=== PATIENT | female | born 1945 | race Caucasian/White ===

== ENCOUNTER 2019-12-17 15:43 | Outpatient (CLI) | payer MEDICARE, OTHER, SELFPAY ==
--- NOTE | ~2019-12-17 | CT_ITS ---
EXAMINATION: CT abdomen pelvis wo con DATE: 12/17/2019 16:06 INDICATION: Unilateral inguinal hernia without obstruction. Diverticulitis. TECHNIQUE: Computed tomography (CT) of the abdomen and pelvis was performed without intravenous contr ast. The dose-length product was 459.60 mGy-cm. Automated exposure control and iterative reconstructi on technique were employed. COMPARISON: CT dated 12/08/2019 FINDINGS: There is right middle lobe atelectasis. Cardiomegaly. There is atherosclerosis of the aorta . No thoracic lymphadenopathy. Near-complete resolution of sigmoid diverticulitis. Persistent right i nguinal hernia containing nonobstructed small bowel. Small fat-containing umbilical hernia. The liver, spleen, pancreas, adrenal glands and kidneys are un remarkable. Gallbladder is contracted. There is. 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 Moderate lumbar spondylosis. No free air or free fluid. IMPRESSION: 1. Right inguinal hernia containing nonobstructed small bowel. 2: Near complete resolution of sigmoid diverticulitis. Reviewed, dictated and finalized at location A. KEEPER
== END 2019-12-17 15:44 | disposition home or self-care (01) ==
PROVIDERS: PCP Emergency Medicine; Visit Provider Emergency Medicine
DX: K40.90 Unilateral inguinal hernia, without obstruction or gangrene, not specified as recurrent (principal)
CPT/HCPCS: 74176

== ENCOUNTER 2019-12-30 07:33 | Outpatient (CLI) | payer MEDICARE, OTHER, SELFPAY ==
[2019-12-30 08:43] LABS: Alanine Aminotransferase 25 U/L (4-35); Albumin Level 4.2 g/dL (3.5-5.1); Alkaline Phosphatase 58 U/L (38-126); Aspartate Amino Transferase 25 U/L (14-36); Bilirubin,Total 0.6 mg/dL (0.2-1.3); Blood Urea Nitrogen 9 mg/dL (7-17); Calcium 9.3 mg/dL (8.4-10.2); Carbon Dioxide 30 mmol/L (22-30); Chloride 98 mmol/L (98-107); Cholesterol 159 mg/dL (0-200); Estimated Glomerular Filt Rate > 60; Glucose 104 mg/dL (65-105); HDL Direct 61 mg/dL; Sodium 139 mmol/L (137-145); Triglycerides 66 mg/dL (<150)
[2019-12-30 08:54] LABS: LDL Cholesterol Direct 81 mg/dL
[2019-12-30 09:36] LABS: Vitamin D 25 Hydroxy 27.9 ng/mL
== END 2019-12-30 07:34 | disposition home or self-care (01) ==
PROVIDERS: PCP Emergency Medicine; Visit Provider Emergency Medicine
DX: E78.5 Hyperlipidemia, unspecified (principal); E55.9 Vitamin D deficiency, unspecified
CPT/HCPCS: 36415; 80053; 80061; 82306

== ENCOUNTER → 2020-01-28 08:39 | Outpatient (CLI) | payer MEDICARE, OTHER, SELFPAY ==
--- NOTE | ~2020-01-28 | MMUS_ITS ---
EXAMINATION: MM diagnostic santino LT w stephen, US breast LT limited HISTORY: Palpable lump of the inner left breast TECHNIQUE: Craniocaudal, mediolateral, and mediolateral oblique 3-D tomosynthesis images of the left breast were performed and synthetic 2-D images were generated. CAD analysis was submitted and interpr eted. High resolution and limited left breast ultrasound was performed. COMPARISON: No prior mammogram is currently available for comparison. BREAST PARENCHYMAL COMPOSITION: There are scattered areas of fibroglandular density. FINDINGS: MAMMOGRAPHIC FINDINGS: There is no evidence of suspicious mass, calcification, or architectural distortion to suggest malig nikkie. No mammographic correlate is identified for the reported palpable abnormality of the left paz ast. ULTRASOUND: There is no evidence of focal abnormal solid or cystic lesion in the vicinity of the reported palpabl e abnormality of concern. IMPRESSION: 1. No specific mammographic or sonographic correlate is identified for the reported palpable abnormal ity of concern. Further evaluation at this time should be based on clinical assessment. Continued fol low-up physical examination is recommended. 2. Recommend routine screening mammography. BI-RADS Category 1: Negative Reviewed, dictated and finalized at location A. IMPRESSION: 1. No specific mammographic or sonographic correlate is identified for the repo rted palpable abnormality of concern. Further evaluation at this time should be based on clinical assessment. Continued follow-up physical examination is amos mmended. 2. Recommend routine screening mammography. BI-RADS Category 1: Negative
== END ==
PROVIDERS: PCP Emergency Medicine; Visit Provider Obstetrics & Gynecology
DX: N63.20 Unspecified lump in the left breast, unspecified quadrant (principal); Z85.3 Personal history of malignant neoplasm of breast
CPT/HCPCS: 76642; 77061; 77065; G0279

== ENCOUNTER 2020-03-27 05:09 | Outpatient (CLI) | payer MEDICARE, OTHER, SELFPAY ==
[2020-03-27 15:31] LABS: SARS-CoV-2 RNA PCR Negative
== END 2020-03-27 05:10 | disposition home or self-care (01) ==
LOC: ANHCOVIDDT 05:10
PROVIDERS: PCP Emergency Medicine; Visit Provider Surgery
DX: Z01.818 Encounter for other preprocedural examination (principal); Z11.59 Encounter for screening for other viral diseases
CPT/HCPCS: 87635; C9803; U0003

== ENCOUNTER 2020-03-29 00:21 | Day surgery (SDC) | payer MEDICARE, OTHER, SELFPAY ==
[2020-01-20 13:31] VITALS: BMI 27.6
[2020-03-24 10:09] VITALS: BMI 28.3
--- NOTE | 2020-03-28 18:28 | PM.SD ---
Same Day Admit/Disch: HPI History of Present Illness Chief complaint: Right Inguinal Hernia Narrative: Maryellen Sandoval is a 74 year old female who has had a painful right inguinal bulge for at least [address] scan in November showed a right inguinal hernia with small intestine in the hernia but not obstructed. She is taken to surgery now for outpatient repair. [facility] Past Medical History Medical History Breast cancer COPD (chronic obstructive pulmonary disease) Depression Diverticulitis GERD (gastroesophageal reflux disease) HLD (hyperlipidemia) HTN (hypertension) URI with cough and congestion UTI (urinary tract infection) Surgical History Surgical History History of hysterectomy S/P lumpectomy, right breast Family History Family History Mother Family history of malignant neoplasm Family history of emphysema Family history of lung cancer Family history of chronic obstructive pulmonary disease Father Hypertension Family history of heart disease in male family member before age 55 Acute myocardial infarction Social History Social History Smoking status: Former smoker Smoking end date: 11/17/08 Alcohol intake: current Gender identity (if verbalized by the patient): Female Same Day Admit/Disch: Med Pre-admit Medications Home Medications Medication Instructions Recorded Confirmed Type albuterol sulfate 90 mcg/actuation 1 inhalation INHALATION Q6H PRN 11/23/19 03/24/20 History aerosol inhaler alprazolam 0.5 mg tablet 0.5 mg PO BID 11/23/19 03/24/20 History amlodipine 10 mg tablet 10 mg PO HS 11/23/19 03/24/20 History atorvastatin 40 mg tablet 40 mg PO DAILY 11/23/19 03/24/20 History bupropion HCl 150 mg tablet,12 hr 150 mg PO QAM 11/23/19 03/24/20 History sustained-release fluticasone propionate 115 2 puff INHALATION BID 11/23/19 03/24/20 History mcg-salmeterol 21 mcg/actuation HFA inhaler fluticasone propionate 50 1 spray NASAL BID 11/23/19 03/24/20 History mcg/actuation nasal spray,suspension inhalational spacing device #1 each 11/23/19 12/30/19 History lisinopril 20 mg tablet 20 mg PO DAILY 11/23/19 03/24/20 History Daily Multivitamin 1 cap PO DAILY 11/30/19 03/24/20 History Probiotic 1 cap PO BID 11/30/19 03/24/20 History Calcium 600 + D(3) 1 cap PO BID 01/20/20 03/24/20 History loratadine [Claritin] 10 mg PO DAILY 01/20/20 03/24/20 History omeprazole 40 mg capsule,delayed 40 mg PO DAILY #90 cap 03/22/20 03/24/20 Rx release aspirin 81 mg PO EVERY OTHER DAY 03/24/20 03/24/20 History hydrocodone-acetaminophen 1 - 2 tablet PO Q6H PRN #7 tablet 03/29/20 Rx ibuprofen 600 mg PO Q6H PRN #14 tablet 03/29/20 Rx Exam Const: General: comfortable, no acute distress, alert and awake HENMT: Head: normocephalic and atraumatic Mouth: Yes Normal oral and palatal mucosa present Eyes: Conjunctivae: conjunctivae normal Pupils: Equal, round and reactive pupils present EOM: EOMs intact bilaterally Neck: Neck: normal visual inspection, no lymphadenopathy and nontender Resp: Effort & Inspection: normal respiratory effort Auscultation: clear to auscultation bilaterally Cardio: Rate: regular rate Rhythm: regular rhythm Heart sounds: no gallops, no murmurs and no rubs GI: Inspection: non-distended and visible herniation (right inguinal bulge) GI Palp: Yes Soft to palpation, No Tenderness to palpation present (GI), No Hepatomegaly present, No Splenomegaly present and Yes Hernia present (tender but reducible right inguinal hernia) Auscultation: normal bowel sounds Skin: Lesions: no lesions Rashes: no rashes Neuro: General: no focal motor deficits and CN's II-XI intact bilaterally Cranial nerves: Yes Equal, round and reactive pupils present, Yes Bilater
--- NOTE | 2020-03-29 06:52 | WPDHPUPDATE1 ---
History and Physical Update Update Date/Time: 03/29/20 06:52 History and Physical has been reviewed, including an updated exam of the patient. There are NO changes in the patient's condition. Risks, benefits, and alternatives have been discussed and questions answered. Patient agrees to proceed with procedure.
[2020-03-29] MEDS: LACTATED RINGERS 1,000 ML 30 ML IV CONT ×2 (07:25→09:33)
[2020-03-29 07:46] VITALS: BP 130/68; PULSE 59; RESP 16; TEMP 36.6; O2SAT 100
--- NOTE | 2020-03-29 07:46 | WPDANESEPPF ---
Anes - Initial Pre Proc Eval Procedure: Operation Date: 03/29/20 09:00 Proposed Procedures p Right Inguinal Hernia Repair - Rajendra Ramirez MD Date/Time: 03/29/20 07:46 Surgeon: Rajendra Ramirez MD Pre Op Diagnosis: Right Inguinal Hernia Patient Data Age: 74 Gender: F Height: 5 ft 3 in Weight: 73.7 kg Allergies Allergy/AdvReac Type Severity Reaction Status Date / Time iodine Allergy Severe Swelling Verified 03/29/20 07:04 AND ITCHING shellfish derived Allergy Severe Itching Verified 03/29/20 07:04 AND SWELLING Sulfa (Sulfonamide Allergy Mild RASH Verified 03/29/20 07:04 Antibiotics) Home Medications Medication Instructions Recorded Confirmed Type albuterol sulfate 90 mcg/actuation 1 inhalation INHALATION Q6H PRN 11/23/19 03/24/20 History aerosol inhaler alprazolam 0.5 mg tablet 0.5 mg PO BID 11/23/19 03/24/20 History amlodipine 10 mg tablet 10 mg PO HS 11/23/19 03/24/20 History atorvastatin 40 mg tablet 40 mg PO DAILY 11/23/19 03/24/20 History bupropion HCl 150 mg tablet,12 hr 150 mg PO QAM 11/23/19 03/24/20 History sustained-release fluticasone propionate 115 2 puff INHALATION BID 11/23/19 03/24/20 History mcg-salmeterol 21 mcg/actuation HFA inhaler fluticasone propionate 50 1 spray NASAL BID 11/23/19 03/24/20 History mcg/actuation nasal spray,suspension inhalational spacing device #1 each 11/23/19 12/30/19 History lisinopril 20 mg tablet 20 mg PO DAILY 11/23/19 03/24/20 History Probiotic 1 cap PO BID 11/30/19 03/24/20 History [id number]-vit [id number] 1 cap PO DAILY 11/30/19 03/24/20 History [Daily Multivitamin] calcium carbonate-vitamin D3 1 cap PO BID 01/20/20 03/24/20 History [Calcium 600 + D(3)] loratadine [Claritin] 10 mg PO DAILY 01/20/20 03/24/20 History omeprazole 40 mg capsule,delayed 40 mg PO DAILY #90 cap 03/22/20 03/24/20 Rx release aspirin 81 mg PO EVERY OTHER DAY 03/24/20 03/24/20 History Patient hx anesthesia problems: other (prolonged forgetfulness) Family hx anesthesia problems: none PMFSH Past Medical History Medical History Breast cancer COPD (chronic obstructive pulmonary disease) Depression Diverticulitis GERD (gastroesophageal reflux disease) HLD (hyperlipidemia) HTN (hypertension) URI with cough and congestion UTI (urinary tract infection) Surgical History Surgical History History of hysterectomy S/P lumpectomy, right breast Family History Family History Mother Family history of malignant neoplasm Family history of emphysema Family history of lung cancer Family history of chronic obstructive pulmonary disease Father Hypertension Family history of heart disease in male family member before age 55 Acute myocardial infarction Social History Social History Smoking status: Former smoker Smoking end date: 11/17/08 Alcohol intake: current Gender identity (if verbalized by the patient): Female Anes - Eval Final PreProcedure Day of Procedure 03/29/20 07:46 Patient weight: overweight Heart: regular rate and rhythm Lungs: decreased breath sounds Airway: Mallampati scale class II Neurological: alert and oriented Last oral intake: >/= 8 hours ASA classification: III Emergent: no Anesthetic plan: proceed Anesthesia type and monitoring: general GIVS and standard monitoring Informed Consent: The patient's anesthetic plan and its attendant risks and benefits were discussed with the patient/family/POA. Questions were solicited and answers provided to the satisfaction of the patient/family/POA.
[2020-03-29] MEDS: ceFAZolin 2 GM/D5W 50 ML 2 GM/50 ML BAG IVPB (08:31)
[2020-03-29 09:33] VITALS: BP 118/84; PULSE 77; RESP 16; O2SAT 98
--- NOTE | 2020-03-29 09:47 | PM.PROC ---
Procedure Note - Detailed Date of procedure: 03/29/20 Pre-op diagnosis: Right Inguinal Hernia Right inguinal hernia Post-op diagnosis: same Procedure performed: Right inguinal hernia repair with 8 cm Parietex hernia mesh system Description of procedure: The patient was taken to surgery and placed in a supine position. The right groin and genitalia were prepped and draped. The proposed incision was marked on the skin. Local anesthesia was infiltrated in the area of the anticipated incision and in the deeper subcutaneous tissues. Incision was made and dissection was carried down to La's fascia. We continued on beyond La's fascia to the external oblique aponeurosis. Cautery was used for hemostasis. The aponeurosis and external ring were exposed. Additional local was infiltrated deep to the aponeurosis in the area of the inguinal canal contents. The external oblique aponeurosis was then opened laterally and extended medially through the external ring. Care was taken to preserve the ileoinguinal nerve which was left intact. I dissected in the anteromedial aspect of the round ligament and found the hernia sac. This was an indirect hernia. It was good-sized. I dissected it free from the round ligament and then dissected back to the internal ring. I had to divide the round ligament near the internal ring so that the hernia sac could be dissected back to a high dissection. I then dunked the hernia sac into the retroperitoneum. A 8 cm Parietex [place] was chosen and folded to form a plug. It was placed in the defect. The edges were sutured to the transversalis fascia with interrupted 3 0 Vicryl suture. I then cut the patch to the appropriate size and placed it over the inguinal canal floor. I then laid the ileoinguinal nerve and round ligament over the patch. The external oblique aponeurosis was closed with interrupted 3 0 Vicryl suture. La's fascia was closed with interrupted 3 0 Vicryl suture. The skin was closed with subcuticular interrupted 4 0 Vicryl sutures. The wound was dressed with Xeroform gauze fluffs and Medipore tape. The patient was awakened and taken to recovery in good condition. Sponge and needle counts were correct x2. Implants: 8 cm Parietex hernia mesh system Anesthesia: MAC and local (0.5% Marcaine with Exparel) Surgeon: Rajendra Ramirez MD Healthcare Market Consultant: Ava PRINCE Estimated blood loss (mL): 5 Drains: No Packing: No Pathology: none sent Complications: None Condition: stable Disposition: same day Findings: Indirect right inguinal hernia
[2020-03-29 10:03] VITALS: BP 129/59; PULSE 61; RESP 16
[2020-03-29 10:33] VITALS: BP 119/98; PULSE 62; RESP 16
== END 2020-03-29 11:35 | disposition home or self-care (01) ==
PROVIDERS: PCP Emergency Medicine; Visit Provider Surgery
PROC: (CPT 49505; principal; 2020-03-29 09:00)
DX: K40.90 Unilateral inguinal hernia, without obstruction or gangrene, not specified as recurrent (principal); I10 Essential (primary) hypertension; E78.5 Hyperlipidemia, unspecified; J44.9 Chronic obstructive pulmonary disease, unspecified; K21.9 Gastro-esophageal reflux disease without esophagitis; F32.9 Major depressive disorder, single episode, unspecified; Z85.3 Personal history of malignant neoplasm of breast; Z87.891 Personal history of nicotine dependence; Z79.82 Long term (current) use of aspirin
CPT/HCPCS: 49505; C1781; C9290; J0690; J2704; J3010; J7120

== ENCOUNTER 2020-05-22 07:46 | Outpatient (CLI) | payer MEDICARE, OTHER, SELFPAY ==
[2020-05-22 08:18] LABS: Glucose 94 mg/dL (65-105)
[2020-05-22 08:53] LABS: Hemoglobin A1C 5.6 % (<5.7)
== END 2020-05-22 07:47 | disposition home or self-care (01) ==
PROVIDERS: PCP Emergency Medicine
DX: R73.03 Prediabetes (principal)
CPT/HCPCS: 36415; 82947; 83036

== ENCOUNTER 2020-06-12 11:15 | Emergency (ER) | payer MEDICARE, OTHER, SELFPAY ==
--- NOTE | ~2020-06-12 | XR_ITS ---
EXAMINATION: XR chest 2V DATE: 06/12/2020 11:47 INDICATION: Left-sided chest pain TECHNIQUE: PA and lateral views of the chest are obtained. COMPARISON: 11/30/2019 FINDINGS: The lungs are free of acute opacities. There is no pleural effusion or pneumothorax. The ca rdiomediastinal silhouette is normal. There is mild thoracic spondylosis. There are unchanged lumbar compression fractures. IMPRESSION: 1. No acute cardiopulmonary abnormality. Reviewed, dictated and finalized at location B.
--- NOTE | 2020-06-12 11:35 | ED.URI ---
HPI - URI/Sore Throat General Chief Complaint: Upper Respiratory Infection Stated Complaint: SOB Time Seen by Provider: 06/12/20 11:38 Source: patient and RN notes reviewed Mode of arrival: ambulatory Limitations: no limitations History of Present Illness HPI Narrative: 74 year old female who presents to express care with complaints of left sided chest pain radiating to back since . Patient states that over the weekend her pain was worse but better today. She states that she has taken Ibuprofen which seems to help discomfort, denies any dyspnea. Patient does have history of COPD and pneumonia, last incidence of pneumonia in November of this year with stated discomfort to chest like she is having now. Patient did have surgery in March for hernia repair and saw ben day artist prior to surgery, denies any recent travel, takes aspirin 81mg every other day. She states that they had company last week and was pulling on air mattress but no other acute physical activity lately. MD elicited complaint: other Pertinent past history: pneumonia, COPD and seasonal allergies Onset (ago): day(s) Consistency: improved Severity: mild Pain scale (0-10): 3 Description of mucous: clear Able to tolerate fluids by mouth: Yes Exacerbating factors: deep breaths Relieving factors: NSAID Context: other (pulling on mattress) Associated symptoms: myalgias and other (pain with deep inspiration) Treatments prior to arrival: ibuprofen Related Data Home Medications Medication Instructions Recorded Confirmed albuterol sulfate 90 mcg/actuation 1 inhalation INHALATION Q6H PRN 11/23/19 06/12/20 aerosol inhaler alprazolam 0.5 mg tablet 0.5 mg PO BID 11/23/19 06/12/20 amlodipine 10 mg tablet 10 mg PO HS 11/23/19 06/12/20 atorvastatin 40 mg tablet 40 mg PO DAILY 11/23/19 06/12/20 bupropion HCl 150 mg tablet,12 hr 150 mg PO QAM 11/23/19 06/12/20 sustained-release fluticasone propionate 115 2 puff INHALATION BID 11/23/19 06/12/20 mcg-salmeterol 21 mcg/actuation HFA inhaler fluticasone propionate 50 1 spray NASAL BID 11/23/19 06/12/20 mcg/actuation nasal spray,suspension inhalational spacing device #1 each 01/07/20 06/08/20 lisinopril 20 mg tablet 20 mg PO DAILY 11/23/19 06/12/20 Daily Multivitamin 1 cap PO DAILY 11/30/19 06/12/20 Probiotic 1 cap PO BID 11/30/19 04/24/20 Calcium 600 + D(3) 1 cap PO BID 01/20/20 06/12/20 loratadine [Claritin] 10 mg PO DAILY 01/20/20 06/12/20 aspirin 81 mg PO EVERY OTHER DAY 03/24/20 06/12/20 Allergies Allergy/AdvReac Type Severity Reaction Status Date / Time iodine Allergy Severe Swelling Verified 04/24/20 09:15 AND ITCHING shellfish derived Allergy Severe Itching Verified 04/24/20 09:15 AND SWELLING Sulfa (Sulfonamide Allergy Mild RASH Verified 04/24/20 09:15 Antibiotics) Review of Systems Review of Systems: Narrative: CONSTITUTIONAL: Denies fever, chills, or sweats. EYES: Denies visual changes, redness, or discharge. ENT: Denies rhinorrhea, congestion, sore throat, or otalgia. CARDIOVASCULAR: left chest pain to lateral chest and into back, denies any palpitations, or edema. RESPIRATORY: Denies acute cough or changes in breathing GASTROINTESTINAL: Denies abdominal pain, nausea, vomiting, or diarrhea. GENITOURINARY: Denies dysuria or hematuria. SKIN: Denies rash or itching. MUSCULOSKELETAL: left back pain, joint pain, or myalgia. NEUROLOGIC: Denies headache, numbness, or weakness. PSYCHIATRIC: Denies anxiety or depression. All systems reviewed & are unremarkable except as noted in HPI and below PMFSH Past Medical History Medical History Breast cancer COPD (chronic obstructive pulmonary disease) Depression Diverticulitis GERD (gastroesophageal reflux disease) HLD (hyperlipidemia) HTN (hypertension) URI with cough and congestion UTI (urinary tract infection) Surgical History Surgical History (Reviewed 06/12/20 @ 11:39 by Ginger Fowler
[2020-06-12 11:36] VITALS: BP 146/68; PULSE 64; RESP 20; TEMP 36.6; O2SAT 98
== END 2020-06-12 12:34 | disposition home or self-care (01) ==
PROVIDERS: Emergency Provider Registered Nurse; PCP Emergency Medicine
DX: M94.0 Chondrocostal junction syndrome [Tietze] (principal); Z87.891 Personal history of nicotine dependence; J44.9 Chronic obstructive pulmonary disease, unspecified; F32.9 Major depressive disorder, single episode, unspecified; K21.9 Gastro-esophageal reflux disease without esophagitis; E78.5 Hyperlipidemia, unspecified; I10 Essential (primary) hypertension; Z85.3 Personal history of malignant neoplasm of breast
CPT/HCPCS: 71046; 99213; G0463

== ENCOUNTER 2020-07-12 07:50 | Outpatient (CLI) | payer MEDICARE, OTHER, SELFPAY ==
[2020-07-12 08:27] LABS: Alanine Aminotransferase 23 U/L (4-35); Albumin Level 4.2 g/dL (3.5-5.1); Alkaline Phosphatase 60 U/L (38-126); Anion Gap 5 mmol/L (8-16); Aspartate Amino Transferase 26 U/L (14-36); Bilirubin,Total 0.7 mg/dL (0.2-1.3); Blood Urea Nitrogen 9 mg/dL (7-17); Carbon Dioxide 29 mmol/L (22-30); Chloride 102 mmol/L (98-107); Cholesterol 174 mg/dL (0-200); Estimated Glomerular Filt Rate > 60; Glucose 103 mg/dL (65-105); HDL Direct 98 mg/dL; Potassium 4.1 mmol/L (3.4-5.0); Sodium 136 mmol/L (137-145); Triglycerides 50 mg/dL (<150)
[2020-07-12 08:38] LABS: LDL Cholesterol Direct 62 mg/dL
== END 2020-07-12 07:51 | disposition home or self-care (01) ==
LOC: ANHLAB 07:55
PROVIDERS: PCP Emergency Medicine; Visit Provider Emergency Medicine
DX: E78.5 Hyperlipidemia, unspecified (principal)
CPT/HCPCS: 36415; 80053; 80061

== ENCOUNTER → 2020-12-08 15:00 | Outpatient (CLI) | payer MEDICARE, OTHER, SELFPAY ==
--- NOTE | ~2020-12-08 | MM_ITS ---
EXAMINATION: MM screening [facility] BI w stephen HISTORY: Screening mammogram, history of right breast cancer. TECHNIQUE: Craniocaudal and mediolateral oblique 3-D tomosynthesis images were obtained and synthetic 2-D images were generated. CAD analysis was submitted and interpreted. COMPARISON: 01/28/2020 BREAST PARENCHYMAL COMPOSITION: There are scattered areas of fibroglandular density. FINDINGS: Architectural distortion is present in the upper outer quadrant of the right breast at the site of prior lumpectomy. There is no evidence of suspicious mass, calcification, or architectural di stortion to suggest malignancy in either breast. There has been no suspicious interval change. IMPRESSION: 1. No mammographic evidence of malignancy. 2. Recommend routine screening mammography in one year. BI-RADS Category 2: Benign finding(s). Reviewed, dictated and finalized at location A. MS ATTORNEY
== END ==
PROVIDERS: PCP Emergency Medicine; Visit Provider Obstetrics & Gynecology
DX: Z12.31 Encounter for screening mammogram for malignant neoplasm of breast (principal)
CPT/HCPCS: 77063; 77067

== ENCOUNTER 2021-01-04 07:53 | Outpatient (CLI) | payer MEDICARE, OTHER, SELFPAY ==
[2021-01-04 08:21] LABS: Alanine Aminotransferase 28 U/L (4-35); Albumin Level 4.2 g/dL (3.5-5.1); Alkaline Phosphatase 55 U/L (38-126); Anion Gap 3 mmol/L (8-16); Aspartate Amino Transferase 28 U/L (14-36); Bilirubin,Total 0.8 mg/dL (0.2-1.3); Blood Urea Nitrogen 10 mg/dL (7-17); Carbon Dioxide 31 mmol/L (22-30); Chloride 103 mmol/L (98-107); Cholesterol 186 mg/dL (0-200); Estimated Glomerular Filt Rate > 60; Glucose 117 mg/dL (65-105); HDL Direct 105 mg/dL; Potassium 3.8 mmol/L (3.4-5.0); Sodium 137 mmol/L (137-145); Triglycerides 97 mg/dL (<150)
[2021-01-04 08:32] LABS: LDL Cholesterol Direct 65 mg/dL
== END 2021-01-04 07:54 | disposition home or self-care (01) ==
PROVIDERS: PCP Emergency Medicine; Visit Provider Emergency Medicine
DX: E78.5 Hyperlipidemia, unspecified (principal)
CPT/HCPCS: 36415; 80053; 80061

== ENCOUNTER 2021-01-12 10:11 | Outpatient (CLI) | payer MEDICARE, OTHER, SELFPAY ==
[2021-01-12 11:29] LABS: Hemoglobin A1C 5.1 % (<5.7)
== END 2021-01-12 10:12 | disposition home or self-care (01) ==
PROVIDERS: PCP Emergency Medicine; Visit Provider Emergency Medicine
DX: R73.09 Other abnormal glucose (principal)
CPT/HCPCS: 36415; 83036

== ENCOUNTER 2021-01-18 10:10 | Outpatient (CLI) | payer MEDICARE, OTHER, SELFPAY ==
--- NOTE | ~2021-01-18 | DEXA_ITS ---
Bone Density Report Name: Maryellen Sandoval Age: 75 Sex: Female Ethnicity: White Date of : 1945 Indication: postmenopausal; height loss; inflammatory bowel disease; cancer; asthma or emphysema; hysterectomy; Referring Provider: ALFREDO OG Study: Bone densitometry was performed. Exam Date: January 18, 2021 Accession number: [id number] Bone Density: Region BMD T-score Z-score Classification AP Spine (L1, L2) 1.101 1.1 3.3 Normal Femoral Neck (Left) 0.830 -0.2 1.8 Normal Total Hip (Left) 0.943 0.0 1.7 Normal Total Hip Bilateral Avg 0.950 0.1 1.8 Normal Femoral Neck (Right) 0.793 -0.5 1.5 Normal Total Hip (Right) 0.955 0.1 1.8 Normal World Health Organization criteria for BMD impression classify patients as: Normal (T-score at or above -1.0), Osteopenia (T-score between -1.0 and -2.5), or Osteoporosis (T-score at or below -2.5). 10-year Fracture Risk: FRAX not reported because: All T-scores for Spine Total, Hip Total, Femoral Neck at or above -1.0 Previous Exams: Region Exam Age BMD T-score BMD Change BMD Change Date g/cm2 vs Baseline vs Previous AP Spine(L1, L2) 01/18/2021 75 1.101 1.1 0.118(12.1%)* 0.118(12.1%)* 05/22/2017 71 0.982 0.0 Total Hip(Left) 01/18/2021 75 0.943 0.0 -0.059(-5.9%)* -0.059(-5.9%)* 05/22/2017 71 1.003 0.5 Total Hip(Right) 01/18/2021 75 0.955 0.1 -0.078(-7.5%)* -0.078(-7.5%)* 05/22/2017 71 1.033 0.7 *Denotes significance at 95% confidence level, LSC for AP Spine = 0.022 g/cm2, LSC for Total Hip = 0.027 g/cm2 Clinical Information Provided by Patient: Has used the following medications: Vitamin D, Calcium Has the following medical conditions: Asthma or Emphysema, Cancer, Inflammatory bowel diseases, Hysterectomy Patient maximum height was 64 Menopause Age: 47 No regular weight bearing exercise Drinks caffeinated beverages Onset of menses at age 15 Number of children 3 Impression: The patient has normal bone mass. The BMD for the Total Hip(Left) decreased, changing by -5.9% since the last DXA exam. The BMD for the Total Hip(Right) decreased, changing by -7.5% since the last DXA exam. Discussion: BONE DENSITY IS ABOVE THE MINIMUM DESIRABLE LEVEL AT ALL SKELETAL SITES TESTED. This patient?s bone mineral density is above the minimum desirable level (T-score -1.0 or better) at all sites measured. The patient should follow a healthful lifestyle (good nutrition with adequate calcium and vitamin
== END 2021-01-18 10:11 | disposition home or self-care (01) ==
PROVIDERS: PCP Emergency Medicine; Visit Provider Obstetrics & Gynecology
DX: Z78.0 Asymptomatic menopausal state (principal)
CPT/HCPCS: 77080

== ENCOUNTER 2021-07-02 07:57 | Outpatient (CLI) | payer MEDICARE, OTHER, SELFPAY ==
[2021-07-02 09:22] LABS: LDL Cholesterol Direct 58 mg/dL
[2021-07-02 09:24] LABS: Alanine Aminotransferase 23 U/L (4-35); Albumin Level 4.4 g/dL (3.5-5.1); Alkaline Phosphatase 66 U/L (38-126); Anion Gap 3 mmol/L (8-16); Aspartate Amino Transferase 29 U/L (14-36); Bilirubin,Total 0.8 mg/dL (0.2-1.3); Blood Urea Nitrogen 9 mg/dL (7-17); Calcium 8.9 mg/dL (8.4-10.2); Carbon Dioxide 29 mmol/L (22-30); Chloride 102 mmol/L (98-107); Cholesterol 179 mg/dL (0-200); Estimated Glomerular Filt Rate > 60; Glucose 99 mg/dL (65-110); Sodium 134 mmol/L (137-145); Triglycerides 58 mg/dL (<150)
[2021-07-02 09:25] LABS: HDL Direct 103 mg/dL
== END 2021-07-02 07:58 | disposition home or self-care (01) ==
LOC: ANHLAB 08:01
PROVIDERS: PCP Emergency Medicine; Visit Provider Emergency Medicine
DX: E78.5 Hyperlipidemia, unspecified (principal)
CPT/HCPCS: 36415; 80053; 80061

== ENCOUNTER → 2021-12-15 09:58 | Outpatient (CLI) | payer MEDICARE, OTHER, SELFPAY ==
--- NOTE | ~2021-12-15 | MM_ITS ---
EXAMINATION: MM screening [facility] BI w stephen HISTORY: Screening mammogram TECHNIQUE: Craniocaudal and mediolateral oblique 3-D tomosynthesis images were obtained and synthetic 2-D images were generated. CAD analysis was submitted and interpreted. COMPARISON: 12/08/2020 bilateral screening mammogram 01/28/2020 diagnostic left mammogram and limited left breast ultrasound examination BREAST PARENCHYMAL COMPOSITION: There are scattered areas of fibroglandular density. FINDINGS: Stable scarring and retraction in the upper outer quadrant of the right breast secondary to history of right partial mastectomy for breast cancer. There is no evidence of suspicious mass, calc ification, or new architectural distortion to suggest malignancy in either breast. There has been no suspicious interval change. IMPRESSION: 1. Status post right partial mastectomy for breast cancer. No mammographic evidence of malignancy. 2. Recommend routine screening mammography in one year. BI-RADS Category 2: Benign finding(s). Reviewed, dictated and finalized at location A. STANT CLINICAL NURSE MANAGER IMPRESSION: 1. Status post right partial mastectomy for breast cancer. No mammographic evid ence of malignancy. 2. Recommend routine screening mammography in one year. BI-RADS Category 2: Benign finding(s).
== END ==
PROVIDERS: PCP Emergency Medicine; Visit Provider Obstetrics & Gynecology
DX: Z12.31 Encounter for screening mammogram for malignant neoplasm of breast (principal)
CPT/HCPCS: 77063; 77067

== ENCOUNTER 2022-01-08 13:34 | Outpatient (CLI) | payer MEDICARE, OTHER, SELFPAY ==
--- NOTE | ~2022-01-08 | CT_ITS ---
EXAMINATION: CT LE RT wo con DATE: 01/08/2022 13:56 INDICATION: Unilateral primary osteoarthritis of the right knee. TECHNIQUE: High resolution computed tomography (CT) of the right lower limb from the hip through the foot was performed without intravenous contrast. Additional sagittal and coronal reconstructions were performed. Automated exposure control and iterative reconstruction technique were employed. The dose -length product was 1753.37 mGy-cm. COMPARISON: Right knee radiographs dated 01/02/2022 FINDINGS: Bone alignment is normal throughout the right lower limb. No fracture. There are multiple small lucen t lesions in the metaphyseal regions of the distal femur and proximal tibia post couple of which demo nstrates some endosteal scalloping. This could be related to spotty osteopenia but differential also includes multiple myeloma. Tricompartmental osteoarthritis at the right knee with small marginal oste ophytes at the patella and lateral tibial plateau. The severe joint space narrowing the medial and la teral compartments evident on the prior radiographs is not appreciated in the current study likely du e to the absence of weightbearing. Small right knee joint effusion. There is also a small Bustamante's cys t. Additional polyarticular osteoarthritis the right lower limb, moderate severity at the second and third tarsal metatarsal joints and mild at the right hip, ankle and many of the remaining joints in t he right foot. Several diverticula along the visualized sigmoid colon without adjacent inflammatory c hange to suggest diverticulitis. Bladder is normal. The uterus is not identified and has likely been surgically resected. No pathologically enlarged lymphadenopathy in the right internal region or right hemipelvis. IMPRESSION: 1. Tricompartmental osteoarthritis, severe in the medial lateral compartments with severity of the alexis int space narrowing better appreciated on the prior weightbearing imaging. Line 2. Multiple lucent lesions in the metaphyseal regions of the distal femur and proximal tibia, couple with endosteal scalloping. This could be due to spotty osteopenia but the endosteal scalloping also r aises concern for multiple myeloma. 3. Small right knee joint effusion and small Bustamante's cyst. 4. Additional polyarticular osteoarthritis, moderate at the second and third tarsal metatarsal joints and mild at the right hip and multiple additional joints in the right foot and ankle. Reviewed, dictated and finalized at location A. [facility] ST[facility]ER IMPRESSION: 1. Tricompartmental osteoarthritis, severe in the medial lateral compartments w ith severity of the joint space narrowing better appreciated on the prior weigh tbearing imaging. Line 2. Multiple lucent lesions in the metaphyseal regions of the distal femur and p roximal tibia, couple with endosteal scalloping. This could be due to spotty os teopenia but the endosteal scalloping also raises concern for multiple myeloma. 3. Small right knee joint effusion and small Bustamante's cyst. 4. Additional polyarticular osteoarthritis, moderate at the second and third ta rsal metatarsal joints and mild at the right hip and multiple additional joints in the right foot and ankle.
== END 2022-01-08 13:35 | disposition home or self-care (01) ==
LOC: ANHIMG 13:36
PROVIDERS: PCP Emergency Medicine; Visit Provider Orthopaedic Surgery
DX: M17.11 Unilateral primary osteoarthritis, right knee (principal)
CPT/HCPCS: 73700

== ENCOUNTER 2022-01-09 08:34 | Outpatient (CLI) | payer MEDICARE, OTHER, SELFPAY ==
[2022-01-09 09:45] LABS: Hematocrit 38.8 % (37.0-47.0); Hemoglobin 13.2 g/dL (12.0-15.0)
[2022-01-09 09:57] LABS: Hemoglobin A1C 5.4 % (<5.7)
[2022-01-09 10:02] LABS: Alanine Aminotransferase 29 U/L (4-35); Albumin Level 4.6 g/dL (3.5-5.1); Alkaline Phosphatase 59 U/L (38-126); Anion Gap 7 mmol/L (8-16); Aspartate Amino Transferase 32 U/L (14-36); Bilirubin,Total 0.6 mg/dL (0.2-1.3); Blood Urea Nitrogen 9 mg/dL (7-17); Calcium 8.8 mg/dL (8.4-10.2); Carbon Dioxide 27 mmol/L (22-30); Chloride 105 mmol/L (98-107); Cholesterol 181 mg/dL (0-200); Estimated Glomerular Filt Rate > 60; Glucose 84 mg/dL (65-110); HDL Direct 93 mg/dL; Potassium 3.8 mmol/L (3.4-5.0); Sodium 139 mmol/L (137-145); Triglycerides 106 mg/dL (<150)
[2022-01-09 10:06] LABS: Albumin Level 4.6 g/dL (3.5-5.1); Estimated Glomerular Filt Rate > 60; Glucose 83 mg/dL (65-110)
[2022-01-09 10:13] LABS: LDL Cholesterol Direct 67 mg/dL
== END 2022-01-09 08:35 | disposition home or self-care (01) ==
PROVIDERS: PCP Emergency Medicine; Referring Provider Orthopaedic Surgery; Visit Provider Emergency Medicine
DX: M17.11 Unilateral primary osteoarthritis, right knee (principal); E78.5 Hyperlipidemia, unspecified; Z01.818 Encounter for other preprocedural examination; R73.9 Hyperglycemia, unspecified; J44.9 Chronic obstructive pulmonary disease, unspecified; I10 Essential (primary) hypertension
CPT/HCPCS: 80053; 80061; 82040; 82565; 82947; 83036; 85014; 85018

== ENCOUNTER 2022-02-18 08:02 | Outpatient (CLI) | payer MEDICARE, OTHER, SELFPAY ==
[2022-02-18 09:59] LABS: Basophils Absolute Auto 0.1 K/mm3 (0.0-0.1); Basophils Percent Auto 0.6 % (0.2-1.2); Eosinophils Absolute Auto 0.1 K/mm3 (0-0.3); Hematocrit 39.2 % (37.0-47.0); Hemoglobin 13.1 g/dL (12.0-15.0); Immature Granulocyte Absolute 0.03 K/mm3 (0.00-0.031); Immature Granulocyte Percent A 0.3 % (0-0.5); Lymphocytes Absolute Auto 1.91 K/mm3 (0.9-3.2); Lymphocytes Percent Auto 19.2 % (18.3-44.2); Mean Corpuscular HGB Conc 33.4 g/dl (32-36); Mean Corpuscular Hemoglobin 32.5 pg (26-34); Mean Corpuscular Volume 97.3 fl (80-100); Mean Platelet Volume 10.3 fl (7.4-10.4); Monocytes Absolute Auto 0.9 K/mm3 (0.1-0.6); Monocytes Percent Auto 9.1 % (2.6-8.5); Neutrophils Absolute Auto 6.9 K/mm3 (1.3-6.7); Neutrophils Percent Auto 69.8 % (45.5-73.1); Platelet Count Result 280 k/mm3 (150-375); Red Blood Count 4.03 M/mm3 (4.2-5.4); Red Cell Distribution Width 13.8 % (11.5-14.5)
[2022-02-18 10:01] LABS: Albumin Level 4.4 g/dL (3.5-5.1); Estimated Glomerular Filt Rate > 60; Glucose 94 mg/dL (65-110)
[2022-02-18 10:36] LABS: Urine Cotinine NEGATIVE
== END 2022-02-18 08:03 | disposition home or self-care (01) ==
LOC: ANHSURGERY 08:06
PROVIDERS: PCP Emergency Medicine; Visit Provider Orthopaedic Surgery
DX: M17.11 Unilateral primary osteoarthritis, right knee (principal); Z01.818 Encounter for other preprocedural examination
CPT/HCPCS: 80307; 82040; 82565; 82947; 85025; 87081

== ENCOUNTER 2022-03-19 00:02 | Day surgery (SDC) | payer MEDICARE, OTHER, SELFPAY ==
[2022-02-18 08:14] VITALS: BMI 28.2
--- NOTE | 2022-02-18 08:42 | PC.NURSE ---
Report to the Outpatient Waiting Room, entrance under the green pavilion located off [facility], at time _0600 on date __03/19/22 . OR Time: . - You and your visitor will be asked a series of questions to screen for COVID 19 for your protection. - A mask is required within the hospital. Preoperative COVID Testing Requirements: No COVID Test needed if: (proof is required; if not received patient will have Rapid Test prior to entry) - Patient has received COVID Vaccine at least 14 days prior to procedure date or - Patient has positive COVID test result within last 90 days of surgery date. COVID Test needed if above criteria is not met If not COVID vaccinated a COVID test must be conducted within 72 hours of surgery and patient is asked to isolate self from time of testing until procedure. You will go to the [facility] for your COVID testing. The [facility] site is located at the corner of [address] [facility]. You will only be called if COVID results are positive and your surgeon may reschedule your elective surgery date. Patients may have clear liquids (water, carbonated beverages, clear teas, apple juice) until 3 hours prior to surgery with a maximum of 20 ounces. - No food from midnight until time of surgery - Infants may have breast milk until 4 hours before surgery, formula 6 hours prior to surgery. - Children will be allowed to drink immediately following surgery. If applicable, please bring a bottle or sippy cup to assist with drinking. Juice, water, soda, and popsicles are readily available. For infants on formula, please bring formula the day of surgery. Pacifiers are allowed. Take the following medications with a SIP of water the morning of surgery: __INHALERS,ALPRAZOLAM,BUPROPION Medications to discontinue per physician __ASPIRIN 7 DAYS PRE OP PER DR APONTE. ALL VITAMINS AND SUPPLEMENTS 3 DAYS PRE OP Date to take last dose_ASPIRIN 03/11, ALL VITAMINS 03/15 Please no make-up, nail syriac, hairspray, perfume, deodorant, or body powder the day of surgery. No jewelry (including any body piercings) or valuables the day of surgery, leave them at home. Please take a shower or bath the night before, or the morning of, surgery with an antibacterial soap. Wear comfortable, loose fitting clothing. Children are encouraged to wear pajamas. - Jewelry must be removed prior to entering the operating room. Rings and piercings that are not removed may be cut off. - The hospital will not accept responsibility for valuables. - Please leave all valuables, including medications, at home the day of surgery. TOTAL JOINT CLASS 03/06/22 AT 10 AM If you are going home after surgery, a licensed skip load driver must drive you home. - NO public transportation without another adult. - We recommend that an adult stay with you for 24 hours following discharge. - We also recommend that you do not drive, make important decision, drink alcoholic beverages, or take any drugs that were not prescribed by your health care provider for at least 24 hours after your discharge time. For Pediatric surgeries, we recommend two adults accompany the child home (only one inside the building at this time). One visitor will be allowed to accompany the patient into the hospital. Patients visitor will be instructed to remain with patient at all times or leave the building. We will allow the visitor to come back to the postoperative area when patient is ready. Follow any additional instructions given to you from your surgeon. VERBAL AND WRITTEN instructions given to ___PATIENT and asked if any additional questions and then verbalized understanding. Patient advised to call surgeon office or pre surgery nurse liaison [phone] if any additional questions.
[2022-02-18 08:54] VITALS: BP 119/64; PULSE 62; RESP 18; TEMP 36.8; O2SAT 98
[2022-03-19] VITALS (14 sets, daily range): BP systolic 115–150; BP diastolic 50–77; PULSE 59–79; RESP 14–18; TEMP 35.8–36.9; O2SAT 93–100; BMI 28.1
--- NOTE | ~2022-03-19 | XR_ITS ---
EXAMINATION: XR knee RT 2V DATE: 03/19/2022 09:43 INDICATION: Postoperative evaluation following right total knee arthroplasty. TECHNIQUE: Anteroposterior and lateral views of the right knee were obtained. COMPARISON: None. FINDINGS: Right total knee arthroplasty without patellar resurfacing appears well seated and in near anatomic a lignment. No fractures identified. Expected postoperative subcutaneous, intramedullary and intra-art icular gas. Atherosclerotic calcific a cyst along the right femoral and popliteal arteries. IMPRESSION: 1. Right total knee arthroplasty, negative for postoperative purposes. Reviewed, dictated and finalized at location A.
--- NOTE | 2022-03-19 06:49 | WPDANESEPPF ---
Anes - Initial Pre Proc Eval Procedure: Operation Date: 03/19/22 07:30 Proposed Procedures p Right Custom Total Knee Arthroplasty - Epifanio Denny MD Date/Time: 03/19/22 06:49 Surgeon: Epifanio Denny MD Pre Op Diagnosis: primary OA right knee Patient Data Age: 76 Gender: F Height: 1.6 m Weight: 72.2 kg Last Vital Signs Temp 36.8 C 02/18/22 08:54 Pulse 62 02/18/22 08:54 Resp 18 02/18/22 08:54 BP 119/64 02/18/22 08:54 Pulse Ox 98 02/18/22 08:54 Allergies Allergy/AdvReac Type Severity Reaction Status Date / Time iodine Allergy Severe Swelling Verified 03/19/22 06:49 AND ITCHING shellfish derived Allergy Severe Itching Verified 03/19/22 06:49 AND SWELLING Sulfa (Sulfonamide Allergy Mild RASH Verified 03/19/22 06:49 Antibiotics) Home Medications Medication Instructions Recorded Confirmed Type amlodipine 10 mg tablet 10 mg PO HS 11/23/19 03/19/22 History atorvastatin 40 mg tablet 40 mg PO QPM 11/23/19 03/19/22 History bupropion HCl 150 mg tablet,12 hr 150 mg PO QAM 11/23/19 03/19/22 History sustained-release lisinopril 20 mg tablet 20 mg PO DAILY 11/23/19 03/19/22 History Daily Multivitamin 1 cap PO DAILY 11/30/19 03/19/22 History Probiotic 1 cap PO BID 11/30/19 03/19/22 History Calcium 600 + D(3) 1 cap PO DAILY 01/20/20 03/19/22 History loratadine [Claritin] 10 mg PO DAILY 01/20/20 03/19/22 History aspirin 81 mg PO EVERY OTHER DAY 03/24/20 03/19/22 History albuterol sulfate 90 mcg/actuation 2 puff INHALATION Q4-6H PRN #34 gm 08/22/20 03/19/22 Rx aerosol inhaler fluticasone propionate 115 See Rx Instructions .ROUTE 11/30/21 03/19/22 Rx mcg-salmeterol 21 mcg/actuation .COMPLEX #36 gram HFA inhaler cholecalciferol (vitamin D3) 50 50 mcg PO DAILY #90 cap 01/11/22 03/19/22 Rx mcg (2,000 unit) capsule inhalational spacing device #1 each 01/11/22 02/18/22 Rx fluticasone propionate 2 spray NASAL BID 02/18/22 03/19/22 History trolamine salicylate [Aspercreme] 1 applic TOPICAL QID PRN 02/18/22 03/19/22 History alprazolam 0.5 mg tablet 0.5 mg PO BID PRN #30 tablet 02/20/22 Rx omeprazole 40 mg capsule,delayed See Rx Instructions .ROUTE 02/25/22 Rx release .COMPLEX #90 cap Patient hx anesthesia problems: none Family hx anesthesia problems: none Results Review: All pre-operative results and documents have been reviewed as part of the pre-operative evaluation. [facility] Past Medical History Medical History Breast cancer Bronchitis COPD (chronic obstructive pulmonary disease) Depression Diverticulitis Dyspnea GERD (gastroesophageal reflux disease) HLD (hyperlipidemia) HTN (hypertension) Mitral valve prolapse URI with cough and congestion UTI (urinary tract infection) Surgical History Surgical History History of hysterectomy History of inguinal hernia repair with 8 cm Parietex hernia mesh system 03/29/20 S/P lumpectomy, right breast Family History Family History Mother Family history of malignant neoplasm Family history of emphysema Family history of lung cancer Family history of chronic obstructive pulmonary disease Father Hypertension Family history of heart disease in male family member before age 55 Acute myocardial infarction Social History Social History Smoking packs per day: 1 Smoking cigarettes per day: 20.0 Years smoked: 30 Smoking pack-years: 30.00 Smoking status: Former smoker Tobacco type: cigarettes Smoking end date: 11/17/08 Additional smoking assessment comments: DENIES ANY FORM OF TOBACCO USE Alcohol intake: current Drinks per week: 14 Living arrangements: with family Gender identity (if verbalized by the patient): Female Spiritual care concerns: No An
--- NOTE | 2022-03-19 06:53 | WPDANESPNB ---
Anes - Peripheral Nerve Block Date/Time: 03/19/22 06:53 I have discussed with the patient/family/POA the placement of a peripheral nerve block for post-operative pain management, including associated risks, benefits, complications, and side effects. Alternative methods of post-operative analgesia were detailed. Questions were solicited and answers provided to the satisfaction of the patient/family/POA. Time-Out: A pre-procedural Time-Out was completed immediately before starting the procedure and confirmed: Patient Identification, Site, Procedure, Patient Position and the Availability of Requisite Equipment. Clinical Indications: Acute post-operative pain management requested by the operative surgeon. Nerve Block Insertion Note Anes-nerve block: adductor canal right Patient position: supine Skin prep: chlorhexidine Needle: 22 gauge, stimulating, insulated echogenic needle. Needle length: 80 mm Technique: ultrasound Injectate: bupivacaine 0.5% with epi 5 mcg/ml (30cc - no epi) Observations: tolerated well Complications: none Procedure start time:: 716 Procedure end time:: 720
[2022-03-19] MEDS: LACTATED RINGERS 1,000 ML 30 ML IV CONT ×2 (07:10→09:35)
[2022-03-19] MEDS: ACETAMINOPHEN 500 MG TABLET 1000 MG PO (07:12)
[2022-03-19] MEDS: TRANEXAMIC ACID 1,000MG/ISO100 1,000 MG/100 ML BAG 200 MG IVPB (07:15)
--- NOTE | 2022-03-19 07:23 | WPDHPUPDATE1 ---
History and Physical Update Update Date/Time: 03/19/22 07:23 History and Physical has been reviewed, including an updated exam of the patient. There are NO changes in the patient's condition. Risks, benefits, and alternatives have been discussed and questions answered. Patient agrees to proceed with procedure.
[2022-03-19] MEDS: ceFAZolin 2 GM/D5W 50 ML 2 GM/50 ML BAG IVPB ×3 (07:31→22:59)
[2022-03-19] MEDS: fentaNYL CITRATE INJ (*CRX) 100 MCG/2 ML VIAL 25 MCG IV PUSH ×3 (10:01→10:18)
--- NOTE | 2022-03-19 10:32 | PC.NURSE ---
This patient, Maryellen Sandoval, was admitted to 2 Medical Room 255-01. Patient/family oriented to hospital policies and general routines including ID bracelet, bed and alarms, visiting hours, pain management, procedures, bathroom and other care routines, personal items, smoking policy, room service/diet, and visiting hours. Information on how to activate the Rapid Response Team has been discussed. Patient/Family are encouraged to report perceived risks to care and to ask questions if they do not understand what they are told or what they should do.
[2022-03-19] MEDS: lisinopriL 20 MG TABLET PO (11:12)
[2022-03-19] MEDS: SODIUM CHLORIDE 0.9% IV 1,000 ML 125 ML IV CONT (11:13)
[2022-03-19] MEDS: oxyCODONE HCL (*CRX) 5 MG TAB IR PO ×2 (12:57→17:05)
--- NOTE | 2022-03-19 16:14 | P.OP_ITS ---
Procedure Note - Detailed Date of Procedure 03/19/22 Pre-op Diagnosis primary OA right knee Post-op Diagnosis Same Procedure Performed Total knee arthroplasty, right. Surgeon Epifanio Denny MD Industrial Engineering Intern Melanie Cody PA-C Anesthesia General and Regional (Subsartorial block.) Findings Valgus knee. Excellent bone quality. No releases required. Description of Procedure Preoperative antibiotics were given. The limb was prepped and draped in the usual sterile fashion with a well-padded tourniquet high on the thigh. The limb was exsanguinated and the tourniquet inflated to 300 mmHg. A longitudinal incision was created just medial to the patella. A trivector approach to the knee was performed. Arthrotomy was taken down through the joint capsule. No significant releases were initially taken. The femur was exposed and the F1 jig was applied. The coring tool was used to remove the cartilage for the F2 jig to sit flush with the bone. The jig was pinned and the distal cut carefully taken. Caliper measurements confirmed appropriate bony resections according to the preoperative templated plan. The F4 cutting jig for the femur was applied, at the standard rotation. The AP and anterior chamfer cuts were taken. The F5 jig was applied and the posterior chamfer cuts were taken. The tibia was prepared using the T1 jig, after removing cartilage for the jig contact points. Proper alignment was checked with the alignment aylin. The tibia was cut using the T1u guide. Gap balancing was performed. Gap measurements were taken and the knee was trialed. Excellent alignment and soft tissue balancing was confirmed. The posterior cruciate ligament was recessed along the proximal tibia. The patella was cleared of minimal osteophytes, and denervated. The cartilage showed only minimal chondromalacia. Meniscal remnants were removed. The trial components were assembled. Excellent range of motion and proper soft tissue balancing were confirmed throughout the full range of motion. Patellar tracking was excellent. The knee was copiously irrigated periodically throughout the procedure. The real implants were cemented into position. Excess cement was carefully removed. The wound was closed in layers with int errupted #1 Vicryl suture, 2-0 strata fix suture, 0 strata fix suture, 2-0 strata fix suture. Steri-Strips placed on the skin with the knee flexed. Sterile bulky dressing applied. The patient was brought to the recovery room in stable condition. There were no complications. Physician carpenter assistant installer, Melanie Cody PA-C, required for surgery; including patient positioning, draping, tissue retraction, maintaining instrument position, cement removal, wound closure, and dressing placement. Implants Conformis Custom total knee arthroplasty. Cemented. Cruciate retaining. 8C insert. Estimated Blood Loss 100 Drains No Complications No immediate complications Condition Stable Disposition PACU [facility] Billing Surgery - Charge Forward: Surgery Billing
[2022-03-19] MEDS: ATORVASTATIN 40 MG TABLET PO (17:24)
[2022-03-19] MEDS: ASPIRIN 81 MG ENTERIC TABLET PO (17:24)
[2022-03-19] MEDS: SENNA/DOCUSATE SODIUM TABLET 2 TAB PO (17:24)
--- NOTE | 2022-03-19 20:41 | PCRCNOTE ---
20:00 Advair inhaler documented as not given in JAN. Pt has her own albuterol and Advair inhalers here and used them. Pharmacy to check the home meds for future administration scans.
[2022-03-19] MEDS: oxyCODONE HCL (*CRX) 5 MG TAB IR 10 MG PO (21:00)
[2022-03-19] MEDS: amLODIPine BESYLATE 5 MG TABLET 10 MG PO (21:03)
[2022-03-20 03:17] VITALS: BP 125/54; PULSE 58; RESP 17; TEMP 36.6; O2SAT 96
[2022-03-20] MEDS: oxyCODONE HCL (*CRX) 5 MG TAB IR PO ×2 (06:02→10:53)
[2022-03-20] MEDS: ceFAZolin 2 GM/D5W 50 ML 2 GM/50 ML BAG IVPB (06:03)
--- NOTE | 2022-03-20 06:15 | PC.NURSE ---
PT IV BLEW WHILE GETTING LAST DOSE OF ABX. REFUSED NEW IV BECAUSE SHE NO LONGER HAD ANY IV MEDS DUE AND POSSIBLE DISCHARGE TODAY.
[2022-03-20] MEDS: FLUTICASONE/SALMETEROL 115-21 MCG INHALER 1 PUFF 2 PUFF INHALATION (08:33)
[2022-03-20] MEDS: SENNA/DOCUSATE SODIUM TABLET 2 TAB PO (08:58)
[2022-03-20] MEDS: ASPIRIN 81 MG ENTERIC TABLET PO (08:58)
[2022-03-20] MEDS: polyethylene glycoL 3350 17 GM POWD.PACK PO (08:58)
[2022-03-20] MEDS: LORATADINE 10 MG TABLET PO (08:58)
[2022-03-20] MEDS: predniSONE 5 MG TABLET PO (08:59)
[2022-03-20] MEDS: lisinopriL 20 MG TABLET PO (08:59)
[2022-03-20 10:00] VITALS: BP 109/72; PULSE 102; RESP 14; TEMP 36.6; O2SAT 97
--- NOTE | 2022-03-20 12:07 | PCCCNOTE ---
On 03/20/22, the student, [Nichol Arango ], provided care and [facility]. I have reviewed the student's documentation and agree with the findings.
--- NOTE | 2022-03-20 12:31 | WPDANESPN ---
Anes - Prog Note Post-Op Date/Time: 03/20/22 12:31 Cardiovascular status: normal Respiratory status: normal Airway patency: baseline Mental status: baseline Post-Op hydration status: normal Vital Signs: Last Vital Signs Temp 98 F 03/20/22 10:00 Pulse 102 H 03/20/22 10:00 Resp 14 03/20/22 10:00 BP 109/72 03/20/22 10:00 Pulse Ox 97 03/20/22 10:00 Pain Score (VAS): 2/10 I/O: Intake & Output 03/19/22 03/20/22 03/20/22 23:59 07:59 15:59 Intake Total 1330 400 240 Output Total 1100 900 750 Balance 230 -500 -510 Post-procedural complaints: none Patient Feedback: Patient satisfied with anesthetic care.
--- NOTE | 2022-03-20 12:57 | PM.DS ---
DS: Admitting Diagnosis Discharge Date 03/20/22 Admitting Diagnosis OA knee Right DS: Discharge Diagnosis Discharge Diagnosis (1) Status post total right knee replacement: Code(s): Z96.651 - Presence of right artificial knee joint Status: Acute Assessment and Plan: Postop day 1: Right total Knee arthroplasty. Patient tolerated procedure well. No complications. Pain manageable with pain medication. No numbness or tingling. We had a lengthy discussion regarding postoperative wound care, limitations, expectations, and exercises. Patient shows good understanding. She has had initial physical therapy and is tolerating it well. DVT prophylaxis: 81 mg baby aspirin b.i.d. for 14 days. Pain medication: Percocet. Meloxicam. Prednisone. Patient has followup appointment with Dr. Denny in 3 weeks. DS: Summary Hospital Course Reason for hospitalization: Total knee arthroplasty Hospital Course: Patient tolerated procedure well. Has had initial PT/OT. Status at Discharge Functional status at discharge: uses cane/walker Overall status at discharge: patient is progressing back to baseline Time Spent with Patient Time attestation: Total time spent providing and/or coordinating discharge services: Exam Narrative: Overweight female. Resting comfortably in bed. Wearing compression socks bilaterally. Dressing intact with no drainage. Moderate swelling. Small area of ecchymosis. No erythema. No hematoma. Range of motion limited due to pain. Calf nontender. Neurologic status intact. No varicosities. Distal pulses palpable. Discharge Plan Discharge Patient Disposition: Home, Self-Care Discharge Instructions: See green instruction sheet Stand Alone Forms: General Discharge Instructions Follow-up/Referrals: Melanie Cody PA [Physician Bundling Machine Operator] - Discharge Medications: New meloxicam 15 mg tablet 15 mg PO DAILY Qty: 30 RF: 0 prednisone 5 mg tablet 5 mg PO DAILY 21 Days Qty: 21 RF: 0 aspirin 81 mg tablet,delayed release (DR/EC) 81 mg PO BID 14 Days Qty: 28 RF: 0 oxycodone-acetaminophen 5-325 mg tablet 1 - 2 tablet PO Q4-6H MDD 6 PRN (Reason: pain) Qty: 30 RF: 0 Continued Daily Multivitamin 200-100-500 mcg Capsule 1 cap PO DAILY RF: 0 Probiotic 1 cap PO BID RF: 0 atorvastatin 40 mg tablet 40 mg PO QPM RF: 0 lisinopril 20 mg tablet 20 mg PO DAILY RF: 0 amlodipine 10 mg tablet 10 mg PO HS RF: 0 bupropion HCl 150 mg tablet sustained-release 12 hr 150 mg PO QAM RF: 0 (DME) [place] [facility] Spacer See Rx Instructions .ROUTE .MEDSUPPLY Qty: 1 RF: 0 cholecalciferol (vitamin D3) 50 mcg (2,000 unit) capsule 50 mcg PO DAILY Qty: 90 RF: 2 loratadine [Claritin] 10 mg Tablet 10 mg PO DAILY RF: 0 Calcium 600 + D(3) 600 mg calcium- 200 unit Capsule 1 cap PO DAILY RF: 0 aspirin 81 mg Tablet,Delayed Release (Dr/Ec) 81 mg PO EVERY OTHER DAY RF: 0 fluticasone propionate 50 mcg/actuation spray,suspension 2 spray NASAL BID RF: 0 trolamine salicylate [Aspercreme] 10 % Cream 1 applic TOPICAL QID PRN (Reason: Pain) RF: 0 albuterol sulfate [ProAir HFA] 90 mcg/actuation HFA aerosol inhaler 2 puff INHALATION Q4-6H PRN (Reason: SOB) Qty: 34 RF: 3 Advair HFA 115-21 mcg/actuation HFA aerosol inhaler See Rx Instructions .ROUTE .COMPLEX Qty: 36 RF: 0 alprazolam [Xanax] 0.5 mg tablet 0.5 mg PO BID PRN (Reason: anxiety) Qty: 30 RF: 1 omeprazole 40 mg capsule,delayed release(DR/EC) See Rx Instructions .ROUTE .COMPLEX Qty: 90 RF: 3
== END 2022-03-20 13:16 | disposition home or self-care (01) ==
LOC: ANHSURGERY 06:16 → ANH2MED 10:24
PROVIDERS: PCP Emergency Medicine; Visit Provider Orthopaedic Surgery
PROC: (CPT 27447; principal; 2022-03-19 07:30)
DX: M17.11 Unilateral primary osteoarthritis, right knee (principal); J44.9 Chronic obstructive pulmonary disease, unspecified
CPT/HCPCS: 27447; 36415; 73560; 86850; 86900; 86901; 94640; 97110; 97116; 97161; 97165; 97530; 97535; A9270; C1713; C1776; J0131; J0171; J0690; J1100; J1885; J2270; J2405; J2704; J2795; J3010; J7030; J7120; J7512

== ENCOUNTER 2022-06-17 10:46 | Outpatient (CLI) | payer MEDICARE, OTHER, SELFPAY ==
--- NOTE | ~2022-06-17 | US_ITS ---
US venous doppler LE RT DATE: 06/17/2022 11:37 INDICATION: Localized swelling TECHNIQUE: Real-time imaging, color flow imaging and Doppler analysis of the veins of the right lower extremity COMPARISON: None FINDINGS: There is spontaneous and phasic flow and normal augmentation and color flow signal and norm al compression of the deep veins of the right lower extremity. IMPRESSION: No evidence of deep venous thrombosis of right leg Reviewed, dictated and finalized at Location A. Reviewed, dictated and finalized at location B.
== END 2022-06-17 10:47 | disposition home or self-care (01) ==
PROVIDERS: PCP Emergency Medicine; Visit Provider Orthopaedic Surgery
DX: R60.0 Localized edema (principal)
CPT/HCPCS: 93971

== ENCOUNTER 2022-07-10 07:52 | Outpatient (CLI) | payer MEDICARE, OTHER, SELFPAY ==
[2022-07-10 08:45] LABS: Alanine Aminotransferase 20 U/L (6-35); Albumin Level 4.4 g/dL (3.5-5.1); Alkaline Phosphatase 74 U/L (38-126); Anion Gap 6 mmol/L (8-16); Aspartate Amino Transferase 25 U/L (14-36); Bilirubin,Total 0.5 mg/dL (0.2-1.3); Blood Urea Nitrogen 8 mg/dL (7-17); Calcium 8.8 mg/dL (8.4-10.2); Carbon Dioxide 31 mmol/L (22-30); Chloride 100 mmol/L (98-107); Cholesterol 185 mg/dL (0-200); Estimated Glomerular Filt Rate > 60; Glucose 107 mg/dL (65-110); HDL Direct 98 mg/dL; Sodium 137 mmol/L (137-145); Triglycerides 63 mg/dL (<150)
[2022-07-10 08:56] LABS: LDL Cholesterol Direct 58 mg/dL
[2022-07-13 14:12] LABS: Vitamin D 1,25 (OH)2 Total 38 pg/mL (18-72); Vitamin D2 1,25 (OH)2 <8 pg/mL; Vitamin D3 1,25 (OH)2 38 pg/mL
== END 2022-07-10 07:53 | disposition home or self-care (01) ==
LOC: ANHLAB 07:57
PROVIDERS: PCP Emergency Medicine; Visit Provider Emergency Medicine
DX: E78.5 Hyperlipidemia, unspecified (principal); I10 Essential (primary) hypertension; E55.9 Vitamin D deficiency, unspecified
CPT/HCPCS: 36415; 80053; 80061; 82652

== ENCOUNTER 2022-08-30 11:39 | Emergency (ER) | payer MEDICARE, OTHER, SELFPAY ==
--- NOTE | 2022-08-30 11:43 | ED.URI ---
HPI - URI/Sore Throat General Chief Complaint: Upper Respiratory Infection Stated Complaint: CONGESTION/COUGH Time Seen by Provider: 08/30/22 12:05 Source: patient Mode of arrival: ambulatory Limitations: no limitations History of Present Illness HPI Narrative: Leila is a 76-year-old female patient presenting to the clinic today with complaints of cough and congestion x2 days. She reports that she is bringing up some yellow/green phlegm. She has been around her grandkids who have had her upper respiratory symptoms. She has some mild shortness of breath and has a history of COPD. She denies any current fevers or chills MD elicited complaint: cough and nasal congestion Related Data Home Medications Medication Instructions Recorded Confirmed amlodipine 10 mg tablet 10 mg PO HS 11/23/19 08/30/22 atorvastatin 40 mg tablet 40 mg PO QPM 11/23/19 08/30/22 bupropion HCl 150 mg tablet,12 hr 150 mg PO QAM 11/23/19 08/30/22 sustained-release lisinopril 20 mg tablet 20 mg PO DAILY 11/23/19 08/30/22 Probiotic 1 cap PO BID 11/30/19 08/30/22 [id number] 200 mcg-vit K 100 1 cap PO DAILY 11/30/19 08/30/22 mcg-lycop 500 [id number] capsule (Daily Multivitamin) calcium carbonate 600 mg-vitamin 1 cap PO DAILY 01/20/20 08/30/22 D3 5 mcg (200 unit) capsule (Calcium 600 + D(3)) loratadine 10 mg tablet (Claritin) 10 mg PO DAILY 01/20/20 08/30/22 aspirin 81 mg tablet,delayed 81 mg PO EVERY OTHER DAY 03/24/20 08/30/22 release fluorouracil 5 % topical cream 1 applic topical BID 07/29/22 08/30/22 Allergies Allergy/AdvReac Type Severity Reaction Status Date / Time iodine Allergy Severe Swelling Verified 08/30/22 12:00 AND ITCHING shellfish derived Allergy Severe Itching Verified 08/30/22 12:00 AND SWELLING Sulfa (Sulfonamide Allergy Mild RASH Verified 08/30/22 12:00 Antibiotics) Review of Systems Review of Systems: Pertinent positives per HPI. Patient denies any fever, chills, rash, headache, visual changes, dizziness, chest pain, palpitations, nausea, vomiting, diarrhea, constipation, abdominal pain, or any urinary issues. [facility] Past Medical History Medical History Breast cancer Bronchitis COPD (chronic obstructive pulmonary disease) Depression Diverticulitis Dyspnea GERD (gastroesophageal reflux disease) HLD (hyperlipidemia) HTN (hypertension) Mitral valve prolapse URI with cough and congestion UTI (urinary tract infection) Surgical History Surgical History History of hysterectomy History of inguinal hernia repair with 8 cm Parietex hernia mesh system 03/29/20 S/P lumpectomy, right breast Family History Family History Mother Family history of malignant neoplasm Family history of emphysema Family history of lung cancer Family history of chronic obstructive pulmonary disease Father Hypertension Family history of heart disease in male family member before age 55 Acute myocardial infarction Social History Social History Smoking packs per day: 1 Smoking cigarettes per day: 20.0 Years smoked: 30 Smoking pack-years: 30.00 Smoking status: Former smoker Additional smoking assessment comments: DENIES ANY FORM OF TOBACCO USE Alcohol intake: current Drinks per week: 14 Substance use: never Gender identity (if verbalized by the patient): Female Spiritual care concerns: No Comments At the time of my signature, I reviewed and agree with the nursing past medical, surgical, social, and family history. There is no relevant family history pertinent to the patient complaint. Exam Narrative: General: Well-developed, well nourished, in no apparent distress Head: Normocephalic, atraumatic Eyes: Pupils equally round and react
[2022-08-30 11:57] VITALS: BP 135/67; PULSE 61; RESP 16; TEMP 36.7; O2SAT 100
== END 2022-08-30 12:28 | disposition home or self-care (01) ==
PROVIDERS: Emergency Provider Nurse Practitioner Family; PCP Emergency Medicine
DX: J06.9 Acute upper respiratory infection, unspecified (principal); J44.9 Chronic obstructive pulmonary disease, unspecified; Z85.3 Personal history of malignant neoplasm of breast; K21.9 Gastro-esophageal reflux disease without esophagitis; E78.5 Hyperlipidemia, unspecified; I10 Essential (primary) hypertension; Z87.891 Personal history of nicotine dependence
CPT/HCPCS: 99213; G0463

== ENCOUNTER 2022-09-19 13:11 | Outpatient (CLI) | payer MEDICARE, OTHER, SELFPAY ==
--- NOTE | ~2022-09-19 | XR_ITS ---
XR shoulder RT min 2V DATE: 09/19/2022 13:37 INDICATION: Right shoulder pain TECHNIQUE: 5 views COMPARISON: 08/16/2016, right shoulder 08/08/2016 right shoulder FINDINGS: There is mild degenerative change at the right acromioclavicular joint. There is periarticu lar spurring at the humeral head and glenoid process consistent with mild to moderate right glenohume ral osteoarthritis. No fracture, dislocation, periosteal reaction or bone destruction or significant abnormal soft tissue calcification of the right shoulder. There is osteopenia. 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
== END 2022-09-19 13:12 | disposition home or self-care (01) ==
PROVIDERS: PCP Emergency Medicine; Visit Provider Orthopaedic Surgery
DX: M85.811 Other specified disorders of bone density and structure, right shoulder (principal); M19.011 Primary osteoarthritis, right shoulder
CPT/HCPCS: 73030

== ENCOUNTER 2022-10-02 10:47 | Emergency (ER) | payer MEDICARE, OTHER, SELFPAY ==
--- NOTE | 2022-10-02 11:04 | ED.URI ---
HPI - URI/Sore Throat General Chief Complaint: Upper Respiratory Infection Stated Complaint: cough, congestion, sore throat Time Seen by Provider: 10/02/22 11:00 Source: patient Mode of arrival: ambulatory Limitations: no limitations History of Present Illness HPI Narrative: Leila is a 76-year-old female patient presenting to the clinic today with complaints of cough, sinus congestion, sinus pressure, sore throat x2 weeks. She reports that she has been baby-sitting her grand kids over the last week and they have had runny nose and cough. States she is bringing up some green nasal drainage. She denies any fever or chills. MD elicited complaint: sore throat and nasal congestion Related Data Home Medications Medication Instructions Recorded Confirmed amlodipine 10 mg tablet 10 mg PO HS 11/23/19 08/30/22 atorvastatin 40 mg tablet 40 mg PO QPM 11/23/19 08/30/22 bupropion HCl 150 mg tablet,12 hr 150 mg PO QAM 11/23/19 08/30/22 sustained-release lisinopril 20 mg tablet 20 mg PO DAILY 11/23/19 08/30/22 Probiotic 1 cap PO BID 11/30/19 08/30/22 [id number] 200 mcg-vit K 100 1 cap PO DAILY 11/30/19 08/30/22 mcg-lycop 500 [id number] capsule (Daily Multivitamin) calcium carbonate 600 mg-vitamin 1 cap PO DAILY 01/20/20 08/30/22 D3 5 mcg (200 unit) capsule (Calcium 600 + D(3)) loratadine 10 mg tablet (Claritin) 10 mg PO DAILY 01/20/20 08/30/22 aspirin 81 mg tablet,delayed 81 mg PO EVERY OTHER DAY 03/24/20 08/30/22 release Allergies Allergy/AdvReac Type Severity Reaction Status Date / Time iodine Allergy Severe Swelling Verified 10/02/22 11:07 AND ITCHING shellfish derived Allergy Severe Itching Verified 10/02/22 11:07 AND SWELLING Sulfa (Sulfonamide Allergy Mild RASH Verified 10/02/22 11:07 Antibiotics) Review of Systems Review of Systems: Pertinent positives per HPI. Patient denies any fever, chills, rash, visual changes, dizziness, cough, shortness of breath, chest pain, palpitations, nausea, vomiting, diarrhea, constipation, abdominal pain, or any urinary issues. PMFSH Past Medical History Medical History Breast cancer Bronchitis COPD (chronic obstructive pulmonary disease) Depression Diverticulitis Dyspnea GERD (gastroesophageal reflux disease) HLD (hyperlipidemia) HTN (hypertension) Mitral valve prolapse URI with cough and congestion UTI (urinary tract infection) Surgical History Surgical History History of hysterectomy History of inguinal hernia repair with 8 cm Parietex hernia mesh system 03/29/20 S/P lumpectomy, right breast Family History Family History Mother Family history of malignant neoplasm Family history of emphysema Family history of lung cancer Family history of chronic obstructive pulmonary disease Father Hypertension Family history of heart disease in male family member before age 55 Acute myocardial infarction Social History Social History Smoking packs per day: 1 Smoking cigarettes per day: 20.0 Years smoked: 30 Smoking pack-years: 30.00 Smoking status: Former smoker Additional smoking assessment comments: DENIES ANY FORM OF TOBACCO USE Alcohol intake: current Drinks per week: 14 Substance use: never Lack of Transportation: No Lack of Food: Never True Current Housing: I Have Housing Concerned About Future Housing: No Difficulty Paying Gas/Electric Bills: No Difficulty Paying for Meds: No Currently Unemployed: No Education: High School Diploma/GED Difficulty w/ Childcare or Family Care: No Gender identity (if verbalized by the patient): Female Spiritual care concerns: No Comments At the time of my signature, I reviewed and agree with the nursing past med
[2022-10-02 11:14] VITALS: BP 137/73; PULSE 64; RESP 18; TEMP 36.6; O2SAT 99
== END 2022-10-02 11:23 | disposition home or self-care (01) ==
PROVIDERS: Emergency Provider Nurse Practitioner Family; PCP Emergency Medicine
DX: J01.90 Acute sinusitis, unspecified (principal); Z87.891 Personal history of nicotine dependence; J44.9 Chronic obstructive pulmonary disease, unspecified; K21.9 Gastro-esophageal reflux disease without esophagitis; E78.5 Hyperlipidemia, unspecified; I10 Essential (primary) hypertension; I34.1 Nonrheumatic mitral (valve) prolapse; Z85.3 Personal history of malignant neoplasm of breast; F32.9 Major depressive disorder, single episode, unspecified
CPT/HCPCS: 99213; G0463

== ENCOUNTER 2022-10-11 10:11 | Emergency (ER) | payer MEDICARE, OTHER, SELFPAY ==
--- NOTE | ~2022-10-11 | XR_ITS ---
XR chest 2V DATE: 10/11/2022 11:25 INDICATION: Cough, congestion TECHNIQUE: PA and lateral views COMPARISON: 06/12/2020 PA and lateral views FINDINGS: Mild cardiomegaly. Aortic calcification, ectasia and mild tortuosity. No hilar or mediastin al enlargement. Moderate hyperinflation. No pulmonary infiltrate or consolidation, pleural effusion or pulmonary vasc ular congestion or pneumothorax. Osteopenia. Degenerative spurring of the thoracic and lumbar spine and lumbar levoscoliosis. IMPRESSION: Moderate hyperinflation; no active pulmonary disease Mild cardiomegaly Aortic calcification Reviewed, dictated and finalized at location A. LSTERER APPRENTICE
--- NOTE | 2022-10-11 10:21 | ED.GENADULT ---
HPI - General Adult General Chief complaint: Urogenital-Female Stated complaint: congestion,pos uti Time Seen by Provider: 10/11/22 11:10 Mode of arrival: ambulatory Limitations: no limitations History of Present Illness HPI narrative: 76-year-old female presents with concern for burning with urination, vaginal itching. Reports she a day of Augmentin left after being treated for sinusitis. Reports she has been having a cough since she started the Augmentin and continues to have a cough. She denies shortness of breath, fever, aches, chills. Reports fatigue. She denies abnormal vaginal discharge, frequency, urgency. MD complaint: Cough, vaginal itching Related Data Home Medications Medication Instructions Recorded Confirmed amlodipine 10 mg tablet 10 mg PO HS 11/23/19 10/02/22 atorvastatin 40 mg tablet 40 mg PO QPM 11/23/19 10/02/22 bupropion HCl 150 mg tablet,12 hr 150 mg PO QAM 11/23/19 10/02/22 sustained-release lisinopril 20 mg tablet 20 mg PO DAILY 11/23/19 10/02/22 Probiotic 1 cap PO BID 11/30/19 10/02/22 [id number] 200 mcg-vit K 100 1 cap PO DAILY 11/30/19 10/02/22 mcg-lycop 500 [id number] capsule (Daily Multivitamin) calcium carbonate 600 mg-vitamin 1 cap PO DAILY 01/20/20 10/02/22 D3 5 mcg (200 unit) capsule (Calcium 600 + D(3)) loratadine 10 mg tablet (Claritin) 10 mg PO DAILY 01/20/20 10/02/22 aspirin 81 mg tablet,delayed 81 mg PO EVERY OTHER DAY 03/24/20 10/02/22 release albuterol sulfate 90 mcg/actuation 2 puff inhalation Q6-8H PRN 10/02/22 10/02/22 aerosol inhaler (ProAir HFA) Wheezing albuterol sulfate 90 mcg/actuation inhalation 10/02/22 aerosol inhaler (ProAir HFA) alprazolam 0.5 mg tablet mg 10/02/22 Allergies Allergy/AdvReac Type Severity Reaction Status Date / Time iodine Allergy Severe Swelling Verified 10/11/22 10:32 AND ITCHING shellfish derived Allergy Severe Itching Verified 10/11/22 10:32 AND SWELLING Sulfa (Sulfonamide Allergy Mild RASH Verified 10/11/22 10:32 Antibiotics) Review of Systems Review of Systems: CONSTITUTIONAL: Denies malaise, chills, sweats, or fever. Reports fatigue EYES: Denies visual changes, redness, or discharge. ENT: Denies rhinorrhea, congestion, sinus pain, otalgia or sore throat. CARDIOVASCULAR: Denies chest pain, palpitations, or edema. RESPIRATORY: Reports cough. Denies dyspnea. GASTROINTESTINAL: Denies abdominal pain, nausea, vomiting, diarrhea, bloody, or mucous stools. GENITOURINARY: Denies dysuria or hematuria. Reports burning with urination SKIN: Denies rash or itching. MUSCULOSKELETAL: Denies back pain, joint pain, or myalgia. NEUROLOGIC: Denies numbness, weakness, or headache. PSYCHIATRIC: Denies anxiety or depression. All systems reviewed & are unremarkable except as noted in HPI and below PMFSH Past Medical History Medical History Breast cancer Bronchitis COPD (chronic obstructive pulmonary disease) Depression Diverticulitis Dyspnea GERD (gastroesophageal reflux disease) HLD (hyperlipidemia) HTN (hypertension) Mitral valve prolapse URI with cough and congestion UTI (urinary tract infection) Surgical History Surgical History History of hysterectomy History of inguinal hernia repair with 8 cm Parietex hernia mesh system 03/29/20 S/P lumpectomy, right breast Family History Family History Mother Family history of malignant neoplasm Family history of emphysema Family history of lung cancer Family history of chronic obstructive pulmonary disease Father Hypertension Family history of heart disease in male family member before age 55 Acute myocardial infarction Social History Social History Smoking packs per day: 1 Smoking cigarettes per day
[2022-10-11 10:25] VITALS: BP 135/66; PULSE 65; RESP 16; TEMP 36.2; O2SAT 99
== END 2022-10-11 12:38 | disposition home or self-care (01) ==
PROVIDERS: Emergency Provider Nurse Practitioner; PCP Emergency Medicine
DX: R05.9 Cough, unspecified (principal); Z87.891 Personal history of nicotine dependence; J44.9 Chronic obstructive pulmonary disease, unspecified; K21.9 Gastro-esophageal reflux disease without esophagitis; E78.5 Hyperlipidemia, unspecified; I10 Essential (primary) hypertension; I34.1 Nonrheumatic mitral (valve) prolapse; Z85.3 Personal history of malignant neoplasm of breast; F32.A Depression, unspecified; Z79.82 Long term (current) use of aspirin
CPT/HCPCS: 71046; 81003; 99213; G0463

== ENCOUNTER 2022-10-15 11:37 | Emergency (ER) | payer MEDICARE, OTHER, SELFPAY ==
--- NOTE | 2022-10-15 11:40 | ED.GENADULT ---
HPI - General Adult General Chief complaint: Nausea/Vomiting/Diarrhea Stated complaint: LOW ABD PAIN Time Seen by Provider: 10/15/22 11:42 Source: patient, RN notes reviewed and old records reviewed Mode of arrival: ambulatory Limitations: no limitations History of Present Illness HPI narrative: 76-year-old female presents to the [facility] with complaints of increasing abdominal pain that is radiating into her back since Friday. Has not had a bowel movement since Friday. Tried calling her primary care provider who normally will order outpatient items but he is out of town. Denies fevers. Recently treated for a sinus infection and a cough with with Augmentin. Has a history of diverticulitis Onset (ago): day(s) (2) Related Data Home Medications Medication Instructions Recorded Confirmed amlodipine 10 mg tablet 10 mg PO HS 11/23/19 10/02/22 atorvastatin 40 mg tablet 40 mg PO QPM 11/23/19 10/02/22 bupropion HCl 150 mg tablet,12 hr 150 mg PO QAM 11/23/19 10/02/22 sustained-release lisinopril 20 mg tablet 20 mg PO DAILY 11/23/19 10/02/22 Probiotic 1 cap PO BID 11/30/19 10/02/22 [id number] 200 mcg-vit K 100 1 cap PO DAILY 11/30/19 10/02/22 mcg-lycop 500 [id number] capsule (Daily Multivitamin) calcium carbonate 600 mg-vitamin 1 cap PO DAILY 01/20/20 10/02/22 D3 5 mcg (200 unit) capsule (Calcium 600 + D(3)) loratadine 10 mg tablet (Claritin) 10 mg PO DAILY 01/20/20 10/02/22 aspirin 81 mg tablet,delayed 81 mg PO EVERY OTHER DAY 03/24/20 10/02/22 release albuterol sulfate 90 mcg/actuation 2 puff inhalation Q6-8H PRN 10/02/22 10/02/22 aerosol inhaler (ProAir HFA) Wheezing albuterol sulfate 90 mcg/actuation inhalation 10/02/22 aerosol inhaler (ProAir HFA) alprazolam 0.5 mg tablet mg 10/02/22 Allergies Allergy/AdvReac Type Severity Reaction Status Date / Time iodine Allergy Severe Swelling Verified 10/15/22 11:39 AND ITCHING shellfish derived Allergy Severe Itching Verified 10/15/22 11:39 AND SWELLING Sulfa (Sulfonamide Allergy Mild RASH Verified 10/15/22 11:39 Antibiotics) Review of Systems Review of Systems: All systems reviewed & are unremarkable except as noted in HPI and below Constitutional: Constitutional: Reports no additional constitutional complaints Eyes: Eyes: Reports no additional eye complaints ENT: Reports system reviewed and no additional complaints, except as documented Cardiovascular: Cardiovascular: Reports no additional cardiovascular complaints, Denies chest pain and Denies dyspnea Respiratory: Respiratory: Reports no additional respiratory complaints, Denies chest congestion, Denies cough and Denies dyspnea Gastrointestinal: Gastrointestinal: Reports as per HPI, Reports abdominal pain, Reports bloating, Reports constipation, Denies nausea and Denies vomiting Musculoskeletal: Musculoskeletal: Reports no additional musculoskeletal complaints Integumentary/Breasts: Skin/Breast: Reports system reviewed and no additional complaints, except as docu Neurologic: Reports system reviewed and no additional complaints, except as documented Psychiatric: Psychiatric: Reports no additional psychiatric complaints Allergic/Immunologic: Allergic/Immunologic: Reports no additional allergic/immunologic complaints PMFSH Past Medical History Medical History Breast cancer Bronchitis COPD (chronic obstructive pulmonary disease) Depression Diverticulitis Dyspnea GERD (gastroesophageal reflux disease) HLD (hyperlipidemia) HTN (hypertension) Mitral valve prolapse URI with cough and congestion UTI (urinary tract infection) Surgical History Surgical History History of hysterectomy History of inguinal hernia repair with 8 cm Parietex hernia mesh system 03/29/20 S/P lumpectomy, right breast Family History Family History (Reviewed 10/15/22 @ 11:42 by Shady
[2022-10-15 11:42] VITALS: BP 131/70; PULSE 81; RESP 19; TEMP 37; O2SAT 99
== END 2022-10-15 11:53 | disposition short-term general hospital (02) ==
PROVIDERS: Emergency Provider Nurse Practitioner; PCP Emergency Medicine
DX: R10.30 Lower abdominal pain, unspecified (principal); I10 Essential (primary) hypertension; E78.5 Hyperlipidemia, unspecified; J44.9 Chronic obstructive pulmonary disease, unspecified; Z87.891 Personal history of nicotine dependence
CPT/HCPCS: 99212; G0463

== ENCOUNTER 2022-10-15 12:11 | Inpatient (IN) | payer MEDICARE, OTHER, SELFPAY ==
[2022-10-15] VITALS (13 sets, daily range): BP systolic 114–162; BP diastolic 53–88; PULSE 54–75; RESP 16–20; TEMP 36.7–36.9; O2SAT 93–100
--- NOTE | ~2022-10-15 | CT_ITS ---
EXAMINATION: CT abdomen pelvis wo con DATE: 10/15/2022 15:32 INDICATION: Lower abdominal pain. Contrast allergy. TECHNIQUE: Computed tomography (CT) of the abdomen and pelvis was performed without intravenous contr ast. The dose-length product was 428.70 mGy-cm. Automated exposure control and iterative reconstructi on technique were employed. COMPARISON: CT dated 12/17/2019 FINDINGS: Lung bases are unremarkable. Heart size normal. There is hepatomegaly. There is a small low -density lesion in the right hepatic lobe which is unchanged from prior examination measuring 1.3 cm. This likely represents a benign cyst or hemangioma in the absence of known malignancy. The spleen, p ancreas, adrenal glands and kidneys are unremarkable. There is atherosclerosis of the aorta without a neurysm. There is colonic diverticulosis with moderate pericolonic stranding in the pelvis extending to the rectal area, consistent with acute diverticulitis. No evidence for abscess. No free air. Gallb ladder is present. No hernia. Bladder is decompressed limiting evaluation for wall thickening. No foc al lytic or blastic lesions. There is severe lumbar spondylosis. There are chronic superior endplate compression fractures of L1 and L2. IMPRESSION: 1. Acute sigmoid diverticulitis with moderate surrounding phlegmonous change. No evidence for abscess . 2: Hepatomegaly. Reviewed, dictated and finalized at location A. E DESIGNER IMPRESSION: 1. Acute sigmoid diverticulitis with moderate surrounding phlegmonous change. N o evidence for abscess. 2: Hepatomegaly.
--- NOTE | 2022-10-15 15:17 | ECG_ITS ---
Measurements Intervals [place] Rate: 64 P: 57 AL: 166 QRS: 29 QRSD: 101 T: 41 QT: 405 QTc: 420 Interpretive Statements SINUS RHYTHM BORDERLINE ST ABNORMALITY- LATERAL LEADS BORDERLINE ECG NO PREVIOUS ECG AVAILABLE FOR COMPARISON Electronically Signed On 10-15-2022 22:54:00 [employer] by Emory Hancock D.O.
--- NOTE | 2022-10-15 15:19 | ED.GENADULT ---
HPI - General Adult General Chief complaint: Abdominal Pain Stated complaint: sent from -abdominal pain Time Seen by Provider: 10/15/22 15:04 History of Present Illness HPI narrative: This is a 76-year-old female presented to the ED with a chief complaint of abdominal pain. Patient says that starting on Friday she started have pain in the lower abdomen abdomen is, that is burning, radiating to the back, 5 out 10 intensity and constant. She has had pain like this before in the past when she was diagnosed with diverticulitis. The pain is worse with movement there are no alleviating factors. Patient does note that she has had dysuria as well. She denies fever, chills no chest pain, difficulty breathing. Patient's last bowel movement was on Friday and when she attempted a bowel movement this morning it only mucus came out. Related Data Home Medications Medication Instructions Recorded Confirmed amlodipine 10 mg tablet 10 mg PO HS 11/23/19 10/15/22 atorvastatin 40 mg tablet 40 mg PO QPM 11/23/19 10/15/22 bupropion HCl 150 mg tablet,12 hr 150 mg PO QAM 11/23/19 10/15/22 sustained-release lisinopril 20 mg tablet 20 mg PO DAILY 11/23/19 10/15/22 Probiotic 1 cap PO BID 11/30/19 10/15/22 [id number] 200 mcg-vit K 100 1 cap PO DAILY 11/30/19 10/15/22 mcg-lycop 500 [id number]-[id number]-[id number] capsule (Daily Multivitamin) calcium carbonate 600 mg-vitamin 1 cap PO DAILY 01/20/20 10/15/22 D3 5 mcg (200 unit) capsule (Calcium 600 + D(3)) loratadine 10 mg tablet (Claritin) 10 mg PO DAILY 01/20/20 10/15/22 aspirin 81 mg tablet,delayed 81 mg PO EVERY OTHER DAY 03/24/20 10/15/22 release albuterol sulfate 90 mcg/actuation 2 inh inhalation DIRECTED 10/02/22 10/15/22 aerosol inhaler (ProAir HFA) albuterol sulfate 90 mcg/actuation 2 puff inhalation Q6-8H PRN 10/02/22 10/15/22 aerosol inhaler (ProAir HFA) Wheezing alprazolam 0.5 mg tablet 0.5 mg PO DIRECTED 10/02/22 10/15/22 Allergies Allergy/AdvReac Type Severity Reaction Status Date / Time iodine Allergy Severe Swelling Verified 10/15/22 11:39 AND ITCHING shellfish derived Allergy Severe Itching Verified 10/15/22 11:39 AND SWELLING Sulfa (Sulfonamide Allergy Mild RASH Verified 10/15/22 11:39 Antibiotics) iohexol Allergy Rash Verified 10/15/22 15:42 [From contrast - CT, X-RAY] [facility] Past Medical History Medical History Breast cancer Bronchitis COPD (chronic obstructive pulmonary disease) Depression Diverticulitis Dyspnea GERD (gastroesophageal reflux disease) HLD (hyperlipidemia) HTN (hypertension) Mitral valve prolapse URI with cough and congestion UTI (urinary tract infection) Surgical History Surgical History History of hysterectomy History of inguinal hernia repair with 8 cm Parietex hernia mesh system 03/29/20 S/P lumpectomy, right breast Family History Family History Mother Family history of malignant neoplasm Family history of emphysema Family history of lung cancer Family history of chronic obstructive pulmonary disease Father Hypertension Family history of heart disease in male family member before age 55 Acute myocardial infarction Social History Social History Smoking packs per day: 1 Smoking cigarettes per day: 20.0 Years smoked: 30 Smoking pack-years: 30.00 Smoking status: Former smoker Additional smoking assessment comments: DENIES ANY FORM OF TOBACCO USE Alcohol intake: current Drinks per week: 14 Substance use: never Lack of Transportation: No Lack of Food: Never True Current Housing: I Have Housing Concerned About Future Housing: No Difficulty Paying Gas/Electric Bills: No Difficulty Paying for Meds: No Currently Unemployed: No Education: High School Diploma/G
[2022-10-15 15:20] LABS: Basophils Percent Auto 0.3 % (0.2-1.2); Eosinophils Percent Auto 0.2 % (0-4.4); Hematocrit 39.6 % (37.0-47.0); Hemoglobin 13.4 g/dL (12.0-15.0); Immature Granulocyte Absolute 0.06 K/mm3 (0.00-0.031); Immature Granulocyte Percent A 0.4 % (0-0.5); Lymphocytes Absolute Auto 1.89 K/mm3 (0.9-3.2); Lymphocytes Percent Auto 12.2 % (18.3-44.2); Mean Corpuscular HGB Conc 33.8 g/dl (32-36); Mean Corpuscular Hemoglobin 32.2 pg (26-34); Mean Corpuscular Volume 95.2 fl (80-100); Mean Platelet Volume 9.6 fl (7.4-10.4); Monocytes Absolute Auto 1.4 K/mm3 (0.1-0.6); Monocytes Percent Auto 8.9 % (2.6-8.5); Neutrophils Absolute Auto 12.1 K/mm3 (1.3-6.7); Platelet Count Result 244 k/mm3 (150-375); Red Blood Count 4.16 M/mm3 (4.2-5.4); Red Cell Distribution Width 14.5 % (11.5-14.5); White Blood Count 15.5 K/mm3 (4.5-10.0)
[2022-10-15 15:30] LABS: Alanine Aminotransferase 27 U/L (6-35); Albumin Level 4.7 g/dL (3.5-5.1); Alkaline Phosphatase 84 U/L (38-126); Anion Gap 10 mmol/L (8-16); Aspartate Amino Transferase 28 U/L (14-36); Bilirubin,Total 1.4 mg/dL (0.2-1.3); Blood Urea Nitrogen 6 mg/dL (7-17); Carbon Dioxide 26 mmol/L (22-30); Chloride 97 mmol/L (98-107); Estimated CRCL calculation 94 ml/min; Estimated Glomerular Filt Rate > 60; Glucose 97 mg/dL (65-110); Lipase 25 U/L (23-300); Potassium 3.8 mmol/L (3.4-5.0); Sodium 133 mmol/L (137-145)
[2022-10-15] MEDS: SODIUM CHLORIDE 0.9% IV 1,000 ML 999 ML IV CONT (15:42)
[2022-10-15 15:46] LABS: Appearance Urine Clear (Clear); Bilirubin Urine Negative (Negative); Blood Urine Negative (Negative); Color Urine Yellow (Yellow); Glucose Urine UA Negative (Negative); Ketones Urine Trace mg/dL (Negative); Leukocyte Esterase Ur Negative LEU/UL (Negative); Nitrate Urine Negative (Negative); Protein Urine Negative (Negative); Specific Grav Ur 1.015 (1.001-1.035); Urobilinogen Urine 0.2 mg/dL (<2.0)
[2022-10-15 15:49] LABS: Glucose Point of Care 111 mg/dl (65-105)
[2022-10-15 15:57] LABS: Mucus Urine Rare /lpf; RBC Urine 0-2 /hpf (0-2); Squamous Epithelial Cell Urine Rare /hpf (Few)
[2022-10-15 16:03] LABS: Add Urine Microscopic? YES
[2022-10-15 16:09] LABS: Prothrombin Time 13.2 Seconds (11.1-14.7)
[2022-10-15 16:11] LABS: Magnesium 1.7 mg/dL (1.6-2.3)
[2022-10-15 16:48] LABS: Influenza A QL RT-PCR Negative (Negative); Influenza B QL RT-PCR Negative (Negative); SARS-CoV-2 RNA PCR Negative
--- NOTE | 2022-10-15 17:17 | ADMGEN ---
This patient, Maryellen Sandoval, was admitted to Medical Room 244-. Patient/family oriented to hospital policies and general routines including ID bracelet, bed and alarms, visiting hours, pain management, procedures, bathroom and other care routines, personal items, smoking policy, room service/diet, and visiting hours. Information on how to activate the Rapid Response Team has been discussed. Patient/Family are encouraged to report perceived risks to care and to ask questions if they do not understand what they are told or what they should do.
--- NOTE | 2022-10-15 20:00 | PM.IMHP ---
H&P: HPI History of Present Illness Date/Time: 10/15/22 20:00 Chief Complaint: Abdominal pain. Narrative: This is a very pleasant 76-year-old female with history of diverticulitis, COPD, hypertension, hyperlipidemia, and GERD who presented to the emergency department from urgent care for evaluation of abdominal pain. She was wakened from sleep at about 02:30 on Friday with a pressure-like discomfort throughout her lower abdomen associated with nausea and bloating. It does not really radiate and she has not noticed any significant aggravating or alleviating factors. It has been pretty continuous since the onset though not severe enough for her to take analgesics. Last evening she had chills but she has not had a documented fever. Her appetite has been decreased the last couple of days and she has really only been eating yogurt at home. She feels constipated but describes tenesmus. She has been passing thus small amounts of stool and has noticed some mucus admixed with her stool today. She has not noticed any blood in the stool. She has not had any fever or vomiting. CT does show acute diverticulitis with surrounding phlegmonous changes and she is being admitted in this setting for IV antibiotics. Review of Systems Review of Systems: Twelve systems were reviewed. She was recently treated for a sinus infection a couple weeks ago no symptoms have improved significantly. She was negative for flu and COVID today. She has not had chest pain or shortness of breath. No urinary symptoms. Except as documented, all other systems were reviewed and are negative. [facility] Past Medical History Medical History (Updated 10/15/22 @ 23:43 by Terese Daly PA-C) Breast cancer Status post right lumpectomy and radiation. Bronchitis COPD (chronic obstructive pulmonary disease) Depression Diverticulitis Dyspnea GERD (gastroesophageal reflux disease) HLD (hyperlipidemia) HTN (hypertension) Mitral valve prolapse Surgical History Surgical History (Updated 10/15/22 @ 23:43 by Terese Daly PA-C) History of hysterectomy History of inguinal hernia repair with 8 cm Parietex hernia mesh system 03/29/20 S/P lumpectomy, right breast Status post total right knee replacement Family History Family History Mother Family history of malignant neoplasm Family history of emphysema Family history of lung cancer Family history of chronic obstructive pulmonary disease Father Hypertension Family history of heart disease in male family member before age 55 Acute myocardial infarction Social History Social History (Updated 10/15/22 @ 23:40 by Terese Daly PA-C) Social History: Surrogate medical decision maker: Lance Sandoval, spouse. Code status: Full code. Smoking packs per day: 1 Smoking cigarettes per day: 20.0 Years smoked: 30 Smoking pack-years: 30.00 Smoking status: Former smoker Tobacco type: cigarettes Additional smoking assessment comments: DENIES ANY FORM OF TOBACCO USE Alcohol intake: current Drinks per week: 10 Substance use: never Substance use type: does not use Lack of Transportation: No Lack of Food: Never True Current Housing: I Have Housing Concerned About Future Housing: No Difficulty Paying Gas/Electric Bills: No Difficulty Paying for Meds: No Currently Unemployed: No Education: Don't Know Difficulty w/ Childcare or Family Care: No Gender identity (if verbalized by the patient): Female Spiritual care concerns: No Meds Home Medications and Allergies Home Medications Medication Instructions Recorded Confirmed Type amlodipine 10 mg tablet 10 mg PO HS 11/23/19 10/15/22 History atorvastatin 40 mg tablet 40 mg PO QPM 11/23/19 10/15/22 History bupropion HCl 150 mg tablet,12 hr 150 mg PO QAM 11/23/19 10/15/22 History sustained-release lisinopril 20 mg tablet 20 mg PO DAILY 11/23/19 10/15/22 History
[2022-10-16] MEDS: SODIUM CHLORIDE 0.9% IV 1,000 ML 100 ML IV CONT (00:40)
[2022-10-16 05:27] LABS: Hematocrit 35.7 % (37.0-47.0); Hemoglobin 11.8 g/dL (12.0-15.0); Mean Corpuscular HGB Conc 33.1 g/dl (32-36); Mean Corpuscular Hemoglobin 31.9 pg (26-34); Mean Corpuscular Volume 96.5 fl (80-100); Mean Platelet Volume 9.6 fl (7.4-10.4); Platelet Count Result 206 k/mm3 (150-375); Red Cell Distribution Width 14.2 % (11.5-14.5); White Blood Count 8.3 K/mm3 (4.5-10.0)
[2022-10-16 05:30] LABS: Anion Gap 2 mmol/L (8-16); Blood Urea Nitrogen 4 mg/dL (7-17); Calcium 8.3 mg/dL (8.4-10.2); Carbon Dioxide 26 mmol/L (22-30); Chloride 105 mmol/L (98-107); Estimated CRCL calculation 94 ml/min; Estimated Glomerular Filt Rate > 60; Glucose 84 mg/dL (65-110); Magnesium 1.8 mg/dL (1.6-2.3); Potassium 3.8 mmol/L (3.4-5.0); Sodium 133 mmol/L (137-145)
[2022-10-16 05:49] VITALS: BP 129/49; PULSE 51; RESP 18; TEMP 36.8; O2SAT 97
[2022-10-16 09:30] VITALS: BP 135/53
[2022-10-16] MEDS: LORATADINE 10 MG TABLET PO (09:31)
[2022-10-16] MEDS: PANTOPRAZOLE 40 MG TABLET PO ×2 (09:31→17:15)
[2022-10-16] MEDS: THERAPEUTIC MULTIVITAMINS/MINERALS TAB (*BKC) 1 TABLET PO (09:31)
[2022-10-16] MEDS: ASPIRIN 81 MG ENTERIC TABLET PO (09:32)
[2022-10-16] MEDS: lisinopriL 20 MG TABLET PO (09:32)
[2022-10-16] MEDS: ENOXAPARIN 40 MG/0.4 ML SYRINGE SUB-Q (09:32)
[2022-10-16] MEDS: FLUTICASONE PROPIONATE 0.05% NA SPR 16 GM BTL (*BKC) 2 SPRAY NASAL ×2 (09:33→17:15)
[2022-10-16] MEDS: ALPRAZolam (*CRX) 0.5 MG TABLET PO (10:07)
--- NOTE | 2022-10-16 11:11 | PM.IMPN ---
Progress Note: A&P Assessment and Plan (1) Sigmoid diverticulitis: Code(s): K57.32 - Diverticulitis of large intestine without perforation or abscess without bleeding Status: Acute Assessment and Plan: The patient presented ED for evaluation of lower abdominal pain for the past several days associated with bloating and nausea. She has had 1 prior episode diverticulitis over [address] of the abdomen pelvis shows findings for acute sigmoid diverticulitis with surrounding phlegmonous change, but with no apparent abscess Continue Zosyn 3.375 g IV q.6 hours. Transition to oral antibiotics in the a.m. if patient is able to take p.o. Trial clear liquid diet and advance as tolerated to full liquids for dinner. Will advance to low residue diet in a.m. if patient continues to improve. Continue IV/p.o. analgesics and antiemetics. Continue IV fluids for now and saline lock when patient is able to take good p.o. We discussed outpatient colonoscopy in 6-8 weeks when diverticulitis flare is resolved. (2) Mild dehydration: Code(s): E86.0 - Dehydration Status: Acute Assessment and Plan: Continue IV antibiotics as above. Renal function is stable. Vital signs stable. (3) HTN (hypertension): Qualifiers: Hypertension type: essential hypertension Qualified Code(s): I10 - Essential (primary) hypertension Code(s): I10 - Essential (primary) hypertension Status: Chronic Assessment and Plan: Chronic, stable. BP 132/59, pulse 61. Continue lisinopril and amlodipine at home dose as BP tolerates (4) COPD (chronic obstructive pulmonary disease): Qualifiers: COPD type: unspecified COPD Qualified Code(s): J44.9 - Chronic obstructive pulmonary disease, unspecified Code(s): J44.9 - Chronic obstructive pulmonary disease, unspecified Status: Chronic Assessment and Plan: Chronic, stable. Not in acute exacerbation. Continue p.r.n. albuterol MDI (5) Hepatomegaly: Code(s): R16.0 - Hepatomegaly, not elsewhere classified Status: Acute Assessment and Plan: Incidental finding on CT scan. T bili 1.4, alk-phos 84, AST 28, ALT 27. No right upper quadrant abdominal pain or jaundice on exam. Check CMP in am, hepatitis panel, and lipid panel Plan Code status: Full code Disposition: Length of stay 1-2 days, discharged home when tolerating diet. Time Spent With Patient Time with patient: 15 - 25 minutes Subjective Date/time seen: 10/16/22 11:11 Patient found sitting up in bed. She reports some intermittent lower abdominal pain right and left quadrants that is significantly improved from yesterday. No nausea or vomiting. She denies chest pain or shortness of breath. No stool since admission. Her last bowel movement was on Friday. She reports her last colonoscopy was over 5 years ago, but she did have Cologuard test in 2020 that was negative. Review of Systems Review of Systems: All systems reviewed & are unremarkable except as noted in HPI and below Exam Narrative: General: No acute distress.? Well-developed and well-groomed?older adult female. Sitting up in bed. Mental Status/Psych: Awake, alert and oriented x4 with clear speech. Neutral mood and affect. Pleasant and cooperative. Skin: Skin fair, warm, dry and intact without rashes or lesions. No open wounds. Fair turgor.? HEENT: Normocephalic. Atraumatic. Conjunctivae are clear. Sclera is non-icteric. EOM intact. PERRL. Grossly normal hearing. Oral mucosa pink and moist. Tongue midline. Oropharynx unremarkable. Neck: Supple. Trachea midline. No JVD. Heart: S1 and S2 regular rate and rhythm. No murmurs, gallops, or rubs auscultated. Chest: Respirations even and unlabored. Lung sounds are clear to auscultation in all lobes bilaterally without wheezes, rhonchi, or rales. Speaking full sentences. Abdomen: Soft, round and mildly tender to palpation right and left lower
[2022-10-16 13:57] VITALS: BP 132/59; PULSE 61; RESP 16; TEMP 36.5; O2SAT 96
--- NOTE | 2022-10-16 14:03 | PC.NURSE ---
On 10/16/22, the student, [Radha Brown], provided care and completed [facility] documentation on this patient. I have reviewed the student's documentation and agree with the findings.
[2022-10-16] MEDS: ATORVASTATIN 40 MG TABLET PO (17:15)
[2022-10-16] MEDS: amLODIPine BESYLATE 5 MG TABLET 10 MG PO (20:59)
[2022-10-16 21:25] VITALS: BP 122/53; PULSE 62; RESP 18; TEMP 36.9; O2SAT 98
[2022-10-17 05:27] VITALS: BP 118/58; PULSE 55; RESP 18; TEMP 36.7; O2SAT 96
[2022-10-17 05:53] LABS: Hematocrit 34.5 % (37.0-47.0); Hemoglobin 11.5 g/dL (12.0-15.0); Mean Corpuscular HGB Conc 33.3 g/dl (32-36); Mean Corpuscular Hemoglobin 31.9 pg (26-34); Mean Corpuscular Volume 95.6 fl (80-100); Mean Platelet Volume 9.9 fl (7.4-10.4); Platelet Count Result 233 k/mm3 (150-375); Red Blood Count 3.61 M/mm3 (4.2-5.4); Red Cell Distribution Width 14.1 % (11.5-14.5); White Blood Count 5.9 K/mm3 (4.5-10.0)
[2022-10-17 06:12] LABS: Alanine Aminotransferase 25 U/L (6-35); Albumin Level 3.6 g/dL (3.5-5.1); Alkaline Phosphatase 72 U/L (38-126); Anion Gap 3 mmol/L (8-16); Aspartate Amino Transferase 23 U/L (14-36); Bilirubin,Total 0.6 mg/dL (0.2-1.3); Blood Urea Nitrogen 2 mg/dL (7-17); Calcium 8.3 mg/dL (8.4-10.2); Carbon Dioxide 27 mmol/L (22-30); Chloride 107 mmol/L (98-107); Cholesterol 154 mg/dL (0-200); Estimated CRCL calculation 94 ml/min; Estimated Glomerular Filt Rate > 60; Glucose 99 mg/dL (65-110); HDL Direct 68 mg/dL; Potassium 3.2 mmol/L (3.4-5.0); Sodium 137 mmol/L (137-145); Triglycerides 75 mg/dL (<150)
[2022-10-17 06:22] LABS: LDL Cholesterol Direct 53 mg/dL
[2022-10-17 07:13] LABS: Hepatitis B Surface Antigen Negative (Negative)
[2022-10-17 07:19] LABS: HAV RESULT Negative (Negative); Hepatitis B Core IgM Result Negative (Negative)
[2022-10-17 07:30] LABS: Hepatitis C Virus Antibody Negative (Negative)
[2022-10-17] MEDS: ENOXAPARIN 40 MG/0.4 ML SYRINGE SUB-Q (07:58)
[2022-10-17] MEDS: LORATADINE 10 MG TABLET PO (07:58)
[2022-10-17] MEDS: FLUTICASONE PROPIONATE 0.05% NA SPR 16 GM BTL (*BKC) 2 SPRAY NASAL (07:58)
[2022-10-17] MEDS: PANTOPRAZOLE 40 MG TABLET PO (07:58)
[2022-10-17] MEDS: THERAPEUTIC MULTIVITAMINS/MINERALS TAB (*BKC) 1 TABLET PO (07:58)
[2022-10-17] MEDS: lisinopriL 20 MG TABLET PO (07:59)
--- NOTE | 2022-10-17 13:35 | PC.NURSE ---
On 10/17/22, the student, [Therese Evangelista], provided care and completed [facility] documentation on this patient. I have reviewed the student's documentation and agree with the findings.
[2022-10-17 14:16] VITALS: BP 120/64; PULSE 63; RESP 16; TEMP 36.1; O2SAT 99
--- NOTE | 2022-10-17 15:09 | PM.DS ---
DS: Admitting Diagnosis Discharge Date 10/17/221516 Admitting Diagnosis Sigmoid diverticulitis Mild dehydration Essential (primary) hypertension COPD (chronic obstructive pulmonary disease), chronic DS: Discharge Diagnosis Discharge Diagnosis (1) Sigmoid diverticulitis: Code(s): K57.32 - Diverticulitis of large intestine without perforation or abscess without bleeding Status: Acute Assessment and Plan: The patient presented ED for evaluation of lower abdominal pain for the past several days associated with bloating and nausea. She has had 1 prior episode diverticulitis over [address] of the abdomen pelvis shows findings for acute sigmoid diverticulitis with surrounding phlegmonous change, but with no apparent abscess Treated with Zosyn 3.375 g IV q.6 hours. 10/15/22 to 10/17/22 then transitioned to PO Ciprofloxacin 500 mg BID and metronidazole 500 mg TID x 8 more days. advanced to low residue diet with good tolerance. Treated with IV/p.o. analgesics and antiemetics. Treated with IV fluids until taking good p.o. We discussed outpatient colonoscopy in 6-8 weeks when diverticulitis flare is resolved. (2) Mild dehydration: Code(s): E86.0 - Dehydration Status: Acute Assessment and Plan: Continue IV antibiotics as above. Renal function is stable. Vital signs stable. (3) HTN (hypertension): Qualifiers: Hypertension type: essential hypertension Qualified Code(s): I10 - Essential (primary) hypertension Code(s): I10 - Essential (primary) hypertension Status: Chronic Assessment and Plan: Chronic, stable. Continue lisinopril and amlodipine at home dose as BP tolerates (4) COPD (chronic obstructive pulmonary disease): Qualifiers: COPD type: unspecified COPD Qualified Code(s): J44.9 - Chronic obstructive pulmonary disease, unspecified Code(s): J44.9 - Chronic obstructive pulmonary disease, unspecified Status: Chronic Assessment and Plan: Chronic, stable. Not in acute exacerbation. Continue p.r.n. albuterol MDI (5) Hepatomegaly: Code(s): R16.0 - Hepatomegaly, not elsewhere classified Status: Acute Assessment and Plan: Incidental finding on CT scan. T bili 1.4, alk-phos 84, AST 28, ALT 27. No right upper quadrant abdominal pain or jaundice on exam. hepatitis panel negative and lipid panel within normal limits. Tbili, AST, ALT and Alk-phos within normal limits at discharge. DS: Summary Hospital Course Reason for hospitalization: Abdominal pain Hospital Course: Maryellen Sandoval is a 66-year-old female with a history of diverticulitis, COPD, hypertension, hyperlipidemia, and GERD presented to the emergency department for evaluation of abdominal pain. She was awakened from sleep at about 02:30 on Friday with a pressure-like discomfort throughout her lower abdomen associated with nausea and bloating. It did not really radiate and she did not noticed any significant aggravating or alleviating factors. The pain has been continuous since the onset though not severe enough for her to take analgesics. The evening prior to admission, she had chills but she had no documented fever. Her appetite had been decreased for several days and she was only eating yogurt at home. She feels constipated but describes tenesmus. She has been passing small amounts of stool and has noticed some mucus mixed with her stool. No apparent blood in her stool.? No vomiting. CT showed acute diverticulitis with surrounding phlegmonous changes She was admitted to the medical floor and treated with IV Zosyn 3.375 mg Q6 hours, IV hydration and bowel rest. IV analgesics and antiemetics were available. Her diet was slowly advanced to low residue diet with good tolerance. Antibiotics were transitioned to oral ciprofloxacin and oral metronidazole TID x 8 more days when she was able to take PO. She had a formed BM prior to discharge. Her
[2022-10-17] MEDS: metroNIDAZOLE 250 MG TABLET 500 MG PO (15:14)
== END 2022-10-17 15:40 | disposition home or self-care (01) | DRG 392 ==
LOC: ANHED 15:50 → ANH2MED 16:35
PROVIDERS: Physician Assistant; Admitting Provider Student in an Organized Health Care Education/Training Program; Emergency Provider Emergency Medicine; PCP Emergency Medicine; Visit Provider Nurse Practitioner Family
DX: K57.32 Diverticulitis of large intestine without perforation or abscess without bleeding (principal); E86.0 Dehydration; I10 Essential (primary) hypertension; J44.9 Chronic obstructive pulmonary disease, unspecified; R16.0 Hepatomegaly, not elsewhere classified; K21.9 Gastro-esophageal reflux disease without esophagitis; E78.5 Hyperlipidemia, unspecified; I34.1 Nonrheumatic mitral (valve) prolapse; Z79.82 Long term (current) use of aspirin; Z85.3 Personal history of malignant neoplasm of breast; Z90.710 Acquired absence of both cervix and uterus; Z87.891 Personal history of nicotine dependence
CPT/HCPCS: 36415; 74176; 80048; 80053; 80061; 80074; 81001; 82948; 83690; 83735; 85025; 85027; 85610; 87636; 93005; 96365; 96366; 96367; 96372; 99212; 99285; A9270; G0378; G0463; J0131; J1650; J2543; J7030

== ENCOUNTER 2022-10-23 11:48 | Outpatient (CLI) | payer MEDICARE, OTHER, SELFPAY ==
[2022-10-23 12:20] LABS: Potassium 3.9 mmol/L (3.4-5.0)
== END 2022-10-23 11:49 | disposition home or self-care (01) ==
PROVIDERS: PCP Emergency Medicine; Visit Provider Emergency Medicine
DX: E87.8 Other disorders of electrolyte and fluid balance, not elsewhere classified (principal)
CPT/HCPCS: 36415; 84132

== ENCOUNTER 2022-11-25 13:13 | Emergency (ER) | payer MEDICARE, OTHER, SELFPAY ==
[2022-11-25 13:18] VITALS: BP 120/79; PULSE 58; RESP 20; TEMP 36.2; O2SAT 100
--- NOTE | 2022-11-25 13:18 | ED.URI ---
HPI - URI/Sore Throat General Chief Complaint: Upper Respiratory Infection Stated Complaint: congestion, cough, ear pain Time Seen by Provider: 11/25/22 13:29 Source: patient and RN notes reviewed Mode of arrival: ambulatory Limitations: no limitations History of Present Illness HPI Narrative: 77-year-old female presents with concern for 10 day history of nasal congestion, cough, ear pressure, headache, general malaise. Reports she has been taking [id number] medications without relief. Reports her has similar symptoms. Reports she recently traveled [place] elicited complaint: cough and nasal congestion Related Data Home Medications Medication Instructions Recorded Confirmed amlodipine 10 mg tablet 10 mg PO HS 11/23/19 11/25/22 atorvastatin 40 mg tablet 40 mg PO QPM 11/23/19 11/25/22 bupropion HCl 150 mg tablet,12 hr 150 mg PO QAM 11/23/19 11/25/22 sustained-release lisinopril 20 mg tablet 20 mg PO DAILY 11/23/19 11/25/22 [id number] 200 mcg-vit K 100 1 cap PO DAILY 11/30/19 11/25/22 mcg-lycop 500 [id number] capsule (Daily Multivitamin) calcium carbonate 600 mg-vitamin 1 cap PO DAILY 01/20/20 11/25/22 D3 5 mcg (200 unit) capsule (Calcium 600 + D(3)) loratadine 10 mg tablet (Claritin) 10 mg PO DAILY 01/20/20 11/25/22 aspirin 81 mg tablet,delayed 81 mg PO EVERY OTHER DAY 03/24/20 11/25/22 release albuterol sulfate 90 mcg/actuation 2 inh inhalation DIRECTED 10/02/22 11/25/22 aerosol inhaler (ProAir HFA) omeprazole 40 mg capsule,delayed 40 mg PO QAM 10/15/22 11/25/22 release fluticasone propionate 115 2 puff inhalation Q12H 11/25/22 11/25/22 mcg-salmeterol 21 mcg/actuation HFA inhaler (Advair HFA) Allergies Allergy/AdvReac Type Severity Reaction Status Date / Time iodine Allergy Severe Swelling Verified 11/25/22 13:29 AND ITCHING shellfish derived Allergy Severe Itching Verified 11/25/22 13:29 AND SWELLING Sulfa (Sulfonamide Allergy Mild RASH Verified 11/25/22 13:29 Antibiotics) iohexol Allergy Rash Verified 11/25/22 13:29 [From contrast - CT, X-RAY] Review of Systems Review of Systems: CONSTITUTIONAL: Reports malaise. Denies chills, sweats, or fever. EYES: Denies visual changes, redness, or discharge. ENT: Reports rhinorrhea, congestion, sinus pain, otalgia. Denies sore throat. CARDIOVASCULAR: Denies chest pain, palpitations, or edema. RESPIRATORY: Reports cough. Denies dyspnea. GASTROINTESTINAL: Denies abdominal pain, nausea, vomiting, diarrhea SKIN: Denies rash or itching. MUSCULOSKELETAL: Denies myalgia. NEUROLOGIC: Denies headache. All systems reviewed & are unremarkable except as noted in HPI and below PMFSH Past Medical History Medical History Breast cancer Status post right lumpectomy and radiation. Bronchitis Complete tear of right rotator cuff COPD (chronic obstructive pulmonary disease) Degenerative joint disease of knee Depression Diverticulitis Dyspnea GERD (gastroesophageal reflux disease) HLD (hyperlipidemia) HTN (hypertension) Lumbar compression fracture L1-2 Mitral valve prolapse Vitamin D2 deficiency Surgical History Surgical History History of hysterectomy History of inguinal hernia repair with 8 cm Parietex hernia mesh system 03/29/20 S/P lumpectomy, right breast Status post total right knee replacement Family History Family History Mother Family history of malignant neoplasm Family history of emphysema Family history of lung cancer Family history of chronic obstructive pulmonary disease Father Hypertension Family history of heart disease in male family member before age 55 Acute myocardial infarction Social History Social History Social History: Surrogate medical decision m
== END 2022-11-25 13:44 | disposition home or self-care (01) ==
PROVIDERS: Emergency Provider Nurse Practitioner; PCP Emergency Medicine
DX: J32.9 Chronic sinusitis, unspecified (principal); J40 Bronchitis, not specified as acute or chronic; Z87.891 Personal history of nicotine dependence; J44.9 Chronic obstructive pulmonary disease, unspecified; K21.9 Gastro-esophageal reflux disease without esophagitis; E78.5 Hyperlipidemia, unspecified; I10 Essential (primary) hypertension; I34.1 Nonrheumatic mitral (valve) prolapse; Z85.3 Personal history of malignant neoplasm of breast; Z92.3 Personal history of irradiation; Z96.651 Presence of right artificial knee joint; F32.A Depression, unspecified; Z79.82 Long term (current) use of aspirin
CPT/HCPCS: 99213; G0463

== ENCOUNTER 2023-01-04 09:30 | Emergency (ER) | payer MEDICARE, OTHER, SELFPAY ==
[2023-01-04 09:43] VITALS: BP 139/66; PULSE 81; RESP 16; TEMP 36.3; O2SAT 96
--- NOTE | 2023-01-04 10:12 | ED.URI ---
HPI - URI/Sore Throat General Chief Complaint: Upper Respiratory Infection Stated Complaint: cold Time Seen by Provider: 01/04/23 10:04 Source: patient Mode of arrival: ambulatory Limitations: no limitations History of Present Illness HPI Narrative: Patient presents today complaining of a cough since yesterday with body aches, low-grade fever up to 100, headache, sore throat with swallowing, and bilateral ear pain since 4:00 a.m. this morning. She currently rates her ear pain 6/10. She has been taking Coricidin HBP without relief. States is currently sick with cold symptoms. Related Data Home Medications Medication Instructions Recorded Confirmed amlodipine 10 mg tablet 10 mg PO HS 11/23/19 01/04/23 atorvastatin 40 mg tablet 40 mg PO QPM 11/23/19 01/04/23 bupropion HCl 150 mg tablet,12 hr 150 mg PO QAM 11/23/19 01/04/23 sustained-release lisinopril 20 mg tablet 20 mg PO DAILY 11/23/19 01/04/23 [id number] 200 mcg-vit K 100 1 cap PO DAILY 11/30/19 01/04/23 mcg-lycop 500 [id number] capsule (Daily Multivitamin) calcium carbonate 600 mg-vitamin 1 cap PO DAILY 01/20/20 01/04/23 D3 5 mcg (200 unit) capsule (Calcium 600 + D(3)) loratadine 10 mg tablet (Claritin) 10 mg PO DAILY 01/20/20 01/04/23 aspirin 81 mg tablet,delayed 81 mg PO EVERY OTHER DAY 03/24/20 01/04/23 release albuterol sulfate 90 mcg/actuation 2 inh inhalation DIRECTED 10/02/22 01/04/23 aerosol inhaler (ProAir HFA) omeprazole 40 mg capsule,delayed 40 mg PO QAM 10/15/22 01/04/23 release fluticasone propionate 115 2 puff inhalation Q12H 11/25/22 01/04/23 mcg-salmeterol 21 mcg/actuation HFA inhaler (Advair HFA) Lactobacillus rhamnosus GG 10 1 cap PO DAILY 12/25/22 01/04/23 billion cell capsule (Culturelle) guaifenesin 1,200 mg tablet, 1,200 mg PO BID 12/25/22 01/04/23 extended release 12 hr (Mucinex) Allergies Allergy/AdvReac Type Severity Reaction Status Date / Time iodine Allergy Severe Swelling Verified 01/04/23 09:39 AND ITCHING shellfish derived Allergy Severe Itching Verified 01/04/23 09:39 AND SWELLING Sulfa (Sulfonamide Allergy Mild RASH Verified 01/04/23 09:39 Antibiotics) iohexol Allergy Rash Verified 01/04/23 09:39 [From contrast - CT, X-RAY] Review of Systems Review of Systems: CONSTITUTIONAL: Denies sweats.+ body aches, fever, chills EYES: Denies visual changes, redness, or discharge. ENT: Denies rhinorrhea, congestion. + sore throat, ear pain CARDIOVASCULAR: Denies chest pain, palpitations, or edema. RESPIRATORY: Denies cough or dyspnea. GASTROINTESTINAL: Denies abdominal pain, nausea, vomiting, or diarrhea. GENITOURINARY: Denies dysuria or hematuria. SKIN: Denies rash, itching, or wounds. MUSCULOSKELETAL: Denies back pain, joint pain, or myalgia. NEUROLOGIC: Denies numbness, tingling, or weakness.+ headache PSYCH: Denies depression or anxiety. [facility] Past Medical History Medical History Breast cancer Status post right lumpectomy and radiation. Bronchitis Complete tear of right rotator cuff COPD (chronic obstructive pulmonary disease) Degenerative joint disease of knee Depression Diverticulitis Dyspnea GERD (gastroesophageal reflux disease) HLD (hyperlipidemia) HTN (hypertension) Lumbar compression fracture L1-2 Mitral valve prolapse Vitamin D2 deficiency Surgical History Surgical History History of hysterectomy History of inguinal hernia repair with 8 cm Parietex hernia mesh system 03/29/20 S/P lumpectomy, right breast Status post total right knee replacement Family History Family History Mother Family history of malignant neoplasm Family history of emphysema Family history of lung cancer Family history of chronic obstructive pulmonary disease Father Hypertensio
== END 2023-01-04 10:21 | disposition home or self-care (01) ==
PROVIDERS: Emergency Provider Nurse Practitioner; PCP Emergency Medicine
DX: J06.9 Acute upper respiratory infection, unspecified (principal); Z20.822 Contact with and (suspected) exposure to COVID-19; Z87.891 Personal history of nicotine dependence; J44.9 Chronic obstructive pulmonary disease, unspecified; K21.9 Gastro-esophageal reflux disease without esophagitis; E78.5 Hyperlipidemia, unspecified; I10 Essential (primary) hypertension; I34.1 Nonrheumatic mitral (valve) prolapse; F32.A Depression, unspecified; Z96.651 Presence of right artificial knee joint; Z85.3 Personal history of malignant neoplasm of breast; Z79.82 Long term (current) use of aspirin
CPT/HCPCS: 87426; 87804; 99213; C9803; G0463

== ENCOUNTER 2023-01-06 08:39 | Emergency (ER) | payer MEDICARE, OTHER, SELFPAY ==
--- NOTE | ~2023-01-06 | XR_ITS ---
XR chest 1V portable 01/06/2023 10:37 Indication: Cough. COPD. Procedure: AP portable chest Comparison: Comparison to multiple prior studies sequentially, with oldest reviewed study dated 03/2016. Findings: There is patchy bilateral asymmetric airspace disease, consistent with pneumonia. No pleura l effusion or pneumothorax. Cardiomegaly. Impression: 1: Patchy bilateral airspace disease, consistent with pneumonia. Reviewed, dictated and finalized at location B. ANALYSIS INTERN Impression: 1: Patchy bilateral airspace disease, consistent with pneumonia.
[2023-01-06 08:46] VITALS: BP 133/63; PULSE 92; RESP 14; TEMP 36.4; O2SAT 94
[2023-01-06 09:46] LABS: Influenza A QL RT-PCR Negative (Negative); Influenza B QL RT-PCR Negative (Negative); RSV RNA, RT-PCR Negative (Negative); SARS-CoV-2 RNA PCR Negative
[2023-01-06 10:26] LABS: Basophils Absolute Auto 0.1 K/mm3 (0.0-0.1); Basophils Percent Auto 0.5 % (0.2-1.2); Eosinophils Absolute Auto 0.3 K/mm3 (0-0.3); Hematocrit 34.3 % (37.0-47.0); Hemoglobin 11.7 g/dL (12.0-15.0); Immature Granulocyte Absolute 0.11 K/mm3 (0.00-0.031); Immature Granulocyte Percent A 0.7 % (0-0.5); Lymphocytes Absolute Auto 0.86 K/mm3 (0.9-3.2); Lymphocytes Percent Auto 5.9 % (18.3-44.2); Mean Corpuscular HGB Conc 34.1 g/dl (32-36); Mean Corpuscular Hemoglobin 31.9 pg (26-34); Mean Corpuscular Volume 93.5 fl (80-100); Mean Platelet Volume 9.7 fl (7.4-10.4); Monocytes Absolute Auto 0.7 K/mm3 (0.1-0.6); Monocytes Percent Auto 4.4 % (2.6-8.5); Neutrophils Absolute Auto 12.7 K/mm3 (1.3-6.7); Neutrophils Percent Auto 86.5 % (45.5-73.1); Platelet Count Result 229 k/mm3 (150-375); Red Blood Count 3.67 M/mm3 (4.2-5.4); Red Cell Distribution Width 14.4 % (11.5-14.5); White Blood Count 14.7 K/mm3 (4.5-10.0)
[2023-01-06 10:35] LABS: Alanine Aminotransferase 19 U/L (6-35); Albumin Level 3.8 g/dL (3.5-5.1); Alkaline Phosphatase 76 U/L (38-126); Anion Gap 5 mmol/L (8-16); Aspartate Amino Transferase 21 U/L (14-36); Bilirubin,Total 0.7 mg/dL (0.2-1.3); Blood Urea Nitrogen 12 mg/dL (7-17); Calcium 8.6 mg/dL (8.4-10.2); Carbon Dioxide 25 mmol/L (22-30); Chloride 99 mmol/L (98-107); Estimated CRCL calculation 91 ml/min; Estimated Glomerular Filt Rate > 60; Glucose 110 mg/dL (65-110); Potassium 3.4 mmol/L (3.4-5.0); Sodium 129 mmol/L (137-145)
--- NOTE | 2023-01-06 10:38 | ED.GENADULT ---
HPI - General Adult General Chief complaint: Upper Respiratory Infection Stated complaint: upper respiratory infection Time Seen by Provider: 01/06/23 09:23 History of Present Illness HPI narrative: This is a 77-year-old female with PMH of COPD, history of breast cancer, HTN with chief complaint of cough. This is onset x5 days. She was seen in urgent care few days ago and told she had a URI with negative COVID, flu and strep test. Did not receive an x-ray. She is reporting cough with increased sputum production. Sputum is green and blood-tinged. She denies any shortness of breath. She does not wear oxygen at home and has not needed any oxygen since onset of symptoms. Satting 94% on room air here. Endorses fevers with Tmax of 100.2 at home. Also reports body aches. Denies chest pain, increased shortness of breath, abdominal pain, urinary symptoms. Related Data Home Medications Medication Instructions Recorded Confirmed amlodipine 10 mg tablet 10 mg PO HS 11/23/19 01/04/23 atorvastatin 40 mg tablet 40 mg PO QPM 11/23/19 01/04/23 bupropion HCl 150 mg tablet,12 hr 150 mg PO QAM 11/23/19 01/04/23 sustained-release lisinopril 20 mg tablet 20 mg PO DAILY 11/23/19 01/04/23 [id number] 200 mcg-vit K 100 1 cap PO DAILY 11/30/19 01/04/23 mcg-lycop 500 [id number] capsule (Daily Multivitamin) calcium carbonate 600 mg-vitamin 1 cap PO DAILY 01/20/20 01/04/23 D3 5 mcg (200 unit) capsule (Calcium 600 + D(3)) loratadine 10 mg tablet (Claritin) 10 mg PO DAILY 01/20/20 01/04/23 aspirin 81 mg tablet,delayed 81 mg PO EVERY OTHER DAY 03/24/20 01/04/23 release albuterol sulfate 90 mcg/actuation 2 inh inhalation DIRECTED 10/02/22 01/04/23 aerosol inhaler (ProAir HFA) omeprazole 40 mg capsule,delayed 40 mg PO QAM 10/15/22 01/04/23 release fluticasone propionate 115 2 puff inhalation Q12H 11/25/22 01/04/23 mcg-salmeterol 21 mcg/actuation HFA inhaler (Advair HFA) Lactobacillus rhamnosus GG 10 1 cap PO DAILY 12/25/22 01/04/23 billion cell capsule (Culturelle) guaifenesin 1,200 mg tablet, 1,200 mg PO BID 12/25/22 01/04/23 extended release 12 hr (Mucinex) Allergies Allergy/AdvReac Type Severity Reaction Status Date / Time iodine Allergy Severe Swelling Verified 01/06/23 09:02 AND ITCHING shellfish derived Allergy Severe Itching Verified 01/06/23 09:02 AND SWELLING Sulfa (Sulfonamide Allergy Mild RASH Verified 01/06/23 09:02 Antibiotics) iohexol Allergy Rash Verified 01/06/23 09:02 [From contrast - CT, X-RAY] Review of Systems Review of Systems: CONSTITUTIONAL: Endorses decreased appetite. Denies fever, chills, or sweats. EYES: Denies visual changes, redness, or discharge. ENT: Endorses sore throat. Denies rhinorrhea, congestion, or otalgia. CARDIOVASCULAR: Denies chest pain, palpitations, or edema. RESPIRATORY: Endorses cough with sputum production. Denies dyspnea above baseline. GASTROINTESTINAL: Denies abdominal pain, nausea, vomiting, or diarrhea. GENITOURINARY: Denies dysuria or hematuria. SKIN: Denies rash or itching. MUSCULOSKELETAL: Denies back pain, joint pain, or myalgia. NEUROLOGIC: Denies headache, numbness, dizziness, or weakness. PSYCHIATRIC: Denies anxiety or depression. [facility] Past Medical History Medical History Breast cancer Status post right lumpectomy and radiation. Bronchitis Complete tear of right rotator cuff COPD (chronic obstructive pulmonary disease) Degenerative joint disease of knee Depression Diverticulitis Dyspnea GERD (gastroesophageal reflux disease) HLD (hyperlipidemia) HTN (hypertension) Lumbar compression fracture L1-2 Mitral valve prolapse Vitamin D2 deficiency Surgical History Surgical History History of hysterectomy History of inguinal hernia repair with 8 cm Parietex hernia mesh system 03/29/20 S/Azra rosenthal
[2023-01-06 10:42] VITALS: BP 117/69; PULSE 77; RESP 15; TEMP 37.4; O2SAT 92
[2023-01-06 10:45] LABS: Appearance Urine Clear (Clear); Bilirubin Urine 1+ (Negative); Blood Urine Negative (Negative); Color Urine Yellow (Yellow); Glucose Urine UA Negative (Negative); Ketones Urine Trace mg/dL (Negative); Leukocyte Esterase Ur Negative LEU/UL (Negative); Nitrate Urine Negative (Negative); Protein Urine 2+ mg/dL (Negative); Specific Grav Ur 1.015 (1.001-1.035); Urobilinogen Urine 0.2 mg/dL (<2.0); pH Urine 6.5 (5.0-9.0)
[2023-01-06 10:51] LABS: Add Urine Microscopic? YES; Mucus Urine Rare /lpf; RBC Urine 0-2 /hpf (0-2); Squamous Epithelial Cell Urine Rare /hpf (Few); WBC Urine 0-3 /hpf
[2023-01-06] MEDS: SODIUM CHLORIDE 0.9% IV 1,000 ML 999 ML IV CONT (11:14)
[2023-01-06 11:26] LABS: CRP 30.2 mg/dL (<1.0)
== END 2023-01-06 12:26 | disposition home or self-care (01) ==
PROVIDERS: Emergency Medicine; Emergency Provider Physician Assistant; PCP Emergency Medicine
DX: J18.9 Pneumonia, unspecified organism (principal); Z20.822 Contact with and (suspected) exposure to COVID-19; I10 Essential (primary) hypertension; J44.9 Chronic obstructive pulmonary disease, unspecified; I34.1 Nonrheumatic mitral (valve) prolapse; E78.5 Hyperlipidemia, unspecified; E55.9 Vitamin D deficiency, unspecified; K21.9 Gastro-esophageal reflux disease without esophagitis; Z96.651 Presence of right artificial knee joint; Z90.710 Acquired absence of both cervix and uterus; Z87.891 Personal history of nicotine dependence; Z79.82 Long term (current) use of aspirin; Z85.3 Personal history of malignant neoplasm of breast; Z92.3 Personal history of irradiation
CPT/HCPCS: 36415; 71045; 80053; 81001; 85025; 86140; 87637; 96360; 99283; J7030

== ENCOUNTER 2023-01-08 10:37 | Inpatient (IN) | payer MEDICARE, OTHER, SELFPAY ==
[2023-01-08] VITALS (19 sets, daily range): BP systolic 99–151; BP diastolic 54–76; PULSE 71–87; RESP 16–32; TEMP 36.6–36.7; O2SAT 90–96; BMI 26.8
--- NOTE | ~2023-01-08 | US_ITS ---
EXAMINATION: US abdomen limited DATE: 01/11/2023 16:15 INDICATION: elevated lfts, liver disease? TECHNIQUE: Multiple grayscale and Doppler ultrasound images of limited portions of the abdomen were o btained. COMPARISON: None available. FINDINGS: The visualized portions of the pancreas are normal. The liver is enlarged normal with suad l echogenicity and echotexture. No surface nodularity. Normal hepatopetal flow in the main portal vei n. Small intraluminal projections off the gallbladder wall measuring 3 and 5 mm respectively, likely representing polyps. Mild gallbladder hydrops. The gallbladder is otherwise normal with no abnormal w all thickening, pericholecystic fluid or stones. The common bile duct measures 2 mm. There was no son ographic Dodd sign. IMPRESSION: Hepatomegaly. Mild gallbladder hydrops. Small likely gallbladder polyps, which require no additional workup this time (ACR 2013-U 2021 guidelines). Reviewed, dictated and finalized at location K. L SPRAYER
--- NOTE | ~2023-01-08 | XR_ITS ---
XR chest 2V 01/08/2023 11:30 Indication: Diagnosed with pneumonia. Procedure: PA and lateral views of the chest Comparison: 01/06/2023 Findings: Unchanged bilateral airspace disease of the mid and lower lungs with peribronchial thickeni ng. No significant effusion. No pneumothorax. No acute osseous abnormality. Impression: 1: Stable bilateral airspace disease, compatible with pneumonia. Reviewed, dictated and finalized at location B. R INTEL PLANNER Impression: 1: Stable bilateral airspace disease, compatible with pneumonia.
--- NOTE | ~2023-01-08 | CT_ITS ---
EXAMINATION: CT diagnostic chest wo con DATE: 01/08/2023 13:35 INDICATION: Pneumonia. TECHNIQUE: Computed tomography (CT) of the chest was performed without intravenous contrast. The dose -length product was 151.60 mGy-cm. Automated exposure control and iterative reconstruction technique were employed. COMPARISON: Chest x-ray dated 01/08/2023 FINDINGS: Mediastinal lymphadenopathy, likely reactive. Small pleural effusions. Heart size normal. T here is atherosclerosis of the aorta and coronary arteries. There is patchy groundglass opacities of the left upper, right middle and bilateral lower lobes, consistent with pneumonia. No pneumothorax. N o endobronchial lesions. The upper abdomen is unremarkable. IMPRESSION: 1. Patchy bilateral airspace disease, consistent with pneumonia. 2: Small pleural effusions. 3: Mediastinal lymphadenopathy, likely reactive. Reviewed, dictated and finalized at location B. RONMENTAL SAFETY SPECIALIST
--- NOTE | 2023-01-08 10:55 | ECG_ITS ---
Measurements Intervals [place] Rate: 71 P: 56 PA: 155 QRS: 4 QRSD: 105 T: 22 QT: 372 QTc: 407 Interpretive Statements SINUS RHYTHM POSSIBLE LEFT ATRIAL ENLARGEMENT [-0.1mV P WAVE IN V1/V2] COMPARED TO ECG 10/15/2022 15:26:29 NO SIGNIFICANT CHANGES Electronically Signed On 01-08-2023 15:02:59 PIANO MACHINE OPERATOR by Kisha Ames M.D.
[2023-01-08 11:18] LABS: Basophils Percent Auto 0.4 % (0.2-1.2); Eosinophils Percent Auto 0.4 % (0-4.4); Hematocrit 34.8 % (37.0-47.0); Hemoglobin 11.7 g/dL (12.0-15.0); Immature Granulocyte Absolute 0.09 K/mm3 (0.00-0.031); Immature Granulocyte Percent A 0.8 % (0-0.5); Lymphocytes Absolute Auto 1.26 K/mm3 (0.9-3.2); Lymphocytes Percent Auto 11.5 % (18.3-44.2); Mean Corpuscular HGB Conc 33.6 g/dl (32-36); Mean Corpuscular Hemoglobin 31.2 pg (26-34); Mean Corpuscular Volume 92.8 fl (80-100); Mean Platelet Volume 9.8 fl (7.4-10.4); Monocytes Absolute Auto 1.1 K/mm3 (0.1-0.6); Monocytes Percent Auto 10.4 % (2.6-8.5); Neutrophils Absolute Auto 8.4 K/mm3 (1.3-6.7); Neutrophils Percent Auto 76.5 % (45.5-73.1); Platelet Count Result 266 k/mm3 (150-375); Red Blood Count 3.75 M/mm3 (4.2-5.4); Red Cell Distribution Width 14.7 % (11.5-14.5)
[2023-01-08 11:29] LABS: Alanine Aminotransferase 27 U/L (6-35); Albumin Level 3.9 g/dL (3.5-5.1); Alkaline Phosphatase 93 U/L (38-126); Anion Gap 5 mmol/L (8-16); Aspartate Amino Transferase 25 U/L (14-36); Bilirubin,Total 0.6 mg/dL (0.2-1.3); Blood Urea Nitrogen 10 mg/dL (7-17); Calcium 8.7 mg/dL (8.4-10.2); Carbon Dioxide 28 mmol/L (22-30); Chloride 103 mmol/L (98-107); Estimated CRCL calculation 109 ml/min; Estimated Glomerular Filt Rate > 60; Glucose 116 mg/dL (65-110); Potassium 3.1 mmol/L (3.4-5.0); Sodium 136 mmol/L (137-145)
--- NOTE | 2023-01-08 12:45 | ED.SOB ---
HPI - SOB/Dyspnea General Chief Complaint: Shortness of Breath/Dyspnea Stated Complaint: sob Time Seen by Provider: 01/08/23 12:45 Source: patient Limitations: no limitations History of Present Illness HPI Narrative: The patient is a 77-year-old female with PMH of COPD, hypertension who returns to the emergency department for evaluation of cough and shortness of breath that has persisted despite treatment with oral antibiotics for a diagnosis of community-acquired pneumonia. Patient states symptoms have been ongoing over the past five days. Patient was initially evaluated in urgent care and diagnosed with upper respiratory infection. Patient continued to worsen and was seen in this emergency department, diagnosed with mild hyponatremia, community-acquired pneumonia and discharged home on Levaquin. Patient had follow-up with her primary care physician today and noted oxygen saturations of 86% at times with exertion, continued cough. She reports subjective fevers and night sweats. Patient was then sent to this emergency department for evaluation by the primary care physician Dr. Walton. I personally spoke with the patient and reviewed the patient's outpatient notes including emergency department note, primary care physician note. Related Data Home Medications Medication Instructions Recorded Confirmed amlodipine 10 mg tablet 10 mg PO HS 11/23/19 01/04/23 atorvastatin 40 mg tablet 40 mg PO QPM 11/23/19 01/04/23 bupropion HCl 150 mg tablet,12 hr 150 mg PO QAM 11/23/19 01/04/23 sustained-release lisinopril 20 mg tablet 20 mg PO DAILY 11/23/19 01/04/23 [id number] 200 mcg-vit K 100 1 cap PO DAILY 11/30/19 01/04/23 mcg-lycop 500 [id number] capsule (Daily Multivitamin) calcium carbonate 600 mg-vitamin 1 cap PO DAILY 01/20/20 01/04/23 D3 5 mcg (200 unit) capsule (Calcium 600 + D(3)) loratadine 10 mg tablet (Claritin) 10 mg PO DAILY 01/20/20 01/04/23 aspirin 81 mg tablet,delayed 81 mg PO EVERY OTHER DAY 03/24/20 01/04/23 release albuterol sulfate 90 mcg/actuation 2 inh inhalation DIRECTED 10/02/22 01/04/23 aerosol inhaler (ProAir HFA) omeprazole 40 mg capsule,delayed 40 mg PO QAM 10/15/22 01/04/23 release fluticasone propionate 115 2 puff inhalation Q12H 11/25/22 01/04/23 mcg-salmeterol 21 mcg/actuation HFA inhaler (Advair HFA) Lactobacillus rhamnosus GG 10 1 cap PO DAILY 12/25/22 01/04/23 billion cell capsule (Culturelle) guaifenesin 1,200 mg tablet, 1,200 mg PO BID 12/25/22 01/04/23 extended release 12 hr (Mucinex) Allergies Allergy/AdvReac Type Severity Reaction Status Date / Time iodine Allergy Severe Swelling Verified 01/08/23 10:25 AND ITCHING shellfish derived Allergy Severe Itching Verified 01/08/23 10:25 AND SWELLING Sulfa (Sulfonamide Allergy Mild RASH Verified 01/08/23 10:25 Antibiotics) iohexol Allergy Rash Verified 01/08/23 10:25 [From contrast - CT, X-RAY] Review of Systems Review of Systems: CONSTITUTIONAL: Denies fever, chills, or sweats. EYES: Denies visual changes, redness, or discharge. ENT: Denies rhinorrhea, congestion, sore throat, or otalgia. CARDIOVASCULAR: Denies chest pain, palpitations, or edema. RESPIRATORY: Reports cough and shortness of breath GASTROINTESTINAL: Denies abdominal pain, nausea, vomiting, or diarrhea. GENITOURINARY: Denies dysuria or hematuria. SKIN: Denies rash or itching. MUSCULOSKELETAL: Denies back pain, joint pain, or myalgia. NEUROLOGIC: Denies headache, numbness, or weakness. [facility] Past Medical History Medical History Breast cancer Status post right lumpectomy and radiation. Bronchitis Complete tear of right rotator cuff COPD (chronic obstructive pulmonary disease) Degenerative joint disease of knee Depression Diverticulitis Dyspnea GERD (gastroesophageal reflux disease) HLD (hyperlipidemia) HTN (hypertension) Lumbar compression fracture L1-2 Mi
[2023-01-08] MEDS: methylPREDNISolone SOD SUCC 125 MG VIAL IV PUSH (14:14)
[2023-01-08 14:30] LABS: Lactic Acid Reflex 1.1 mmol/L (0.7-2.0)
[2023-01-08 14:52] LABS: CRP 13.5 mg/dL (<1.0)
[2023-01-08 14:55] LABS: Procalcitonin 0.2 ng/mL
[2023-01-08] MEDS: POTASSIUM CHLORIDE 20 MEQ TABLET 40 MEQ PO (15:14)
[2023-01-08 15:15] LABS: Influenza A QL RT-PCR Negative (Negative); Influenza B QL RT-PCR Negative (Negative); SARS-CoV-2 RNA PCR Negative
--- NOTE | 2023-01-08 18:04 | PC.NURSE ---
This patient, Maryellen Sandoval, was admitted to Medical Room 253-01. Patient/family oriented to hospital policies and general routines including ID bracelet, bed and alarms, visiting hours, pain management, procedures, bathroom and other care routines, personal items, smoking policy, room service/diet, and visiting hours. Information on how to activate the Rapid Response Team has been discussed. Patient/Family are encouraged to report perceived risks to care and to ask questions if they do not understand what they are told or what they should do.
--- NOTE | 2023-01-08 19:17 | PM.IMHP ---
H&P: HPI History of Present Illness Date/Time: 01/08/23 19:17 Chief Complaint: Shortness of breath Narrative: This is a 77 year old female patient who started feeling ill approximately 5 days ago. The patient does have history of COPD and hypertension. The patient initially went to an urgent care and was told that she has bronchitis. Or it was something viral. She was not given any antibiotics at that time. The patient waited a couple more days and then the patient went to ER and was prescribed Levaquin. The patient stated that she took that for 2 days and still was not feeling any better. The patient's O2 saturation was found to be 86% with exertion and coughing. The patient reported a subjective fever and night sweats. The patient was sent to the emergency room by her primary care doctor Dr. Walton. Patient's white count was 14.7 2 days and is now 11.0. H and H is now 11.7 and 34.8. A C reactive protein is 13.5. Patient's influenza A/B and COVID are all negative. Chest x-ray was read asStable bilateral airspace disease, compatible with pneumonia. Chest CT was read as the following1. Patchy bilateral airspace disease, consistent with pneumonia. 2: Small pleural effusions. 3: mediastinal lymphadenopathy, likely reactive. The patient is currently on room air. She was given Rocephin, Solu-Medrol, potassium and azithromycin in the emergency room. Her potassium had been 3.1 sodium 136. The patient tried Mucinex and Cordicin HBP for her cough. She still continues to cough quite a bit. She stated every time she takes a deep breath she starts to cough. The patient is being admitted to observation on the date of service of 01/08/2023. Review of Systems Review of Systems: See HPI All systems reviewed & are unremarkable except as noted in HPI and below Constitutional: Constitutional: Reports as per HPI and Reports no additional constitutional complaints Eyes: Eyes: Reports as per HPI and Reports no additional eye complaints ENT: Reports system reviewed and no additional complaints, except as documented and Reports Normal hearing present Cardiovascular: Cardiovascular: Reports no additional cardiovascular complaints Respiratory: Respiratory: Reports no additional respiratory complaints and Reports no additional respiratory complaints Gastrointestinal: Gastrointestinal: Reports as per HPI and Reports no additional gastrointestinal complaints Musculoskeletal: Musculoskeletal: Reports no additional musculoskeletal complaints Integumentary/Breasts: Skin/Breast: Reports system reviewed and no additional complaints, except as docu and Reports as per HPI Neurologic: Reports system reviewed and no additional complaints, except as documented, Reports as per HPI and Reports Normal hearing present Psychiatric: Psychiatric: Reports no additional psychiatric complaints and Reports as per HPI Endocrine: Endocrine: Reports no additional endocrine complaints Hematologic/Lymphatic: Hematologic/Lymphatic: Reports no additional hematologic/lymphatic complaints Allergic/Immunologic: Allergic/Immunologic: Reports no additional allergic/immunologic complaints [facility] Past Medical History Medical History Breast cancer Status post right lumpectomy and radiation. Bronchitis Complete tear of right rotator cuff COPD (chronic obstructive pulmonary disease) Degenerative joint disease of knee Depression Diverticulitis Dyspnea GERD (gastroesophageal reflux disease) HLD (hyperlipidemia) HTN (hypertension) Lumbar compression fracture L1-2 Mitral valve prolapse Vitamin D2 deficiency Surgical History Surgical History History of hysterectomy History of inguinal hernia repair with 8 cm Parietex hernia mesh system 03/29/20 S/P lumpectomy, right breast Status post total right knee replacement Family History Family History (Reviewed 12/19
[2023-01-09] VITALS (12 sets, daily range): BP systolic 125–140; BP diastolic 59–67; PULSE 71–94; RESP 16–22; TEMP 36.6–37.1; O2SAT 94–97
[2023-01-09] MEDS: ATORVASTATIN 40 MG TABLET PO (00:24)
[2023-01-09] MEDS: amLODIPine BESYLATE 5 MG TABLET 10 MG PO ×2 (00:24→20:41)
[2023-01-09] MEDS: methylPREDNISolone SOD SUCC 40 MG VIAL IV PUSH ×2 (00:24→06:34)
[2023-01-09] MEDS: IPRATROPIUM BR 0.02% INH SOLN 0.5 MG/2.5 ML VIAL INHALATION ×4 (02:10→20:57)
[2023-01-09] MEDS: ALBUTEROL SULFATE NEB 2.5 MG/3 ML INH INHALATION ×3 (02:10→15:07)
[2023-01-09 06:01] LABS: Basophils Percent Auto 0.4 % (0.2-1.2); Hematocrit 37.9 % (37.0-47.0); Hemoglobin 13.2 g/dL (12.0-15.0); Immature Granulocyte Absolute 0.21 K/mm3 (0.00-0.031); Lymphocytes Absolute Auto 0.84 K/mm3 (0.9-3.2); Lymphocytes Percent Auto 15.9 % (18.3-44.2); Mean Corpuscular HGB Conc 34.8 g/dl (32-36); Mean Corpuscular Hemoglobin 32.1 pg (26-34); Mean Corpuscular Volume 92.2 fl (80-100); Mean Platelet Volume 9.9 fl (7.4-10.4); Monocytes Absolute Auto 0.2 K/mm3 (0.1-0.6); Monocytes Percent Auto 4.5 % (2.6-8.5); Neutrophils Percent Auto 75.2 % (45.5-73.1); Platelet Count Result 305 k/mm3 (150-375); Red Blood Count 4.11 M/mm3 (4.2-5.4); Red Cell Distribution Width 14.5 % (11.5-14.5); White Blood Count 5.3 K/mm3 (4.5-10.0)
[2023-01-09 06:12] LABS: Alanine Aminotransferase 45 U/L (6-35); Albumin Level 4.3 g/dL (3.5-5.1); Alkaline Phosphatase 99 U/L (38-126); Anion Gap 8 mmol/L (8-16); Aspartate Amino Transferase 38 U/L (14-36); Bilirubin,Total 0.5 mg/dL (0.2-1.3); Blood Urea Nitrogen 9 mg/dL (7-17); Calcium 9.1 mg/dL (8.4-10.2); Carbon Dioxide 27 mmol/L (22-30); Chloride 101 mmol/L (98-107); Estimated CRCL calculation 117 ml/min; Estimated Glomerular Filt Rate > 60; Glucose 152 mg/dL (65-110); Potassium 3.6 mmol/L (3.4-5.0); Sodium 136 mmol/L (137-145)
[2023-01-09 06:17] LABS: Lactic Acid Reflex 1.4 mmol/L (0.7-2.0)
[2023-01-09 06:49] LABS: Thyroid Stimulating Hormone Reflex 0.102 uIU/mL (0.465-4.68)
[2023-01-09 07:40] LABS: Free T4 Free Thyroxine Reflex 1.48 ng/dL (0.78-2.19)
--- NOTE | 2023-01-09 08:02 | PM.IMPN ---
Progress Note: A&P Assessment and Plan (1) Community acquired pneumonia: Code(s): J18.9 - Pneumonia, unspecified organism Status: Acute Assessment and Plan: Continue Rocephin and azithromycin Stable on room air Small pleural effusions noted Blood cultures from 01/08 pending Anticipate discharge home on oral antibiotics after tomorrow's IV infusions (2) HLD (hyperlipidemia): Code(s): E78.5 - Hyperlipidemia, unspecified Status: Acute Assessment and Plan: Hold statin for now due to transaminitis (3) Depression: Code(s): F32.9 - Major depressive disorder, single episode, unspecified Status: Acute Assessment and Plan: Continue home meds, stable (4) Anxiety: Code(s): F41.9 - Anxiety disorder, unspecified Status: Acute (5) COPD (chronic obstructive pulmonary disease): Qualifiers: COPD type: unspecified COPD Qualified Code(s): J44.9 - Chronic obstructive pulmonary disease, unspecified Code(s): J44.9 - Chronic obstructive pulmonary disease, unspecified Status: Chronic Assessment and Plan: Prednisone 40 mg daily for 5 days, end date January 13 Breathing treatments (6) HTN (hypertension): Qualifiers: Hypertension type: essential hypertension Qualified Code(s): I10 - Essential (primary) hypertension Code(s): I10 - Essential (primary) hypertension Status: Chronic Assessment and Plan: Blood pressures reviewed today, stable Continue home meds, amlodipine and lisinopril (7) Hypokalemia: Code(s): E87.6 - Hypokalemia Status: Acute Assessment and Plan: Replete and recheck (8) Transaminitis: Code(s): R74.01 - Elevation of levels of liver transaminase levels Status: Acute Assessment and Plan: Monitor, mild, hold statin (9) Elevated C-reactive protein (CRP): Code(s): R79.82 - Elevated C-reactive protein (CRP) Status: Acute Assessment and Plan: Likely secondary to pneumonia, recheck tomorrow (10) Subclinical hyperthyroidism: Code(s): E05.90 - Thyrotoxicosis, unspecified without thyrotoxic crisis or storm Status: Acute Assessment and Plan: Monitor, asymptomatic Plan DVT prophylaxis with SCDs GI prophylaxis with PPI Code status full code Subjective Date/time seen: 02/23/23 08:02 Interval history: No overnight events noted. No chest pain or shortness of breath. No nausea, vomiting or diarrhea. No fevers or chills. Patient and have a long list of questions to discuss. All questions answered. Patient would like to go home tomorrow. She still has some chest tightness and diaphragmatic pain with deep inspiration. No wheeze. She is still having a dry cough occasionally productive of blood-tinged sputum. Review of Systems Review of Systems: 12 point review of systems was assessed and was negative except as noted in the HPI Exam Narrative: General: No acute distress, alert and oriented per baseline HEENT: Atraumatic, normocephalic, mucous membranes moist CV: Regular rate and rhythm, S1, S2 Lungs: Poor air entry throughout, coarse breath sounds noted, significantly diminished at bases Abdomen: Soft, nontender, nondistended Extremities: Normal to inspection Skin: No rashes noted, no lesions or wounds seen Psych: Euthymic, normal affect Objective Data Vital Signs Vital Signs: Vital Signs - 24 hr 01/08/23 10:51 01/08/23 15:03 01/08/23 12:45 Temperature 98.0 F Pulse Rate 76 82 Respiratory Rate 16 Blood Pressure 144/66 H Pulse Oximetry 95 95 Oxygen Delivery Room Air Room Air 01/08/23 12:46 01/08/23 13:00 01/08/23 13:01 Temperature Pulse Rate 82 71 71 Respiratory Rate 18 23 H Blood Pressure 108/68 145/61 H Pulse Oximetry 95 95 Oxygen Delivery 01/08/23 13:15 01/08/23 13:16 01/08/23 14:03 Temperature Puls
[2023-01-09 08:32] LABS: Total Triiodothyronine (T3) 0.75 NG/ML (0.97-1.69)
[2023-01-09] MEDS: FLUTICASONE/SALMETEROL 115-21 MCG INHALER 1 PUFF 2 PUFF INHALATION ×2 (08:55→20:00)
[2023-01-09] MEDS: ACIDOPHILUS/BULGARICUS CHEWABLE TABLET 1 TABLET BY MOUTH ×2 (09:30→17:11)
[2023-01-09] MEDS: LORATADINE 10 MG TABLET PO (09:31)
[2023-01-09] MEDS: PANTOPRAZOLE 40 MG TABLET PO ×2 (09:31→17:12)
[2023-01-09] MEDS: THERAPEUTIC MULTIVITAMINS/MINERALS TAB (*BKC) 1 TABLET PO (09:31)
[2023-01-09] MEDS: guaiFENesin 12 HR 600 MG TABCR 1200 MG PO ×2 (09:31→20:41)
[2023-01-09] MEDS: lisinopriL 20 MG TABLET PO (09:31)
[2023-01-09] MEDS: ASPIRIN 81 MG ENTERIC TABLET PO (09:31)
[2023-01-09] MEDS: buPROPion HCL SR (12 HR) 150 MG TAB PO (09:31)
[2023-01-09] MEDS: FLUTICASONE PROPIONATE 0.05% NA SPR 16 GM BTL (*BKC) 1 SPRAY NASAL ×2 (09:32→17:12)
[2023-01-09] MEDS: ALPRAZolam (*CRX) 0.5 MG TABLET PO (09:54)
[2023-01-09 12:32] LABS: Procalcitonin 0.1 ng/mL
--- NOTE | 2023-01-09 13:08 | PC.NURSE ---
On 01/09/23, the student, [Annette Scott], provided care and completed [facility] documentation on this patient. I have reviewed the student's documentation and agree with the findings.
[2023-01-09] MEDS: BENZONATATE 100 MG CAPSULE PO (15:31)
[2023-01-10] VITALS (12 sets, daily range): BP systolic 134–169; BP diastolic 50–64; PULSE 65–90; RESP 17–20; TEMP 36.2–37; O2SAT 94–98
[2023-01-10] MEDS: IPRATROPIUM BR 0.02% INH SOLN 0.5 MG/2.5 ML VIAL INHALATION ×4 (01:56→20:45)
[2023-01-10 05:09] LABS: Basophils Percent Auto 0.3 % (0.2-1.2); Eosinophils Percent Auto 0.2 % (0-4.4); Hematocrit 34.4 % (37.0-47.0); Hemoglobin 11.8 g/dL (12.0-15.0); Immature Granulocyte Absolute 0.35 K/mm3 (0.00-0.031); Immature Granulocyte Percent A 2.7 % (0-0.5); Lymphocytes Absolute Auto 2.12 K/mm3 (0.9-3.2); Lymphocytes Percent Auto 16.5 % (18.3-44.2); Mean Corpuscular HGB Conc 34.3 g/dl (32-36); Mean Corpuscular Hemoglobin 32.1 pg (26-34); Mean Corpuscular Volume 93.5 fl (80-100); Mean Platelet Volume 9.5 fl (7.4-10.4); Monocytes Absolute Auto 1.3 K/mm3 (0.1-0.6); Monocytes Percent Auto 10.2 % (2.6-8.5); Neutrophils Percent Auto 70.1 % (45.5-73.1); Platelet Count Result 317 k/mm3 (150-375); Red Blood Count 3.68 M/mm3 (4.2-5.4); Red Cell Distribution Width 14.5 % (11.5-14.5); White Blood Count 12.8 K/mm3 (4.5-10.0)
[2023-01-10 05:20] LABS: Alanine Aminotransferase 161 U/L (6-35); Albumin Level 4.1 g/dL (3.5-5.1); Alkaline Phosphatase 91 U/L (38-126); Anion Gap 7 mmol/L (8-16); Aspartate Amino Transferase 131 U/L (14-36); Bilirubin,Total 0.5 mg/dL (0.2-1.3); Blood Urea Nitrogen 10 mg/dL (7-17); CRP 3.4 mg/dL (<1.0); Calcium 8.8 mg/dL (8.4-10.2); Carbon Dioxide 28 mmol/L (22-30); Chloride 101 mmol/L (98-107); Estimated CRCL calculation 117 ml/min; Estimated Glomerular Filt Rate > 60; Glucose 112 mg/dL (65-110); Potassium 3.2 mmol/L (3.4-5.0); Sodium 136 mmol/L (137-145)
[2023-01-10] MEDS: FLUTICASONE/SALMETEROL 115-21 MCG INHALER 1 PUFF 2 PUFF INHALATION ×2 (08:29→20:45)
[2023-01-10] MEDS: POTASSIUM CHLORIDE 20 MEQ TABLET 40 MEQ PO (09:05)
[2023-01-10] MEDS: predniSONE 20 MG TABLET 40 MG PO (09:06)
[2023-01-10] MEDS: buPROPion HCL SR (12 HR) 150 MG TAB PO (09:06)
[2023-01-10] MEDS: ACIDOPHILUS/BULGARICUS CHEWABLE TABLET 1 TABLET BY MOUTH ×2 (09:06→17:11)
[2023-01-10] MEDS: BENZONATATE 100 MG CAPSULE PO ×3 (09:06→17:11)
[2023-01-10] MEDS: lisinopriL 20 MG TABLET PO (09:07)
[2023-01-10] MEDS: guaiFENesin 12 HR 600 MG TABCR 1200 MG PO ×2 (09:07→20:46)
[2023-01-10] MEDS: FLUTICASONE PROPIONATE 0.05% NA SPR 16 GM BTL (*BKC) 1 SPRAY NASAL ×2 (09:07→17:12)
[2023-01-10] MEDS: THERAPEUTIC MULTIVITAMINS/MINERALS TAB (*BKC) 1 TABLET PO (09:08)
[2023-01-10] MEDS: LORATADINE 10 MG TABLET PO (09:08)
[2023-01-10] MEDS: PANTOPRAZOLE 40 MG TABLET PO ×2 (09:08→17:12)
--- NOTE | 2023-01-10 09:49 | PM.IMPN ---
Progress Note: A&P Assessment and Plan (1) Community acquired pneumonia: Code(s): J18.9 - Pneumonia, unspecified organism Status: Acute Assessment and Plan: Failed 2 days of oral levaquin outpatient, started on Rocephin and azithromycin 01/08, end date azithro 01/12, 01/14 for rocephin (cefidinir when transitioned to oral) Stable on room air Small pleural effusions noted Blood cultures from 01/08 pending 01/10: leukocytosis mildly worsened today, clinically improving--no change to abx for now, recheck CBC this afternoon, could be reactive, check PCT, CRP improving (2) HLD (hyperlipidemia): Code(s): E78.5 - Hyperlipidemia, unspecified Status: Acute Assessment and Plan: Hold statin for now due to transaminitis (3) Depression: Code(s): F32.9 - Major depressive disorder, single episode, unspecified Status: Acute Assessment and Plan: Continue home meds, stable (4) Anxiety: Code(s): F41.9 - Anxiety disorder, unspecified Status: Acute Assessment and Plan: As above (5) COPD (chronic obstructive pulmonary disease): Qualifiers: COPD type: unspecified COPD Qualified Code(s): J44.9 - Chronic obstructive pulmonary disease, unspecified Code(s): J44.9 - Chronic obstructive pulmonary disease, unspecified Status: Chronic Assessment and Plan: Prednisone 40 mg daily for 5 days, started on steroids in ER 01/08, end date 01/12 Breathing treatments (6) HTN (hypertension): Qualifiers: Hypertension type: essential hypertension Qualified Code(s): I10 - Essential (primary) hypertension Code(s): I10 - Essential (primary) hypertension Status: Chronic Assessment and Plan: Blood pressures reviewed today, stable Continue home meds, amlodipine and lisinopril (7) Hypokalemia: Code(s): E87.6 - Hypokalemia Status: Acute Assessment and Plan: Recurred, likely due to breathing treatments, replaced again, monitor (8) Transaminitis: Code(s): R74.01 - Elevation of levels of liver transaminase levels Status: Acute Assessment and Plan: Worsened today, uncertain etiology, could be d/t statin vs hypoperfusion injury from pna? BP was always stable while here Check hepatitis panel, RUQ US, asymptomatic at this time Also admits to h/o heavy drinking (9) Elevated C-reactive protein (CRP): Code(s): R79.82 - Elevated C-reactive protein (CRP) Status: Acute Assessment and Plan: Significantly improved today, down to 3.4 from 13.5 (10) Subclinical hyperthyroidism: Code(s): E05.90 - Thyrotoxicosis, unspecified without thyrotoxic crisis or storm Status: Acute Assessment and Plan: Monitor, asymptomatic Plan DVT prophylaxis with SCDs GI prophylaxis with PPI Code status full code Subjective Date/time seen: 01/10/23 09:49 Interval history: No overnight events noted. No chest pain or shortness of breath. No nausea, vomiting or diarrhea. No fevers or chills. Patient admits to being a heavy drinker. She states she drinks a lot of wine and has been told in the past that she has fatty liver disease and possibly early cirrhosis. She admits to having a continued dry cough, occasionally productive of some white sputum. Much improved from yesterday. Review of Systems Review of Systems: 12 point review of systems was assessed and was negative except as noted in the HPI Exam Narrative: General: No acute distress, alert and oriented per baseline HEENT: Atraumatic, normocephalic, mucous membranes moist CV: Regular rate and rhythm, S1, S2 Lungs: Moderate air entry, scattered crackles noted at bases Abdomen: Soft, nontender, nondistended Extremities: Normal to inspection Skin: No rashes noted, no lesions or wounds seen Psych: Euthymic, normal affect Objective Data Vital Signs Vital Signs: Vital
[2023-01-10 11:02] LABS: Procalcitonin 0.1 ng/mL
[2023-01-10 11:19] LABS: Hepatitis B Surface Antigen Negative (Negative)
[2023-01-10 11:25] LABS: HAV RESULT Negative (Negative); Hepatitis B Core IgM Result Negative (Negative)
[2023-01-10 11:36] LABS: Hepatitis C Virus Antibody Negative (Negative)
[2023-01-10 16:32] LABS: Basophils Percent Auto 0.3 % (0.2-1.2); Hematocrit 35.4 % (37.0-47.0); Hemoglobin 12.2 g/dL (12.0-15.0); Immature Granulocyte Absolute 0.43 K/mm3 (0.00-0.031); Immature Granulocyte Percent A 4.6 % (0-0.5); Lymphocytes Absolute Auto 0.73 K/mm3 (0.9-3.2); Lymphocytes Percent Auto 7.8 % (18.3-44.2); Mean Corpuscular HGB Conc 34.5 g/dl (32-36); Mean Corpuscular Hemoglobin 32.4 pg (26-34); Mean Corpuscular Volume 93.9 fl (80-100); Mean Platelet Volume 9.3 fl (7.4-10.4); Monocytes Absolute Auto 0.4 K/mm3 (0.1-0.6); Monocytes Percent Auto 3.9 % (2.6-8.5); Neutrophils Absolute Auto 7.8 K/mm3 (1.3-6.7); Neutrophils Percent Auto 83.4 % (45.5-73.1); Platelet Count Result 346 k/mm3 (150-375); Red Blood Count 3.77 M/mm3 (4.2-5.4); Red Cell Distribution Width 14.6 % (11.5-14.5); White Blood Count 9.4 K/mm3 (4.5-10.0)
[2023-01-10] MEDS: ALPRAZolam (*CRX) 0.5 MG TABLET PO (20:46)
[2023-01-10] MEDS: amLODIPine BESYLATE 5 MG TABLET 10 MG PO (20:46)
--- NOTE | 2023-01-11 05:02 | PCRCNOTE ---
Patient did not want to be awakened for her 0200 updraft treatment. Treatment to resume at 0800.
[2023-01-11 05:36] LABS: Basophils Percent Auto 0.5 % (0.2-1.2); Eosinophils Absolute Auto 0.1 K/mm3 (0-0.3); Eosinophils Percent Auto 0.7 % (0-4.4); Hematocrit 32.3 % (37.0-47.0); Hemoglobin 10.9 g/dL (12.0-15.0); Immature Granulocyte Absolute 0.37 K/mm3 (0.00-0.031); Lymphocytes Percent Auto 33.6 % (18.3-44.2); Mean Corpuscular HGB Conc 33.7 g/dl (32-36); Mean Corpuscular Hemoglobin 31.6 pg (26-34); Mean Corpuscular Volume 93.6 fl (80-100); Mean Platelet Volume 9.2 fl (7.4-10.4); Monocytes Absolute Auto 0.9 K/mm3 (0.1-0.6); Monocytes Percent Auto 11.7 % (2.6-8.5); Neutrophils Absolute Auto 3.6 K/mm3 (1.3-6.7); Neutrophils Percent Auto 48.5 % (45.5-73.1); Platelet Count Result 334 k/mm3 (150-375); Red Blood Count 3.45 M/mm3 (4.2-5.4); Red Cell Distribution Width 14.7 % (11.5-14.5); White Blood Count 7.4 K/mm3 (4.5-10.0)
[2023-01-11 05:49] LABS: Alanine Aminotransferase 120 U/L (6-35); Albumin Level 3.4 g/dL (3.5-5.1); Alkaline Phosphatase 74 U/L (38-126); Anion Gap 5 mmol/L (8-16); Aspartate Amino Transferase 48 U/L (14-36); Bilirubin,Total 0.4 mg/dL (0.2-1.3); Blood Urea Nitrogen 7 mg/dL (7-17); Calcium 8.1 mg/dL (8.4-10.2); Carbon Dioxide 29 mmol/L (22-30); Chloride 104 mmol/L (98-107); Estimated CRCL calculation 117 ml/min; Estimated Glomerular Filt Rate > 60; Glucose 89 mg/dL (65-110); Potassium 3.6 mmol/L (3.4-5.0); Sodium 138 mmol/L (137-145)
[2023-01-11 06:00] VITALS: BP 125/61; PULSE 72; RESP 18; TEMP 36.3; O2SAT 95
[2023-01-11] MEDS: FLUTICASONE/SALMETEROL 115-21 MCG INHALER 1 PUFF 2 PUFF INHALATION (08:25)
[2023-01-11] MEDS: IPRATROPIUM BR 0.02% INH SOLN 0.5 MG/2.5 ML VIAL INHALATION ×2 (08:25→14:41)
[2023-01-11 08:26] VITALS: PULSE 72; RESP 18
[2023-01-11] MEDS: predniSONE 20 MG TABLET 40 MG PO (08:33)
[2023-01-11] MEDS: LORATADINE 10 MG TABLET PO (08:33)
[2023-01-11] MEDS: ASPIRIN 81 MG ENTERIC TABLET PO (08:33)
[2023-01-11] MEDS: ACIDOPHILUS/BULGARICUS CHEWABLE TABLET 1 TABLET BY MOUTH (08:33)
[2023-01-11] MEDS: PANTOPRAZOLE 40 MG TABLET PO (08:33)
[2023-01-11] MEDS: THERAPEUTIC MULTIVITAMINS/MINERALS TAB (*BKC) 1 TABLET PO (08:33)
[2023-01-11] MEDS: buPROPion HCL SR (12 HR) 150 MG TAB PO (08:33)
[2023-01-11] MEDS: BENZONATATE 100 MG CAPSULE PO ×2 (08:33→13:15)
[2023-01-11] MEDS: guaiFENesin 12 HR 600 MG TABCR 1200 MG PO (08:33)
[2023-01-11] MEDS: lisinopriL 20 MG TABLET PO (08:33)
[2023-01-11] MEDS: FLUTICASONE PROPIONATE 0.05% NA SPR 16 GM BTL (*BKC) 1 SPRAY NASAL (08:33)
[2023-01-11 09:00] VITALS: PULSE 74; O2SAT 95
--- NOTE | 2023-01-11 09:16 | PM.DS ---
DS: Admitting Diagnosis Discharge Date 01/11/23 Admitting Diagnosis sob DS: Discharge Diagnosis Discharge Diagnosis (1) Community acquired pneumonia: Code(s): J18.9 - Pneumonia, unspecified organism Status: Acute Assessment and Plan: Failed 2 days of oral levaquin outpatient, started on Rocephin and azithromycin 01/08, end date azithro 01/12, 01/14 for rocephin (cefidinir when transitioned to oral) Stable on room air Small pleural effusions noted Blood cultures from 01/08 pending 01/10: leukocytosis mildly worsened today, clinically improving--no change to abx for now, recheck CBC this afternoon, could be reactive, check PCT, CRP improving (2) HLD (hyperlipidemia): Code(s): E78.5 - Hyperlipidemia, unspecified Status: Acute Assessment and Plan: Hold statin for now due to transaminitis (3) Depression: Code(s): F32.9 - Major depressive disorder, single episode, unspecified Status: Acute Assessment and Plan: Continue home meds, stable (4) Anxiety: Code(s): F41.9 - Anxiety disorder, unspecified Status: Acute Assessment and Plan: As above (5) COPD (chronic obstructive pulmonary disease): Qualifiers: COPD type: unspecified COPD Qualified Code(s): J44.9 - Chronic obstructive pulmonary disease, unspecified Code(s): J44.9 - Chronic obstructive pulmonary disease, unspecified Status: Chronic Assessment and Plan: Prednisone 40 mg daily for 5 days, started on steroids in ER 01/08, end date 01/12 Breathing treatments (6) HTN (hypertension): Qualifiers: Hypertension type: essential hypertension Qualified Code(s): I10 - Essential (primary) hypertension Code(s): I10 - Essential (primary) hypertension Status: Chronic Assessment and Plan: Blood pressures reviewed today, stable Continue home meds, amlodipine and lisinopril (7) Hypokalemia: Code(s): E87.6 - Hypokalemia Status: Acute Assessment and Plan: Recurred, likely due to breathing treatments, replaced again, monitor (8) Transaminitis: Code(s): R74.01 - Elevation of levels of liver transaminase levels Status: Acute Assessment and Plan: Worsened today, uncertain etiology, could be d/t statin vs hypoperfusion injury from pna? BP was always stable while here Check hepatitis panel, RUQ US, asymptomatic at this time Also admits to h/o heavy drinking (9) Elevated C-reactive protein (CRP): Code(s): R79.82 - Elevated C-reactive protein (CRP) Status: Acute Assessment and Plan: Significantly improved today, down to 3.4 from 13.5 (10) Subclinical hyperthyroidism: Code(s): E05.90 - Thyrotoxicosis, unspecified without thyrotoxic crisis or storm Status: Acute Assessment and Plan: Monitor, asymptomatic Plan DVT prophylaxis with SCDs GI prophylaxis with PPI Code status full code DS: Summary Hospital Course Hospital Course: 77-year-old female with past medical history significant for alcohol abuse, diverticulitis, GERD, hypertension, COPD is presenting with shortness of breath. She was found to have community-acquired pneumonia as well as a COPD exacerbation. She had been on Levaquin as an outpatient for a few days, symptoms not improved. She was started on Rocephin azithromycin as well as prednisone. Symptoms improved significantly. She was transitioned to oral cefdinir and azithromycin to complete a 7 day course. She was given a script to complete a 5 day course of prednisone. While here, she was noted to have elevated LFTs. She admitted to significant alcohol use. Hepatitis panel was negative. Statin was discontinued. Right upper quadrant ultrasound was ordered and is pending. Results can be followed up outpatient. She likely has early cirrhosis due to alcohol abuse versus fatty liver disease or elements of both. These can be follow
[2023-01-11 14:43] VITALS: PULSE 70; RESP 18
== END 2023-01-11 16:34 | disposition home or self-care (01) | DRG 194 ==
LOC: ANHED 14:10 → ANH2MED 14:49
PROVIDERS: Nurse Practitioner; Admitting Provider Chiropractor; Emergency Provider Emergency Medicine; PCP Emergency Medicine; Visit Provider Student in an Organized Health Care Education/Training Program
DX: J18.9 Pneumonia, unspecified organism (principal); J44.1 Chronic obstructive pulmonary disease with (acute) exacerbation; K57.92 Diverticulitis of intestine, part unspecified, without perforation or abscess without bleeding; E78.5 Hyperlipidemia, unspecified; E55.9 Vitamin D deficiency, unspecified; E87.6 Hypokalemia; E05.90 Thyrotoxicosis, unspecified without thyrotoxic crisis or storm; F41.9 Anxiety disorder, unspecified; F10.10 Alcohol abuse, uncomplicated; F32.A Depression, unspecified; I10 Essential (primary) hypertension; K21.9 Gastro-esophageal reflux disease without esophagitis; R74.01 Elevation of levels of liver transaminase levels; R79.82 Elevated C-reactive protein (CRP); K74.60 Unspecified cirrhosis of liver; Z20.822 Contact with and (suspected) exposure to COVID-19; Z87.891 Personal history of nicotine dependence; Z79.82 Long term (current) use of aspirin; Z88.2 Allergy status to sulfonamides; Z85.3 Personal history of malignant neoplasm of breast; Z96.651 Presence of right artificial knee joint; Z90.710 Acquired absence of both cervix and uterus
CPT/HCPCS: 36415; 71045; 71046; 71250; 76705; 80053; 80074; 81001; 83605; 83735; 84145; 84439; 84443; 84480; 85025; 86140; 87040; 87636; 87637; 93005; 94640; 94667; 94668; 96360; 96365; 96366; 96367; 96375; 96376; 99283; 99285; A9270; G0378; J0456; J0696; J2920; J2930; J7030; J7512

== ENCOUNTER 2023-01-13 07:59 | Outpatient (CLI) | payer MEDICARE, OTHER, SELFPAY ==
[2023-01-13 08:38] LABS: Alanine Aminotransferase 90 U/L (6-35); Alkaline Phosphatase 74 U/L (38-126); Anion Gap 4 mmol/L (8-16); Aspartate Amino Transferase 36 U/L (14-36); Bilirubin,Total 0.5 mg/dL (0.2-1.3); Blood Urea Nitrogen 11 mg/dL (7-17); Calcium 8.8 mg/dL (8.4-10.2); Carbon Dioxide 31 mmol/L (22-30); Chloride 97 mmol/L (98-107); Cholesterol 177 mg/dL (0-200); Estimated Glomerular Filt Rate > 60; Glucose 86 mg/dL (65-110); HDL Direct 52 mg/dL; Potassium 3.5 mmol/L (3.4-5.0); Sodium 132 mmol/L (137-145); Triglycerides 128 mg/dL (<150)
[2023-01-13 08:50] LABS: LDL Cholesterol Direct 91 mg/dL
== END 2023-01-13 08:00 | disposition home or self-care (01) ==
PROVIDERS: PCP Emergency Medicine; Visit Provider Emergency Medicine
DX: I10 Essential (primary) hypertension (principal)
CPT/HCPCS: 36415; 80053; 80061

== ENCOUNTER 2023-01-17 09:25 | Outpatient (CLI) | payer MEDICARE, OTHER, SELFPAY ==
[2023-01-17 10:11] LABS: Alanine Aminotransferase 43 U/L (6-35); Alkaline Phosphatase 63 U/L (38-126); Anion Gap 4 mmol/L (8-16); Aspartate Amino Transferase 24 U/L (14-36); Bilirubin,Total 0.5 mg/dL (0.2-1.3); Blood Urea Nitrogen 13 mg/dL (7-17); Calcium 8.8 mg/dL (8.4-10.2); Carbon Dioxide 28 mmol/L (22-30); Chloride 98 mmol/L (98-107); Estimated Glomerular Filt Rate > 60; Glucose 121 mg/dL (65-110); Potassium 3.8 mmol/L (3.4-5.0); Sodium 130 mmol/L (137-145)
== END 2023-01-17 09:26 | disposition home or self-care (01) ==
LOC: ANHLAB 09:28
PROVIDERS: PCP Emergency Medicine; Visit Provider Student in an Organized Health Care Education/Training Program
DX: R74.01 Elevation of levels of liver transaminase levels (principal)
CPT/HCPCS: 36415; 80053

== ENCOUNTER → 2023-03-07 14:44 | Outpatient (CLI) | payer MEDICARE, OTHER, SELFPAY ==
--- NOTE | ~2023-03-07 | MM_ITS ---
EXAMINATION: MM screening santino BI w stephen HISTORY: Screening mammogram, history of right breast cancer TECHNIQUE: Craniocaudal and mediolateral oblique 3-D tomosynthesis images were obtained and synthetic 2-D images were generated. CAD analysis was submitted and interpreted. COMPARISON: 12/15/2021, 12/08/2020, 01/28/2020 BREAST PARENCHYMAL COMPOSITION: There are scattered areas of fibroglandular density. FINDINGS: Stable lumpectomy changes are noted in the right breast. No suspicious mass, calcification, or architectural distortion are identified in either breast to suggest malignancy. There has been no suspicious interval change. IMPRESSION: 1. No mammographic evidence of malignancy. 2. Recommend routine screening mammography in one year. BI-RADS Category 2: Benign finding(s). Reviewed, dictated and finalized at location A.
== END ==
PROVIDERS: PCP Emergency Medicine; Visit Provider Obstetrics & Gynecology
DX: Z12.31 Encounter for screening mammogram for malignant neoplasm of breast (principal)
CPT/HCPCS: 77063; 77067

== ENCOUNTER 2023-03-08 10:04 | Emergency (ER) | payer MEDICARE, OTHER, SELFPAY ==
--- NOTE | ~2023-03-08 | XR_ITS ---
EXAMINATION: XR chest 2V DATE: 03/08/2023 10:37 INDICATION: Cough and shortness of breath TECHNIQUE: Frontal and lateral views of the chest are obtained COMPARISON: 01/08/2023 FINDINGS: The lungs are free of acute opacities. No pleural effusion or pneumothorax. The cardiomedia stinal silhouette is normal. There is moderate thoracic spondylosis. Compression fractures of the upp er lumbar spine are again noted. IMPRESSION: 1. No acute cardiopulmonary abnormality. Reviewed, dictated and finalized at location A.
--- NOTE | 2023-03-08 10:05 | ED.URI ---
HPI - URI/Sore Throat General Chief Complaint: Upper Respiratory Infection Stated Complaint: HEADACHE/COUGH/CONGESTION Time Seen by Provider: 03/08/23 10:05 Source: patient Mode of arrival: ambulatory Limitations: no limitations History of Present Illness HPI Narrative: Leila is a 77-year-old female patient presenting to clinic today with complaints of headache, productive cough, and congestion x 2 days. She reports she is bringing up some green phlegm. History of COPD. She denies any known fever, chills, or body aches. States last time she was seen here she was diagnosed with an upper respiratory infection and ended up in the ER 2 days later with pneumonia and was admitted into [facility]. Denies any unusual shortness of breath but is somewhat short of breath with exertion. History of bronchitis/pneumonia MD elicited complaint: cough, nasal congestion and other (Headache) Related Data Home Medications Medication Instructions Recorded Confirmed amlodipine 10 mg tablet 10 mg PO HS 11/23/19 03/08/23 bupropion HCl 150 mg tablet,12 hr 150 mg PO QAM 11/23/19 03/08/23 sustained-release lisinopril 20 mg tablet 20 mg PO DAILY 11/23/19 03/08/23 [id number] 200 mcg-vit K 100 1 cap PO DAILY 11/30/19 03/08/23 mcg-lycop 500 [id number] capsule (Daily Multivitamin) loratadine 10 mg tablet (Claritin) 10 mg PO DAILY 01/20/20 03/08/23 aspirin 81 mg tablet,delayed 81 mg PO EVERY OTHER DAY 03/24/20 03/08/23 release albuterol sulfate 90 mcg/actuation 2 inh inhalation DIRECTED 10/02/22 03/08/23 aerosol inhaler (ProAir HFA) Lactobacillus rhamnosus GG 10 1 cap PO BID 12/25/22 03/08/23 billion cell capsule (Culturelle) calcium carbonate 600 mg-vitamin 2 cap PO DAILY 01/17/23 03/08/23 D3 5 mcg (200 unit) capsule (Calcium 600 + D(3)) Allergies Allergy/AdvReac Type Severity Reaction Status Date / Time iodine Allergy Severe Swelling Verified 03/08/23 10:14 AND ITCHING shellfish derived Allergy Severe Itching Verified 03/08/23 10:14 AND SWELLING Sulfa (Sulfonamide Allergy Mild RASH Verified 03/08/23 10:14 Antibiotics) iohexol Allergy Rash Verified 03/08/23 10:14 [From contrast - CT, X-RAY] Review of Systems Review of Systems: Pertinent positives per HPI. Patient denies any fever, chills, rash, visual changes, dizziness, shortness of breath, chest pain, palpitations, nausea, vomiting, diarrhea, constipation, abdominal pain, or any urinary issues. [facility] Past Medical History Medical History Breast cancer Status post right lumpectomy and radiation. Bronchitis Complete tear of right rotator cuff COPD (chronic obstructive pulmonary disease) Degenerative joint disease of knee Depression Diverticulitis Dyspnea GERD (gastroesophageal reflux disease) HLD (hyperlipidemia) HTN (hypertension) Lumbar compression fracture L1-2 Mitral valve prolapse Vitamin D2 deficiency Surgical History Surgical History History of hysterectomy History of inguinal hernia repair with 8 cm Parietex hernia mesh system 03/29/20 S/P lumpectomy, right breast Status post total right knee replacement Family History Family History Mother Family history of malignant neoplasm Family history of emphysema Family history of lung cancer Family history of chronic obstructive pulmonary disease Father Hypertension Family history of heart disease in male family member before age 55 Acute myocardial infarction Social History Social History Social History: The patient lives with her . She has 3 children. 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 Surrogate medical decision maker: Lance Sandoval, spouse. Code status: Full code. Smoking packs
[2023-03-08 10:16] VITALS: BP 116/62; PULSE 67; RESP 16; TEMP 36.5; O2SAT 99
== END 2023-03-08 11:02 | disposition home or self-care (01) ==
PROVIDERS: Emergency Provider Nurse Practitioner Family; PCP Emergency Medicine
DX: J40 Bronchitis, not specified as acute or chronic (principal); Z87.891 Personal history of nicotine dependence; J44.9 Chronic obstructive pulmonary disease, unspecified; K21.9 Gastro-esophageal reflux disease without esophagitis; E78.5 Hyperlipidemia, unspecified; I10 Essential (primary) hypertension; I34.1 Nonrheumatic mitral (valve) prolapse; Z85.3 Personal history of malignant neoplasm of breast; Z96.651 Presence of right artificial knee joint
CPT/HCPCS: 71046; 99213; G0463

== ENCOUNTER 2023-04-08 01:31 | Day surgery (SDC) | payer MEDICARE, OTHER, SELFPAY ==
[2023-02-28 13:26] VITALS: BMI 26.6
[2023-04-08 06:54] VITALS: BP 124/64; PULSE 61; RESP 18; TEMP 36.2; O2SAT 98; BMI 26.6
[2023-04-08] MEDS: LACTATED RINGERS 1,000 ML 150 ML IV CONT (07:19)
--- NOTE | 2023-04-08 07:44 | PM.HPGS ---
History of Present Illness History of Present Illness Consent: Risks, benefits, and alternatives have been discussed and questions answered. Patient agrees to proceed with procedure. Chief complaint: Diverticulitis Narrative: Maryellen Sandoval is a 77 year old female Presents for colonoscopy. Patient has a history of diverticulitis. She has been treated with antibiotics. Abdominal pain has resolved. She states that her bowel habits have returned to normal. She denies any ongoing pain. No fever. No bleeding. Family history is noncontributory. Review of Systems Review of Systems: Review of systems noncontributory. [facility] Past Medical History Medical History (Updated 04/08/23 @ 07:46 by Narendra Johnson MD) Breast cancer Status post right lumpectomy and radiation. Bronchitis Complete tear of right rotator cuff COPD (chronic obstructive pulmonary disease) Degenerative joint disease of knee Depression Diverticulitis Dyspnea GERD (gastroesophageal reflux disease) HLD (hyperlipidemia) HTN (hypertension) Lumbar compression fracture L1-2 Mitral valve prolapse Vitamin D2 deficiency Surgical History Surgical History (Updated 03/19/23 @ 09:56 by Susana Galan MA) History of hysterectomy History of inguinal hernia repair with 8 cm Parietex hernia mesh system 03/29/20 S/P lumpectomy, right breast Status post total right knee replacement (~03/19/22) Family History Family History Mother Family history of malignant neoplasm Family history of emphysema Family history of lung cancer Family history of chronic obstructive pulmonary disease Father Hypertension Family history of heart disease in male family member before age 55 Acute myocardial infarction Social History Social History Social History: The patient lives with her . She has 3 children. 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 Surrogate medical decision maker: Lance Sandoval, spouse. Code status: Full code. Smoking packs per day: 1 Smoking cigarettes per day: 20.0 Years smoked: 30 Smoking pack-years: 30.00 Smoking status: Former smoker Tobacco type: cigarettes Additional smoking assessment comments: DENIES ANY FORM OF TOBACCO USE Alcohol intake: former Drinks per week: 18 Alcohol use details: Stopped ETOH use after pneumonia and liver scan fall 2021 Substance use: never Substance use type: does not use Lack of Transportation: No Lack of Food: Never True Current Housing: I Have Housing Concerned About Future Housing: No Difficulty Paying Gas/Electric Bills: No Difficulty Paying for Meds: No Currently Unemployed: No Education: High School Diploma/GED Difficulty w/ Childcare or Family Care: No Living arrangements: with family Gender identity (if verbalized by the patient): Female Spiritual care concerns: No Meds Home Medications and Allergies Home Medications Medication Instructions Recorded Confirmed Type amlodipine 10 mg tablet 10 mg PO HS 11/23/19 03/21/23 History bupropion HCl 150 mg tablet,12 hr 150 mg PO QAM 11/23/19 03/21/23 History sustained-release lisinopril 20 mg tablet 20 mg PO DAILY 11/23/19 03/21/23 History [id number] 200 mcg-vit K 100 1 cap PO DAILY 11/30/19 03/21/23 History mcg-lycop 500 [id number] capsule (Daily Multivitamin) loratadine 10 mg tablet (Claritin) 10 mg PO DAILY 01/20/20 03/21/23 History aspirin 81 mg tablet,delayed 81 mg PO EVERY OTHER DAY 03/24/20 03/21/23 History release fluticasone propionate 50 2 spray intranasal BID #47.4 grams 11/27/22 03/21/23 Rx mcg/actuation nasal spray,suspension Lactobacillus rhamnosus GG 10 1 cap PO BID 12/25/22 03/21/23 History billion cell capsule (Culturelle) calcium carbonate 600 mg-vitamin 2 cap PO DAILY 01/17/23 03/21/23 History D3 5 mcg
--- NOTE | 2023-04-08 07:51 | WPDANESEPPF ---
Anes - Initial Pre Proc Eval Procedure: Operation Date: 04/08/23 08:00 Proposed Procedures p Colonoscopy - Narendra Johnson MD Date/Time: 04/08/23 07:51 Surgeon: Narendra Johnson MD Pre Op Diagnosis: Diverticulitis Patient Data Age: 77 Gender: F Height: 1.6 m Weight: 68.4 kg Last Vital Signs Temp 97.1 F L 04/08/23 06:54 Pulse 61 04/08/23 06:54 Resp 18 04/08/23 06:54 BP 124/64 04/08/23 06:54 Pulse Ox 98 04/08/23 06:54 O2 Del Method Room Air 04/08/23 06:54 Allergies Allergy/AdvReac Type Severity Reaction Status Date / Time iodine Allergy Severe Swelling Verified 03/21/23 14:42 AND ITCHING shellfish derived Allergy Severe Itching Verified 03/21/23 14:42 AND SWELLING Sulfa (Sulfonamide Allergy Mild RASH Verified 03/21/23 14:42 Antibiotics) iohexol Allergy Rash Verified 03/21/23 14:42 [From contrast - CT, X-RAY] Home Medications Medication Instructions Recorded Confirmed Type amlodipine 10 mg tablet 10 mg PO HS 11/23/19 03/21/23 History bupropion HCl 150 mg tablet,12 hr 150 mg PO QAM 11/23/19 03/21/23 History sustained-release lisinopril 20 mg tablet 20 mg PO DAILY 11/23/19 03/21/23 History qgnzhdfh-[id number]-XB 200 mcg-vit K 100 1 cap PO DAILY 11/30/19 03/21/23 History mcg-lycop 500 [id number] capsule (Daily Multivitamin) loratadine 10 mg tablet (Claritin) 10 mg PO DAILY 01/20/20 03/21/23 History aspirin 81 mg tablet,delayed 81 mg PO EVERY OTHER DAY 03/24/20 03/21/23 History release fluticasone propionate 50 2 spray intranasal BID #47.4 grams 11/27/22 03/21/23 Rx mcg/actuation nasal spray,suspension Lactobacillus rhamnosus GG 10 1 cap PO BID 12/25/22 03/21/23 History billion cell capsule (Culturelle) calcium carbonate 600 mg-vitamin 2 cap PO DAILY 01/17/23 03/21/23 History D3 5 mcg (200 unit) capsule (Calcium 600 + D(3)) alprazolam 0.5 mg tablet (Xanax) 0.5 mg PO BID PRN anxiety #30 tabs 01/27/23 03/21/23 Rx sodium,potassium,mag sulfates 17.5 See Rx Instructions PO .COMPLEX 02/14/23 03/19/23 Rx gram-3.13 gram-1.6 gram oral soln #354 mL (Suprep Bowel Prep Kit) fluticasone propionate 115 See Rx Instructions .Route 02/19/23 03/21/23 Rx mcg-salmeterol 21 mcg/actuation .COMPLEX #36 grams HFA inhaler (Advair HFA) omeprazole 40 mg capsule,delayed 40 mg PO DAILY 03/21/23 03/21/23 History release albuterol sulfate 90 mcg/actuation See Rx Instructions .Route 03/24/23 04/08/23 Rx aerosol inhaler .COMPLEX #34 grams Patient hx anesthesia problems: none Family hx anesthesia problems: none Results Review: All pre-operative results and documents have been reviewed as part of the pre-operative evaluation. [facility] Past Medical History Medical History (Updated 04/08/23 @ 07:46 by Narendra Johnson MD) Breast cancer Status post right lumpectomy and radiation. Bronchitis Complete tear of right rotator cuff COPD (chronic obstructive pulmonary disease) Degenerative joint disease of knee Depression Diverticulitis Dyspnea GERD (gastroesophageal reflux disease) HLD (hyperlipidemia) HTN (hypertension) Lumbar compression fracture L1-2 Mitral valve prolapse Vitamin D2 deficiency Surgical History Surgical History (Updated 03/19/23 @ 09:56 by Suasna Galan MA) History of hysterectomy History of inguinal hernia repair with 8 cm Parietex hernia mesh system 03/29/20 S/P lumpectomy, right breast Status post total right knee replacement (~03/19/22) Family History Family History Mother Family history of malignant neoplasm Family history of emphysema Family history of lung cancer Family history of chronic obstructive pulmonary disease Father Hypertension Family history of heart disease in male family member before age 55 Acute myocardial infarction Social History Social History Social History: The
[2023-04-08 08:15] VITALS: BP 105/56; PULSE 64; RESP 20; O2SAT 98
[2023-04-08 08:25] VITALS: BP 119/60; PULSE 56; RESP 20; O2SAT 100
[2023-04-08 08:35] VITALS: BP 130/65; PULSE 54; RESP 22; O2SAT 100
== END 2023-04-08 08:46 | disposition home or self-care (01) ==
PROVIDERS: PCP Emergency Medicine; Visit Provider Internal Medicine Gastroenterology
PROC: 0DJD8ZZ Inspection of Lower Intestinal Tract, Via Natural or Artificial Opening Endoscopic (ICD-10-PCS; CPT 45378; principal; 2023-04-08 08:00)
DX: K57.32 Diverticulitis of large intestine without perforation or abscess without bleeding (principal); K63.5 Polyp of colon; K64.8 Other hemorrhoids; J44.9 Chronic obstructive pulmonary disease, unspecified; I10 Essential (primary) hypertension; I34.1 Nonrheumatic mitral (valve) prolapse; K21.9 Gastro-esophageal reflux disease without esophagitis; E55.9 Vitamin D deficiency, unspecified; E78.5 Hyperlipidemia, unspecified; M17.9 Osteoarthritis of knee, unspecified; F32.A Depression, unspecified; Z96.651 Presence of right artificial knee joint; Z79.82 Long term (current) use of aspirin; Z85.3 Personal history of malignant neoplasm of breast
CPT/HCPCS: 45385; 88305; J2704; J7120

== ENCOUNTER → 2023-04-10 13:20 | Outpatient (CLI) | payer MEDICARE, OTHER, SELFPAY ==
--- NOTE | ~2023-04-10 | DEXA_ITS ---
Bone Density Report Name: ELISSA CHERRY Age: 77 Sex: Female Ethnicity: White Date of : 1945 Indication: postmenopausal; screening for osteoporosis; height loss; prior fracture; hysterectomy; Referring Provider: KELLEN PINEDA Study: Bone densitometry was performed. Exam Date: April 10, 2023 Accession number: [id number] Bone Density: Region BMD T-score Z-score Classification AP Spine (L1-L4) 1.153 1.0 3.4 Normal Femoral Neck (Left) 0.820 -0.3 1.8 Normal Total Hip (Left) 0.935 -0.1 1.7 Normal Femoral Neck (Right) 0.830 -0.2 1.9 Normal Total Hip (Right) 0.957 0.1 1.9 Normal Total Hip Mean 0.946 0.0 1.8 Normal World Health Organization criteria for BMD impression classify patients as: Normal (T-score at or above -1.0), Osteopenia (T-score between -1.0 and -2.5), or Osteoporosis (T-score at or below -2.5). 10-year Fracture Risk: FRAX not reported because: All T-scores for Spine Total, Hip Total, Femoral Neck at or above -1.0 Prior hip or vertebral fracture Clinical Information Provided by Patient: Have had a previous hip or vertebral fracture Has had a low trauma fracture Has used the following medications: Vitamin D, Calcium, STEROID INHALER Has the following medical conditions: Hysterectomy, COPD Patient maximum height was 64 Menopause Age: 40 Drinks caffeinated beverages Onset of menses at age 16 Number of children 3 Impression: The patient has normal bone mass. The patient has risk factors, including: previous fracture. Discussion: INCREASED RISK OF FRACTURE DUE TO HISTORY OF FRACTURE. The patient's previous fracture puts the patient at high risk of a future fracture. In untreated patients, the risk of osteoporotic fracture increases approximately two-fold for each 1.0 SD decrease in T-score. Low bone density is not the only risk factor for fracture; also consider factors such as patient's age, frailty or poor health, risk of falling, risk of injury, previous osteoporotic fracture, family history of osteoporosis, cigarette smoking, low body weight, etc. Not everyone with a low trauma fracture has osteoporosis; osteomalacia and other metabolic bone disorders should also be considered. Patients who have osteoporosis should be evaluated for specific diseases and conditions (secondary causes) that may cause or contribute to bone loss and fracture risk. National Osteoporosis Foundation (NOF) recommends pharmacologic intervention for patients with a prior hip or vertebral fracture regardless of BMD T-score. The patient should follow a healthful lifestyle (good nutrition with adequate calcium and vitamin D, and appropriate weight-bearing exercise). Follow-Up: Consider a repeat BMD and Vertebral Fracture Assessment (VFA) exam in 2 years or sooner if medically necessary, to reassess this patien
== END ==
PROVIDERS: PCP Obstetrics & Gynecology; Visit Provider Emergency Medicine
DX: Z78.0 Asymptomatic menopausal state (principal)
CPT/HCPCS: 77080

== ENCOUNTER 2023-04-23 08:03 | Outpatient (CLI) | payer MEDICARE, OTHER, SELFPAY ==
[2023-04-23 08:59] LABS: Alanine Aminotransferase 22 U/L (6-35); Albumin Level 4.3 g/dL (3.5-5.1); Alkaline Phosphatase 51 U/L (38-126); Anion Gap 3 mmol/L (8-16); Aspartate Amino Transferase 25 U/L (14-36); Bilirubin,Total 0.6 mg/dL (0.2-1.3); Blood Urea Nitrogen 9 mg/dL (7-17); Carbon Dioxide 29 mmol/L (22-30); Chloride 103 mmol/L (98-107); Cholesterol 246 mg/dL (0-200); Estimated Glomerular Filt Rate > 60; Glucose 96 mg/dL (65-110); HDL Direct 82 mg/dL; Potassium 3.8 mmol/L (3.4-5.0); Sodium 135 mmol/L (137-145); Triglycerides 54 mg/dL (<150)
[2023-04-23 09:10] LABS: LDL Cholesterol Direct 132 mg/dL
[2023-04-27 00:09] LABS: Vitamin D 1,25 (OH)2 Total 52 pg/mL (18-72); Vitamin D2 1,25 (OH)2 <8 pg/mL; Vitamin D3 1,25 (OH)2 52 pg/mL
== END 2023-04-23 08:04 | disposition home or self-care (01) ==
LOC: ANHLAB 08:05
PROVIDERS: PCP Emergency Medicine; Visit Provider Emergency Medicine
DX: E55.9 Vitamin D deficiency, unspecified (principal); E78.5 Hyperlipidemia, unspecified; I10 Essential (primary) hypertension
CPT/HCPCS: 36415; 80053; 80061; 82652

== ENCOUNTER 2023-07-25 08:28 | Outpatient (CLI) | payer MEDICARE, OTHER, SELFPAY ==
[2023-07-25 09:52] LABS: Alanine Aminotransferase 19 U/L (6-35); Alkaline Phosphatase 59 U/L (38-126); Anion Gap 5 mmol/L (8-16); Aspartate Amino Transferase 37 U/L (14-36); Bilirubin,Total 0.6 mg/dL (0.2-1.3); Blood Urea Nitrogen 7 mg/dL (7-17); Calcium 8.8 mg/dL (8.4-10.2); Carbon Dioxide 30 mmol/L (22-30); Chloride 101 mmol/L (98-107); Cholesterol 228 mg/dL (0-200); Estimated Glomerular Filt Rate > 60; Glucose 103 mg/dL (65-110); HDL Direct 101 mg/dL; Potassium 3.7 mmol/L (3.4-5.0); Sodium 136 mmol/L (137-145); Triglycerides 60 mg/dL (<150)
[2023-07-25 10:03] LABS: LDL Cholesterol Direct 103 mg/dL
[2023-07-29 11:13] LABS: Vitamin D 1,25 (OH)2 Total 48 pg/mL (18-72); Vitamin D2 1,25 (OH)2 <8 pg/mL; Vitamin D3 1,25 (OH)2 48 pg/mL
== END 2023-07-25 08:29 | disposition home or self-care (01) ==
PROVIDERS: PCP Emergency Medicine; Referring Provider Internal Medicine Cardiovascular Disease; Visit Provider Emergency Medicine
DX: E55.9 Vitamin D deficiency, unspecified (principal); E78.5 Hyperlipidemia, unspecified
CPT/HCPCS: 36415; 80053; 80061; 82652

== ENCOUNTER 2023-08-10 11:00 | Emergency (ER) | payer MEDICARE, OTHER, SELFPAY ==
--- NOTE | ~2023-08-10 | XR_ITS ---
EXAMINATION: XR chest 2V 08/10/2023 11:56 INDICATION: Cough for one week PROCEDURE: 2 view chest COMPARISON: 03/08/2023 FINDINGS: The lungs are clear. The cardiomediastinal silhouette is within normal limits. There are no pleural effusions. There is no pneumothorax suspected. IMPRESSION: 1: NO ACUTE CARDIOPULMONARY DISEASE. Reviewed, dictated and finalized at location A.
[2023-08-10 11:17] VITALS: BP 140/73; PULSE 59; RESP 16; TEMP 36.1; O2SAT 98
--- NOTE | 2023-08-10 11:48 | ED.GENADULT ---
HPI - General Adult General Chief complaint: Upper Respiratory Infection Stated complaint: COUGH/CONGESTION/SWEATY Source: patient Mode of arrival: ambulatory Limitations: no limitations History of Present Illness HPI narrative: Patient presents for evaluation of sick symptoms for last week. Symptoms include productive cough of yellow sputum, fatigue, sinus congestion, hot flashes, chest tightness and shortness of breath. No chills, sore throat, nausea, vomiting or diarrhea. No recent sick contacts to her knowledge. She tried OTC cough and cold medication without considerable improvement in her symptoms thereafter. She is a former smoker and has COPD. She has been using Advair and albuterol as directed. Related Data Home Medications Medication Instructions Recorded Confirmed amlodipine 10 mg tablet 10 mg PO HS 11/23/19 03/21/23 bupropion HCl 150 mg tablet,12 hr 150 mg PO QAM 11/23/19 03/21/23 sustained-release lisinopril 20 mg tablet 20 mg PO DAILY 11/23/19 03/21/23 [id number]-MV 200 mcg-vit K 100 1 cap PO DAILY 11/30/19 03/21/23 mcg-lycop 500 [id number] capsule (Daily Multivitamin) loratadine 10 mg tablet (Claritin) 10 mg PO DAILY 01/20/20 03/21/23 aspirin 81 mg tablet,delayed 81 mg PO EVERY OTHER DAY 03/24/20 03/21/23 release Lactobacillus rhamnosus GG 10 1 cap PO BID 12/25/22 03/21/23 billion cell capsule (Culturelle) calcium carbonate 600 mg-vitamin 2 cap PO DAILY 01/17/23 03/21/23 D3 5 mcg (200 unit) capsule (Calcium 600 + D(3)) Allergies Allergy/AdvReac Type Severity Reaction Status Date / Time iodine Allergy Severe Swelling Verified 07/29/23 11:03 AND ITCHING shellfish derived Allergy Severe Itching Verified 07/29/23 11:03 AND SWELLING Sulfa (Sulfonamide Allergy Mild RASH Verified 07/29/23 11:03 Antibiotics) iohexol Allergy Rash Verified 07/29/23 11:03 [From contrast - CT, X-RAY] Review of Systems Review of Systems: CONSTITUTIONAL: Reports fatigue and generally not feeling well. Denies fever, chills, or sweats. EYES: Denies visual changes, redness, or discharge. ENT: Reports sinus congestion. Reports bilateral ear fullness. Denies sore throat. CARDIOVASCULAR: Denies chest pain, palpitations, or edema. RESPIRATORY: Reports productive cough of yellow sputum with shortness of breath and chest tightness. GASTROINTESTINAL: Denies abdominal pain, nausea, vomiting, or diarrhea. GENITOURINARY: Denies dysuria or hematuria. SKIN: Denies rash or itching. MUSCULOSKELETAL: Denies back pain, joint pain, or myalgia. NEUROLOGIC: Denies headache, numbness, dizziness, or weakness. PSYCHIATRIC: Denies anxiety or depression. [facility] Past Medical History Medical History Breast cancer Status post right lumpectomy and radiation. Bronchitis Complete tear of right rotator cuff COPD (chronic obstructive pulmonary disease) Degenerative joint disease of knee Depression Diverticulitis Dyspnea GERD (gastroesophageal reflux disease) HLD (hyperlipidemia) HTN (hypertension) Lumbar compression fracture L1-2 Mitral valve prolapse Vitamin D2 deficiency Surgical History Surgical History History of hysterectomy History of inguinal hernia repair with 8 cm Parietex hernia mesh system 03/29/20 S/P lumpectomy, right breast Status post total right knee replacement (~03/19/22) Family History Family History Mother Family history of malignant neoplasm Family history of emphysema Family history of lung cancer Family history of chronic obstructive pulmonary disease Father Hypertension Family history of heart disease in male family member before age 55 Acute myocardial infarction Social History Social History Social History: The
== END 2023-08-10 12:21 | disposition home or self-care (01) ==
PROVIDERS: Emergency Provider Nurse Practitioner; PCP Emergency Medicine
DX: J44.1 Chronic obstructive pulmonary disease with (acute) exacerbation (principal); J06.9 Acute upper respiratory infection, unspecified; Z87.891 Personal history of nicotine dependence; K21.9 Gastro-esophageal reflux disease without esophagitis; E78.5 Hyperlipidemia, unspecified; I10 Essential (primary) hypertension; I34.1 Nonrheumatic mitral (valve) prolapse; Z85.3 Personal history of malignant neoplasm of breast; Z90.11 Acquired absence of right breast and nipple; Z96.651 Presence of right artificial knee joint; F32.A Depression, unspecified; Z86.72 Personal history of thrombophlebitis
CPT/HCPCS: 71046; 87804; 99213; G0463

== ENCOUNTER → 2023-08-28 11:07 | Outpatient (CLI) | payer MEDICARE, OTHER, SELFPAY ==
--- NOTE | ~2023-08-28 | CT_ITS ---
EXAMINATION: CT sinus wo con DATE: 08/28/2023 11:21 INDICATION: Chronic sinusitis, unspecified TECHNIQUE: Computed tomography (CT) of the paranasal sinuses was performed without intravenous contra st. The dose-length product (DLP) was 266.74 mGy-cm. Iterative reconstruction was used. COMPARISON: None FINDINGS: There is normal development and pneumatization of the paranasal sinuses. There is mild muco oliver thickening of the ethmoidal air cells. Mild mucosal thickening is also seen posteriorly in the ma xillary sinuses. The frontal and sphenoid sinuses are clear. The bilateral infundibula are occluded. Visualized soft tissues are unremarkable. There are bilateral mastoid effusions. IMPRESSION: 1. Sinus disease as detailed above. Reviewed, dictated and finalized at location L.
== END ==
PROVIDERS: PCP Emergency Medicine; Visit Provider Emergency Medicine
DX: J32.8 Other chronic sinusitis (principal)
CPT/HCPCS: 70486

== ENCOUNTER 2023-10-02 13:17 | Outpatient (CLI) | payer MEDICARE, OTHER, SELFPAY ==
--- NOTE | ~2023-10-02 | XR_ITS ---
EXAMINATION: XR chest 2V DATE: 10/02/2023 13:37 INDICATION: Chronic sinusitis, unspecified. TECHNIQUE: Frontal and lateral views of the chest were obtained. COMPARISON: Chest 2 views 08/10/2023, chest CT 01/08/2023 FINDINGS: There is no pneumonia, pleural effusion, or pneumothorax. The heart size is normal. IMPRESSION: 1. No acute cardiopulmonary disease. Reviewed, dictated and finalized at location A. ECHNICAL DEPARTMENT MANAGER
== END 2023-10-02 13:18 | disposition home or self-care (01) ==
PROVIDERS: PCP Emergency Medicine; Visit Provider Emergency Medicine
DX: J32.9 Chronic sinusitis, unspecified (principal); R07.9 Chest pain, unspecified
CPT/HCPCS: 71046

== ENCOUNTER 2023-10-24 09:42 | Outpatient (CLI) | payer MEDICARE, OTHER, SELFPAY ==
[2023-10-24 10:13] LABS: Alanine Aminotransferase 19 U/L (6-35); Albumin Level 4.2 g/dL (3.5-5.1); Alkaline Phosphatase 63 U/L (38-126); Anion Gap 7 mmol/L (8-16); Aspartate Amino Transferase 27 U/L (14-36); Bilirubin,Total 0.7 mg/dL (0.2-1.3); Blood Urea Nitrogen 9 mg/dL (7-17); Calcium 9.4 mg/dL (8.4-10.2); Carbon Dioxide 28 mmol/L (22-30); Chloride 101 mmol/L (98-107); Cholesterol 212 mg/dL (0-200); Estimated Glomerular Filt Rate > 60; Glucose 101 mg/dL (65-110); HDL Direct 97 mg/dL; Sodium 136 mmol/L (137-145); Triglycerides 51 mg/dL (<150)
[2023-10-24 10:25] LABS: LDL Cholesterol Direct 91 mg/dL
[2023-10-24 10:58] LABS: Vitamin D 25 Hydroxy 20.1 ng/mL
== END 2023-10-24 09:43 | disposition home or self-care (01) ==
PROVIDERS: PCP Emergency Medicine; Referring Provider Internal Medicine Cardiovascular Disease; Visit Provider Emergency Medicine
DX: E55.9 Vitamin D deficiency, unspecified (principal); I10 Essential (primary) hypertension
CPT/HCPCS: 36415; 80053; 80061; 82306

== ENCOUNTER 2023-11-25 10:00 | Outpatient (CLI) | payer MEDICARE, OTHER, SELFPAY ==
--- NOTE | ~2023-11-25 | CT_ITS ---
EXAMINATION: CT LE LT wo con DATE: 11/25/2023 10:21 INDICATION: Unilateral primary osteoarthritis of left knee. Preoperative planning. TECHNIQUE: Computed tomography (CT) of the left lower limb was performed without intravenous contrast . Automated exposure control and iterative reconstruction technique were employed. The dose-length pr oduct was 1749.05 mGy-cm. COMPARISON: Left knee radiographs 03/19/2023 FINDINGS: Left hip demonstrates normal bone alignment. No fracture. There is mild left hip osteoarthr itis. Left knee demonstrates moderate osteoarthritis of the lateral compartment and mild osteoarthrit is of the medial and patellofemoral compartments. There is a small knee joint effusion. There is a sm all Bustamante's cyst with loose bodies. IMPRESSION: 1. Moderate left knee osteoarthritis. 2. Small left knee joint effusion. 3. Small left Bustamante's cyst with loose bodies. 4. Mild left hip osteoarthritis. Reviewed, dictated and finalized at location A. FABRICATOR
== END 2023-11-25 10:01 | disposition home or self-care (01) ==
LOC: ANHIMG 10:02
PROVIDERS: PCP Emergency Medicine; Visit Provider Orthopaedic Surgery
DX: M17.12 Unilateral primary osteoarthritis, left knee (principal); M25.462 Effusion, left knee; M71.22 Synovial cyst of popliteal space [Baker], left knee; M23.42 Loose body in knee, left knee; M16.12 Unilateral primary osteoarthritis, left hip
CPT/HCPCS: 73700

== ENCOUNTER 2023-12-15 02:03 | Day surgery (SDC) | payer MEDICARE, OTHER, SELFPAY ==
[2023-11-24 11:32] VITALS: BMI 28.2
--- NOTE | 2023-12-12 10:48 | SUR.PREOP ---
Patient called regarding upcoming procedure. Message left regarding arrival date and time.
[2023-12-15 10:40] VITALS: BP 153/76; PULSE 61; RESP 18; TEMP 36.3; O2SAT 100; BMI 27.8
--- NOTE | 2023-12-15 10:54 | WPDANESEPPF ---
Anes - Initial Pre Proc Eval Procedure: Operation Date: 12/15/23 13:00 Proposed Procedures p Flexible Sigmoidoscopy - Librado Ackerman MD Date/Time: 12/15/23 10:54 Surgeon: Librado Ackerman MD Pre Op Diagnosis: Noninfective gastroenteritis and colitis Patient Data Age: 78 Gender: F Height: 1.57 m Weight: 69.2 kg Last Vital Signs Temp 97.4 F L 12/15/23 10:40 Pulse 61 12/15/23 10:40 Resp 18 12/15/23 10:40 BP 153/76 H 12/15/23 10:40 Pulse Ox 100 12/15/23 10:40 O2 Del Method Room Air 12/15/23 10:40 Allergies Allergy/AdvReac Type Severity Reaction Status Date / Time iodine Allergy Severe Swelling Verified 12/15/23 10:43 AND ITCHING shellfish derived Allergy Severe Itching Verified 12/15/23 10:43 AND SWELLING Sulfa (Sulfonamide Allergy Mild RASH Verified 12/15/23 10:43 Antibiotics) iohexol Allergy Rash Verified 12/15/23 10:43 [From contrast - CT, X-RAY] Home Medications Medication Instructions Recorded Confirmed Type amlodipine 10 mg tablet 10 mg PO HS 11/23/19 12/15/23 History lisinopril 20 mg tablet 20 mg PO DAILY 11/23/19 12/15/23 History bililkjl-rzn-DL 200 mcg-vit K 100 1 cap PO DAILY 11/30/19 12/15/23 History mcg-lycop 500 [id number] capsule (Daily Multivitamin) loratadine 10 mg tablet (Claritin) 10 mg PO DAILY 01/20/20 12/15/23 History aspirin 81 mg tablet,delayed 81 mg PO EVERY OTHER DAY 03/24/20 12/15/23 History release Lactobacillus rhamnosus GG 10 1 cap PO BID 12/25/22 12/15/23 History billion cell capsule (Culturelle) calcium carbonate 600 mg-vitamin 2 cap PO DAILY 01/17/23 12/15/23 History D3 5 mcg (200 unit) capsule (Calcium 600 + D(3)) fluticasone propionate 115 See Rx Instructions .Route 02/19/23 12/15/23 Rx mcg-salmeterol 21 mcg/actuation .COMPLEX #36 grams HFA inhaler (Advair HFA) albuterol sulfate 90 mcg/actuation See Rx Instructions .Route 03/24/23 12/15/23 Rx aerosol inhaler .COMPLEX #34 grams omeprazole 40 mg capsule,delayed See Rx Instructions .Route 05/21/23 12/15/23 Rx release .COMPLEX #90 caps levofloxacin 500 mg tablet 500 mg PO DAILY #7 tabs 08/26/23 12/15/23 Rx fluticasone propionate 50 See Rx Instructions .Route 09/26/23 12/15/23 Rx mcg/actuation nasal .COMPLEX #32 grams spray,suspension atorvastatin 20 mg tablet 20 mg PO DAILY 10/22/23 12/15/23 History benzonatate 100 mg capsule 100 mg PO TID PRN Cough 11/24/23 12/15/23 History fluconazole 150 mg tablet 150 mg PO DAILY 1 dose #2 tabs 11/24/23 12/15/23 Rx alprazolam 0.5 mg tablet (Xanax) 0.5 mg PO BID PRN anxiety #30 tabs 12/01/23 12/15/23 Rx Patient hx anesthesia problems: none Family hx anesthesia problems: none Results Review: All pre-operative results and documents have been reviewed as part of the pre-operative evaluation. [facility] Past Medical History Medical History (Updated 11/21/23 @ 08:24 by Yamilet Cobian APRN) Abnormal CT scan, sigmoid colon Breast cancer Status post right lumpectomy and radiation. Bronchitis Change in bowel movement Colitis Complete tear of right rotator cuff COPD (chronic obstructive pulmonary disease) Degenerative joint disease of knee Depression Diverticulitis Dyspnea GERD (gastroesophageal reflux disease) HLD (hyperlipidemia) HTN (hypertension) Hx of colonic polyps LLQ pain Lumbar compression fracture L1-2 Mitral valve prolapse Vitamin D2 deficiency Surgical History Surgical History History of hysterectomy History of inguinal hernia repair with 8 cm Parietex hernia mesh system 03/29/20 S/P lumpectomy, right breast Status post total right knee replacement (~03/19/22) Family History Family History Mother Family history of malignant neoplasm Family history of emphysema Family history of lung cancer Family history of chronic obstructive pulmon
[2023-12-15] MEDS: LACTATED RINGERS 1,000 ML 150 ML IV CONT (10:55)
--- NOTE | 2023-12-15 11:26 | WPDHPUPDATE1 ---
History and Physical Update Update Date/Time: 12/15/23 11:26 History and Physical has been reviewed, including an updated exam of the patient. There are NO changes in the patient's condition. Risks, benefits, and alternatives have been discussed and questions answered. Patient agrees to proceed with procedure.
[2023-12-15 11:48] VITALS: BP 127/59; PULSE 58; RESP 16; O2SAT 96
[2023-12-15 11:58] VITALS: BP 103/67; PULSE 60; RESP 20; O2SAT 97
[2023-12-15 12:08] VITALS: BP 144/74; PULSE 56; RESP 18; O2SAT 100
== END 2023-12-15 12:21 | disposition home or self-care (01) ==
PROVIDERS: PCP Emergency Medicine; Visit Provider Internal Medicine Gastroenterology
PROC: 0DJD8ZZ Inspection of Lower Intestinal Tract, Via Natural or Artificial Opening Endoscopic (ICD-10-PCS; CPT 45330; principal; 2023-12-15 13:00)
DX: D12.5 Benign neoplasm of sigmoid colon (principal); K64.8 Other hemorrhoids; K57.30 Diverticulosis of large intestine without perforation or abscess without bleeding; I10 Essential (primary) hypertension; E78.5 Hyperlipidemia, unspecified; E55.9 Vitamin D deficiency, unspecified; F32.A Depression, unspecified; K21.9 Gastro-esophageal reflux disease without esophagitis; J44.9 Chronic obstructive pulmonary disease, unspecified; Z79.82 Long term (current) use of aspirin; Z79.51 Long term (current) use of inhaled steroids; Z98.890 Other specified postprocedural states; Z87.891 Personal history of nicotine dependence; Z86.010 Personal history of colon polyps; Z85.3 Personal history of malignant neoplasm of breast; Z86.79 Personal history of other diseases of the circulatory system; Z87.19 Personal history of other diseases of the digestive system; Z80.1 Family history of malignant neoplasm of trachea, bronchus and lung; Z82.49 Family history of ischemic heart disease and other diseases of the circulatory system
CPT/HCPCS: 45338; 88305; J2704; J7120

== ENCOUNTER 2024-01-05 10:41 | Outpatient (CLI) | payer MEDICARE, OTHER, SELFPAY ==
--- NOTE | ~2024-01-05 | XR_ITS ---
Left wrist Technique: PA and lateral views were obtained. Clinical History: Pain Findings: No acute fracture or dislocation is seen. There is advanced degenerative change of the firs t carpal metacarpal joint. There is mild and change of the triscaphe joint. Soft tissues are unremark able. Impression: Degenerative changes, as above. Reviewed, dictated and finalized at location . NO CONTROLLER Impression: Degenerative changes, as above.
== END 2024-01-05 10:42 | disposition home or self-care (01) ==
PROVIDERS: PCP Emergency Medicine; Visit Provider Emergency Medicine
DX: M19.032 Primary osteoarthritis, left wrist (principal)
CPT/HCPCS: 73100

== ENCOUNTER 2024-01-18 10:04 | Emergency (ER) | payer MEDICARE, OTHER, SELFPAY ==
--- NOTE | ~2024-01-18 | XR_ITS ---
EXAMINATION: XR chest 2V DATE: 01/18/2024 11:09 INDICATION: Cough. Wheezing. TECHNIQUE: Frontal and lateral views of the chest were obtained. COMPARISON: Chest 2 views 10/02/2023, CT abdomen and pelvis 01/08/2023 FINDINGS: There is no pneumonia or pneumothorax. There are are tiny pleural effusions. The heart size is normal. IMPRESSION: 1. Tiny pleural effusions. Reviewed, dictated and finalized at location A. EAR CHEMISTRY TECHNICIAN IMPRESSION: 1. Tiny pleural effusions.
[2024-01-18 10:21] VITALS: BP 131/68; PULSE 65; RESP 16; TEMP 36; O2SAT 100
--- NOTE | 2024-01-18 11:04 | ED.URI ---
HPI - URI/Sore Throat General Chief Complaint: Upper Respiratory Infection Stated Complaint: Cough/Chest Congestion Time Seen by Provider: 01/18/24 11:00 Source: patient and RN notes reviewed Mode of arrival: ambulatory Limitations: no limitations History of Present Illness HPI Narrative: Patient presents today with a 3 day history of cough, chest congestion, nasal congestion, ear pain, wheezing. She reports some mild shortness of breath this morning that has resolved. Denies fever. She has been using her COPD inhalers, Mucinex, and Coricidin HBP at home with some mild relief. Related Data Home Medications Medication Instructions Recorded Confirmed amlodipine 10 mg tablet 10 mg PO HS 11/23/19 01/18/24 lisinopril 20 mg tablet 20 mg PO DAILY 11/23/19 01/18/24 [id number] 200 mcg-vit K 100 1 cap PO DAILY 11/30/19 01/18/24 mcg-lycop 500 [id number] capsule (Daily Multivitamin) loratadine 10 mg tablet (Claritin) 10 mg PO DAILY 01/20/20 01/18/24 aspirin 81 mg tablet,delayed 81 mg PO EVERY OTHER DAY 03/24/20 01/18/24 release Lactobacillus rhamnosus GG 10 1 cap PO BID 12/25/22 01/18/24 billion cell capsule (Culturelle) calcium carbonate 600 mg-vitamin 2 cap PO DAILY 01/17/23 01/18/24 D3 5 mcg (200 unit) capsule (Calcium 600 + D(3)) atorvastatin 20 mg tablet 20 mg PO DAILY 10/22/23 01/18/24 Allergies Allergy/AdvReac Type Severity Reaction Status Date / Time iodine Allergy Severe Swelling Verified 01/18/24 10:31 AND ITCHING shellfish derived Allergy Severe Itching Verified 01/18/24 10:31 AND SWELLING Sulfa (Sulfonamide Allergy Mild RASH Verified 01/18/24 10:31 Antibiotics) iohexol Allergy Rash Verified 01/18/24 10:31 [From contrast - CT, X-RAY] Review of Systems Review of Systems: CONSTITUTIONAL: Denies body aches, fever, chills, or sweats. EYES: Denies visual changes, redness, or discharge. ENT: Denies rhinorrhea, sore throat. + congestion, ear pain CARDIOVASCULAR: Denies chest pain, palpitations, or edema. RESPIRATORY: + cough, chest congestion, wheezing, shortness of breath. GASTROINTESTINAL: Denies abdominal pain, nausea, vomiting, or diarrhea. GENITOURINARY: Denies dysuria or hematuria. SKIN: Denies rash, itching, or wounds. MUSCULOSKELETAL: Denies back pain, joint pain, or myalgia. NEUROLOGIC: Denies headache, numbness, tingling, or weakness. PSYCH: Denies depression or anxiety. [facility] Past Medical History Medical History Abnormal CT scan, sigmoid colon Breast cancer Status post right lumpectomy and radiation. Bronchitis Change in bowel movement Colitis Complete tear of right rotator cuff COPD (chronic obstructive pulmonary disease) Degenerative joint disease of knee Depression Diverticulitis Dyspnea GERD (gastroesophageal reflux disease) HLD (hyperlipidemia) HTN (hypertension) Hx of colonic polyps LLQ pain Lumbar compression fracture L1-2 Mitral valve prolapse Vitamin D2 deficiency Surgical History Surgical History History of hysterectomy History of inguinal hernia repair with 8 cm Parietex hernia mesh system 03/29/20 S/P lumpectomy, right breast Status post total right knee replacement (~03/19/22) Family History Family History Mother Family history of malignant neoplasm Family history of emphysema Family history of lung cancer Family history of chronic obstructive pulmonary disease Father Hypertension Family history of heart disease in male family member before age 55 Acute myocardial infarction Heart disease Social History Social History Social History: The patient lives with her . She has 3 children. 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 [facility]
== END 2024-01-18 11:32 | disposition home or self-care (01) ==
PROVIDERS: Emergency Provider Nurse Practitioner; PCP Emergency Medicine
DX: J44.1 Chronic obstructive pulmonary disease with (acute) exacerbation (principal); E78.5 Hyperlipidemia, unspecified; I10 Essential (primary) hypertension; Z79.899 Other long term (current) drug therapy; Z79.82 Long term (current) use of aspirin; Z85.3 Personal history of malignant neoplasm of breast; Z87.891 Personal history of nicotine dependence
CPT/HCPCS: 71046; 99213; G0463

== ENCOUNTER 2024-01-19 08:15 | Outpatient (CLI) | payer MEDICARE, OTHER, SELFPAY ==
[2024-01-19 08:59] LABS: Alanine Aminotransferase 23 U/L (6-35); Albumin Level 4.4 g/dL (3.5-5.1); Alkaline Phosphatase 67 U/L (38-126); Anion Gap 5 mmol/L (8-16); Aspartate Amino Transferase 23 U/L (14-36); Bilirubin,Total 0.6 mg/dL (0.2-1.3); Blood Urea Nitrogen 9 mg/dL (7-17); Calcium 9.3 mg/dL (8.4-10.2); Carbon Dioxide 26 mmol/L (22-30); Chloride 104 mmol/L (98-107); Cholesterol 181 mg/dL (0-200); Estimated Glomerular Filt Rate > 60; Glucose 114 mg/dL (65-110); HDL Direct 96 mg/dL; Potassium 3.8 mmol/L (3.4-5.0); Sodium 135 mmol/L (137-145); Triglycerides 40 mg/dL (<150)
[2024-01-19 09:10] LABS: LDL Cholesterol Direct 67 mg/dL
== END 2024-01-19 08:16 | disposition home or self-care (01) ==
LOC: ANHLAB 08:16
PROVIDERS: PCP Emergency Medicine; Visit Provider Emergency Medicine
DX: E78.5 Hyperlipidemia, unspecified (principal); E55.9 Vitamin D deficiency, unspecified
CPT/HCPCS: 36415; 80053; 80061; 82306

== ENCOUNTER 2024-02-12 11:50 | Outpatient (CLI) | payer MEDICARE, OTHER, SELFPAY ==
--- NOTE | 2024-02-12 12:55 | ECG_ITS ---
Measurements Intervals [place] Rate: 53 P: 48 LA: 183 QRS: 7 QRSD: 99 T: 13 QT: 430 QTc: 407 Interpretive Statements SINUS BRADYCARDIA WITH SINUS ARRHYTHMIA BORDERLINE T WAVE ABNORMALITY- INFERIOR LEADS BASELINE ARTIFACT- I, II, III, AVR, AVL, AVF BORDERLINE ECG COMPARED TO ECG 01/08/2023 10:59:55 SINUS BRADYCARDIA NOW PRESENT SINUS ARRHYTHMIA NOW PRESENT Electronically Signed On 02-12-2024 13:38:05 CDT by Emory Hancock D.O.
[2024-02-12 13:49] LABS: Basophils Percent Auto 0.5 % (0.2-1.2); Eosinophils Absolute Auto 0.1 K/mm3 (0-0.3); Eosinophils Percent Auto 1.1 % (0-4.4); Hematocrit 38.2 % (37.0-47.0); Hemoglobin 12.5 g/dL (12.0-15.0); Immature Granulocyte Absolute 0.02 K/mm3 (0.00-0.031); Immature Granulocyte Percent A 0.3 % (0-0.5); Lymphocytes Absolute Auto 1.78 K/mm3 (0.9-3.2); Lymphocytes Percent Auto 27.7 % (18.3-44.2); Mean Corpuscular HGB Conc 32.7 g/dl (32-36); Mean Corpuscular Hemoglobin 31.6 pg (26-34); Mean Corpuscular Volume 96.7 fl (80-100); Mean Platelet Volume 10.1 fl (7.4-10.4); Monocytes Absolute Auto 0.6 K/mm3 (0.1-0.6); Monocytes Percent Auto 8.7 % (2.6-8.5); Neutrophils Percent Auto 61.7 % (45.5-73.1); Platelet Count Result 265 k/mm3 (150-375); Red Blood Count 3.95 M/mm3 (4.2-5.4); Red Cell Distribution Width 13.1 % (11.5-14.5); White Blood Count 6.4 K/mm3 (4.5-10.0)
[2024-02-12 14:28] LABS: Urine Cotinine NEGATIVE
[2024-02-12 14:39] LABS: Hemoglobin A1C 5.4 % (<5.7)
[2024-02-12 15:05] LABS: MRSA (PCR) NOT DETECTED (NOT DETECTE)
== END 2024-02-12 11:51 | disposition home or self-care (01) ==
LOC: ANHSURGERY 11:56
PROVIDERS: PCP Emergency Medicine; Visit Provider Orthopaedic Surgery
DX: M17.12 Unilateral primary osteoarthritis, left knee (principal); Z01.818 Encounter for other preprocedural examination; R00.1 Bradycardia, unspecified
CPT/HCPCS: 80307; 83036; 85025; 87641; 93005

== ENCOUNTER 2024-03-02 11:13 | Outpatient (CLI) | payer MEDICARE, OTHER, SELFPAY ==
--- NOTE | ~2024-03-02 | XR_ITS ---
Clinical Indication: Cough PA and lateral views of the chest: Comparison: 01/18/2024 Findings: The lungs are clear, without evidence of focal consolidation or pleural effusion. Cardiome diastinal silhouette is within normal limits. Bones and soft tissues are unremarkable. Impression: Normal chest. Reviewed, dictated and finalized at location . Impression: Normal chest.
== END 2024-03-02 11:14 | disposition home or self-care (01) ==
PROVIDERS: PCP Emergency Medicine; Visit Provider Physician Assistant
DX: R05.9 Cough, unspecified (principal); J44.9 Chronic obstructive pulmonary disease, unspecified
CPT/HCPCS: 71046

== ENCOUNTER 2024-03-03 10:25 | Emergency (ER) | payer MEDICARE, OTHER, SELFPAY ==
[2024-03-03 10:44] VITALS: BP 124/68; PULSE 69; RESP 16; TEMP 36.3; O2SAT 98
[2024-03-03 10:52] VITALS: BP 124/68; PULSE 69; RESP 16; TEMP 36.3; O2SAT 98
--- NOTE | 2024-03-03 10:54 | ED.URI ---
HPI - URI/Sore Throat General Chief Complaint: Upper Respiratory Infection Stated Complaint: SORE THROAT/WHITE SPOT IN THROAT Time Seen by Provider: 03/03/24 10:54 Source: patient Mode of arrival: ambulatory Limitations: no limitations History of Present Illness HPI Narrative: 78 yo F presents with c/o nasal congestion, cough, fatigue for 4 days. Afebrile. Woke up this AM with sore throat. No SOB or CP. Denies N/V/D. Taking mucinex and coricidin. Scheduled for knee surgery tomorrow. Wants to make sure no covid or strep. All systems reviewed and negative except as noted above. Related Data Home Medications Medication Instructions Recorded Confirmed amlodipine 10 mg tablet 10 mg PO HS 11/23/19 03/03/24 lisinopril 20 mg tablet 20 mg PO DAILY 11/23/19 03/03/24 [id number] 200 mcg-vit K 100 1 cap PO DAILY 11/30/19 03/03/24 mcg-lycop 500 [id number]-[id number]-Z11 capsule (Daily Multivitamin) loratadine 10 mg tablet (Claritin) 10 mg PO DAILY 01/20/20 03/03/24 aspirin 81 mg tablet,delayed 81 mg PO EVERY OTHER DAY 03/24/20 03/03/24 release Lactobacillus rhamnosus GG 10 1 cap PO DAILY 12/25/22 03/03/24 billion cell capsule (Culturelle) calcium carbonate 600 mg-vitamin 2 cap PO DAILY 01/17/23 03/03/24 D3 5 mcg (200 unit) capsule (Calcium 600 + D(3)) atorvastatin 20 mg tablet 20 mg PO DAILY 10/22/23 03/03/24 guaifenesin 1,200 mg tablet, 1,200 mg PO PRN PRN Cough 02/11/24 03/03/24 extended release 12 hr (Mucinex) fluticasone propionate 115 2 puff inhalation BID 03/03/24 03/03/24 mcg-salmeterol 21 mcg/actuation HFA inhaler (Advair HFA) Allergies Allergy/AdvReac Type Severity Reaction Status Date / Time iodine Allergy Severe Swelling Verified 03/03/24 10:39 AND ITCHING shellfish derived Allergy Severe Itching Verified 03/03/24 10:39 AND SWELLING Sulfa (Sulfonamide Allergy Mild RASH Verified 03/03/24 10:39 Antibiotics) iohexol Allergy Rash Verified 03/03/24 10:39 [From contrast - CT, X-RAY] Review of Systems Review of Systems: CONSTITUTIONAL: Denies fever, chills, or sweats. Reports fatigue. EYES: Denies visual changes, redness, or discharge. ENT: Reports rhinorrhea, congestion, sore throat. Denies otalgia. CARDIOVASCULAR: Denies chest pain, palpitations, or edema. RESPIRATORY: Reports cough. Denies dyspnea. GASTROINTESTINAL: Denies abdominal pain, nausea, vomiting, or diarrhea. GENITOURINARY: Denies dysuria or hematuria. SKIN: Denies rash or itching. MUSCULOSKELETAL: Denies back pain, joint pain, or myalgia. NEUROLOGIC: Denies headache, numbness, or weakness. PSYCHIATRIC: Denies anxiety or depression. All other systems reviewed are negative, except as documented in HPI. [facility] Past Medical History Medical History Abnormal CT scan, sigmoid colon Acute left-sided low back pain without sciatica Acute pain of right shoulder Bilateral primary osteoarthritis of hip Bony prominence Breast cancer Status post right lumpectomy and radiation. Bronchitis Change in bowel movement Colitis Complete tear of right rotator cuff Complete tear of right rotator cuff COPD (chronic obstructive pulmonary disease) COPD exacerbation Degenerative joint disease of knee Depression Diverticulitis Dyspnea Essential (primary) hypertension Gastro-esophageal reflux disease without esophagitis GERD (gastroesophageal reflux disease) H/O malignant neoplasm of female breast HLD (hyperlipidemia) HTN (hypertension) Hx of colonic polyps Hyperglycemia Left hip pain LLQ pain Lumbar compression fracture L1-2 Major depressive disorder, single episode, unspecified Mitral valve prolapse Primary osteoarthritis of left knee Primary osteoarthritis of right knee Seasonal allergic rhinitis due to pollen Skin lesion of left arm Thrush, oral Vitamin D deficiency Vitamin D2 deficiency Wheezing Surgical History Surgical History (Reviewed 02/19/24 @ 09:41
== END 2024-03-03 11:32 | disposition home or self-care (01) ==
PROVIDERS: Emergency Provider Nurse Practitioner Family; PCP Emergency Medicine
DX: J06.9 Acute upper respiratory infection, unspecified (principal); R05.9 Cough, unspecified; Z20.822 Contact with and (suspected) exposure to COVID-19; Z87.891 Personal history of nicotine dependence; J44.9 Chronic obstructive pulmonary disease, unspecified; I10 Essential (primary) hypertension; K21.9 Gastro-esophageal reflux disease without esophagitis; E78.5 Hyperlipidemia, unspecified; I34.1 Nonrheumatic mitral (valve) prolapse; M17.0 Bilateral primary osteoarthritis of knee; M16.0 Bilateral primary osteoarthritis of hip; Z79.82 Long term (current) use of aspirin; Z96.651 Presence of right artificial knee joint; Z85.3 Personal history of malignant neoplasm of breast
CPT/HCPCS: 87081; 87426; 87804; 87880; 99213; G0463

== ENCOUNTER 2024-04-13 07:10 | Outpatient (CLI) | payer MEDICARE, OTHER, SELFPAY ==
[2024-04-13 07:41] LABS: Alanine Aminotransferase 21 U/L (6-35); Albumin Level 4.6 g/dL (3.5-5.1); Alkaline Phosphatase 61 U/L (38-126); Anion Gap 4 mmol/L (4-12); Aspartate Amino Transferase 26 U/L (14-36); Bilirubin,Total 0.8 mg/dL (0.2-1.3); Blood Urea Nitrogen 7 mg/dL (7-17); Calcium 9.4 mg/dL (8.4-10.2); Carbon Dioxide 28 mmol/L (22-30); Chloride 100 mmol/L (98-107); Cholesterol 201 mg/dL (0-200); Estimated Glomerular Filt Rate > 60; Glucose 105 mg/dL (65-110); Potassium 3.9 mmol/L (3.4-5.0); Sodium 132 mmol/L (137-145); Triglycerides 62 mg/dL (<150)
[2024-04-13 07:51] LABS: LDL Cholesterol Direct 76 mg/dL
[2024-04-13 08:28] LABS: Vitamin D 25 Hydroxy 35.3 ng/mL
[2024-04-13 08:32] LABS: HDL Direct 119 mg/dL
== END 2024-04-13 07:11 | disposition home or self-care (01) ==
PROVIDERS: PCP Emergency Medicine; Referring Provider Orthopaedic Surgery; Visit Provider Emergency Medicine
DX: E78.5 Hyperlipidemia, unspecified (principal); I10 Essential (primary) hypertension; E55.9 Vitamin D deficiency, unspecified
CPT/HCPCS: 36415; 80053; 80061; 82306

== ENCOUNTER 2024-04-22 12:09 | Outpatient (CLI) | payer MEDICARE, OTHER, SELFPAY ==
--- NOTE | ~2024-04-22 | MM_ITS ---
EXAMINATION: MM screening santino BI w stephen HISTORY: Screening TECHNIQUE: Craniocaudal and mediolateral oblique 3-D tomosynthesis images were obtained and synthetic 2-D images were generated. CAD analysis was submitted and interpreted. COMPARISON: Comparison to multiple prior studies sequentially, with oldest reviewed study dated 12/07. BREAST PARENCHYMAL COMPOSITION: Not dense: There are scattered areas of fibroglandular density. FINDINGS: There is no evidence of suspicious mass, calcification, or architectural distortion to sugg est malignancy in either breast. There has been no suspicious interval change. There is distortion in the upper aspect of the right breast, consistent with previous lumpectomy for breast cancer. IMPRESSION: 1. No mammographic evidence of malignancy. 2. Recommend routine screening mammography in one year. BI-RADS Category 1: Negative Reviewed, dictated and finalized at location B.
== END 2024-04-22 12:10 ==
LOC: MICIMG 12:10
PROVIDERS: PCP Emergency Medicine; Visit Provider Obstetrics & Gynecology
DX: Z12.31 Encounter for screening mammogram for malignant neoplasm of breast (principal)
CPT/HCPCS: 77063; 77067

== ENCOUNTER 2024-04-29 09:36 | Outpatient (CLI) | payer MEDICARE, OTHER, SELFPAY ==
[2024-04-29 10:40] LABS: Urine Cotinine NEGATIVE
[2024-04-29 10:42] LABS: Basophils Absolute Auto 0.1 K/mm3 (0.0-0.1); Basophils Percent Auto 0.7 % (0.2-1.2); Eosinophils Absolute Auto 0.1 K/mm3 (0-0.3); Eosinophils Percent Auto 1.4 % (0-4.4); Hematocrit 36.4 % (37.0-47.0); Hemoglobin 12.4 g/dL (12.0-15.0); Immature Granulocyte Absolute 0.02 K/mm3 (0.00-0.031); Immature Granulocyte Percent A 0.3 % (0-0.5); Lymphocytes Absolute Auto 1.72 K/mm3 (0.9-3.2); Lymphocytes Percent Auto 24.7 % (18.3-44.2); Mean Corpuscular HGB Conc 34.1 g/dl (32-36); Mean Corpuscular Hemoglobin 32.5 pg (26-34); Mean Corpuscular Volume 95.3 fl (80-100); Mean Platelet Volume 9.6 fl (7.4-10.4); Monocytes Absolute Auto 0.6 K/mm3 (0.1-0.6); Monocytes Percent Auto 8.9 % (2.6-8.5); Neutrophils Absolute Auto 4.5 K/mm3 (1.3-6.7); Platelet Count Result 284 k/mm3 (150-375); Red Blood Count 3.82 M/mm3 (4.2-5.4); Red Cell Distribution Width 13.8 % (11.5-14.5)
[2024-04-29 12:13] LABS: MRSA (PCR) NOT DETECTED (NOT DETECTE)
== END 2024-04-29 09:37 | disposition home or self-care (01) ==
LOC: ANHSURGERY 09:40
PROVIDERS: PCP Emergency Medicine; Visit Provider Orthopaedic Surgery
DX: Z01.818 Encounter for other preprocedural examination (principal); M17.12 Unilateral primary osteoarthritis, left knee
CPT/HCPCS: 80307; 85025; 86850; 86900; 86901; 87641

== ENCOUNTER 2024-05-06 00:16 | Day surgery (SDC) | payer MEDICARE, OTHER, SELFPAY ==
--- NOTE | 2024-02-12 12:32 | PC.NURSE ---
Report to the Outpatient Waiting Room, entrance under the green pavilion located off [facility], at time ___0600____ on date __03/04/24 . Planned Procedure Time: _729 . Time changes happen often and if your time is changed the preop area will call you the afternoon before. - You and your visitor will be asked to self-screen and do not enter if you have any COVID symptoms. - A mask is optional within the hospital at this time. Patients may have clear liquids (water, carbonated beverages, clear teas, apple juice) until 3 hours prior to surgery ( 4:30 AM)with a maximum of 20 ounces. - No food from midnight until time of surgery - Infants may have breast milk until 4 hours before surgery, formula 6 hours prior to surgery. - Children will be allowed to drink immediately following surgery. If applicable, please bring a bottle or sippy cup to assist with drinking. Juice, water, soda, and popsicles are readily available. For infants on formula, please bring formula the day of surgery. Pacifiers are allowed. Take the following medications with a SIP of water the morning of surgery: _ADVAIR INHALER,ALPRAZOLAM DO NOT STOP ANY OF YOUR OTHER PRESCRIPTION MEDICATIONS PRIOR TO SURGERY ?EXCEPT THE FOLLOWING Medications to discontinue per physician __HOLD ASPIRIN 7 DAYS PRE OP PER DR APONTE.LAST DOSE 02/25/24____HOLD ALL VITAMINS AND S UPPLEMENTS 3 DAYS PRE OP.LAST DOSE 02/29/24 Please no make-up, nail greenlandic, hairspray, perfume, deodorant, or body powder the day of surgery. No jewelry (including any body piercings) or valuables the day of surgery, leave them at home. Please take a shower or bath the night before, or the morning of, surgery with an antibacterial soap. Wear comfortable, loose fitting clothing. Children are encouraged to wear pajamas. - Jewelry must be removed prior to entering the operating room. Rings and piercings that are not removed may be cut off. - The hospital will not accept responsibility for valuables. - Please leave all valuables, including medications, at home the day of surgery. If you are going home after surgery, a licensed straddle bug driver must drive you home. - NO public transportation without another adult if you receive anesthesia. - We recommend that an adult stay with you for 24 hours following discharge. - We also recommend that you do not drive, make important decision, drink alcoholic beverages, or take any drugs that were not prescribed by your health care provider for at least 24 hours after your discharge time. Follow any additional instructions given to you from your surgeon. If you or anyone in your household have experienced Covid symptoms in the past week, please notify your surgeon or the nurse liaison at the phone number below for possible testing. VERBAL AND WRITTEN instructions given to _PATIENT AND SPOUSE ROBERT and asked if any additional questions and then verbalized understanding. Patient advised to call surgeon office or pre surgery nurse liaison [phone] if any additional questions.
[2024-02-12 12:54] VITALS: BP 132/68; PULSE 60; RESP 18; TEMP 36.6; O2SAT 100; BMI 28.9
--- NOTE | 2024-04-26 15:12 | PC.NURSE ---
Report to the Outpatient Waiting Room, entrance under the green pavilion located off [facility], at time _8:00 AM on date ___05/06/24____. Planned Procedure Time: _10:00 AM . Time changes happen often and if your time is changed the preop area will call you the afternoon before. - You and your visitor will be asked to self-screen and do not enter if you have any COVID symptoms. - A mask is optional within the hospital at this time. Patients may have clear liquids (water, carbonated beverages, clear teas, apple juice) until 3 hours prior to surgery( 7:00 AM) with a maximum of 20 ounces. - No food from midnight until time of surgery - Infants may have breast milk until 4 hours before surgery, infant formula 6 hours prior to surgery. - Children will be allowed to drink immediately following surgery. If applicable, please bring a bottle or sippy cup to assist with drinking. Juice, water, soda, and popsicles are readily available. For infants on formula, please bring formula the day of surgery. Pacifiers are allowed. Take the following medications with a SIP of water the morning of surgery: __ALPRAZOLAM,_ADVAIR DO NOT STOP ANY OF YOUR OTHER PRESCRIPTION MEDICATIONS PRIOR TO SURGERY ?EXCEPT THE FOLLOWING Medications to discontinue per physician __HOLD ASPIRIN 7 DAYS PRE O P PER DR APONTE. LAST DOSE 04/28/24. __HOLD ALL VITAMINS AND SUPPLEMENTS 3 DAYS PRE OP ,LAST DOSE 05/02/24 Please no make-up, nail fijian, hairspray, perfume, deodorant, or body powder the day of surgery. No jewelry (including any body piercings) or valuables the day of surgery, leave them at home. Please take a shower or bath the night before, or the morning of, surgery with an antibacterial soap. Wear comfortable, loose fitting clothing. Children are encouraged to wear pajamas. - Jewelry must be removed prior to entering the operating room. Rings and piercings that are not removed may be cut off. - The hospital will not accept responsibility for valuables. - Please leave all valuables, including medications, at home the day of surgery. If you are going home after surgery, a licensed over the road driver must drive you home. - NO public transportation without another adult if you receive anesthesia. - We recommend that an adult stay with you for 24 hours following discharge. - We also recommend that you do not drive, make important decision, drink alcoholic beverages, or take any drugs that were not prescribed by your health care provider for at least 24 hours after your discharge time. Follow any additional instructions given to you from your surgeon. If you or anyone in your household have experienced Covid symptoms in the past week, please notify your surgeon or the nurse liaison at the phone number below for possible testing. Telephone instructions given to ___PATIENT and asked if any additional questions and then verbalized understanding. Patient advised to call surgeon office or pre surgery nurse liaison [phone] if any additional questions.
[2024-04-26 15:32] VITALS: BMI 28.9
[2024-05-06] VITALS (10 sets, daily range): BP systolic 121–149; BP diastolic 55–77; PULSE 56–77; RESP 8–16; TEMP 35.7–36.6; O2SAT 96–100
--- NOTE | ~2024-05-06 | XR_ITS ---
[id number] 05/06/2024 13:24 INDICATION: Postop left total knee arthroplasty PROCEDURE: 2 views left knee COMPARISON: No prior studies for comparison. FINDINGS: Fracture, dislocation or subluxation is not identified. The soft tissues appear within norm al limits. No foreign bodies are identified. IMPRESSION: 1: NO ACUTE BONE OR JOINT ABNORMALITY IDENTIFIED. Reviewed, dictated and finalized at location B.
--- NOTE | 2024-05-06 07:23 | WPDHPUPDATE1 ---
History and Physical Update Update Date/Time: 05/06/24 07:23 History and Physical has been reviewed, including an updated exam of the patient. There are NO changes in the patient's condition. Risks, benefits, and alternatives have been discussed and questions answered. Patient agrees to proceed with procedure.
[2024-05-06] MEDS: ACETAMINOPHEN 500 MG TABLET 1000 MG PO (08:50)
[2024-05-06] MEDS: TRANEXAMIC ACID 1,000MG/ISO100 1,000 MG/100 ML BAG 200 MG IVPB (08:50)
[2024-05-06] MEDS: LACTATED RINGERS 1,000 ML 30 ML IV CONT ×2 (08:50→12:53)
--- NOTE | 2024-05-06 09:37 | WPDANESEPPF ---
Anes - Initial Pre Proc Eval Procedure: Operation Date: 05/06/24 10:00 Proposed Procedures p Left Custom Total Knee Arthroplasty - Epifanio Denny MD Date/Time: 05/06/24 09:37 Surgeon: Epifanio Denny MD Pre Op Diagnosis: primary OA left knee Patient Data Age: 78 Gender: F Height: 1.56 m Weight: 70.6 kg Last Vital Signs Temp 96.7 F L 05/06/24 08:50 Pulse 56 L 05/06/24 08:50 Resp 14 05/06/24 08:50 BP 136/59 L 05/06/24 08:50 Pulse Ox 100 05/06/24 08:50 O2 Del Method Room Air 05/06/24 08:50 Allergies Allergy/AdvReac Type Severity Reaction Status Date / Time iodine Allergy Severe Swelling Verified 05/06/24 09:02 AND ITCHING shellfish derived Allergy Severe Itching Verified 05/06/24 09:02 AND SWELLING Sulfa (Sulfonamide Allergy Mild RASH Verified 05/06/24 09:02 Antibiotics) iohexol Allergy Rash Verified 05/06/24 09:02 [From contrast - CT, X-RAY] Home Medications Medication Instructions Recorded Confirmed Type amlodipine 10 mg tablet 10 mg PO HS 11/23/19 04/26/24 History lisinopril 20 mg tablet 20 mg PO DAILY 11/23/19 04/26/24 History [id number] 200 mcg-vit K 100 1 cap PO DAILY 11/30/19 05/06/24 History mcg-lycop 500 [id number] capsule (Daily Multivitamin) loratadine 10 mg tablet (Claritin) 10 mg PO DAILY 01/20/20 04/26/24 History aspirin 81 mg tablet,delayed 81 mg PO EVERY OTHER DAY 03/24/20 05/06/24 History release Lactobacillus rhamnosus GG 10 1 cap PO DAILY 12/25/22 05/06/24 History billion cell capsule (Culturelle) calcium carbonate 600 mg-vitamin 2 cap PO DAILY 01/17/23 05/06/24 History D3 5 mcg (200 unit) capsule (Calcium 600 + D(3)) atorvastatin 20 mg tablet 20 mg PO DAILY 10/22/23 04/26/24 History guaifenesin 1,200 mg tablet, 1,200 mg PO PRN PRN Cough 02/11/24 04/26/24 History extended release 12 hr (Mucinex) benzonatate 200 mg capsule 200 mg PO TID PRN cough #20 caps 03/03/24 04/26/24 Rx omeprazole 40 mg capsule,delayed See Rx Instructions .Route 03/04/24 04/26/24 Rx release .COMPLEX #90 caps fluticasone propionate 230 2 inh inhalation BID #36 grams 04/19/24 05/06/24 Rx mcg-salmeterol 21 mcg/actuation HFA inhaler (Advair HFA) fluticasone propionate 50 See Rx Instructions .Route 04/22/24 04/26/24 Rx mcg/actuation nasal .COMPLEX #48 grams spray,suspension alprazolam 0.5 mg tablet (Xanax) 0.5 mg PO BID PRN anxiety #30 tabs 04/26/24 05/06/24 Rx nystatin 100,000 unit/mL oral 1 ml buccal .COMPLEX #60 mL 04/26/24 04/26/24 Rx suspension tiotropium bromide 2.5 2 puff inhalation QNOON 04/26/24 05/06/24 History mcg/actuation mist for inhalation (Spiriva Respimat) Patient hx anesthesia problems: none Family hx anesthesia problems: none Results Review: All pre-operative results and documents have been reviewed as part of the pre-operative evaluation. [facility] Past Medical History Medical History Abnormal CT scan, sigmoid colon Acute left-sided low back pain without sciatica Acute pain of right shoulder Bilateral primary osteoarthritis of hip Bony prominence Breast cancer Status post right lumpectomy and radiation. Bronchitis Change in bowel movement Colitis Complete tear of right rotator cuff Complete tear of right rotator cuff COPD (chronic obstructive pulmonary disease) COPD exacerbation Degenerative joint disease of knee Depression Diverticulitis Dyspnea Essential (primary) hypertension Gastro-esophageal reflux disease without esophagitis GERD (gastroesophageal reflux disease) H/O malignant neoplasm of female breast HLD (hyperlipidemia) HTN (hypertension) Hx of colonic polyps Hyperglycemia Left hip pain LLQ pain Lumbar compression fracture L1-2 Major depressive disorder, single episode, unspecified Mitral valve prolapse Primary osteoarthritis of left knee Primary osteoarthritis of right knee Seasonal allergic
--- NOTE | 2024-05-06 10:40 | WPDANESPNB ---
Anes - Peripheral Nerve Block Date/Time: 05/06/24 10:40 I have discussed with the patient/family/POA the placement of a peripheral nerve block for post-operative pain management, including associated risks, benefits, complications, and side effects. Alternative methods of post-operative analgesia were detailed. Questions were solicited and answers provided to the satisfaction of the patient/family/POA. Time-Out: A pre-procedural Time-Out was completed immediately before starting the procedure and confirmed: Patient Identification, Site, Procedure, Patient Position and the Availability of Requisite Equipment. Clinical Indications: Acute post-operative pain management requested by the operative surgeon. Nerve Block Insertion Note Anes-nerve block: adductor canal left Patient position: supine Skin prep: chlorhexidine Needle: 22 gauge, stimulating, insulated echogenic needle. Needle length: 80 mm Technique: ultrasound Injectate: other (Bupiv 0.5%, 15 mls. ) Observations: tolerated well Complications: none Procedure start time:: 1028 Procedure end time:: 1035
[2024-05-06] MEDS: ceFAZolin 2 GM/D5W 50 ML 2 GM/50 ML BAG IVPB ×2 (10:41→17:30)
[2024-05-06] MEDS: SODIUM CHLORIDE 0.9% IV 37.7 ML, MORPHINE SULFATE INJ (*CRX) 2 MG, ROPivacaine HCL 1% 2... INFILTRATE (11:08)
[2024-05-06] MEDS: GENTAMICIN BONE CEMENT REFOBACIN 1 EACH TOPICAL (12:03)
[2024-05-06] MEDS: TRANEXAMIC ACID 1,000 MG/10 ML AMPUL 1000 MG IV PUSH (12:44)
--- NOTE | 2024-05-06 13:35 | P.OP_ITS ---
Procedure Note - Detailed Date of Procedure 05/06/24 Pre-op Diagnosis primary OA left knee Post-op Diagnosis Same Procedure Performed Total knee arthroplasty, left. Surgeon Epifanio Denny MD Web Producer Melanie Cody PA-C Anesthesia General and Regional (Subsartorial block.) Findings Custom total knee arthroplasty. Excellent fit. Good bone quality. Minimal lateral release of the ITB band and capsule. Significant preoperative valgus deformity and laxity. Minimal PCL release. Description of Procedure Preoperative antibiotics were given. The limb was prepped and draped in the usual sterile fashion with a well-padded tourniquet high on the thigh. The limb was exsanguinated and the tourniquet inflated to 300 mmHg during exposure. A longitudinal incision was created just medial to the patella. A subvastus approach to the knee was performed. Arthrotomy was taken down through the joint capsule. No significant releases were initially taken. The femur was exposed and the F1 jig was applied. The coring tool was used to remove the cartilage for the F2 jig to sit flush with the bone. The jig was pinned and the distal cut carefully taken. Caliper measurements confirmed appropriate bony resections according to the preoperative templated plan. The F4 cutting jig for the femur was applied, at the standard rotation. The AP and anterior chamfer cuts were taken. The F5 jig was applied and the posterior chamfer cuts were taken. The tibia was prepared using the T1 jig, after removing cartilage for the jig contact points. Proper alignment was checked with the alignment aylin. The tibia was cut using the T1u guide. Gap balancing was performed. Gap measurements were taken and the knee was trialed. Excellent alignment and soft tissue balancing was confirmed. The posterior cruciate ligament was recessed along the proximal tibia. The patella was cut for resurfacing. Three lug holes were drilled. Meniscal remnants were removed. The trial components were assembled. Excellent range of motion and proper soft tissue balancing were confirmed throughout the full range of motion. Patellar tracking was excellent. The knee was copiously irrigated periodically throughout the procedure. The real implants were cemented into position. Excess cement was carefully removed. The wound was closed in layers with interrupted #1 Vicryl suture, 2-0 strata fix suture, 0 strata fix suture, 2-0 strata fix suture. Steri-Strips placed on the skin with the knee flexed. Sterile bulky dressing applied. The patient was brought to the recovery room in stable condition. There were no complications. Physician behavioral modification assistant, Melanie Cody PA-C, required for surgery; including patient positioning, draping, tissue retraction, maintaining instrument position, cement removal, wound closure, and dressing placement. Implants Conformis Custom total knee arthroplasty. Cemented. Cruciate retaining. 8B insert. 29 mm round patella. Estimated Blood Loss 50 Drains No Complications No immediate complications Condition Stable Disposition PACU [facility] Billing Surgery - Charge Forward: Surgery Billing
[2024-05-06] MEDS: oxyCODONE/ACETAMINOPHEN (*CRX) 5-325 MG TABLET 1 TABLET PO ×2 (14:26→20:08)
[2024-05-06] MEDS: SODIUM CHLORIDE 0.9% IV 1,000 ML 125 ML IV CONT (14:29)
--- NOTE | 2024-05-06 15:00 | ADMGEN ---
This patient, Maryellen Sandoval, was admitted to 3 [facility] Surg Room 307-01. Patient/family oriented to hospital policies and general routines including ID bracelet, bed and alarms, visiting hours, pain management, procedures, bathroom and other care routines, personal items, smoking policy, room service/diet, and visiting hours. Information on how to activate the Rapid Response Team has been discussed. Patient/Family are encouraged to report perceived risks to care and to ask questions if they do not understand what they are told or what they should do. Report from Anabel in PACU
[2024-05-06] MEDS: FLUTICASONE PROPIONATE 0.05% NA SPR 16 GM BTL (*BKC) 2 SPRAY NASAL (16:35)
[2024-05-06] MEDS: NYSTATIN 100,000 UNITS/ML SUSP 5 ML ORAL.SUSP 1 ML BY MOUTH ×2 (16:36→20:12)
[2024-05-06] MEDS: SENNA/DOCUSATE SODIUM TABLET 2 TAB PO (16:41)
[2024-05-06] MEDS: predniSONE 5 MG TABLET PO (16:41)
[2024-05-06] MEDS: ACETAMINOPHEN 325 MG TABLET 650 MG PO ×2 (16:59→23:40)
[2024-05-06] MEDS: FLUTICASONE/SALMETEROL 230-21 MCG INHALER 1 PUFF 2 PUFF INHALATION (17:50)
[2024-05-06] MEDS: ASPIRIN 81 MG ENTERIC TABLET PO (20:08)
[2024-05-06] MEDS: FAMOTIDINE 20 MG TABLET PO (20:08)
[2024-05-06] MEDS: amLODIPine BESYLATE 5 MG TABLET 10 MG PO (20:08)
[2024-05-07] MEDS: ceFAZolin 2 GM/D5W 50 ML 2 GM/50 ML BAG IVPB ×2 (03:13→09:48)
[2024-05-07] MEDS: oxyCODONE/ACETAMINOPHEN (*CRX) 5-325 MG TABLET 1 TABLET PO (03:16)
[2024-05-07 05:54] LABS: Basophils Percent Auto 0.1 % (0.2-1.2); Eosinophils Percent Auto 0.1 % (0-4.4); Hematocrit 35.3 % (37.0-47.0); Immature Granulocyte Absolute 0.05 K/mm3 (0.00-0.031); Immature Granulocyte Percent A 0.4 % (0-0.5); Lymphocytes Absolute Auto 1.44 K/mm3 (0.9-3.2); Lymphocytes Percent Auto 10.7 % (18.3-44.2); Mean Corpuscular Hemoglobin 32.1 pg (26-34); Mean Corpuscular Volume 94.4 fl (80-100); Mean Platelet Volume 9.4 fl (7.4-10.4); Monocytes Absolute Auto 0.9 K/mm3 (0.1-0.6); Neutrophils Percent Auto 81.7 % (45.5-73.1); Platelet Count Result 269 k/mm3 (150-375); Red Blood Count 3.74 M/mm3 (4.2-5.4); Red Cell Distribution Width 13.3 % (11.5-14.5); White Blood Count 13.5 K/mm3 (4.5-10.0)
[2024-05-07 06:04] LABS: Anion Gap 6 mmol/L (4-12); Blood Urea Nitrogen 7 mg/dL (7-17); Calcium 9.2 mg/dL (8.4-10.2); Carbon Dioxide 25 mmol/L (22-30); Chloride 102 mmol/L (98-107); Estimated CRCL calculation 88 ml/min; Estimated Glomerular Filt Rate > 60; Glucose 106 mg/dL (65-110); Potassium 3.9 mmol/L (3.4-5.0); Sodium 133 mmol/L (137-145)
[2024-05-07] MEDS: ACETAMINOPHEN 325 MG TABLET 650 MG PO ×2 (06:11→11:30)
[2024-05-07 06:16] VITALS: BP 131/65; PULSE 73; RESP 16; TEMP 36.5; O2SAT 94
[2024-05-07] MEDS: FLUTICASONE/SALMETEROL 230-21 MCG INHALER 1 PUFF 2 PUFF INHALATION (07:39)
[2024-05-07 07:40] VITALS: O2SAT 96
--- NOTE | 2024-05-07 07:53 | PM.DS ---
DS: Admitting Diagnosis Discharge Date 05/07/24 Admitting Diagnosis Knee arthritis. DS: Discharge Diagnosis Discharge Diagnosis (1) Status post total left knee replacement: Code(s): Z96.652 - Presence of left artificial knee joint Status: Acute Assessment and Plan: Postop day 1: Left total knee arthroplasty. Patient tolerated procedure well. No complications. Pain manageable with pain medication. No numbness or tingling. We had a lengthy discussion regarding postoperative wound care, limitations, expectations, and exercises. Patient shows good understanding. She has had initial physical therapy and is tolerating it well. DVT prophylaxis: 81 mg baby aspirin b.i.d. for 14 days. Pain medication: Percocet. Prednisone. Meloxciam. Patient has followup appointment with Dr. Denny in 3 weeks. DS: Summary Hospital Course Reason for hospitalization: Total knee arthroplasty Hospital Course: Patient tolerated procedure well. Has had initial PT/OT. Status at Discharge Functional status at discharge: uses cane/walker Overall status at discharge: patient is progressing back to baseline Time Spent with Patient Time attestation: Total time spent providing and/or coordinating discharge services: Exam Narrative: 78-year-old overweight female. Resting comfortably in bed. Alert and oriented x3. No acute distress. Wearing compression socks bilaterally. Dressing intact without drainage. Mild swelling. No ecchymosis. No erythema. No hematoma. Range of motion limited due to pain. Calf nontender. Thigh non-tender. Fires quad. Neurologic status intact. No varicosities. Distal pulses palpable. DS: Data Data Completed and Pending Labs on day of discharge: Labs from last 24 hours 05/07/24 05:33 WBC 13.5 H RBC 3.74 L Hgb 12.0 Hct 35.3 L MCV 94.4 MCH 32.1 MCHC 34.0 RDW 13.3 Plt Count 269 MPV 9.4 Immature Gran % (Auto) 0.4 Neut % (Auto) 81.7 H Lymph % (Auto) 10.7 L [place] % (Auto) 7.0 Eos % (Auto) 0.1 Baso % (Auto) 0.1 L Lymph # (Auto) 1.44 [place] # (Auto) 0.9 H Eos # (Auto) 0.0 Baso # (Auto) 0.0 Abs Immat Gran (auto) 0.05 H Absolute Neuts (auto) 11.0 H Absolute Nucleated RBC 0.000 Nucleated RBC % 0.0 Sodium 133 L Potassium 3.9 Chloride 102 Carbon Dioxide 25 Anion Gap 6 BUN 7 Creatinine 0.40 L Estim Creat Clear Calc 88 Estimated GFR > 60 Glucose 106 Calcium 9.2 Discharge Plan Discharge Patient Disposition: Home, Self-Care Discharge Instructions: See green instruction sheets Stand Alone Forms: General Discharge Instructions Follow-up/Referrals: Melanie Cody PA [Physician [employer] Music Therapist] - Discharge Medications: New meloxicam 15 mg tablet 15 mg PO DAILY Qty: 30 0RF Rx Instructions: Cut in half. Take 1/2 in morning and 1/2 at night. Take with food. Stop if stomach upset. prednisone 5 mg tablet 5 mg PO DAILY 21 Days Qty: 21 0RF aspirin 81 mg tablet,delayed release (DR/EC) 81 mg PO BID 14 Days Qty: 28 0RF oxycodone-acetaminophen 5-325 mg tablet 1 - 2 tablet PO Q4-6H MDD 6 PRN (Reason: pain) Qty: 30 0RF Continued Daily Multivitamin 200-100-500 mcg Capsule 1 cap PO DAILY benzonatate 200 mg capsule 200 mg PO TID PRN (Reason: cough) Qty: 20 0RF Culturelle 10 billion cell capsule 1 cap PO DAILY lisinopril 20 mg tablet 20 mg PO DAILY amlodipine 10 mg tablet 10 mg PO HS guaifenesin [Mucinex] 1,200 mg tablet extended release 12hr 1,200 mg PO PRN PRN (Reason: Cough) atorvastatin 20 mg tablet 20 mg PO DAILY nystatin 100,000 unit/mL suspension 1 ml buccal .COMPLEX Qty: 60 0RF Patient Comments: STARTS 04/26/24 Rx Instructions: 1 mL buccally to swish and swallow 4 times a day; administer 1/2 of dose in each side of the mouth alprazolam [Xanax] 0.5 mg tablet 0.5 mg PO BID PRN (Reason: anxiety) Qty: 30 0RF loratadine
--- NOTE | 2024-05-07 07:58 | P.PNAN_ITS ---
Anes - Prog Note Post-Op Date/Time: 05/07/24 07:58 Cardiovascular status: normal Respiratory status: normal Airway patency: baseline Mental status: baseline Post-Op hydration status: normal Vital Signs: Last Vital Signs Temp 36.5 C 05/07/24 06:16 Pulse 73 05/07/24 06:16 Resp 16 05/07/24 06:16 BP 131/65 05/07/24 06:16 Pulse Ox 96 05/07/24 07:40 O2 Del Method Room Air 05/07/24 07:40 O2 Flow Rate 8 05/06/24 13:15 Pain Score (VAS): 01/24 I/O: Intake & Output 05/06/24 05/06/24 05/07/24 15:59 23:59 07:59 Intake Total 250 1030 50 Balance 250 1030 50 Laboratory Tests 05/07/24 05:33 05/07/24 05:33 05/07/24 05:33 WBC 13.5 H RBC 3.74 L Hgb 12.0 Hct 35.3 L MCV 94.4 MCH 32.1 MCHC 34.0 RDW 13.3 Plt Count 269 MPV 9.4 Immature Gran % (Auto) 0.4 Neut % (Auto) 81.7 H Lymph % (Auto) 10.7 L [place] % (Auto) 7.0 Eos % (Auto) 0.1 Baso % (Auto) 0.1 L Lymph # (Auto) 1.44 [place] # (Auto) 0.9 H Eos # (Auto) 0.0 Baso # (Auto) 0.0 Abs Immat Gran (auto) 0.05 H Absolute Neuts (auto) 11.0 H Absolute Nucleated RBC 0.000 Nucleated RBC % 0.0 Sodium 133 L Potassium 3.9 Chloride 102 Carbon Dioxide 25 Anion Gap 6 BUN 7 Creatinine 0.40 L Estim Creat Clear Calc 88 Estimated GFR > 60 Glucose 106 Calcium 9.2 Post-procedural complaints: none Patient Feedback: Patient satisfied with anesthetic care.
[2024-05-07] MEDS: ATORVASTATIN 20 MG TABLET PO (09:03)
[2024-05-07] MEDS: lisinopriL 20 MG TABLET PO (09:03)
[2024-05-07] MEDS: polyethylene glycoL 3350 17 GM POWD.PACK PO (09:03)
[2024-05-07] MEDS: LORATADINE 10 MG TABLET PO (09:03)
[2024-05-07] MEDS: ASPIRIN 81 MG ENTERIC TABLET PO (09:03)
[2024-05-07] MEDS: FAMOTIDINE 20 MG TABLET PO (09:03)
[2024-05-07] MEDS: ONDANSETRON INJ 4 MG/2 ML VIAL IV PUSH (09:03)
[2024-05-07] MEDS: SENNA/DOCUSATE SODIUM TABLET 2 TAB PO (09:04)
[2024-05-07] MEDS: FLUTICASONE PROPIONATE 0.05% NA SPR 16 GM BTL (*BKC) 2 SPRAY NASAL (09:04)
[2024-05-07] MEDS: NYSTATIN 100,000 UNITS/ML SUSP 5 ML ORAL.SUSP 1 ML BY MOUTH (09:04)
[2024-05-07] MEDS: oxyCODONE/ACETAMINOPHEN (*CRX) 10-325 MG TABLET 1 TAB PO (09:09)
[2024-05-07] MEDS: METOCLOPRAMIDE HCL INJ 10 MG/2 ML VIAL 5 MG IV PUSH (10:40)
== END 2024-05-07 12:05 | disposition home or self-care (01) ==
LOC: ANHSURGERY 13:05 → ANH3MEDSUR 13:59
PROVIDERS: Physician Assistant Surgical; PCP Emergency Medicine; Visit Provider Orthopaedic Surgery
PROC: (CPT 27447; principal; 2024-05-06 10:00)
DX: M17.12 Unilateral primary osteoarthritis, left knee (principal); I10 Essential (primary) hypertension; E78.5 Hyperlipidemia, unspecified; J44.9 Chronic obstructive pulmonary disease, unspecified; M16.0 Bilateral primary osteoarthritis of hip; Z90.11 Acquired absence of right breast and nipple; F32.A Depression, unspecified; K21.9 Gastro-esophageal reflux disease without esophagitis; R73.9 Hyperglycemia, unspecified; F32.9 Major depressive disorder, single episode, unspecified; I34.1 Nonrheumatic mitral (valve) prolapse; J30.2 Other seasonal allergic rhinitis; E55.9 Vitamin D deficiency, unspecified; K57.32 Diverticulitis of large intestine without perforation or abscess without bleeding; G89.18 Other acute postprocedural pain; Z98.890 Other specified postprocedural states; Z79.82 Long term (current) use of aspirin; Z79.51 Long term (current) use of inhaled steroids; Z85.3 Personal history of malignant neoplasm of breast; Z92.3 Personal history of irradiation; Z86.010 Personal history of colon polyps; Z87.891 Personal history of nicotine dependence; Z80.1 Family history of malignant neoplasm of trachea, bronchus and lung; Z82.49 Family history of ischemic heart disease and other diseases of the circulatory system
CPT/HCPCS: 27447; 64447; 36415; 73560; 80048; 85025; 94640; 97110; 97116; 97161; 97165; 97530; A9270; C1713; C1776; J0171; J0690; J1100; J1170; J1885; J2250; J2270; J2405; J2704; J2765; J2795; J3010; J7030; J7120; J7512

== ENCOUNTER 2024-06-23 12:44 | Outpatient (CLI) | payer MEDICARE, OTHER, SELFPAY ==
--- NOTE | ~2024-06-23 | XR_ITS ---
XR knee LT 3V Ordering provider: Epifanio Denny MD History: . Z96.652 - Presence of left artificial knee joint . Comparison: August 09, 2019 FINDINGS: BONES: No acute fracture or dislocation. JOINT SPACES: Total knee arthroplasty. SOFT TISSUES: Vascular calcifications. IMPRESSION: No acute osseous abnormality left knee. Total knee arthroplasty. Reviewed, dictated and finalized at location A.
== END 2024-06-23 12:45 | disposition home or self-care (01) ==
LOC: ANHIMG 12:45
PROVIDERS: PCP Emergency Medicine; Visit Provider Orthopaedic Surgery
DX: Z96.652 Presence of left artificial knee joint (principal)
CPT/HCPCS: 73562

== ENCOUNTER 2024-06-28 12:42 | Outpatient (CLI) | payer MEDICARE, OTHER, SELFPAY ==
--- NOTE | 2024-06-29 23:06 | P.PCNPFT_ITS ---
PFT Procedure Performed PFT Procedure Performed Spirometry with Pre/Post Bronchodilator Plethysmography (Lung Vol) Diffusing Cap (DLCO) Flow Vol Loop PFT Interpretation DOS: 06/28/2024 REQUESTING: Parish Marley APRN REASON FOR TESTING: COPD PULMONARY FUNCTION TESTS Results are reliable and reproducible. Repeatability of spirometry FEV1 maneuver pre and post bronchodilator is Grade A. Spirometry: The pre-bronchodilator FEV1 is 1.23 L, 67%, decreased. The pre- bronchodilator FVC is 2.27 L, 95%, normal. The FEV1/FVC ratio is 54%, decreased. After bronchodilator, the FEV1 is 1.28 L, 69%, +4%, still below normal limits. The FVC is 2.24 L, 94%, -1%. The FEV1/FVC ratio is 57%. Lung volumes: The total lung capacity is 4.54 L, 99%. The residual volume is 2.27 L, 105%. The RV/TLC is 50%. Lung volumes are normal. Airway resistance is increased. Diffusion: DLCO is 11.8, 63%, below normal. The DLCO/VA is 3.55, 82%, normal. Flow volume loop: The flow volume loop shows coving of the expiratory limb. IMPRESSION: This study shows mild obstructive ventilatory impairment, normal lung volumes, mild decrease in diffusion which corrects for alveolar volume. Lack of response to bronchodilator should not preclude use if clinically indicated. No prior studies for comparison. Paula Preciado MD
--- NOTE | 2024-06-29 23:10 | WPDSIXMINUTE ---
Six Minute Walk Procedure Procedure Performed Pulmonary Stress Test (6 min walk) Six Minute Walk Six Minute Walk: DATE OF SERVICE: 06/28/2024 REQUESTING: Parish Marley APRN REASON FOR TESTING: COPD SIX MINUTE WALK This test was conducted per ATS guidelines. The patient used her own cane to assist her during the walk. The initial saturation was 97%, and initial heart rate was 67 beats per minute. The patient walked without stopping, completing 850 ft/259 m. The saturation at the end of testing was 96%, and the heart rate was 85 beats per minute. The lowest saturation recorded during this study was 93% at 4 minutes. The highest pulse recorded was 93 beats per minute after 4 minutes. IMPRESSION: This is a normal study. The patient did not require supplemental oxygen with exertion. Paula Preciado MD
== END 2024-06-28 12:43 | disposition home or self-care (01) ==
LOC: ANHPFT 12:43
PROVIDERS: PCP Emergency Medicine; Visit Provider Nurse Practitioner Family
DX: J44.9 Chronic obstructive pulmonary disease, unspecified (principal); R06.09 Other forms of dyspnea; R94.2 Abnormal results of pulmonary function studies
CPT/HCPCS: 71271; 94060; 94618; 94726; 94729

== ENCOUNTER 2024-06-28 12:44 | Outpatient (CLI) | payer MEDICARE, OTHER, SELFPAY ==
--- NOTE | ~2024-06-28 | CT_ITS ---
EXAMINATION:CT lung screening DATE: 06/28/2024 14:43 INDICATION: Personal history of nicotine dependence. Smoker who quit 12 years ago with 30 pack year h istory. TECHNIQUE: Computed tomography (CT) of the chest was performed without intravenous contrast. Automate d exposure control and iterative reconstruction technique were employed. The dose-length product (DLP ) was 75.30 mGy-cm. COMPARISON: Chest CT 01/08/2023 FINDINGS: There is mild emphysema. There is mild atelectasis bilaterally. There are worsened nodules in right upper lobe measuring up to 4 mm. No pleural effusion. The heart size is normal. There are co ronary artery calcifications. No pericardial effusion. There is mild thoracic spondylosis. There are chronic fractures of L1 and L2 vertebral bodies. IMPRESSION: 1. Lung-RADS category 3: Probably benign. Further evaluation is recommended with noncontrast low-dose chest CT in 6 months. Reviewed, dictated and finalized at location A. IMPRESSION: 1. Lung-RADS category 3: Probably benign. Further evaluation is recommended wit h noncontrast low-dose chest CT in 6 months.
== END 2024-06-28 12:45 | disposition home or self-care (01) ==
LOC: ANHIMG 12:44
PROVIDERS: PCP Emergency Medicine; Visit Provider Nurse Practitioner Family
DX: Z12.2 Encounter for screening for malignant neoplasm of respiratory organs (principal); Z87.891 Personal history of nicotine dependence; R91.8 Other nonspecific abnormal finding of lung field
CPT/HCPCS: 71271

== ENCOUNTER 2024-08-23 08:23 | Outpatient (CLI) | payer MEDICARE, OTHER, SELFPAY ==
[2024-08-23 08:56] LABS: Alanine Aminotransferase 19 U/L (6-35); Albumin Level 4.4 g/dL (3.5-5.1); Alkaline Phosphatase 61 U/L (38-126); Anion Gap 7 mmol/L (4-12); Aspartate Amino Transferase 26 U/L (14-36); Bilirubin,Total 0.7 mg/dL (0.2-1.3); Blood Urea Nitrogen 7 mg/dL (7-17); Calcium 8.9 mg/dL (8.4-10.2); Carbon Dioxide 29 mmol/L (22-30); Chloride 100 mmol/L (98-107); Cholesterol 185 mg/dL (0-200); Estimated Glomerular Filt Rate > 60; Glucose 102 mg/dL (65-110); HDL Direct 110 mg/dL; Potassium 3.7 mmol/L (3.4-5.0); Sodium 136 mmol/L (137-145); Triglycerides 53 mg/dL (<150)
[2024-08-23 09:07] LABS: LDL Cholesterol Direct 56 mg/dL
[2024-08-23 09:29] LABS: Vitamin D 25 Hydroxy 34.3 ng/mL
== END 2024-08-23 08:24 | disposition home or self-care (01) ==
LOC: ANHLAB 08:25
PROVIDERS: PCP Emergency Medicine; Visit Provider Emergency Medicine
DX: E78.5 Hyperlipidemia, unspecified (principal); E55.9 Vitamin D deficiency, unspecified
CPT/HCPCS: 36415; 80053; 80061; 82306

== ENCOUNTER 2024-11-08 10:52 | Emergency (ER) | payer MEDICARE, OTHER, SELFPAY ==
[2024-11-08 11:04] VITALS: BP 143/77; PULSE 73; RESP 16; TEMP 36.2; O2SAT 100
--- NOTE | 2024-11-08 11:23 | ED_ITS ---
HPI - URI/Sore Throat General Chief Complaint: Upper Respiratory Infection Stated Complaint: Cough/Congestion/Ear Pain Time Seen by Provider: 11/08/24 11:15 Source: patient and RN notes reviewed Mode of arrival: ambulatory Limitations: no limitations History of Present Illness HPI Narrative: 79-year-old female with history of COPD presents with concern for one-week history of cough, chest congestion, ear pain. Reports she has been using her inhalers as prescribed without relief. Reports general malaise and fatigue. MD elicited complaint: cough Related Data Home Medications ?Medication ?Instructions ?Recorded ?Confirmed ?Last Taken ?Type amlodipine 10 mg tablet 10 mg PO HS 11/23/19 08/30/24 01/07/23 History lisinopril 20 mg tablet 20 mg PO DAILY 11/23/19 08/30/24 01/07/23 History qjmsjoip-mlr-ND 200 mcg-vit K 100 1 cap PO DAILY 11/30/19 08/30/24 05/03/24 History mcg-lycop 500 [id number] capsule (Daily Multivitamin) loratadine 10 mg tablet (Claritin) 10 mg PO DAILY 01/20/20 08/30/24 01/07/23 History aspirin 81 mg tablet,delayed 81 mg PO EVERY OTHER DAY 03/24/20 08/30/24 04/29/24 History release Lactobacillus rhamnosus GG 10 1 cap PO DAILY 12/25/22 08/30/24 05/03/24 History billion cell capsule (Culturelle) calcium 600 mg (as 2 cap PO DAILY 01/17/23 08/30/24 05/03/24 History carbonate)-vitamin D3 5 mcg (200 unit) capsule (Calcium 600 + D(3)) atorvastatin 20 mg tablet 20 mg PO DAILY 10/22/23 08/30/24 Unknown History guaifenesin 1,200 mg tablet, 1,200 mg PO PRN PRN Cough 02/11/24 08/30/24 Unknown History extended release 12 hr (Mucinex) tiotropium bromide 2.5 2 puff inhalation QNOON 04/26/24 08/30/24 05/06/24 History mcg/actuation mist for inhalation (Spiriva Respimat) Allergies Allergy/AdvReac Type Severity Reaction Status Date / Time iodine Allergy Severe Swelling Verified 11/08/24 11:19 AND ITCHING shellfish derived Allergy Severe Itching Verified 11/08/24 11:19 AND SWELLING Sulfa (Sulfonamide Allergy Mild RASH Verified 11/08/24 11:19 Antibiotics) iohexol (From contrast - CT, Allergy Rash Verified 11/08/24 11:19 X-RAY) Review of Systems Review of Systems: CONSTITUTIONAL: Reports malaise, fatigue. Denies chills, sweats, or fever. EYES: Denies visual changes, redness, or discharge. ENT: Reports rhinorrhea, congestion, sinus pain, otalgia and sore throat. CARDIOVASCULAR: Denies chest pain, palpitations, or edema. RESPIRATORY: Reports cough and chest congestion. Denies dyspnea. GASTROINTESTINAL: Denies abdominal pain, nausea, vomiting, diarrhea SKIN: Denies rash or itching. MUSCULOSKELETAL: Reports myalgia. NEUROLOGIC: Denies headache. All systems reviewed & are unremarkable except as noted in HPI and below PMFSH Past Medical History Medical History Abnormal CT scan, sigmoid colon Acute left-sided low back pain without sciatica Acute pain of right shoulder Bilateral primary osteoarthritis of hip Bony prominence Breast cancer Status post right lumpectomy and radiation. Bronchitis Change in bowel movement Colitis Complete tear of right rotator cuff Complete tear of right rotator cuff COPD (chronic obstructive pulmonary disease) COPD exacerbation Degenerative joint disease of knee Depression Diverticulitis Dyspnea Essential (primary) hypertension Gastro-esophageal reflux disease without esophagitis GERD (gastroesophageal reflux disease) H/O malignant neoplasm of female breast HLD (hyperlipidemia) HTN (hypertension) Hx of colonic polyps Hyperglycemia Left hip pain LLQ pain Lumbar compression fracture L1-2 Major depressive disorder, single episode, unspecified Mitral valve prolapse Primary osteoarthritis of left knee Primary osteoarthritis of right knee Seasonal allergic rhinitis due to pollen Skin lesion of left arm Thrush, oral Vitamin D deficiency Vitamin D2 deficiency Wheezing Surgical History Surgical History History of hysterectomy History of inguinal hernia repair with 8 cm Parietex hernia mesh system 03/29/20 S/P lumpectomy, right breast Status post total left knee replacement (~05/06/24) Status post total right knee replacement (~03/19/22) Family History Family History Mother Family history of malignant neoplasm Family history of emphysema Family history of lung cancer Family history of chronic obstructive pulmonary disease Father Hypertension Family history of heart disease in male family member before age 55 Acute myocardial infarction Heart disease Social History Social History Social History: The patient lives with her . She has 3 children. 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 Surrogate medical decision maker: Lance Sandoval, spouse. Code status: Full code. Smoking packs per day: 1 Smoking cigarettes per day: 20.0 Years smoked: 30 Smoking pack-years: 30.00 Smoking status: Former smoker Tobacco type: cigarettes Smoking end date: 05/06/13 Additional smoking assessment comments: DENIES ANY FORM OF TOBACCO USE Alcohol intake: never Drinks per week: 21 Alcohol use details: STATES HAS NOT HAD A DRINK SINCE 02/01/24 Substance use: never Substance use type: does not use Do You Feel Safe in your Home?: Yes Lack of Transportation: No Lack of Food: Never True Current Housing: I Have Housing Concerned About Future Housing: No Difficulty Paying Gas/Electric Bills: No Difficulty Paying for Meds: No Currently Unemployed: No Education: Trade/Vocational Certificate Difficulty w/ Childcare or Family Care: No Living arrangements: with family Gender identity (if verbalized by the patient): Female Spiritual care concerns: No Comments At time of signature, agree with nursing past medical, surgical, social and family history. There is no relevant family history pertinent to the presenting complaint Exam Narrative: GENERAL: Well-appearing, well-nourished, and in no acute distress. HEAD: Normocephalic EYES: PERRLA, conjunctivae clear ENT: Nares clear. Mucous membranes moist. TM pearly rodriguez with dull light reflex bilaterally; no tragal tenderness. Oropharynx not erythematous without lesions. Tonsils not enlarged and without exudate, no drooling, no hoarseness, no trismus, uvula midline. NECK: Supple. No lymphadenopathy CHEST: Scattered wheeze, otherwise clear to auscultation, breath sounds equal. No wheezing, rhonchi, rales, or stridor. No respiratory distress, speaks in full sentences. Cough noted HEART: Regular rate and rhythm. No murmur heard. SKIN: Warm, dry, no rash. NEURO: Alert and oriented x3. PSYCH: Normal mood and affect Course Course Emergency Course: Patient is aware of diagnosis, understands and agrees to treatment plan. Anticipatory guidance given. Patient agrees to follow-up as directed and is aware of reasons to seek care at the emergency department. Portions of this record may have been created with voice recognition software Level of Care: Express Care Visit Vital Signs Vital signs: Vital Signs Temperature 97.1 F L 11/08/24 11:04 Pulse Rate 73 11/08/24 11:04 Respiratory Rate 16 11/08/24 11:04 Blood Pressure 143/77 H 11/08/24 11:04 Pulse Oximetry 100 11/08/24 11:04 Temperature 97.1 F L 11/08/24 11:04 Pulse Rate 73 11/08/24 11:04 Respiratory Rate 16 11/08/24 11:04 Blood Pressure 143/77 H 11/08/24 11:04 Pulse Oximetry 100 11/08/24 11:04 Reviewed. MDM - URI/Sore Throat MDM Narrative Medical decision making narrative: Differential diagnosis considered: Ryan virus, strep pharyngitis, allergic rhinitis, upper respiratory tract infection, sinusitis, rhinosinusitis, nasopharyngitis. viral pharyngitis, otitis media, otitis externa, pneumonia, bronchitis, viral cough syndrome, viral syndrome, and influenza. Exam findings show no acute concerns or changes; patient is non-toxic appearing and is in no distress. Patient is appropriate for outpatient treatment and follow-up. Lab Data Attestation: I reviewed the patient's lab results. Critical Care Time Critical Care Time Critical Care Time: No Discharge Plan Discharge Clinical Impression: Lower respiratory tract infection Patient Disposition: Home, Self-Care Condition: Stable Instructions: Antibiotic Form Additional Instructions: 1) Please follow-up with your primary care doctor in the next 1-2 days. 2) If you have any worsening of symptoms or any other urgent concerns please go to the ER. 3) Please take medications as prescribed and continue taking your home medications as usual. 4) Please read and follow information included in discharge instructions. Patient Language: [place] Citizen Prescriptions: New azithromycin [Zithromax Z-Griffin] 250 mg tablet See Rx Instructions .ROUTE .COMPLEX Qty: 6 0RF Rx Instructions: take 500 mg today (day 1), then 250 mg for 4 days (days 2-5) methylprednisolone [Medrol (Griffin)] 4 mg tablets,dose pack See Rx Instructions .ROUTE .COMPLEX Qty: 21 0RF Rx Instructions: orally per package directions No Action Daily Multivitamin 200-100-500 mcg Capsule 1 cap PO DAILY Culturelle 10 billion cell capsule 1 cap PO DAILY lisinopril 20 mg tablet 20 mg PO DAILY amlodipine 10 mg tablet 10 mg PO HS guaifenesin [Mucinex] 1,200 mg tablet extended release 12hr 1,200 mg PO PRN PRN (Reason: Cough) atorvastatin 20 mg tablet 20 mg PO DAILY loratadine [Claritin] 10 mg Tablet 10 mg PO DAILY aspirin 81 mg Tablet,Delayed Release (Dr/Ec) 81 mg PO EVERY OTHER DAY Calcium 600 + D(3) 600 mg-5 mcg (200 unit) capsule 2 cap PO DAILY Spiriva Respimat 2.5 mcg/actuation mist 2 puff inhalation QNOON omeprazole 40 mg capsule,delayed release(DR/EC) See Rx Instructions .ROUTE .COMPLEX Qty: 90 3RF Dose Instruction: TAKE 1 CAPSULE DAILY Rx Instructions: TAKE 1 CAPSULE DAILY fluticasone propion-salmeterol [Advair HFA] 115-21 mcg/actuation HFA aerosol inhaler 2 puff inhalation Q12H 90 Days Qty: 36 3RF Rx Instructions: rinse and spit fluticasone propionate 50 mcg/actuation spray,suspension See Rx Instructions .ROUTE .COMPLEX Qty: 96 3RF Dose Instruction: USE 2 SPRAYS NASALLY TWICE A DAY Rx Instructions: USE 2 SPRAYS NASALLY TWICE A DAY alprazolam [Xanax] 0.5 mg tablet 0.5 mg PO BID PRN (Reason: anxiety) Qty: 30 0RF nystatin 100,000 unit/mL suspension 4 ml PO QID 14 Days Qty: 224 0RF Rx Instructions: swish and swallow Follow-up/Referrals: Jaison Walton MD [Primary Care Provider] -
== END 2024-11-08 11:27 | disposition home or self-care (01) ==
PROVIDERS: Emergency Provider Nurse Practitioner; PCP Emergency Medicine
DX: J22 Unspecified acute lower respiratory infection (principal); J44.9 Chronic obstructive pulmonary disease, unspecified; I10 Essential (primary) hypertension; Z85.3 Personal history of malignant neoplasm of breast; Z87.891 Personal history of nicotine dependence
CPT/HCPCS: 99213; G0463

== ENCOUNTER 2024-12-28 11:08 | Outpatient (CLI) | payer MEDICARE, OTHER, SELFPAY ==
--- NOTE | ~2024-12-28 | XR_ITS ---
Left Knee Technique: AP, lateral, and sunrise views were obtained. Clinical History: Arthroplasty COMPARISON: 06/23/2024 Findings: No fracture or dislocation is seen. Stable left knee arthroplasty. No hardware complication is evident. Soft tissues are unremarkable. No joint effusion is seen. Impression: No acute abnormality. Stable left knee arthroplasty. Reviewed, dictated and finalized at location . E TEACHER Impression: No acute abnormality. Stable left knee arthroplasty.
--- OUTSIDE RECORDS SUMMARY | 2024-12-28 12:34 | XMS_ITS | Referral Summary ---
Author Organization [facility] [place] [address] Address [address] [place] [address] Care Team Providers Care Fly Tier Name Role Phone Jiason Walton MD Primary Care Provide r Allergies Active Allergy Reactions Criticality Noted Date Comments Iodine Rash Medium Shellfish Itching Low 05/26/2020 Shellfish Derived Rash Medium Edbueri-Jtj-Lqd Reductase Inhibitors Other (See comments) Low 03/05/2023 Elevated liver enzymes Medications ALPRAZolam (XANAX) 0.5 mg tablet take 1 tablet by ORAL route every 2 days as needed for anxiety 0 0 09/21/20 14 Active albuterol HFA (PROAIR HFA) 90 mcg/actuation inhaler inhale 2 puff by inhalation route every 4 - 6 hours as needed 0 Inhaler 0 09/21/20 14 Active Lactobac. rhamnosus GG-inulin (CULTURELLE PROBIOTICS) 10 billion cell -200 mg capsule, sprinkle 0 0 11/30/19 15 Active multivitamin tablet tablet take 1 tablet by oral route every day with food 0 0 11/30/19 15 Active loratadine (CLARITIN) 10 mg tablet take 1 tablet by oral route every day 0 0 07/13/20 15 Active fluticasone-salmete rol (ADVAIR HFA) 115-21 mcg/actuation inhaler inhale 2 puff by inhalation route 2 times every day in the morning and evening 0 Inhaler 0 05/04/20 16 Active omeprazole (PriLOSEC) 40 mg capsule Take 1 capsule (40 mg total) by mouth daily Active cholecalciferol (VITAMIN D-3) 2,000 unit capsule Take 1 capsule (2,000 Units total) by mouth daily Active aspirin 81 mg enteric coated tablet Take 1 tablet (81 mg total) by mouth daily 30 tablet 11 01/24/20 20 Active atorvastatin (LIPITOR) 20 mg tabletIndications:A ortic atherosclerosis (HCC) Take 1 tablet (20 mg total) by mouth daily 90 tablet 3 03/11/20 24 025 Active fluticasone propionate (FLONASE) 50 mcg/actuation nasal spray Administer 2 sprays into each nostril 2 (two) times a day 09/26/20 23 Active Spiriva Respimat 2.5 mcg/actuation inhaler Inhale 2 puffs daily 03/09/20 24 Active lisinopriL (PRINIVIL,ZESTRIL) 20 mg tablet TAKE 1 TABLET DAILY 90 tablet 3 04/07/20 24 Active amLODIPine (NORVASC) 10 mg tablet TAKE 1 TABLET DAILY 90 tablet 3 07/26/20 24 Active Active Problems Problem Noted Date Diagnosed Date SOB (shortness of breath) 09/10/2023 Aortic atherosclerosis 07/08/2018 Hypertension 09/21/2014 Overview (02/20/2017): Hypertension Anxiety 09/21/2014 Overview (02/20/2017): Anxiety Alcohol abuse 09/21/2014 Overview (02/20/2017): Alcohol abuse Hyperlipidemia LDL goal <70 09/21/2014 Overview (02/20/2017): Hyperlipidemia Chronic obstructive pulmonary disease 09/21/2014 Overview (02/20/2017): COPD (chronic obstructive pulmonary disease) Gastroesophageal reflux disease 09/21/2014 Overview (02/20/2017): GERD (gastroesophageal reflux disease) Social History Tobacco Use Types Packs/Day Years Used Date Smoking Tobacco: Former Cigarettes Q uit: 01/02/2008 Smokeless Tobacco: Never Alcohol Use Standard Drinks/Week Comments Yes 1 (1 standard drink = 0.6 oz pur e alcohol) occassionally Comments Unknown Sex and Gender Information Value Date Recorded Sex Assigned at Not on file Legal Sex Female 3:26 AM DETECTIVE NARCOTICS AND VICE Gender Identity Female 08/16/2020 12:31 PM CDT Sexual Orientation Not on file Last Filed Vital Signs Vital Sign Reading Time Taken Comments Blood Pressure 128/64 09/23/2024 11:22 AM DETECTIVE NARCOTICS AND VICE Pulse 67 09/23/2024 11:22 AM DETECTIVE NARCOTICS AND VICE Temperature - - Respiratory Rate - - Oxygen Saturation 98% 09/23/2024 11:22 AM DETECTIVE NARCOTICS AND VICE Inhaled Oxygen Concentration - - Weight 69.9 kg (154 lb) 09/23/2024 11:22 AM DETECTIVE NARCOTICS AND VICE Height 162.6 cm (5' 4 ) 09/23/2024 11:22 AM DETECTIVE NARCOTICS AND VICE Body Mass Index 26.43 09/23/2024 11:22 AM DETECTIVE NARCOTICS AND VICE Plan of Treatment Not on file Insurance [facility] [place] [address] MEDICARE [facility] Address: [facility] [address] [place] [address] [id number] MEDICARE [facility] MEDICARE FOR LIFE Care Teams Fly Tier Relationship Specialty Start Date End Date Jaison Walton MD [address] [place] [address] PCP - General 10/17/16
--- OUTSIDE RECORDS SUMMARY | 2024-12-28 12:34 | XMS_ITS | Clinical Summary ---
Author Organization [facility] [address] Address [address] [place] [address] Care Team Providers Care Event Representative Name Role Phone Jaison Walton MD Primary Care Provide r Allergies Active Allergy Reactions Criticality Noted Date Comments Iodine Rash Medium Shellfish Itching Low 05/26/2020 Shellfish Derived Rash Medium Rpkhbvz-Srg-Zkf Reductase Inhibitors Other (See comments) Low 03/05/2023 [...] 09/21/2014 Overview (02/20/2017): GERD (gastroesophageal reflux disease) Surgical History Surgery Date Site/Laterality Comments BREAST SURGERY 11/17/2000 - 11/16/2001 HERNIA REPAIR 03/17/2020 - 04/16/2020 HYSTERECTOMY 11/17/1985 - 11/16/1986 REPLACEMENT TOTAL KNEE 03/19/2022 Right Medical History Medical History Date Comments Hx Other Medical HTN, MVP, obesi ty, hyperlipidemia, GERD, dentures,; Comments: MAF 09/22/2014 - GERD (gastroesophageal reflu x disease) Anxiety Arthritis Osteoporosis Cancer (CMS/HCC) (HCC) 2000 Lumpectomy r ight breast/radiation Depression Hypertension Family History Medical History Relation Name Comments Heart attack Father Glen Cummings Myocardial infa rction; COPD Mother Celestina Cummings Heart disease Sister Celestina Ureña ([place]) Relation Name Status Comments Father Glen Cummings Mother Celestina Cummings Sister Celestina Ureña ([place]) Social History Tobacco Use Types Packs/Day Years Used Date Smoking Tobacco: Former Cigarettes Q uit: 01/02/2008 Smokeless Tobacco: Never Alcohol Use Standard Drinks/Week Comments Yes 1 (1 standard drink = 0.6 oz pur e alcohol) occassionally Comments Unknown Sex and Gender Information Value Date Recorded Sex Assigned at Not on file Legal Sex Female 3:26 AM PLASTIC FINISHER Gender Identity Female 08/16/2020 12:31 PM CDT Sexual Orientation Not on file Obstetrics History Last Filed Vital Signs Vital Sign Reading Time Taken Comments Blood Pressure 128/64 09/23/2024 11:22 AM PLASTIC FINISHER Pulse 67 09/23/2024 11:22 AM PLASTIC FINISHER Temperature - - Respiratory Rate - - Oxygen Saturation 98% 09/23/2024 11:22 AM PLASTIC FINISHER Inhaled Oxygen Concentration - - Weight 69.9 kg (154 lb) 09/23/2024 11:22 AM PLASTIC FINISHER Height 162.6 cm (5' 4 ) 09/23/2024 11:22 AM PLASTIC FINISHER Body Mass Index 26.43 09/23/2024 11:22 AM PLASTIC FINISHER Plan of Treatment Health Maintenance Due Date Last Done Comments Depression Screening 1945 Fall Risk Assessment 1945 Hepatitis C Screening 1945 Hepatitis B Screening 1965 Well Visit 65+ 2012 Osteoporosis Screening-Bone Density Scan 05/05/2014 05/05/2012 Zoster Vaccine (3 of 3) 12/24/2019 10/29/2019, 04/30 DTaP/Tdap/Td Vaccine (2 - Tdap) 11/19/2020 1 Influenza Vaccine (#1) 2024 9, 08/07/2017, 09/28/2016, Additional history exists Pneumococcal vaccine 65+ Completed 015, 12/18/2008, 08/27/2007 Breast Cancer Screening-Mammogram Discontinued 04/22/2019, 03/26/2018, 03/25/2017, Additional history exists Insurance MEDICARE [employer] [facility] Address: [address] [place] [address] MEDICARE FOR LIFE MEDICARE FOR LIFE Care Teams Event Representative Relationship Specialty Start Date End Date Jaison Walton MD [address] [place] [address] PCP - General 10/17/16
--- OUTSIDE RECORDS SUMMARY | 2024-12-28 12:34 | XMS_ITS | Clinical Summary ---
Author Organization [facility] Address [address] [place] [address] Care Team Providers Care Wallpaper Hanger Helper Name Role Phone Unavailable Primary Care Provider Unavailabl e Social History Tobacco Use Types Packs/Day Years Used Date Smoking Tobacco: Never Assessed Comments Unknown Sex and Gender Information Value Date Recorded Sex Assigned at Not on file Legal Sex Female 11:57 AM PRIVACY COMPLIANCE MANAGER Gender Identity Not on file Sexual Orientation Not on file Plan of Treatment Health Maintenance Due Date Last Done Comments DEXA Bone Density 1945 Hepatitis C Virus (HCV) Screening 1945 TdaP Immunization 1945 Pneumococcal Immunization (50+ years) (2 of 2 - PCV) 08/20/2016 08/20/2015, 12/18/2008 Respiratory Syncytial Virus (RSV) Immunization (Adult) (1 - 1-dose 75+ series) 2022 Influenza Immunization (#1) 07/18/202408/18, 08/15/2019, 09/30/2018, Additional history exists SARS-COV-2 Immunization ( season) 2024 02/04/2021, 01/14/2021 Pneumococcal Immunization Combined Discontinued 08/20/2015, 12/18/2008 Zoster Immunization Completed 08/01/2020, 9 Hepatitis B Immunization Aged Out No longer eligible based on patient's age to complete this topic Meningococcal Immunization (ACWY) Aged Out No longer eligible based on patient's age to complete this topic Rotavirus Immunization Aged Out No lo nger eligible based on patient's age to complete this topic
== END 2024-12-28 11:09 | disposition home or self-care (01) ==
PROVIDERS: PCP Emergency Medicine; Visit Provider Orthopaedic Surgery
DX: Z96.652 Presence of left artificial knee joint (principal)
CPT/HCPCS: 73562

== ENCOUNTER 2024-12-30 10:13 | Outpatient (CLI) | payer MEDICARE, OTHER, SELFPAY ==
--- OUTSIDE RECORDS SUMMARY | 2024-12-30 10:34 | XMS_ITS | Patient Health Summary ---
Author Organization [facility] [employer] Address [address] [place] [address] Care Team Providers Care Retaining Room Cutter Name Role Phone Unavailable Primary Care Provider Unavailabl e Note from [facility],non-owned Affiliates and Associated Physician Practices is amultiple site organization consisting of ambulatory clinics and hospital sitesin [place], [place], [place] and [place]. This disclosure is being madepursuant to the Care Everywhere program and may not contain all information available regarding this patient. Last updated 18.[facility] [employer] Allergies * Povidone Iodine(Rash) -Medium Criticality * Shellfish Allergy(Itching) Medications * Be aware that medications may not be up to date on this document. Alwaysverify current medications with the patient. * atorvastatin (LIPITOR) 40 MG tablet Take 40 mg by mouth at bedtime * LISINOPRIL PO Take 20 mg by mouth * omeprazole (PRILOSEC) 40 MG capsule Take 40 mg by mouth daily before breakfast * ALPRAZolam (XANAX) 0.25 MG tablet Take 0.5 mg by mouth 3 times daily as needed * Multiple Vitamins-Minerals (MULTIVITAMIN ADULT PO) * Lactobacillus (PROBIOTIC ACIDOPHILUS PO) * BUPROPION HBR ER PO * Albuterol Sulfate (PROAIR HFA IN) * fluticasone-salmeterol hfa (ADVAIR HFA) 115-21 MCG/ACT Inhale 2 puffs by mouth 2 times daily * Loratadine 10 MG * Cholecalciferol (VITAMIN D3) 1.25 MG (58594 UT) capsule Take 50 capsules by mouth every 7 days * Fluticasone Propionate (FLONASE NA) * amLODIPine (NORVASC) 10 MG tablet Take 10 mg by mouth once daily * triamcinolone acetonide (KENALOG) 0.1 % cream(Started 07/27/2021) Apply to affected area 2 times daily Reasons: Atopic Dermatitis Social History Tobacco Use Types Packs/Day Years Used Date Smoking Tobacco: Never Smokeless Tobacco: Never Sex and Gender Information Value Date Recorded Sex Assigned at Not on file Gender Identity Not on file Sexual Orientation Not on file Last Filed Vital Signs Vital Sign Reading Time Taken Comments Blood Pressure 128/80 07/27/2021 7:00 PM CDT Pulse 78 07/27/2021 7:00 PM CDT Temperature 36.8 C (98.3 F) 07/27/2021 7:00 PM CDT Respiratory Rate 16 07/27/2021 7:00 PM CDT Oxygen Saturation 98% 07/27/2021 7:00 PM CDT Inhaled Oxygen Concentration - - Weight 71.7 kg (158 lb) 05/26/2020 2:30 PM CDT Height 160 cm (5' 3 ) 05/26/2020 2:30 PM CDT Body Mass Index 27.99 05/26/2020 2:30 PM CDT
--- OUTSIDE RECORDS SUMMARY | 2024-12-30 10:34 | XMS_ITS | Clinical Summary ---
Author Organization [facility] Address [address] [place] [address] Care Team Providers Care New Vehicle Sales Consultant Name Role Phone Unavailable Primary Care Provider Unavailabl e Social History Tobacco Use Types Packs/Day Years Used Date Smoking Tobacco: Never Assessed Comments Unknown Sex and Gender Information Value Date Recorded Sex Assigned at Not on file Legal Sex Female 11:57 AM ATTORNEY LAW CLERK Gender Identity Not on file Sexual Orientation [...]
--- OUTSIDE RECORDS SUMMARY | 2024-12-30 10:35 | XMS_ITS | Referral Summary ---
Author Organization [facility] [employer] Address [address] [place] [address] Care Team Providers Care Career Services Manager Name Role Phone Unavailable Primary Care Provider Unavailabl e Source Comments [facility] [employer],non-owned Affiliates and Associated Physician Practices is amultiple site organization consisting of ambulatory clinics and hospital sitesin [place], [place], [place] and [place]. This disclosure is being madepursuant to the Care Everywhere program and may not contain all information available regarding this patient. Last updated 18.[facility] [employer] Allergies Active Allergy Reactions Criticality Noted Date Comments Povidone Iodine Rash Medium 05/26/2020 Shellfish Allergy Itching 05/26/2020 Medications * Be aware that medications may not be up to date on this document. Alwaysverify current medications with the patient. Medication Sig Dispensed Refills Start Date End Date Status atorvastatin (LIPITOR) 40 MG tablet Take 40 mg by mouth at bedtime Active LISINOPRIL PO Take 20 mg by mouth Ac tive omeprazole (PRILOSEC) 40 MG capsule Take 40 mg by mouth daily before breakfast Active ALPRAZolam (XANAX) 0.25 MG tablet Take 0.5 mg by mouth 3 times daily as needed Active Multiple Vitamins-Minerals (MULTIVITAMIN ADULT PO) Active Lactobacillus (PROBIOTIC ACIDOPHILUS PO) Active BUPROPION HBR ER PO Activ e Albuterol Sulfate (PROAIR HFA IN) Active fluticasone-salmetero l hfa (ADVAIR HFA) 115-21 MCG/ACT Inhale 2 puffs by mouth 2 times daily Active Loratadine 10 MG Active Cholecalciferol (VITAMIN D3) 1.25 MG (63147 UT) capsule Take 50 capsules by mouth every 7 days Active Fluticasone Propionate (FLONASE NA) Active amLODIPine (NORVASC) 10 MG tablet Take 10 mg by mouth once daily Active triamcinolone acetonide (KENALOG) 0.1 % creamIndications:Atop ic Dermatitis Apply to affected area 2 times daily Reasons: Atopic Dermatitis 80 g 07/27/2021 Active Social History Tobacco Use Types Packs/Day Years [...] Mass Index 27.99 05/26/2020 2:30 PM CDT Plan of Treatment Not on file
--- OUTSIDE RECORDS SUMMARY | 2024-12-30 10:35 | XMS_ITS | Referral Summary ---
Author Organization [facility] [address] Address [address] [place] [address] Care Team Providers Care Casting Machine Operator Automatic Name Role Phone Jaison Walton MD Primary Care Provide r Allergies Active Allergy Reactions Criticality Noted Date Comments Iodine Rash Medium Shellfish Itching Low 05/26/2020 Shellfish Derived Rash Medium Rgctwqt-Jle-Aqo Reductase Inhibitors Other (See comments) Low 03/05/2023 [...] on file Legal Sex Female 3:26 AM COAT JOINER LOCKSTITCH Gender Identity Female 08/16/2020 12:31 PM CDT Sexual Orientation Not on file Last Filed Vital Signs Vital Sign Reading Time Taken Comments Blood Pressure 128/64 09/23/2024 11:22 AM COAT JOINER LOCKSTITCH Pulse 67 09/23/2024 11:22 AM COAT JOINER LOCKSTITCH Temperature - - Respiratory Rate - - Oxygen Saturation 98% 09/23/2024 11:22 AM COAT JOINER LOCKSTITCH Inhaled Oxygen Concentration - - Weight 69.9 kg (154 lb) 09/23/2024 11:22 AM COAT JOINER LOCKSTITCH Height 162.6 cm (5' 4 ) 09/23/2024 11:22 AM COAT JOINER LOCKSTITCH Body Mass Index 26.43 09/23/2024 11:22 AM COAT JOINER LOCKSTITCH Plan of Treatment Not on file Insurance [facility] [id number] MEDICARE [facility] Address: [facility] [address] [place] [address] [employer] MEDICARE [facility] MEDICARE FOR LIFE Care Teams Casting Machine Operator Automatic Relationship Specialty Start Date End Date Jaison Walton MD [address] [place] [address] PCP - General 10/17/16
--- OUTSIDE RECORDS SUMMARY | 2024-12-30 10:35 | XMS_ITS | Clinical Summary ---
Author Organization [facility] [address] Address [address] [place] [address] Care Team Providers Care Telephone Clerk Telegraph Office Name Role Phone Jaison Walton MD Primary Care Provide r Allergies Active Allergy Reactions Criticality Noted Date Comments Iodine Rash Medium Shellfish Itching Low 05/26/2020 Shellfish Derived Rash Medium Pzsvykr-Azn-Ohw Reductase Inhibitors Other (See comments) Low 03/05/2023 [...] on file Legal Sex Female 3:26 AM FISHING GEAR MECHANIC Gender Identity Female 08/16/2020 12:31 PM CDT Sexual Orientation Not on file Obstetrics History Last Filed Vital Signs Vital Sign Reading Time Taken Comments Blood Pressure 128/64 09/23/2024 11:22 AM FISHING GEAR MECHANIC Pulse 67 09/23/2024 11:22 AM FISHING GEAR MECHANIC Temperature - - Respiratory Rate - - Oxygen Saturation 98% 09/23/2024 11:22 AM FISHING GEAR MECHANIC Inhaled Oxygen Concentration - - Weight 69.9 kg (154 lb) 09/23/2024 11:22 AM FISHING GEAR MECHANIC Height 162.6 cm (5' 4 ) 09/23/2024 11:22 AM FISHING GEAR MECHANIC Body Mass Index 26.43 09/23/2024 11:22 AM FISHING GEAR MECHANIC Plan of Treatment Health Maintenance Due Date [...] 03/26/2018, 03/25/2017, Additional history exists Insurance [facility]ICARE [facility] Address: [address] [place] [address] MEDICARE FOR LIFE MEDICARE FOR LIFE Care Teams Telephone Clerk Telegraph Office Relationship Specialty Start Date End Date Jaison Walton MD [address] [place] [address] PCP - General 10/17/16
--- OUTSIDE RECORDS SUMMARY | 2024-12-30 10:35 | XMS_ITS | Clinical Summary ---
Author Organization [facility] [employer] Address [address] [place] [address] Care Team Providers Care Bookbinder Apprentice Name Role Phone Unavailable Primary Care Provider Unavailabl e Source Comments [facility] [employer],non-owned Affiliates and Associated Physician Practices is amultiple site organization consisting of ambulatory clinics and hospital sitesin [place], [place], [place] and [place]. This disclosure is being madepursuant to the Care Everywhere program and may not contain all information available regarding this patient. Last updated 18.[facility] [employer] Allergies Active Allergy Reactions Criticality Noted Date [...] MG Active Cholecalciferol (VITAMIN D3) 1.25 MG (40531 UT) capsule Take 50 capsules by mouth [...] 05/26/2020 2:30 PM CDT Plan of Treatment Health Maintenance Due Date Last Done Comments BONE DENSITY TESTING 1945 MEDICARE AWV 12 MONTHS 1945 HEPATITIS C SCREENING 10/21/1965 DTAP/TDAP/TD VACCINES (1 - Tdap) 1966 PNEUMOCOCCAL VACCINE 50+ (1 of 1 - PCV) 1997 ZOSTER VACCINE (1 of 2) 1997 Respiratory Syncytial Virus (RSV) Vaccine Pt: or over 60 yrs (1 - 1-dose 75+ series) 2022 COVID-19 VACCINE (3 - 2023-2 5 season) 2024 02/04/2021, 01/14/2021 INFLUENZA VACCINE (#1) 2024 0, 08/15/2019, 09/03/2012 DEPRESSION SCREENING 11/17/2024 HEPATITIS B VACCINE Aged Out No longe r eligible based on patient's age to complete this topic HIB VACCINE Aged Out No longer eligi ble based on patient's age to complete this topic HPV VACCINE Aged Out No longer eligi ble based on patient's age to complete this topic MENINGOCOCCAL (Group B) VACCINE Aged Out No longer eligible b ased on patient's age to complete this topic MENINGOCOCCAL VACCINE Aged Out No kaushik malvin eligible based on patient's age to complete this topic
[2024-12-30 10:42] LABS: Basophils Percent Auto 0.6 % (0.2-1.2); Eosinophils Absolute Auto 0.1 K/mm3 (0-0.3); Hematocrit 37.1 % (37.0-47.0); Hemoglobin 12.5 g/dL (12.0-15.0); Immature Granulocyte Absolute 0.02 K/mm3 (0.00-0.031); Immature Granulocyte Percent A 0.3 % (0-0.5); Lymphocytes Absolute Auto 1.38 K/mm3 (0.9-3.2); Lymphocytes Percent Auto 19.4 % (18.3-44.2); Mean Corpuscular HGB Conc 33.7 g/dl (32-36); Mean Corpuscular Hemoglobin 32.6 pg (26-34); Mean Corpuscular Volume 96.6 fl (80-100); Mean Platelet Volume 9.4 fl (7.4-10.4); Monocytes Absolute Auto 0.7 K/mm3 (0.1-0.6); Monocytes Percent Auto 9.1 % (2.6-8.5); Neutrophils Percent Auto 69.6 % (45.5-73.1); Platelet Count Result 235 k/mm3 (150-375); Red Blood Count 3.84 M/mm3 (4.2-5.4); White Blood Count 7.1 K/mm3 (4.5-10.0)
[2024-12-30 11:02] LABS: CRP < 0.5 mg/dL (<1.0)
[2024-12-30 12:13] LABS: Erythrocyte Sedimentation Rate 18 mm/hr (0-20)
[2024-12-30 12:53] LABS: Appearance Synovial Fluid Cloudy (Clear); Color Synovial Fluid Red (Colorless); Nucleated Cell Synovial Fluid 331 /uL (0-200); Source Synovial Fluid Lt Knee Syn Fluid
[2024-12-30 12:56] LABS: Lymphocytes Synovial Fluid 50 %; Macrophages Synovial Fluid 3 %; Monocytes Synovial Fluid 10 %; Neutrophils Synovial Fluid 13 % (0-25); RBC Synovial Fluid 26000 /uL (0-0)
[2024-12-30 12:57] LABS: Other Cells Synovial Fluid 24 %
== END 2024-12-30 10:14 | disposition home or self-care (01) ==
PROVIDERS: PCP Emergency Medicine; Visit Provider Orthopaedic Surgery
DX: M25.462 Effusion, left knee (principal)
CPT/HCPCS: 36415; 85025; 85652; 86140; 87070; 87205; 89051

== ENCOUNTER 2025-01-04 15:43 | Outpatient (CLI) | payer MEDICARE, OTHER, SELFPAY ==
--- NOTE | ~2025-01-04 | CT_ITS ---
EXAMINATION:CT diagnostic chest wo con DATE: 01/04/2025 16:03 INDICATION: Other nonspecific abnormal finding of lung field. TECHNIQUE: Computed tomography (CT) of the chest was performed without intravenous contrast. Automate d exposure control and iterative reconstruction technique were employed. The dose-length product (DLP ) was 169.21 mGy-cm. COMPARISON: Chest CT 06/28/2024 FINDINGS: There is mild emphysema. There is mild atelectasis bilaterally. There are small bilateral p osterior diaphragmatic hernias containing fat. In the right upper lobe, there is a 10 mm nodule with interval worsening. No pleural effusion. The heart size is normal. There are coronary artery calcific ations. No pericardial effusion. There is a 12 mm cyst in the liver. There is mild thoracic spondylos is. There are chronic fractures of fractures of L1 and L2 vertebral bodies. IMPRESSION: 1. Worsened 10 mm nodule in right lung upper lobe suspicious for primary bronchogenic carcinoma. CT-g uided biopsy is recommended. Reviewed, dictated and finalized at location A. [facility] IMPRESSION: 1. Worsened 10 mm nodule in right lung upper lobe suspicious for primary bronch ogenic carcinoma. CT-guided biopsy is recommended.
--- OUTSIDE RECORDS SUMMARY | 2025-01-04 15:50 | XMS_ITS | Referral Summary ---
Author Organization [facility] [address] Address [address] [place] [address] Care Team Providers Care Slide Developer Name Role Phone Jaison Walton MD Primary Care Provide r Allergies Active Allergy Reactions Criticality Noted Date Comments Iodine Rash Medium Shellfish Itching Low 05/26/2020 Shellfish Derived Rash Medium Pxubrmf-Btl-Mpu Reductase Inhibitors Other (See comments) Low 03/05/2023 [...] on file Legal Sex Female 3:26 AM SOLUTIONS DEVELOPMENT ANALYST Gender Identity Female 08/16/2020 12:31 PM CDT Sexual Orientation Not on file Last Filed Vital Signs Vital Sign Reading Time Taken Comments Blood Pressure 128/64 09/23/2024 11:22 AM SOLUTIONS DEVELOPMENT ANALYST Pulse 67 09/23/2024 11:22 AM SOLUTIONS DEVELOPMENT ANALYST Temperature - - Respiratory Rate - - Oxygen Saturation 98% 09/23/2024 11:22 AM SOLUTIONS DEVELOPMENT ANALYST Inhaled Oxygen Concentration - - Weight 69.9 kg (154 lb) 09/23/2024 11:22 AM SOLUTIONS DEVELOPMENT ANALYST Height 162.6 cm (5' 4 ) 09/23/2024 11:22 AM SOLUTIONS DEVELOPMENT ANALYST Body Mass Index 26.43 09/23/2024 11:22 AM SOLUTIONS DEVELOPMENT ANALYST Plan of Treatment Not on file Insurance [facility] [place] [id number] [place] [address] [employer] MEDICARE [facility] MEDICARE FOR LIFE Care Teams Slide Developer Relationship Specialty Start Date End Date Jaison Walton MD [address] [place] [address] PCP - General 10/17/16
--- OUTSIDE RECORDS SUMMARY | 2025-01-04 15:50 | XMS_ITS | Patient Health Summary ---
Author Organization [facility] [employer] Address [address] [facility] [place] [address] Care Team Providers Care Power Shovel Operator Helper Name Role Phone Unavailable Primary Care Provider Unavailabl e Note from [facility],non-owned Affiliates and Associated Physician Practices is amultiple site organization consisting of ambulatory clinics and hospital sitesin [place], [place], [place] and [place]. This disclosure is being madepursuant to the Care Everywhere program and may not contain all information available regarding this patient. Last updated 18.[facility] [employer] Allergies * Povidone Iodine(Rash) -Medium Criticality * [...] MG * Cholecalciferol (VITAMIN D3) 1.25 MG (10126 UT) capsule Take 50 capsules by mouth [...]
--- OUTSIDE RECORDS SUMMARY | 2025-01-04 15:50 | XMS_ITS | Referral Summary ---
Author Organization [facility] [employer] Address [address] [facility] [place] [address] Care Team Providers Care Multiple Punch Press Operator Name Role Phone Unavailable Primary Care Provider Unavailabl e Source Comments [facility] [employer],non-owned Affiliates and Associated Physician Practices is amultiple site organization consisting of ambulatory clinics and hospital sitesin [place], [place], [place] and [place]. This disclosure is being madepursuant to the Care Everywhere program and may not contain all information available regarding this patient. Last updated 18.[facility] [employer] Allergies Active Allergy Reactions Criticality Noted Date [...] MG Active Cholecalciferol (VITAMIN D3) 1.25 MG (88203 UT) capsule Take 50 capsules by mouth [...]
--- OUTSIDE RECORDS SUMMARY | 2025-01-04 15:50 | XMS_ITS | Clinical Summary ---
Author Organization [facility] Address [address] [place] [address] Care Team Providers Care Materials Director Name Role Phone Unavailable Primary Care Provider Unavailabl e Social History Tobacco Use Types Packs/Day Years Used Date Smoking Tobacco: Never Assessed Comments Unknown Sex and Gender Information Value Date Recorded Sex Assigned at Not on file Legal Sex Female 11:57 AM HEATER FURNACE Gender Identity Not on file Sexual Orientation [...]
--- OUTSIDE RECORDS SUMMARY | 2025-01-04 15:50 | XMS_ITS | Clinical Summary ---
Author Organization [facility] [address] Address [address] [place] [address] Care Team Providers Care Manager Vehicle Name Role Phone Jaison Walton MD Primary Care Provide r Allergies Active Allergy Reactions Criticality Noted Date Comments Iodine Rash Medium Shellfish Itching Low 05/26/2020 Shellfish Derived Rash Medium Byqnvyj-Ank-Uts Reductase Inhibitors Other (See comments) Low 03/05/2023 [...] on file Legal Sex Female 3:26 AM WHEAT SHIPPER Gender Identity Female 08/16/2020 12:31 PM CDT Sexual Orientation Not on file Obstetrics History Last Filed Vital Signs Vital Sign Reading Time Taken Comments Blood Pressure 128/64 09/23/2024 11:22 AM WHEAT SHIPPER Pulse 67 09/23/2024 11:22 AM WHEAT SHIPPER Temperature - - Respiratory Rate - - Oxygen Saturation 98% 09/23/2024 11:22 AM WHEAT SHIPPER Inhaled Oxygen Concentration - - Weight 69.9 kg (154 lb) 09/23/2024 11:22 AM WHEAT SHIPPER Height 162.6 cm (5' 4 ) 09/23/2024 11:22 AM WHEAT SHIPPER Body Mass Index 26.43 09/23/2024 11:22 AM WHEAT SHIPPER Plan of Treatment Health Maintenance Due Date [...] 03/26/2018, 03/25/2017, Additional history exists Insurance MEDICARE [employer] MEDICARE FOR LIFE MEDICARE FOR LIFE Care Teams Manager Vehicle Relationship Specialty Start Date End Date Jaison Walton MD [address] [place] [address] PCP - General 10/17/16
--- OUTSIDE RECORDS SUMMARY | 2025-01-04 15:50 | XMS_ITS | Clinical Summary ---
Author Organization [facility] [employer] Address [address] [facility] [place] [address] Care Team Providers Care Herbicide Service Sales Representative Name Role Phone Unavailable Primary Care Provider Unavailabl e Source Comments [facility] [employer],non-owned Affiliates and Associated Physician Practices is amultiple site organization consisting of ambulatory clinics and hospital sitesin [place], [place], [place] and [place]. This disclosure is being madepursuant to the Care Everywhere program and may not contain all information available regarding this patient. Last updated 18.[facility] [employer] Allergies Active Allergy Reactions Criticality Noted Date [...] MG Active Cholecalciferol (VITAMIN D3) 1.25 MG (05661 UT) capsule Take 50 capsules by mouth [...]
== END 2025-01-04 15:44 | disposition home or self-care (01) ==
LOC: ANHIMG 15:48
PROVIDERS: PCP Emergency Medicine; Visit Provider Nurse Practitioner Family
DX: R91.8 Other nonspecific abnormal finding of lung field (principal)
CPT/HCPCS: 71250

== ENCOUNTER 2025-01-20 08:57 | Outpatient (CLI) | payer MEDICARE, OTHER, SELFPAY ==
--- NOTE | 2025-01-13 09:38 | PC.NURSE ---
Pre Radiology instructions Report to the outpatient david ferrera on date _01/20/25____ at time _9 AM for procedure Time: 1100 AM____ YOU MAY BE MONITORED AT HOSPITAL FOR UP TO 4 HOURS AFTER YOUR PROCEDURE. A visitor will be allowed to accompany the patient into the hospital. You and your visitor will be asked to self-screen and do not enter if you have any COVID symptoms. A mask is OPTIONAL within the hospital. Patients are to have no food or drink 6 hours prior to procedure time Driving will be restricted after the procedure, you must have a person to drive you home. Labs will be drawn in preop area and once reviewed, you will be taken to radiology area for procedure. When the procedure is completed, you will be taken to outpatient where you will be monitored for several hours. You may have one visitor in this area. Other than holding anti-coagulants, patient may take other medication(s) as scheduled. Prior to your appointment date patients are instructed to hold anti-coagulants after discussing with ordering provider to stop. If unable to discontinue anti-coagulants please notify radiologist. ? No aspirin or warfarin (Coumadin) for 7 days prior to the procedure. ? No clopidogrel (Plavix), ticagrelor (Brilinta), prasugrel (Effient) or dabigatran (Pradaxa) for 5 days prior to the procedure. ? No rivaroxaban (Xarelto), apixaban (Eliquis), dipyridamole (Aggrenox or Persantine) or cilostazol (Pletal) for 2 days prior to the procedure. Medications to discontinue per physician: ___ASPIRIN 7 DAYS PRE PROCEDURE Date to take last dose: __01/12/25 Please leave all valuables, including medications, at home the day of procedure. The hospital will not accept responsibility for valuables. Wear comfortable, loose fitting clothing.? Follow any additional instructions given to you from ordering provider. Telephone instructions given to __PATIENT and asked if any additional questions and then verbalized understanding. Patient advised to call scheduling provider office or registration scheduling [phone] if any additional questions.
[2025-01-13 09:47] VITALS: BMI 28.7
[2025-01-20] VITALS (13 sets, daily range): BP systolic 133–151; BP diastolic 59–88; PULSE 60–70; RESP 15–17; TEMP 36.4; O2SAT 93–100
--- NOTE | ~2025-01-20 | CT_ITS ---
EXAMINATION: CT biopsy lung w/imaging DATE: 01/20/2025 12:01 INDICATION: Solitary pulmonary nodule. TECHNIQUE: The procedure including the risks, benefits, and alternatives and possibility of chest tub e placement were discussed with the patient. Risks discussed included infection, hemorrhage, approxim ately 1/3 risk of pneumothorax, approximately 1/10 risk of pneumothorax severe enough to warrant ches t tube placement, and rarely . The patient understood the risks and agreed to proceed. The patie nt was placed supine. The skin overlying the right chest was prepped and draped in sterile fashion. Anesthetic was administered with 1% lidocaine subcutaneously. A 19 gauge outer needle was advanced under CT guidance to the lesion of interest. A 20 gauge core biopsy needle was then used to obtain 4 core biopsy specimens. The needle was removed and the entry site was cleaned and dressed. The mA was adjusted according to patient size. Iterative reconstruction technique was employed. The dose-length product was 129.97 mGy-cm. There were no immediate complications. FINDINGS: CT images demonstrate the outer needle tip adjacent to a 10 mm nodule in right lung upper l obe. IMPRESSION: 1. CT-guided core needle biopsy of a 10 mm nodule in right lung upper lobe. Reviewed, dictated and finalized at location A. ICAL SERVICES CONSULTANT
--- NOTE | ~2025-01-20 | XR_ITS ---
EXAMINATION: XR chest 1V portable DATE: 01/20/2025 13:06 INDICATION: Right lung nodule status post percutaneous biopsy. TECHNIQUE: A single frontal view of the chest was obtained. COMPARISON: Chest single view at 11:57 AM FINDINGS: There is a mass in right upper lobe. No pleural effusion or pneumothorax. Cardiomegaly is n oted. IMPRESSION: 1. Stable mass in right upper lobe, consistent with postbiopsy hemorrhage. 2. Cardiomegaly. Reviewed, dictated and finalized at location A. ABUSE COUNSELOR
--- NOTE | ~2025-01-20 | XR_ITS ---
XR chest 1V portable Ordering provider: Raheel English MD History: 79 years Female with . Post Image Guided Lung Biopsy . Comparison: January 20, 2025 FINDINGS: MEDIASTINUM: The cardiac silhouette is not enlarged. LUNGS: No effusions or pneumothorax. Opacity in the right upper lobe is slightly decreased or unchang ed from previous examination. Right paraspinal opacity unchanged. OTHER: No free air under the diaphragm. IMPRESSION: Opacity in the right upper lobe slightly smaller most likely due to the resolving hemorrhage. Underly ing mass is still seen. Otherwise, No significant change from previous examination. Reviewed, dictated and finalized at location A. ISITION EDITOR IMPRESSION: Opacity in the right upper lobe slightly smaller most likely due to the resolvi ng hemorrhage. Underlying mass is still seen. Otherwise, No significant change from previous examination.
--- NOTE | ~2025-01-20 | XR_ITS ---
EXAMINATION: XR chest 1V DATE: 01/20/2025 12:04 INDICATION: Right lung nodule status post percutaneous biopsy. TECHNIQUE: A single frontal view of the chest was obtained. COMPARISON: Chest 2 views 03/02/2024 FINDINGS: There is a nodule in right upper lobe. No pleural effusion or pneumothorax. Cardiomegaly is noted. IMPRESSION: 1. Nodule in right lung upper lobe, consistent with postbiopsy hemorrhage. 2. Cardiomegaly. Reviewed, dictated and finalized at location A. UNT EXECUTIVE AGRIBUSINESS
--- OUTSIDE RECORDS SUMMARY | 2025-01-20 09:31 | XMS_ITS | Patient Health Summary ---
Author Organization [facility] [employer] Address [address] [facility] [place] [address] Care Team Providers Care Oracle Analyst Name Role Phone Unavailable Primary Care Provider Unavailabl e Note from [facility],non-owned Affiliates and Associated Physician Practices is amultiple site organization consisting of ambulatory clinics and hospital sitesin [place], [place], [place] and [place]. This disclosure is being madepursuant to the Care Everywhere program and may not contain all information available regarding this patient. Last updated 18.[facility] [employer] Allergies * Povidone Iodine(Rash) -Medium Criticality * [...] MG * Cholecalciferol (VITAMIN D3) 1.25 MG (37161 UT) capsule Take 50 capsules by mouth [...]
--- OUTSIDE RECORDS SUMMARY | 2025-01-20 09:31 | XMS_ITS | Clinical Summary ---
Author Organization [facility] Address [address] [place] [address] Care Team Providers Care Public Health Informatician Name Role Phone Unavailable Primary Care Provider Unavailabl e Social History Tobacco Use Types Packs/Day Years Used Date Smoking Tobacco: Never Assessed Comments Unknown Sex and Gender Information Value Date Recorded Sex Assigned at Not on file Legal Sex Female 11:57 AM DRY CLEANER PRESSER Gender Identity Not on file Sexual Orientation [...]
--- OUTSIDE RECORDS SUMMARY | 2025-01-20 09:32 | XMS_ITS | Clinical Summary ---
Author Organization [facility] [employer] Address [address] [place] [address] Care Team Providers Care Test Engineer Name Role Phone Unavailable Primary Care Provider Unavailabl e Source Comments [facility] [employer],non-owned Affiliates and Associated Physician Practices is amultiple site organization consisting of ambulatory clinics and hospital sitesin [place], [place], [place] and [place]. This disclosure is being madepursuant to the Care Everywhere program and may not contain all information available regarding this patient. Last updated 18.[facility] [employer] Allergies Active Allergy Reactions Criticality Noted Date [...] MG Active Cholecalciferol (VITAMIN D3) 1.25 MG (29806 UT) capsule Take 50 capsules by mouth [...]
--- OUTSIDE RECORDS SUMMARY | 2025-01-20 09:32 | XMS_ITS | Referral Summary ---
Author Organization [facility] [address] Address [address] [place] [address] Care Team Providers Care Hand Braille Transcriber Name Role Phone Jaison Walton MD Primary Care Provide r Allergies Active Allergy Reactions Criticality Noted Date Comments Iodine Rash Medium Shellfish Itching Low 05/26/2020 Shellfish Derived Rash Medium Ksvltmd-Pej-Spo Reductase Inhibitors Other (See comments) Low 03/05/2023 [...] atorvastatin (LIPITOR) 20 mg tabletIndications:A ortic atherosclerosis Take 1 tablet (20 mg total) by [...] on file Legal Sex Female 3:26 AM CROP AND SOIL SCIENTIST Gender Identity Female 08/16/2020 12:31 PM CDT Sexual Orientation Not on file Last Filed Vital Signs Vital Sign Reading Time Taken Comments Blood Pressure 128/64 09/23/2024 11:22 AM CROP AND SOIL SCIENTIST Pulse 67 09/23/2024 11:22 AM CROP AND SOIL SCIENTIST Temperature - - Respiratory Rate - - Oxygen Saturation 98% 09/23/2024 11:22 AM CROP AND SOIL SCIENTIST Inhaled Oxygen Concentration - - Weight 69.9 kg (154 lb) 09/23/2024 11:22 AM CROP AND SOIL SCIENTIST Height 162.6 cm (5' 4 ) 09/23/2024 11:22 AM CROP AND SOIL SCIENTIST Body Mass Index 26.43 09/23/2024 11:22 AM CROP AND SOIL SCIENTIST Plan of Treatment Not on file Insurance [address] [place] [id number] MEDICARE [employer] MEDICARE [facility] MEDICARE FOR LIFE Care Teams Hand Braille Transcriber Relationship Specialty Start Date End Date Jaison Walton MD [address] [place] [address] PCP - General 10/17/16
--- OUTSIDE RECORDS SUMMARY | 2025-01-20 09:32 | XMS_ITS | Clinical Summary ---
Author Organization [facility] [address] Address [address] [place] [address] Care Team Providers Care Rheostat Assembler Name Role Phone Jaison Walton MD Primary Care Provide r Allergies Active Allergy Reactions Criticality Noted Date Comments Iodine Rash Medium Shellfish Itching Low 05/26/2020 Shellfish Derived Rash Medium Oiteqyd-Mfb-Kmc Reductase Inhibitors Other (See comments) Low 03/05/2023 [...] reflu x disease) Anxiety Arthritis Osteoporosis Cancer (HCC) 2000 Lumpectomy righ t breast/radiation Depression Hypertension Family History Medical History [...] on file Legal Sex Female 3:26 AM METAL PATTERN MAKER Gender Identity Female 08/16/2020 12:31 PM CDT Sexual Orientation Not on file Obstetrics History Last Filed Vital Signs Vital Sign Reading Time Taken Comments Blood Pressure 128/64 09/23/2024 11:22 AM METAL PATTERN MAKER Pulse 67 09/23/2024 11:22 AM METAL PATTERN MAKER Temperature - - Respiratory Rate - - Oxygen Saturation 98% 09/23/2024 11:22 AM METAL PATTERN MAKER Inhaled Oxygen Concentration - - Weight 69.9 kg (154 lb) 09/23/2024 11:22 AM METAL PATTERN MAKER Height 162.6 cm (5' 4 ) 09/23/2024 11:22 AM METAL PATTERN MAKER Body Mass Index 26.43 09/23/2024 11:22 AM METAL PATTERN MAKER Plan of Treatment Health Maintenance Due Date [...] 03/26/2018, 03/25/2017, Additional history exists Insurance MEDICARE [employer] MEDICARE FOR LIFE MEDICARE FOR LIFE Care Teams Rheostat Assembler Relationship Specialty Start Date End Date Jaison Walton MD [address] [place] [address] PCP - General 10/17/16
--- OUTSIDE RECORDS SUMMARY | 2025-01-20 09:32 | XMS_ITS | Referral Summary ---
Author Organization [facility] [employer] Address [address] [place] [address] Care Team Providers Care Business Rules Analyst Name Role Phone Unavailable Primary Care Provider Unavailabl e Source Comments [facility] [employer],non-owned Affiliates and Associated Physician Practices is amultiple site organization consisting of ambulatory clinics and hospital sitesin [place], [place], [place] and [place]. This disclosure is being madepursuant to the Care Everywhere program and may not contain all information available regarding this patient. Last updated 18.[facility] [employer] Allergies Active Allergy Reactions Criticality Noted Date [...] MG Active Cholecalciferol (VITAMIN D3) 1.25 MG (09205 UT) capsule Take 50 capsules by mouth [...]
[2025-01-20 09:43] LABS: INR 0.9; Prothrombin Time 12.2 Seconds (11.1-14.7)
[2025-01-20 10:04] LABS: Partial Thromboplastin Time 25.9 Seconds (22.3-36.8)
--- NOTE | 2025-01-20 15:19 | SUR.PHASEII ---
MD English contacted RN at [phone] - pt okay to discharge home per
== END 2025-01-20 15:30 | disposition home or self-care (01) ==
PROVIDERS: PCP Emergency Medicine; Referring Provider Nurse Practitioner Family; Visit Provider Radiology Diagnostic Radiology
PROC: BB24ZZZ Computerized Tomography (CT Scan) of Bilateral Lungs (ICD-10-PCS; CPT 32408; principal; 2025-01-20 11:00)
DX: R91.1 Solitary pulmonary nodule (principal)
CPT/HCPCS: 32408; 36415; 71045; 85610; 85730; 88305

== ENCOUNTER 2025-01-27 11:38 | Emergency (ER) | payer MEDICARE, OTHER, SELFPAY ==
--- NOTE | ~2025-01-27 | XR_ITS ---
EXAMINATION: XR chest 2V DATE: 01/27/2025 13:42 INDICATION: Right lung nodule status post percutaneous biopsy. TECHNIQUE: Frontal and lateral views of the chest were obtained. COMPARISON: Chest single view 01/20/25, CT 01/20/25 FINDINGS: There are lucencies in the lungs, consistent with emphysema. There is mild atelectasis at t he lung bases. There is blunting of the posterior costophrenic angles correlating with small diaphrag matic hernias containing fat by CT. No pleural effusion or pneumothorax. The heart size is normal. IMPRESSION: 1. Emphysema. 2. Recent benign right lung biopsy. Noncontrast low-dose chest CT is recommended in 3 months to exclu de sampling error. Reviewed, dictated and finalized at location B. IMPRESSION: 1. Emphysema. 2. Recent benign right lung biopsy. Noncontrast low-dose chest CT is recommende d in 3 months to exclude sampling error.
[2025-01-27 11:42] VITALS: BP 172/55; PULSE 74; RESP 16; TEMP 36.4; O2SAT 99
--- NOTE | 2025-01-27 12:50 | ED_ITS ---
HPI - Epistaxis General Chief complaint: Epistaxis Stated complaint: Nosebleed after blowing-no anticoagulants Time Seen by Provider: 01/27/25 12:19 History of Present Illness HPI Narrative: 79-year-old female with history of hyperlipidemia, hypertension, COPD, s/p breast cancer in remission since 2000 presents to the emergency department for left-sided epistaxis that started at 11:00 a.m.. Patient states she blew her nose and began bleeding out of her left Armas and had blood traveling down the back of her throat. She states that lasted for approximately 30-45 minutes who which resulted in a large clot and soft. She notes she has had some blood- tinged sputum since. She also states she had a small amount of blood-tinged sputum yesterday morning and to mornings ago. She states is a very small amount and describes it as ?specks? in her sputum. She states this is not happened to her previously. Notably, she underwent a right upper lobe pulmonary nodule biopsy on 01/20/2025 with no reported immediate complications. She states she had some soreness to the right upper lateral chest wall after the procedure for couple days but states that has since resolved. She denies chest pain, dyspnea, lower extremity edema, history of VTE, other recent surgeries or hospitalizations. She is not anticoagulated. No history of bleeding dyscrasias. Patient notes she did not go under general anesthesia for the procedure and was awake for the entirety of the lung biopsy. Related Data Home Medications ?Medication ?Instructions ?Recorded ?Confirmed ?Last Taken ?Type amlodipine 10 mg tablet 10 mg PO HS 11/23/19 01/13/25 01/07/23 History lisinopril 20 mg tablet 20 mg PO DAILY 11/23/19 01/13/25 01/07/23 History olqvjugj-wqb-ZD 200 mcg-vit K 100 1 cap PO DAILY 11/30/19 01/13/25 05/03/24 History mcg-lycop 500 qqu-pbtbty-F13 capsule (Daily Multivitamin) loratadine 10 mg tablet (Claritin) 10 mg PO DAILY 01/20/20 01/13/25 01/07/23 History aspirin 81 mg tablet,delayed 81 mg PO EVERY OTHER DAY 03/24/20 01/13/25 04/29/24 History release Lactobacillus rhamnosus GG 10 1 cap PO DAILY 0201/13/25 05/03/24 History billion cell capsule (Culturelle) calcium 600 mg (as 2 cap PO DAILY 01/17/23 01/13/25 05/03/24 History carbonate)-vitamin D3 5 mcg (200 unit) capsule (Calcium 600 + D(3)) atorvastatin 20 mg tablet 20 mg PO DAILY 10/22/23 01/13/25 Unknown History guaifenesin 1,200 mg tablet, 1,200 mg PO PRN PRN Cough 02/11/24 01/13/25 Unknown History extended release 12 hr (Mucinex) tiotropium bromide 2.5 2 puff inhalation QNOON 04/26/24 01/13/25 05/06/24 History mcg/actuation mist for inhalation (Spiriva Respimat) Allergies Allergy/AdvReac Type Severity Reaction Status Date / Time iodine Allergy Severe Swelling Verified 01/13/25 09:38 AND ITCHING shellfish derived Allergy Severe Itching Verified 01/13/25 09:38 AND SWELLING Sulfa (Sulfonamide Allergy Mild RASH Verified 01/13/25 09:38 Antibiotics) iohexol (From contrast - CT, Allergy Rash Verified 01/13/25 09:38 X-RAY) Review of Systems 2 Review of Systems: All systems reviewed & are unremarkable except as noted in HPI and below PMFSH Past Medical History Medical History Internal hemorrhoids Sigmoid diverticulosis History of adenomatous polyp of colon Left hip pain Hyperglycemia COPD exacerbation Complete tear of right rotator cuff Wheezing Vitamin D deficiency Thrush, oral Skin lesion of left arm Seasonal allergic rhinitis due to pollen Primary osteoarthritis of right knee Primary osteoarthritis of left knee Major depressive disorder, single episode, unspecified H/O malignant neoplasm of female breast Gastro-esophageal reflux disease without esophagitis Essential (primary) hypertension Bony prominence Bilateral primary osteoarthritis of hip Acute pain of right shoulder Acute left-sided low back pain without sciatica Hx of colonic polyps Change in bowel movement LLQ pain Colitis Abnormal CT scan, sigmoid colon Complete tear of right rotator cuff Vitamin D2 deficiency Degenerative joint disease of knee Bronchitis Mitral valve prolapse Lumbar compression fracture L1-2 COPD (chronic obstructive pulmonary disease) GERD (gastroesophageal reflux disease) Depression Diverticulitis Breast cancer Status post right lumpectomy and radiation. HLD (hyperlipidemia) HTN (hypertension) Dyspnea Surgical History Surgical History Status post total left knee replacement (~05/06/24) Status post total right knee replacement (~03/19/22) History of inguinal hernia repair with 8 cm Parietex hernia mesh system 03/29/20 S/P lumpectomy, right breast History of hysterectomy Family History Family History Mother Family history of malignant neoplasm Family history of emphysema Family history of lung cancer Family history of chronic obstructive pulmonary disease Father Hypertension Family history of heart disease in male family member before age 55 Acute myocardial infarction Heart disease Social History Social History Social History: The patient lives with her . She has 3 children. 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 Surrogate medical decision maker: Lance Sandoval, spouse. Code status: Full code. Smoking packs per day: 1 Smoking cigarettes per day: 20.0 Years smoked: 30 Smoking pack-years: 30.00 Smoking status: Former smoker Tobacco type: cigarettes Smoking end date: 05/06/13 Additional smoking assessment comments: DENIES ANY FORM OF TOBACCO USE Alcohol intake: never Drinks per week: 21 Alcohol use details: STATES HAS NOT HAD A DRINK SINCE 02/01/24 Substance use: never Substance use type: does not use Do You Feel Safe in your Home?: Yes Lack of Transportation: No Lack of Food: Never True Current Housing: I Have Housing Concerned About Future Housing: No Difficulty Paying Gas/Electric Bills: No Difficulty Paying for Meds: No Currently Unemployed: No Education: Trade/Vocational Certificate Difficulty w/ Childcare or Family Care: No Living arrangements: with family Gender identity (if verbalized by the patient): Female Spiritual care concerns: No Exam 2 Narrative: GENERAL: Well-appearing, well-nourished, and in no acute distress. HEAD: Normocephalic, atraumatic. EYES: PERRLA and EOMI. ENT: . Mucous membranes moist. No active epistaxis, there is a small denying and viable tissue to the left septal wall that is not actively bleeding. No active epistaxis bilaterally. Right naris is unremarkable. Posterior pharynx is unremarkable, no blood to posterior pharynx NECK: Supple. CHEST: Clear to auscultation. No respiratory distress. Tenderness to the right superior lateral chest wall with well-healed biopsy site and very minimal overlying ecchymosis, otherwise no skin changes, erythema, fluctuance or induration HEART: Regular rate and rhythm. No murmur heard. Normal peripheral pulses. ABDOMEN: Soft, nontender, nondistended, normal active bowel sounds. EXTREMITIES: Normal range of motion. No edema. Negative Homans bilaterally SKIN: Warm, dry, no rash. NEURO: No focal deficits. Alert and oriented x3 Course Vital Signs Vital signs: Vital Signs Temperature 97.6 F 01/27/25 11:42 Pulse Rate 74 01/27/25 11:42 Respiratory Rate 16 01/27/25 11:42 Blood Pressure 172/55 H 01/27/25 11:42 Pulse Oximetry 99 01/27/25 11:42 Temperature 97.6 F 01/27/25 11:42 Pulse Rate 74 01/27/25 11:42 Respiratory Rate 16 01/27/25 11:42 Blood Pressure 172/55 H 01/27/25 11:42 Pulse Oximetry 99 01/27/25 11:42 Procedures Epistaxis Control left: Epistaxis Control Date: 01/27/25 Epistaxis Control Time: 16:35 Nose Prepped With: oxymetazoline Direct Inspection: yes Cautery Used: silver nitrate MDM - Epistaxis MDM Narrative Medical decision making narrative: 79-year-old female presents to the emergency department for epistaxis that started at 11:00am but has resolved upon my evaluation. Vitals with blood pressure 172/55, otherwise unremarkable. Notably patient has had reported small bouts of hemoptysis over the past few days. She underwent a right upper lobe lung biopsy for pulmonary nodule on 01/20/2025 with no immediate complications. She has no history of VTE. She denies chest pain or shortness of breath, lower extremity edema. Exam is notable for friable tissue to the wall of the septum on the left with no active bleeding. Posterior pharynx without visible blood. The focal area of friable tissue was cauterized with silver nitrate without complications. Given patient's recent lung biopsy and reported hemoptysis, I discussed need to rule out complications such is hemothorax, pneumothorax and PE. Unfortunately patient is allergic to contrast. Will proceed with lab work, D-dimer, chest x-ray, coags and continue to monitor. CBC shows no leukocytosis or anemia. Chemistries are unremarkable. D-dimer normal when age adjusted. Chest x-ray shows no acute cardiopulmonary findings. Patient updated on results. She did have very mild persistent bleeding. The source of bleeding is visualized in the left naris. I attempted to cauterize this region but unfortunately this aggravated the bleeding. Afrin and nasal clamp applied. Pt monitored for 30 more minutes with resolution of active bleeding. Patient states she is ready to be discharged home. She was sent home with Afrin and nasal clamp and given instructions on usage. She has an ENT at [place] which I encouraged her to follow-up with. I also suspect her reported hemoptysis is secondary to drainage from her epistaxis as opposed to other source such as a PE, especially with reassuring d dimer and wells score. I strongly advised to follow-up with her sap gatherer and discussed return precautions. She is agreeable with the plan verbalized understanding. Discharged in stable condition. Lab Data 01/27/25 13:43 01/27/25 13:44 Labs: Lab Results 01/27/25 01/27/25 Range/Units 13:43 13:44 WBC 6.4 (4.5-10.0) K/mm3 RBC 4.07 L (4.2-5.4) M/mm3 Hgb 13.0 (12.0-15.0) g/dL Hct 39.4 (37.0-47.0) % MCV 96.8 (80-100) fl MCH 31.9 (26-34) pg MCHC 33.0 (32-36) g/dl RDW 13.3 (11.5-14.5) % Plt Count 329 (150-375) k/mm3 MPV 9.8 (7.4-10.4) fl Immature Gran % (Auto) 0.3 (0-0.5) % Neut % (Auto) 63.7 (45.5-73.1) % Lymph % (Auto) 20.5 (18.3-44.2) % [place] % (Auto) 11.9 H (2.6-8.5) % Eos % (Auto) 2.8 (0-4.4) % Baso % (Auto) 0.8 (0.2-1.2) % Lymph # (Auto) 1.31 (0.9-3.2) K/mm3 [place] # (Auto) 0.8 H (0.1-0.6) K/mm3 Eos # (Auto) 0.2 (0-0.3) K/mm3 Baso # (Auto) 0.1 (0.0-0.1) K/mm3 Abs Immat Gran (auto) 0.02 (0.00-0.031) K/mm3 Absolute Neuts (auto) 4.1 (1.3-6.7) K/mm3 Absolute Nucleated RBC 0.000 (0.0-0.012) K/mm3 Nucleated RBC % 0.0 (0.0-0.2) % PT 12.5 (11.1-14.7) Seconds INR 0.9 APTT 27.4 (22.3-36.8) Seconds D-Dimer 0.61 H (<0.48) ug/mL Sodium 136 L (137-145) mmol/L Potassium 3.8 (3.4-5.0) mmol/L Chloride 99 (98-107) mmol/L Carbon Dioxide 28 (22-30) mmol/L Anion Gap 9 (4-12) mmol/L BUN 10 (7-17) mg/dL Creatinine 0.42 L (0.7-1.0) mg/dL Estim Creat Clear Calc Not Reportable Estimated GFR > 60 (59 - ) Glucose 94 (65-110) mg/dL Calcium 9.1 (8.4-10.2) mg/dL Total Bilirubin 0.4 (0.2-1.3) mg/dL AST 24 (14-36) U/L ALT 21 (6-35) U/L Alkaline Phosphatase 76 (38-126) U/L Total Protein 8.0 (6.3-8.2) g/dL Albumin 4.5 (3.5-5.1) g/dL Discharge Plan Discharge Clinical Impression: Acute anterior epistaxis Patient Disposition: Home, Self-Care Condition: Stable Instructions: Antibiotic Form, Nosebleed (ED) Additional Instructions: Your evaluated in the emergency department for nose bleed. We also obtained lab work and a chest x-ray to ensure you did not have a complication from your recent pulmonary nodule biopsy. Your workup has been reassuring. Please use the Afrin no more than 2 times a day for no more than 3 days as needed for nose bleeds. Denies use it for more than 3 days it will cause rebound congestion. Please use the nasal clamp as needed. If you are unable to control the nosebleed after 20 minutes, report back to the emergency department. Follow-up with your ENT and sap gatherer. Return to the emergency department if you develop new or worsening symptoms. Patient Language: Upper Sorbian Prescriptions: No Action Daily Multivitamin 200-100-500 mcg Capsule 1 cap PO DAILY Culturelle 10 billion cell capsule 1 cap PO DAILY lisinopril 20 mg tablet 20 mg PO DAILY amlodipine 10 mg tablet 10 mg PO HS guaifenesin [Mucinex] 1,200 mg tablet extended release 12hr 1,200 mg PO PRN PRN (Reason: Cough) atorvastatin 20 mg tablet 20 mg PO DAILY albuterol sulfate 90 mcg/actuation HFA aerosol inhaler 1 - 2 inh inhalation Q4-6H PRN (Reason: shortness of breath or wheezing) 30 Days Qty: 8.5 2RF doxycycline hyclate 100 mg tablet 100 mg PO DAILY Qty: 14 0RF Patient Comments: LAST DOSE 01/18/25 loratadine [Claritin] 10 mg Tablet 10 mg PO DAILY aspirin 81 mg Tablet,Delayed Release (Dr/Ec) 81 mg PO EVERY OTHER DAY Calcium 600 + D(3) 600 mg-5 mcg (200 unit) capsule 2 cap PO DAILY Spiriva Respimat 2.5 mcg/actuation mist 2 puff inhalation QNOON omeprazole 40 mg capsule,delayed release(DR/EC) See Rx Instructions .ROUTE .COMPLEX Qty: 90 3RF Dose Instruction: TAKE 1 CAPSULE DAILY Rx Instructions: TAKE 1 CAPSULE DAILY fluticasone propion-salmeterol [Advair HFA] 115-21 mcg/actuation HFA aerosol inhaler 2 puff inhalation Q12H 90 Days Qty: 36 3RF Rx Instructions: rinse and spit fluticasone propionate 50 mcg/actuation spray,suspension See Rx Instructions .ROUTE .COMPLEX Qty: 96 3RF Dose Instruction: USE 2 SPRAYS NASALLY TWICE A DAY Rx Instructions: USE 2 SPRAYS NASALLY TWICE A DAY alprazolam [Xanax] 0.5 mg tablet 0.5 mg PO BID PRN (Reason: anxiety) Qty: 30 0RF (DME) inhalational spacing device Spacer See Rx Instructions .ROUTE .MEDSUPPLY Qty: 1 0RF Rx Instructions: As directed Follow-up/Referrals: Jaison Walton MD [Primary Care Provider] -
--- OUTSIDE RECORDS SUMMARY | 2025-01-27 13:29 | XMS_ITS | Clinical Summary ---
Author Organization [facility] [address] Address [address] [place] [address] Care Team Providers Care Route Cdl Driver Name Role Phone Jaison Walton MD Primary Care Provide r Allergies Active Allergy Reactions Criticality Noted Date Comments Iodine Rash Medium Shellfish Itching Low 05/26/2020 Shellfish Derived Rash Medium Olxoaon-Zpl-Vvv Reductase Inhibitors Other (See comments) Low 03/05/2023 [...] on file Legal Sex Female 3:26 AM HVAC PROJECT MANAGER Gender Identity Female 08/16/2020 12:31 PM CDT Sexual Orientation Not on file Obstetrics History Last Filed Vital Signs Vital Sign Reading Time Taken Comments Blood Pressure 128/64 09/23/2024 11:22 AM HVAC PROJECT MANAGER Pulse 67 09/23/2024 11:22 AM HVAC PROJECT MANAGER Temperature - - Respiratory Rate - - Oxygen Saturation 98% 09/23/2024 11:22 AM HVAC PROJECT MANAGER Inhaled Oxygen Concentration - - Weight 69.9 kg (154 lb) 09/23/2024 11:22 AM HVAC PROJECT MANAGER Height 162.6 cm (5' 4 ) 09/23/2024 11:22 AM HVAC PROJECT MANAGER Body Mass Index 26.43 09/23/2024 11:22 AM HVAC PROJECT MANAGER Plan of Treatment Health Maintenance Due Date [...] 03/26/2018, 03/25/2017, Additional history exists Insurance MEDICARE [employer] LIFE MEDICARE FOR LIFE MEDICARE FOR LIFE Care Teams Route Cdl Driver Relationship Specialty Start Date End Date Jaison Walton MD [address] [place] [address] PCP - General 10/17/16
--- OUTSIDE RECORDS SUMMARY | 2025-01-27 13:29 | XMS_ITS | Referral Summary ---
Author Organization [facility] [address] Address [address] [place] [address] Care Team Providers Care Clerical Car Checker Name Role Phone Jaison Walton MD Primary Care Provide r Allergies Active Allergy Reactions Criticality Noted Date Comments Iodine Rash Medium Shellfish Itching Low 05/26/2020 Shellfish Derived Rash Medium Pistslx-Xai-Pqd Reductase Inhibitors Other (See comments) Low 03/05/2023 [...] on file Legal Sex Female 3:26 AM FUNDRAISER Gender Identity Female 08/16/2020 12:31 PM CDT Sexual Orientation Not on file Last Filed Vital Signs Vital Sign Reading Time Taken Comments Blood Pressure 128/64 09/23/2024 11:22 AM FUNDRAISER Pulse 67 09/23/2024 11:22 AM FUNDRAISER Temperature - - Respiratory Rate - - Oxygen Saturation 98% 09/23/2024 11:22 AM FUNDRAISER Inhaled Oxygen Concentration - - Weight 69.9 kg (154 lb) 09/23/2024 11:22 AM FUNDRAISER Height 162.6 cm (5' 4 ) 09/23/2024 11:22 AM FUNDRAISER Body Mass Index 26.43 09/23/2024 11:22 AM FUNDRAISER Plan of Treatment Not on file Insurance [address] [place] [place] [address] MEDICARE [facility] Address: [facility] [address] [place] [address] [employer] MEDICARE [facility] Address: [facility] [address] [place] [address] [facility] MEDICARE FOR LIFE Care Teams Clerical Car Checker Relationship Specialty Start Date End Date Jaison Walton MD [address] [place] [address] PCP - General 10/17/16
--- OUTSIDE RECORDS SUMMARY | 2025-01-27 13:29 | XMS_ITS | Referral Summary ---
Author Organization [facility] [employer] [facility] [employer] Address [address] [place] [address] Care Team Providers Care Health Care Liaison Name Role Phone Unavailable Primary Care Provider Unavailabl e Source Comments [facility],non-owned Affiliates and Associated Physician Practices is amultiple site organization consisting of ambulatory clinics and hospital sitesin [place], [place], [place] and [place]. This disclosure is being madepursuant to the Care Everywhere program and may not contain all information available regarding this patient. Last updated 18.[facility] Allergies Active Allergy Reactions Criticality Noted Date [...] MG Active Cholecalciferol (VITAMIN D3) 1.25 MG (73241 UT) capsule Take 50 capsules by mouth [...]
--- OUTSIDE RECORDS SUMMARY | 2025-01-27 13:29 | XMS_ITS | Clinical Summary ---
Author Organization [facility] [employer] Address [address] [place] [address] Care Team Providers Care Veterinarian Assistant Name Role Phone Unavailable Primary Care Provider Unavailabl e Source Comments [facility] [employer],non-owned Affiliates and Associated Physician Practices is amultiple site organization consisting of ambulatory clinics and hospital sitesin [place], [place], [place] and [place]. This disclosure is being madepursuant to the Care Everywhere program and may not contain all information available regarding this patient. Last updated 18.[facility] [employer] Allergies Active Allergy Reactions Criticality Noted Date [...] MG Active Cholecalciferol (VITAMIN D3) 1.25 MG (14467 UT) capsule Take 50 capsules by mouth [...] complete this topic MENINGOCOCCAL (Group B) VACCINE SHARED DECISION-MAKING Aged Out No longer eligible based on patient's age to complete this topic MENINGOCOCCAL GROUPS A/C/Y/W VACCINE Aged Out No longer eligible b ased on patient's age to complete this topic
--- OUTSIDE RECORDS SUMMARY | 2025-01-27 13:29 | XMS_ITS | Patient Health Summary ---
Author Organization [facility] [employer] Address [address] [place] [address] Care Team Providers Care Concrete Boom Pump Operator Name Role Phone Unavailable Primary Care Provider Unavailabl e Note from [facility],non-owned Affiliates and Associated Physician Practices is amultiple site organization consisting of ambulatory clinics and hospital sitesin [place], [place], [place] and [place]. This disclosure is being madepursuant to the Care Everywhere program and may not contain all information available regarding this patient. Last updated 18.[facility] [employer] Allergies * Povidone Iodine(Rash) -Medium Criticality * [...] MG * Cholecalciferol (VITAMIN D3) 1.25 MG (62972 UT) capsule Take 50 capsules by mouth [...]
--- OUTSIDE RECORDS SUMMARY | 2025-01-27 13:29 | XMS_ITS | Clinical Summary ---
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
--- OUTSIDE RECORDS SUMMARY | 2025-01-27 13:54 | XMS_ITS | Referral Summary ---
Author Organization [facility] Address [address] [place] [address] Care Team Providers Care Safety And Health Manager Name Role Phone Unavailable Primary Care Provider Unavailabl e Source Comments [facility],non-owned Affiliates and Associated Physician Practices is amultiple site organization consisting of ambulatory clinics and hospital sitesin [place], [place], [place] and [place]. This disclosure is being madepursuant to the Care Everywhere program and may not contain all information available regarding this patient. Last updated 18.[facility] Allergies Active Allergy Reactions Criticality Noted Date [...] MG Active Cholecalciferol (VITAMIN D3) 1.25 MG (12376 UT) capsule Take 50 capsules by mouth [...]
--- OUTSIDE RECORDS SUMMARY | 2025-01-27 13:54 | XMS_ITS | Referral Summary ---
Author Organization [facility] [address] Address [address] [place] [address] Care Team Providers Care Online Education Manager Name Role Phone Jaison Walton MD Primary Care Provide r Allergies Active Allergy Reactions Criticality Noted Date Comments Iodine Rash Medium Shellfish Itching Low 05/26/2020 Shellfish Derived Rash Medium Xfsvqtq-Dtv-Qfe Reductase Inhibitors Other (See comments) Low 03/05/2023 [...] on file Legal Sex Female 3:26 AM TERRITORY SALES CONSULTANT Gender Identity Female 08/16/2020 12:31 PM CDT Sexual Orientation Not on file Last Filed Vital Signs Vital Sign Reading Time Taken Comments Blood Pressure 128/64 09/23/2024 11:22 AM TERRITORY SALES CONSULTANT Pulse 67 09/23/2024 11:22 AM TERRITORY SALES CONSULTANT Temperature - - Respiratory Rate - - Oxygen Saturation 98% 09/23/2024 11:22 AM TERRITORY SALES CONSULTANT Inhaled Oxygen Concentration - - Weight 69.9 kg (154 lb) 09/23/2024 11:22 AM TERRITORY SALES CONSULTANT Height 162.6 cm (5' 4 ) 09/23/2024 11:22 AM TERRITORY SALES CONSULTANT Body Mass Index 26.43 09/23/2024 11:22 AM TERRITORY SALES CONSULTANT Plan of Treatment Not on file Insurance [address] [address] MEDICARE [facility] Address: [facility] [address] [place] [address] [employer] MEDICARE [facility] Address[facility] [address] [place] [address] FOR[facility]LY [facility] MEDICARE FOR LIFE Care Teams Online Education Manager Relationship Specialty Start Date End Date Jaison Walton MD [address] [place] [address] PCP - General 10/17/16
--- OUTSIDE RECORDS SUMMARY | 2025-01-27 13:54 | XMS_ITS | Clinical Summary ---
Author Organization [facility] [address] Address [address] [place] [address] Care Team Providers Care Optical Lab Technician Name Role Phone Jaison Walton MD Primary Care Provide r Allergies Active Allergy Reactions Criticality Noted Date Comments Iodine Rash Medium Shellfish Itching Low 05/26/2020 Shellfish Derived Rash Medium Jetcshk-Rsj-Bmh Reductase Inhibitors Other (See comments) Low 03/05/2023 [...] on file Legal Sex Female 3:26 AM MANAGER REHAB Gender Identity Female 08/16/2020 12:31 PM CDT Sexual Orientation Not on file Obstetrics History Last Filed Vital Signs Vital Sign Reading Time Taken Comments Blood Pressure 128/64 09/23/2024 11:22 AM MANAGER REHAB Pulse 67 09/23/2024 11:22 AM MANAGER REHAB Temperature - - Respiratory Rate - - Oxygen Saturation 98% 09/23/2024 11:22 AM MANAGER REHAB Inhaled Oxygen Concentration - - Weight 69.9 kg (154 lb) 09/23/2024 11:22 AM MANAGER REHAB Height 162.6 cm (5' 4 ) 09/23/2024 11:22 AM MANAGER REHAB Body Mass Index 26.43 09/23/2024 11:22 AM MANAGER REHAB Plan of Treatment Health Maintenance Due Date [...] 03/26/2018, 03/25/2017, Additional history exists Insurance MEDICARE [employer] LIFE MEDICARE FOR LIFE MEDICARE FOR LIFE Care Teams Optical Lab Technician Relationship Specialty Start Date End Date Jaison Walton MD [address] [place] [address] PCP - General 10/17/16
--- OUTSIDE RECORDS SUMMARY | 2025-01-27 13:54 | XMS_ITS | Patient Health Summary ---
Author Organization [facility] Address [address] [facility] [place] [address] Care Team Providers Care Life Claims Examiner Name Role Phone Unavailable Primary Care Provider Unavailabl e Note from [facility],non-owned Affiliates and Associated Physician Practices is amultiple site organization consisting of ambulatory clinics and hospital sitesin [place], [place], [place] and [place]. This disclosure is being madepursuant to the Care Everywhere program and may not contain all information available regarding this patient. Last updated 18.[facility] Allergies * Povidone Iodine(Rash) -Medium Criticality * [...] MG * Cholecalciferol (VITAMIN D3) 1.25 MG (56979 UT) capsule Take 50 capsules by mouth [...]
--- OUTSIDE RECORDS SUMMARY | 2025-01-27 13:54 | XMS_ITS | Clinical Summary ---
Author Organization [facility] Address [address] [place] [address] Care Team Providers Care Group Leader [employer]iconductor Processing Name Role Phone Unavailable Primary Care Provider Unavailabl e Source Comments [facility],non-owned Affiliates and Associated Physician Practices is amultiple site organization consisting of ambulatory clinics and hospital sitesin [place], [place], [place] and [place]. This disclosure is being madepursuant to the Care Everywhere program and may not contain all information available regarding this patient. Last updated 18.[facility] Allergies Active Allergy Reactions Criticality Noted Date [...] MG Active Cholecalciferol (VITAMIN D3) 1.25 MG (89236 UT) capsule Take 50 capsules by mouth [...]
--- OUTSIDE RECORDS SUMMARY | 2025-01-27 13:54 | XMS_ITS | Clinical Summary ---
Author Organization [facility] Address [address] [place] [address] Care Team Providers Care Sfdc Technical Architect Name Role Phone Unavailable Primary Care Provider Unavailabl e Social History Tobacco Use Types Packs/Day Years Used Date Smoking Tobacco: Never Assessed Comments Unknown Sex and Gender Information Value Date Recorded Sex Assigned at Not on file Legal Sex Female 11:57 AM PRESSURE SEALER AND TESTER Gender Identity Not on file Sexual Orientation [...]
[2025-01-27 13:57] LABS: Basophils Absolute Auto 0.1 K/mm3 (0.0-0.1); Basophils Percent Auto 0.8 % (0.2-1.2); Eosinophils Absolute Auto 0.2 K/mm3 (0-0.3); Eosinophils Percent Auto 2.8 % (0-4.4); Hematocrit 39.4 % (37.0-47.0); Immature Granulocyte Absolute 0.02 K/mm3 (0.00-0.031); Immature Granulocyte Percent A 0.3 % (0-0.5); Lymphocytes Absolute Auto 1.31 K/mm3 (0.9-3.2); Lymphocytes Percent Auto 20.5 % (18.3-44.2); Mean Corpuscular Hemoglobin 31.9 pg (26-34); Mean Corpuscular Volume 96.8 fl (80-100); Mean Platelet Volume 9.8 fl (7.4-10.4); Monocytes Absolute Auto 0.8 K/mm3 (0.1-0.6); Monocytes Percent Auto 11.9 % (2.6-8.5); Neutrophils Absolute Auto 4.1 K/mm3 (1.3-6.7); Neutrophils Percent Auto 63.7 % (45.5-73.1); Platelet Count Result 329 k/mm3 (150-375); Red Blood Count 4.07 M/mm3 (4.2-5.4); Red Cell Distribution Width 13.3 % (11.5-14.5); White Blood Count 6.4 K/mm3 (4.5-10.0)
[2025-01-27 14:05] LABS: Alanine Aminotransferase 21 U/L (6-35); Albumin Level 4.5 g/dL (3.5-5.1); Alkaline Phosphatase 76 U/L (38-126); Anion Gap 9 mmol/L (4-12); Aspartate Amino Transferase 24 U/L (14-36); Bilirubin,Total 0.4 mg/dL (0.2-1.3); Blood Urea Nitrogen 10 mg/dL (7-17); Calcium 9.1 mg/dL (8.4-10.2); Carbon Dioxide 28 mmol/L (22-30); Chloride 99 mmol/L (98-107); Estimated Glomerular Filt Rate > 60; Glucose 94 mg/dL (65-110); Potassium 3.8 mmol/L (3.4-5.0); Sodium 136 mmol/L (137-145)
[2025-01-27 15:08] LABS: INR 0.9; Prothrombin Time 12.5 Seconds (11.1-14.7)
[2025-01-27 15:09] LABS: Partial Thromboplastin Time 27.4 Seconds (22.3-36.8)
[2025-01-27 15:17] LABS: D Dimer 0.61 ug/mL (<0.48)
== END 2025-01-27 17:00 | disposition home or self-care (01) ==
PROVIDERS: Emergency Provider Physician Assistant; PCP Emergency Medicine
DX: R04.0 Epistaxis (principal); I10 Essential (primary) hypertension; I34.1 Nonrheumatic mitral (valve) prolapse; J44.9 Chronic obstructive pulmonary disease, unspecified; E78.5 Hyperlipidemia, unspecified; E55.9 Vitamin D deficiency, unspecified; K21.9 Gastro-esophageal reflux disease without esophagitis; M17.0 Bilateral primary osteoarthritis of knee; M16.0 Bilateral primary osteoarthritis of hip; F32.9 Major depressive disorder, single episode, unspecified; Z96.653 Presence of artificial knee joint, bilateral; Z86.0101 Personal history of adenomatous and serrated colon polyps; Z85.3 Personal history of malignant neoplasm of breast; Z87.891 Personal history of nicotine dependence; Z90.710 Acquired absence of both cervix and uterus; Z79.899 Other long term (current) drug therapy; Z79.82 Long term (current) use of aspirin
CPT/HCPCS: 30901; 36415; 71046; 80053; 85025; 85380; 85610; 85730; 99283; A9270

== ENCOUNTER 2025-02-23 09:29 | Outpatient (CLI) | payer MEDICARE, OTHER, SELFPAY ==
[2025-02-23 10:17] LABS: LDL Cholesterol Direct 63 mg/dL
[2025-02-23 10:23] LABS: Alanine Aminotransferase 24 U/L (6-35); Albumin Level 4.7 g/dL (3.5-5.1); Alkaline Phosphatase 80 U/L (38-126); Anion Gap 8 mmol/L (4-12); Aspartate Amino Transferase 28 U/L (14-36); Bilirubin,Total 1.2 mg/dL (0.2-1.3); Blood Urea Nitrogen 8 mg/dL (7-17); Calcium 9.1 mg/dL (8.4-10.2); Carbon Dioxide 27 mmol/L (22-30); Chloride 97 mmol/L (98-107); Cholesterol 202 mg/dL (0-200); Estimated Glomerular Filt Rate > 60; Glucose 117 mg/dL (65-110); Sodium 132 mmol/L (137-145); Triglycerides 62 mg/dL (<150)
--- OUTSIDE RECORDS SUMMARY | 2025-02-23 10:30 | XMS_ITS | Referral Summary ---
Author Organization [facility] [address] Address [address] [place] [address] Care Team Providers Care Information Scientist Name Role Phone Jaison Walton MD Primary Care Provide r Allergies Active Allergy Reactions Criticality Noted Date Comments Iodine Rash Medium Shellfish Itching Low 05/26/2020 Shellfish Derived Rash Medium Clctobv-Adv-Wpm Reductase Inhibitors Other (See comments) Low 03/05/2023 [...] on file Legal Sex Female 3:26 AM SENIOR ANALYSIS SPECIALIST Gender Identity Female 08/16/2020 12:31 PM CDT Sexual Orientation Not on file Last Filed Vital Signs Vital Sign Reading Time Taken Comments Blood Pressure 128/64 09/23/2024 11:22 AM SENIOR ANALYSIS SPECIALIST Pulse 67 09/23/2024 11:22 AM SENIOR ANALYSIS SPECIALIST Temperature - - Respiratory Rate - - Oxygen Saturation 98% 09/23/2024 11:22 AM SENIOR ANALYSIS SPECIALIST Inhaled Oxygen Concentration - - Weight 69.9 kg (154 lb) 09/23/2024 11:22 AM SENIOR ANALYSIS SPECIALIST Height 162.6 cm (5' 4 ) 09/23/2024 11:22 AM SENIOR ANALYSIS SPECIALIST Body Mass Index 26.43 09/23/2024 11:22 AM SENIOR ANALYSIS SPECIALIST Plan of Treatment Not on file Insurance [facility] [place] [address] MEDICARE [employer] MEDICARE [facility] MEDICARE FOR LIFE Care Teams Information Scientist Relationship Specialty Start Date End Date aJison Walton MD [address] [place] [address] PCP - General 10/17/16
--- OUTSIDE RECORDS SUMMARY | 2025-02-23 10:30 | XMS_ITS | Clinical Summary ---
Author Organization [facility] [employer] Address [address] [facility] [place] [address] Care Team Providers Care Co Op Name Role Phone Unavailable Primary Care Provider Unavailabl e Source Comments [facility] [employer],non-owned Affiliates and Associated Physician Practices is amultiple site organization consisting of ambulatory clinics and hospital sitesin [place], [place], [place] and [place]. This disclosure is being madepursuant to the Care Everywhere program and may not contain all information available regarding this patient. Last updated 18.[facility] [facility] Allergies Active Allergy Reactions Criticality Noted Date [...] MG Active Cholecalciferol (VITAMIN D3) 1.25 MG (09689 UT) capsule Take 50 capsules by mouth [...] - 2023-2 5 season) 2024 02/04/2021, 01/14/2021 DEPRESSION SCREENING 11/17/2024 INFLUENZA VACCINE (Season Ended) 2025 09/14/2020, 08/15/2019, 09/03/2012 HEPATITIS B VACCINE Aged Out No longe [...]
--- OUTSIDE RECORDS SUMMARY | 2025-02-23 10:30 | XMS_ITS | Clinical Summary ---
Author Organization [facility] [address] Address [address] [place] [address] Care Team Providers Care Mail Order Biller Name Role Phone Jaison Walton MD Primary Care Provide r Allergies Active Allergy Reactions Criticality Noted Date Comments Iodine Rash Medium Shellfish Itching Low 05/26/2020 Shellfish Derived Rash Medium Imgwqjh-Dkz-Fmd Reductase Inhibitors Other (See comments) Low 03/05/2023 [...] on file Legal Sex Female 3:26 AM SALESPERSON BURIAL NEEDS Gender Identity Female 08/16/2020 12:31 PM CDT Sexual Orientation Not on file Obstetrics History Last Filed Vital Signs Vital Sign Reading Time Taken Comments Blood Pressure 128/64 09/23/2024 11:22 AM SALESPERSON BURIAL NEEDS Pulse 67 09/23/2024 11:22 AM SALESPERSON BURIAL NEEDS Temperature - - Respiratory Rate - - Oxygen Saturation 98% 09/23/2024 11:22 AM SALESPERSON BURIAL NEEDS Inhaled Oxygen Concentration - - Weight 69.9 kg (154 lb) 09/23/2024 11:22 AM SALESPERSON BURIAL NEEDS Height 162.6 cm (5' 4 ) 09/23/2024 11:22 AM SALESPERSON BURIAL NEEDS Body Mass Index 26.43 09/23/2024 11:22 AM SALESPERSON BURIAL NEEDS Plan of Treatment Health Maintenance Due Date [...] 03/26/2018, 03/25/2017, Additional history exists Insurance MEDICARE [employer] LIFE MEDICARE FOR LIFE MEDICARE FOR LIFE Care Teams Mail Order Biller Relationship Specialty Start Date End Date Jaison Walton MD [address] [place] [address] PCP - General 10/17/16
--- OUTSIDE RECORDS SUMMARY | 2025-02-23 10:30 | XMS_ITS | Clinical Summary ---
Author Organization [facility] Address [address] [place] [address] Care Team Providers Care Administrative Office Assistant Name Role Phone Unavailable Primary Care Provider Unavailabl e Social History Tobacco Use Types Packs/Day Years Used Date Smoking Tobacco: Never Assessed Comments Unknown Sex and Gender Information Value Date Recorded Sex Assigned at Not on file Legal Sex Female 11:57 AM REGULATORY AGENCY DIRECTOR Gender Identity Not on file Sexual Orientation [...]
[2025-02-23 10:55] LABS: HDL Direct 127 mg/dL
== END 2025-02-23 09:30 | disposition home or self-care (01) ==
PROVIDERS: PCP Emergency Medicine; Referring Provider Internal Medicine Cardiovascular Disease; Visit Provider Emergency Medicine
DX: E78.5 Hyperlipidemia, unspecified (principal); E55.9 Vitamin D deficiency, unspecified
CPT/HCPCS: 36415; 80053; 80061; 82306

== ENCOUNTER 2025-02-25 14:13 | Outpatient (CLI) | payer MEDICARE, OTHER, SELFPAY ==
--- NOTE | ~2025-02-25 | XR_ITS ---
XR chest 2V 02/25/2025 14:31 Indication: Cough. Evaluate for pneumonia. Procedure: 2 view chest Comparison: 01/27/2025 Findings: Developing left basilar airspace disease. Possible small left pleural effusion. Heart size normal. Right lung clear. No pneumothorax. Impression: 1: Developing patchy left basilar airspace disease, suspicious for pneumonia. Reviewed, dictated and finalized at location A. Impression: 1: Developing patchy left basilar airspace disease, suspicious for pneumonia.
--- OUTSIDE RECORDS SUMMARY | 2025-02-25 14:17 | XMS_ITS | Clinical Summary ---
Author Organization [facility] [address] Address [address] [place] [address] Care Team Providers Care Senior Landscape Architect Name Role Phone Jaison Walton MD Primary Care Provide r Allergies Active Allergy Reactions Criticality Noted Date Comments Iodine Rash Medium Shellfish Itching Low 05/26/2020 Shellfish Derived Rash Medium Fshvxlk-Jxs-Hre Reductase Inhibitors Other (See comments) Low 03/05/2023 [...] on file Legal Sex Female 3:26 AM ENROLLMENT NURSE Gender Identity Female 08/16/2020 12:31 PM CDT Sexual Orientation Not on file Obstetrics History Last Filed Vital Signs Vital Sign Reading Time Taken Comments Blood Pressure 128/64 09/23/2024 11:22 AM ENROLLMENT NURSE Pulse 67 09/23/2024 11:22 AM ENROLLMENT NURSE Temperature - - Respiratory Rate - - Oxygen Saturation 98% 09/23/2024 11:22 AM ENROLLMENT NURSE Inhaled Oxygen Concentration - - Weight 69.9 kg (154 lb) 09/23/2024 11:22 AM ENROLLMENT NURSE Height 162.6 cm (5' 4 ) 09/23/2024 11:22 AM ENROLLMENT NURSE Body Mass Index 26.43 09/23/2024 11:22 AM ENROLLMENT NURSE Plan of Treatment Health Maintenance Due Date Last Done Comments Depression Screening 1945 Fall Risk Assessment 1945 Hepatitis C Screening 1945 Hepatitis B Screening 1965 Well Visit 65+ 2012 Osteoporosis Screening-Bone Density Scan 05/05/2014 05/05/2012 Zoster Vaccine (3 of 3) 12/24/2019 10/29/2019, 04/30 DTaP/Tdap/Td Vaccine (2 - Tdap) 11/19/2020 1 Influenza Vaccine (Season Ended) 2025 08/15/2019, 08/07/2017, 09/28/2016, Additional history exists Pneumococcal vaccine 65+ Completed 015, 12/18/2008, 08/27/2007 Breast Cancer Screening-Mammogram Discontinued 04/22/2019, 03/26/2018, 03/25/2017, Additional history exists Insurance MEDICARE [employer] LIFE MEDICARE FOR LIFE MEDICARE FOR LIFE Care Teams Senior Landscape Architect Relationship Specialty Start Date End Date Jaison Walton MD [address] [place] [address] PCP - General 10/17/16
--- OUTSIDE RECORDS SUMMARY | 2025-02-25 14:17 | XMS_ITS | Clinical Summary ---
Author Organization [facility] Address [address] [facility] [place] [address] Care Team Providers Care Java Developer Name Role Phone Unavailable Primary Care Provider Unavailabl e Source Comments [facility],non-owned Affiliates and Associated Physician Practices is amultiple site organization consisting of ambulatory clinics and hospital sitesin [place], [place], [place] and [place]. This disclosure is being madepursuant to the Care Everywhere program and may not contain all information available regarding this patient. Last updated 18.[facility] Allergies Active Allergy Reactions Criticality Noted Date [...] MG Active Cholecalciferol (VITAMIN D3) 1.25 MG (23814 UT) capsule Take 50 capsules by mouth [...]
--- OUTSIDE RECORDS SUMMARY | 2025-02-25 14:17 | XMS_ITS | Referral Summary ---
Author Organization [facility] [address] Address [address] [place] [address] Care Team Providers Care Lead Pastor Name Role Phone Jaison Walton MD Primary Care Provide r Allergies Active Allergy Reactions Criticality Noted Date Comments Iodine Rash Medium Shellfish Itching Low 05/26/2020 Shellfish Derived Rash Medium Jayowpl-Lys-Npo Reductase Inhibitors Other (See comments) Low 03/05/2023 [...] on file Legal Sex Female 3:26 AM EDUCATIONAL RESOURCE COORDINATOR Gender Identity Female 08/16/2020 12:31 PM CDT Sexual Orientation Not on file Last Filed Vital Signs Vital Sign Reading Time Taken Comments Blood Pressure 128/64 09/23/2024 11:22 AM EDUCATIONAL RESOURCE COORDINATOR Pulse 67 09/23/2024 11:22 AM EDUCATIONAL RESOURCE COORDINATOR Temperature - - Respiratory Rate - - Oxygen Saturation 98% 09/23/2024 11:22 AM EDUCATIONAL RESOURCE COORDINATOR Inhaled Oxygen Concentration - - Weight 69.9 kg (154 lb) 09/23/2024 11:22 AM EDUCATIONAL RESOURCE COORDINATOR Height 162.6 cm (5' 4 ) 09/23/2024 11:22 AM EDUCATIONAL RESOURCE COORDINATOR Body Mass Index 26.43 09/23/2024 11:22 AM EDUCATIONAL RESOURCE COORDINATOR Plan of Treatment Not on file Insurance [address] [place] [address] MEDICARE [employer] MEDICARE [facility] MEDICARE FOR LIFE Care Teams Lead Pastor Relationship Specialty Start Date End Date Jaison Walton MD [address] [place] [address] PCP - General 10/17/16
--- OUTSIDE RECORDS SUMMARY | 2025-02-25 14:17 | XMS_ITS | Clinical Summary ---
Author Organization [facility] Address [address] [place] [address] Care Team Providers Care Coal Handling Supervisor Name Role Phone Unavailable Primary Care Provider Unavailabl e Social History Tobacco Use Types Packs/Day Years Used Date Smoking Tobacco: Never Assessed Comments Unknown Sex and Gender Information Value Date Recorded Sex Assigned at Not on file Legal Sex Female 11:57 AM FEED MILL SUPERVISOR Gender Identity Not on file Sexual Orientation [...]
[2025-02-25 15:44] LABS: Influenza A QL RT-PCR Negative (Negative); Influenza B QL RT-PCR Negative (Negative); RSV RNA, RT-PCR Negative (Negative); SARS-CoV-2 RNA PCR Negative (Negative)
== END 2025-02-25 14:14 | disposition home or self-care (01) ==
PROVIDERS: PCP Emergency Medicine; Visit Provider Nurse Practitioner Family
DX: R50.9 Fever, unspecified (principal); R05.9 Cough, unspecified; R53.83 Other fatigue; Z20.822 Contact with and (suspected) exposure to COVID-19; R91.8 Other nonspecific abnormal finding of lung field
CPT/HCPCS: 71046; 87637

== ENCOUNTER 2025-04-22 12:45 | Outpatient (CLI) | payer MEDICARE, OTHER, SELFPAY ==
--- NOTE | ~2025-04-22 | CT_ITS ---
CT Scan of the Chest without Contrast: Clinical Indication: Pulmonary nodule Technique: Contiguous sections were acquired throughout the chest without intravenous contrast. Dose reduction technique was used on this scan by utilizing automated exposure control and iterative recon struction technique. The dose-length product (DLP) was 150.28 mGy-cm. COMPARISON: 01/04/2025 Findings: There is no evidence of any significant mediastinal, hilar or axillary lymphadenopathy. Coronary yamileth ry calcifications are present. There is no evidence of pleural or pericardial effusion. There is scarring in the right middle lobe. There are a few scattered focal irregular groundglass opa cities in the left lower lobe. Previously noted right upper lobe nodule is resolved. Images through the upper abdomen reveal no abnormalities. There are mild chronic compression deformit ies of L1 and L2. Impression: A few scattered irregular groundglass opacity in the left lower lobe, most likely infectious/inflamma tory in nature. Previously noted right upper lobe nodule has resolved. Reviewed, dictated and finalized at location . Impression: A few scattered irregular groundglass opacity in the left lower lobe, most like ly infectious/inflammatory in nature. Previously noted right upper lobe nodule has resolved.
--- OUTSIDE RECORDS SUMMARY | 2025-04-22 12:48 | XMS_ITS | Encounter Summary ---
Author Organization [facility] Healthcare Address [address] [place] [address] Care Team Providers Care Carpenter'S Helper Name Role Phone Jaison Walton MD Primary Care Provide r Reason for Referral * Cardiology (Routine) - Authorized Specialty Diagnoses / Procedures Referred By Contac t Referred To Contact Diagnoses Aortic atherosclerosis Primary hypertension SOB (shortness of breath) Procedures Transthoracic Echo (TTE) Complete W Doppler/CF Adin Rojo MD [address] [place] [id number] Phone: tel: fax: [facility] Cardiology at [address] [place] [address] Phone: tel: fax: Referral ID Status Reason Start Date Expiration Date V isits Requested Visits Authorized [id number] Authorized 04/21/2025 05/21/2026 1 1 Reason for Visit * Reason Comments Hypertension aortic atherosclerosis Hyperlipidemia 6 mo f/u Encounter Details Date Type Department Care Team (Latest Contact Info) Description 04/21/2025 10:45 AM CDT Office Visit [facility] Cardiology [address] [address] [address] [place] [address] Adin Rojo MD [address] [facility] [address] [place] [address] Aortic atherosclerosis (Primary Dx); Hyperlipidemia LDL goal <70; Primary hypertension; Alcohol abuse; Gastroesophageal reflux disease without esophagitis; SOB (shortness of breath) Social History Tobacco Use Types Packs/Day Years Used Date Smoking Tobacco: Former Cigarettes 0.5 37.2 1 01/04/1970 - 01/02/2008 Smokeless Tobacco: Never Tobacco Cessation:Counseling Given: Not Answered Alcohol Use Standard Drinks/Week Comments Yes 1 (1 standard drink = 0.6 oz pur e alcohol) occassionally Comments Unknown Sex and Gender Information Value Date Recorded Sex Assigned at Not on file 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 Gender Identity Female 08/16/2020 12:31 PM CDT Sexual Orientation Not on file documented as of this encounter Last Filed Vital Signs Vital Sign Reading Time Taken Comments Blood Pressure 124/60 04/21/2025 11:28 AM CDT Pulse 59 04/21/2025 11:28 AM CDT Temperature - - Respiratory Rate - - Oxygen Saturation 97% 04/21/2025 11:28 AM CDT Inhaled Oxygen Concentration - - Weight 69.9 kg (154 lb) 04/21/2025 11:28 AM CDT Height 162.6 cm (5' 4) 04/21/2025 11:28 AM CDT Body Mass Index 26.43 04/21/2025 11:28 AM CDT documented in this encounter Progress Notes * Adin Rojo MD - 04/21/2025 10:45 AM CDT [facility] DATE OF VISIT: 04/21/2025 CHIEF COMPLAINT Chief Complaint Patient presents with Hypertension aortic atherosclerosis Hyperlipidemia 6 mo f/u htn HPI Maryellen Sandoval is a 79 y.o. female with hypertension. Cardiac catheterization showed no obstructive coronary disease. Echo in 2012 showed aortic valve sclerosis without stenosis with mild LVH and normal ejection fraction. Previous stress test showed that the patient exercised 7 minutes and 12 seconds but did have ischemic EKG changes. This is what led to the cardiac catheterization we believe. She unfortunately has started drinking a little bit again but better than before. She denies any chest pain, shortness of breath, syncope, presyncope, paroxysmal nocturnal dyspnea, orthopnea, edema or palpitations Follow-up note 07/08/2018: She slipped and fell down some steps in injure back as well as hip. Froma cardiac perspective she denies any exertional chest pain, shortness breath, syncope, presyncope, paroxysmal nocturnal dyspnea orthopnea, edema or palpitations. X-ray of her lumbar spine did show some abdominal aortic atherosclerosis. Follow-up note 01/06/2019: She denies any chest pain, shortness breath, syncope, presyncope, paroxysmal nocturnal dyspnea, orthopnea, edema or palpitations. Her hands do go to sleep on her at night and she is concerned that this is vascular. I have reassured her that this is neuropathic Follow-up note 08/29/2022: She denies any exertional chest pain, shortness breath, syncope, presyncope, paroxysmal nocturnal dyspnea, orthopnea, edema or palpitations. Follow-up note 03/05/2023: She was hospitalized in December because of pneumonia. She is found to have mildly elevated LFTs. She stopped drinking in her statin was held. LFTs had reportedly normalized. She otherwise feels okay and denies any chest pain, shortness breath, syncope, presyncope, paroxysmal nocturnal dyspnea, orthopnea, edema or palpitations. Follow-up note 04/21/2025 She denies any chest pain, syncope, presyncope, paroxysmal nocturnal dyspnea, orthopnea, palpitations. She does have some pedal edema. Been dealing with podiatry and issues with orthotics. Does have some shortness breath with activity which is relatively stable. MEDICAL HISTORY Past Medical History: Diagnosis Date Anxiety Arthritis Cancer (HCC) 2000 Lumpectomy right breast/radiation Depression GERD (gastroesophageal reflux disease) HX OTHER MEDICAL HTN, MVP, obesity, hyperlipidemia, GERD, dentures,; Comments: IGLESIA 09/22/2014 - Hypertension Osteoporosis Social History Tobacco Use Smoking status: Former Smoker Quit date: 01/02/2008 Years since quittin.2 Smokeless tobacco: Never Used Substance Use Topics Alcohol use: Yes Alcohol/week: 1.0 standard drink Types: 1 Glasses of wine per week Comment: occassionally Drug use: No Family History Problem Relation Age of Onset Heart attack Father Myocardial infarction; COPD Mother Heart disease Sister Heart disease Sister MEDICATIONS HOME MEDICATIONS : ALPRAZolam (XANAX) 0.5 mg tablet amLODIPine (NORVASC) 10 mg tablet aspirin 81 mg enteric coated tablet atorvastatin (LIPITOR) 20 mg tablet cholecalciferol (VITAMIN D-3) 2,000 unit capsule fluticasone propionate (FLONASE) 50 mcg/actuation nasal spray fluticasone-salmeterol (ADVAIR HFA) 115-21 mcg/actuation inhaler Lactobac. rhamnosus GG-inulin (CULTURELLE PROBIOTICS) 10 billion cell -200 mg capsule, sprinkle lisinopriL (PRINIVIL,ZESTRIL) 20 mg tablet loratadine (CLARITIN) 10 mg tablet multivitamin tablet tablet omeprazole (PriLOSEC) 40 mg capsule Spiriva Respimat 2.5 mcg/actuation inhaler albuterol HFA (PROAIR HFA) 90 mcg/actuation inhaler ALLERGIES Allergies Allergen Reactions Iodine Rash Shellfish Derived Rash Shellfish Itching Elaxpyx-Qob-Pss Reductase Inhibitors Other (See comments) Elevated liver enzymes REVIEW OF SYSTEMS Review of Systems Constitutional: Negative for weight gain and weight loss. HENT: Negative for hearing loss. Eyes: Negative for blurred vision and visual disturbance. Cardiovascular: Negative for chest pain, claudication, dyspnea on exertion, irregular heartbeat, leg swelling, near-syncope, orthopnea, palpitations, paroxysmal nocturnal dyspnea and syncope. Respiratory: Negative for cough, hemoptysis, shortness of breath, sleep disturbances due to breathing, snoring and wheezing. Endocrine: Negative for cold intolerance, heat intolerance and polyuria. Hematologic/Lymphatic: Does not bruise/bleed easily. Skin: Negative for color change, itching and rash. Musculoskeletal: Positive for joint pain and myalgias. Negative for falls, joint swelling, muscle cramps and muscle weakness. Gastrointestinal: Positive for heartburn. Negative for abdominal pain, nausea and vomiting. Genitourinary: Negative for dysuria. Neurological: Negative for excessive daytime sleepiness, dizziness, focal weakness, headaches, light-headedness, loss of balance, numbness and vertigo. Psychiatric/Behavioral: Positive for depression. Negative for altered mental status and substance abuse. The patient is not nervous/anxious. Allergic/Immunologic: Negative for environmental allergies. PHYSICAL EXAM Blood pressure 124/60, pulse 59, height 162.6 cm (5' 4), weight 69.9 kg (154 lb), SpO2 97%. Physical Exam Vitals reviewed. HENT: Head: Normocephalic and atraumatic. Nose: Nose normal. Eyes: General: No scleral icterus. Conjunctiva/sclera: Conjunctivae normal. Cardiovascular: Rate and Rhythm: Normal rate and regular rhythm. Pulses: Intact distal pulses. Heart sounds: Normal heart sounds. No murmur heard. No friction rub. No gallop. Pulmonary: Effort: Pulmonary effort is normal. No respiratory distress. Breath sounds: Normal breath sounds. No wheezing or rales. Chest: Chest wall: No tenderness. Abdominal: General: Bowel sounds are normal. There is no distension. Palpations: Abdomen is soft. Tenderness: There is no abdominal tenderness. Musculoskeletal: General: Normal range of motion. Cervical back: Neck supple. Skin: General: Skin is warm and dry. Neurological: Mental Status: She is alert and oriented to person, place, and time. Psychiatric: Mood and Affect: Mood normal. LABS AND OTHER DIAGNOSTIC TESTS No results found for: WBC, HGB, HCT, MCV, PLT Chemistry No results found for: NA, K, CL, CO2, BUN, CREATININE, GLU No results found for: CALCIUM, ALKPHOS, AST, ALT, BILITOT No results found for: CHOL No results found for: HDL No results found for: LDLCALC No results found for: TRIG No results found for: CHOLHDL EKG MPI 01/07/2020 Global left ventricular function is normal. Left ventricular ejection fraction is 65 %. Myocardial perfusion imaging is normal. 1 mm or more horizontal inf/lat ST depression consistent with ischemia. Specificity of the observed ST changes is reduced in light of the abnormal resting ECG. Small amount of anterior/anteroseptal attenuation artifact is seen which normalizes with prone imaging. Echo 12/30/2019 Normal left ventricular systolic function. No focal wall motion abnormalities. Normal left ventricular size. Impaired diastolic relaxation Grade I. Ejection fraction is measured at 60 %. The left atrium is normal in size. Normal appearance of the mitral valve. Normal appearance of the aortic valve. ECHO 10/27/2023 Normal left ventricular systolic function. No focal wall motion abnormalities. Normal left ventricular size. Mild concentric left ventricular hypertrophy. Impaired diastolic relaxation Grade I. Ejection fraction is measured at 66 %. Global Longitudinal Strain is -20 %. GLS is normal. Normal appearance of the tricuspid valve. Estimated peak RVSP is 30 mmHg. Trivial regurgitation in the tricuspid valve. ASSESSMENT Essential hypertension At goal Alcohol abuse Decreased and congratulated Hyperlipidemia LDL goal <70 on statin for now Chronic obstructive pulmonary disease, unspecified COPD type (CMS/HCC) Gastroesophageal reflux disease without esophagitis Asymptomatic Aortic atherosclerosis (CMS/HCC) Asymptomatic Shortness of breath Likely functional and related age and deconditioning but can not exclude other issues PLAN/RECOMMENDATIONS 2D echocardiogram Doppler because of her shortness breath Compression stockings to her lower extremities because of are mild nonpitting edema Continue amlodipine, lisinopril for hypertension. Continue atorvastatin for hyperlipidemia and atherosclerosis Most recent LDL in February was 63. I will see her back in 6 months or sooner as clinically indicated. Adin Rojo MD, [facility] documented in this encounter Plan of Treatment Scheduled Orders Name Type Priority Associated Diagnoses Order Schedule Transthoracic Echo (TTE) Complete W Doppler/CF Echocardiography Routine Aortic atherosclerosis Primary hypertension SOB (shortness of breath) Expected: 04/21/2025, Expires: 04/21/2026 documented as of this encounter Visit Diagnoses Diagnosis Aortic atherosclerosis- Primary Atherosclerosis of aorta Hyperlipidemia LDL goal <70 Other and unspecified hyperlipidemia Primary hypertension Unspecified essential hypertension Alcohol abuse Nondependent alcohol abuse, unspecified drinking behavior Gastroesophageal reflux disease without esophagitis Esophageal reflux SOB (shortness of breath) Shortness of breath documented in this encounter Care Teams Carpenter'S Helper Relationship Specialty Start Date End Date Jaison Walton MD [address] [place] [address] PCP - General 10/17/16 documented as of this encounter
--- OUTSIDE RECORDS SUMMARY | 2025-04-22 12:48 | XMS_ITS | Referral Summary ---
Author Organization [facility] [address] [facility] [address] Address [address] [place] [address] Care Team Providers Care Quality Control Scientist Name Role Phone Jaison Walton MD Primary Care Provide r Encounters Date Type Department Care Team Description 04/21/[address] [facility] Medical [facility] Cardiology [address] [place] [address] ProviderZuleima MD 04/21/2025 10:45 AM CDT Office Visit [facility] Medical [facility] Cardiology [address] [place] [address] Adin Rojo MD Aortic atherosclerosis (Primary Dx); Hyperlipidemia LDL goal <70; Primary hypertension; Alcohol abuse; Gastroesophageal reflux disease without esophagitis; SOB (shortness of breath) from Last 3 Months Allergies Active Allergy Reactions Criticality Noted Date Comments Iodine Rash Medium Shellfish Itching Low 05/26/2020 Shellfish Derived Rash Medium Bsjmjzo-Kzb-Dqc Reductase Inhibitors Other (See comments) Low 03/05/2023 Elevated liver enzymes Medications ALPRAZolam (XANAX) 0.5 mg tablet take 1 tablet by ORAL route every 2 days as needed for anxiety 0 0 014 Active albuterol HFA (PROAIR HFA) 90 mcg/actuation inhaler inhale 2 puff by inhalation route every 4 - 6 hours as needed 0 Inhaler 0 11/05/2 014 Active Lactobac. rhamnosus GG-inulin (CULTURELLE PROBIOTICS) 10 billion cell -200 mg capsule, sprinkle 0 0 015 Active multivitamin tablet tablet take 1 tablet by oral route every day with food 0 0 015 Active loratadine (CLARITIN) 10 mg tablet take 1 tablet by oral route every day 0 0 015 Active fluticasone-salmet gatito (ADVAIR HFA) 115-21 mcg/actuation inhaler inhale 2 puff by inhalation route 2 times every day in the morning and evening 0 Inhaler 0 016 Active omeprazole (PriLOSEC) 40 mg capsule Take 1 capsule (40 mg total) by mouth daily Active cholecalciferol (VITAMIN D-3) 2,000 unit capsule Take 1 capsule (2,000 Units total) by mouth daily Active aspirin 81 mg enteric coated tablet Take 1 tablet (81 mg total) by mouth daily 30 tablet 11 020 Active fluticasone propionate (FLONASE) 50 mcg/actuation nasal spray Administer 2 sprays into each nostril 2 (two) times a day 023 Active Spiriva Respimat 2.5 mcg/actuation inhaler Inhale 2 puffs daily 024 Active lisinopriL (PRINIVIL,ZESTRIL) 20 mg tablet TAKE 1 TABLET DAILY 90 tablet 3 024 Active amLODIPine (NORVASC) 10 mg tablet TAKE 1 TABLET DAILY 90 tablet 3 024 Active atorvastatin (LIPITOR) 20 mg tabletIndications: Aortic atherosclerosis TAKE 1 TABLET DAILY 90 tablet 025 Active atorvastatin (LIPITOR) 20 mg tabletIndications: Aortic atherosclerosis Take 1 tablet (20 mg total) by mouth daily 90 tablet 3 024 2024 Discontinued Active Problems Problem Noted Date Diagnosed Date [...] on file 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 Gender Identity Female 08/16/2020 12:31 PM CDT [...] Mass Index 26.43 04/21/2025 11:28 AM CDT Plan of Treatment Not on file Procedures Procedure Name Priority Date/Time Associated Diagnosis Comments LIPID PANEL Routine 02/23/2025 3:01 PM CDT from Last 3 Months Results * (ABNORMAL) Lipid panel (02/23/2025 3:01 PM CDT) SCRIBED Cholesterol, Total 202(A) 30 - 199 mg/dL EXTERNAL LAB SCRIBED Triglycerides 62 <=149 mg/dL EXTERNAL LAB SCRIBED HDL 127 >=40 mg/dL EXTERNAL LAB SCRIBED LDL 63 <=129 mg/dL EXTERNAL LAB Scribed Non-HDL Cholesterol EXTERNAL LAB Comment:Not performed by lab SCRIBED Total Cholesterol/HDL Ratio 202 NONE EXTERNAL LAB Blood us Historical Provider LAB BLOOD ORDERABLES Edit ed Result - Final EXTERNAL LAB from Last 3 Months Insurance MEDICARE [employer] MEDICARE FOR LIFE MEDICARE FOR LIFE Care Teams Quality Control Scientist Relationship Specialty Start Date End Date Jaison Walton MD [address] [place] [address] PCP - General 10/17/16
--- OUTSIDE RECORDS SUMMARY | 2025-04-22 12:48 | XMS_ITS | Clinical Summary ---
Author Organization [facility] [employer] Address [address] [place] [address] Care Team Providers Care Photo Checker Name Role Phone Unavailable Primary Care Provider Unavailabl e Source Comments [facility] [employer],non-owned Affiliates and Associated Physician Practices is amultiple site organization consisting of ambulatory clinics and hospital sitesin [place], [place], [place] and [place]. This disclosure is being madepursuant to the Care Everywhere program and may not contain all information available regarding this patient. Last updated 18.[facility] [employer] Allergies Active Allergy Reactions Criticality Noted Date Comments Povidone Iodine Rash Medium 05/26/2020 Shellfish Allergy Itching 05/26/2020 Medications * Be aware that medications may not be up to date on this document. Alwaysverify current medications with the patient. atorvastatin (LIPITOR) 40 MG tablet Take 40 mg by mouth at bedtime Active LISINOPRIL PO Take 20 mg by mouth Active omeprazole (PRILOSEC) 40 MG capsule Take 40 mg by mouth daily before breakfast Active ALPRAZolam (XANAX) 0.25 MG tablet Take 0.5 mg by mouth 3 times daily as needed Active Multiple Vitamins-Mineral s (MULTIVITAMIN ADULT PO) Active Lactobacillus (PROBIOTIC ACIDOPHILUS PO) Acti ve BUPROPION HBR ER PO Active Albuterol Sulfate (PROAIR HFA IN) Active fluticasone-salm eterol hfa (ADVAIR HFA) 115-21 MCG/ACT Inhale 2 puffs by mouth 2 times daily Active Loratadine 10 MG Act stefania Cholecalciferol (VITAMIN D3) 1.25 MG (42603 UT) capsule Take 50 capsules by mouth every 7 days Active Fluticasone Propionate (FLONASE NA) Active amLODIPine (NORVASC) 10 MG tablet Take 10 mg by mouth once daily Active triamcinolone acetonide (KENALOG) 0.1 % creamIndications :Atopic Dermatitis Apply to affected area 2 times daily Reasons: Atopic Dermatitis 80 g Active Social History Tobacco Use Types Packs/Day Years Used Date Smoking Tobacco: Never Smokeless Tobacco: Never Comments Unknown Sex and Gender Information Value Date Recorded Sex Assigned at Not on file 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 Gender Identity Not on file Sexual Orientation [...] 2:30 PM CDT Height 160 cm (5' 3) 05/26/2020 2:30 PM CDT Body Mass Index [...] on patient's age to complete this topic Insurance MEDICARE SELF PAY NO INSURANCE Member Subscriber Plan / Payer (Ef fective for All Dates) Name:NadegeaminahElissa estrada Member ID:Not on file Relation to Subscriber:Not on file Name:NADEGELINDYELISSA HINOJOSA Subscriber ID:Not on file (Home) Address: [address] [place] [address] Payer ID:Not on file Group ID:Not on file Type:Self Pay Address: [place], [place] MEDICARE Member Subscriber Plan / Payer (Ef fective for All Dates) Name:Elissa Cherry Member ID:[id number] Relation to Subscriber:Self Name:Elissa Cherry Subscriber ID:[id number] Payer ID:Not on file Group ID:Not on file Type:Medicare Address: [place] [id number] [facility] Member Subscriber Plan / Payer (Ef fective for All Dates) Name:Elissa Cherry Member ID:Not on file Relation to Subscriber:Self Name:Elissa Cherry Subscriber ID:Not on file Payer ID:[id number] (NAIC) Group ID:Not on file Type:[employer] Address: [place] [phone] MEDICARE Member Subscriber Plan / Payer (Ef fective for All Dates) Name:Elissa Cherry Member ID:[id number] Relation to Subscriber:Self Name:Elissa Cherry Subscriber ID:[id number] Payer ID:Not on file Group ID:Not on file Type:Medicare Address: [place] [phone] [facility]
--- OUTSIDE RECORDS SUMMARY | 2025-04-22 12:48 | XMS_ITS | Clinical Summary ---
Author Organization [facility] [address] Address [address] [place] [address] Care Team Providers Care It Security Architect Name Role Phone Jaison Walton MD Primary Care Provide r Allergies Active Allergy Reactions Criticality Noted Date Comments Iodine Rash Medium Shellfish Itching Low 05/26/2020 Shellfish Derived Rash Medium Izpfomi-Gou-Boj Reductase Inhibitors Other (See comments) Low 03/05/2023 Elevated liver enzymes Medications ALPRAZolam (XANAX) 0.5 mg tablet take 1 tablet by ORAL route every 2 days as needed for anxiety 0 0 014 Active albuterol HFA (PROAIR HFA) 90 mcg/actuation inhaler inhale 2 puff by inhalation route every 4 - 6 hours as needed 0 Inhaler 0 014 Active Lactobac. rhamnosus GG-inulin (CULTURELLE PROBIOTICS) [...] the morning and evening 0 Inhaler 0 05/04/2 016 Active omeprazole (PriLOSEC) 40 mg capsule [...] 09/21/2014 Overview (02/20/2017): GERD (gastroesophageal reflux disease) Encounters Date Type Department Care Team Description 04/21/2025 10:45 AM CDT Office Visit [facility] Cardiology [address] [place] [phone] Adin Rojo MD Aortic atherosclerosis (Primary Dx); Hyperlipidemia LDL goal <70; Primary hypertension; Alcohol abuse; Gastroesophageal reflux disease without esophagitis; SOB (shortness of breath) 04/21/2025 Orders Only [facility] Cardiology [address] [place] [address] Provider, MD Zuleima from Last 3 Months Surgical History Surgery Date Site/Laterality Comments BREAST SURGERY 11/17/2000 - 11/16/2001 HERNIA REPAIR 03/17/2020 - 04/16/2020 HYSTERECTOMY 11/17/1985 - 11/16/1986 REPLACEMENT TOTAL KNEE 03/19/2022 Right JOINT REPLACEMENT 03/2022 & 04/2024 Medical History Medical History Date Comments Hx Other Medical HTN, MVP, obesi ty, hyperlipidemia, GERD, dentures,; Comments: MAF 09/22/2014 - GERD (gastroesophageal reflu x disease) Anxiety Arthritis Osteoporosis Cancer (HCC) 2000 Lumpectomy righ t breast/radiation Depression Hypertension Family History Medical History Relation Name Comments Heart attack Father Glen Cummings Myocardial infa rction; COPD Mother Celestina Cummings Heart disease Sister 1 Celestina (Zoila) Niranjan Heart disease Sister 2 Celestina (Zoila) Niranjan Relation Name Status Comments Father Glen Cummings Alive Mother Celestina Cummings Alive Sister 1 Celestina (Zoila) Niranjan Sister 2 Celestina (Zoila) Niranjan Alive Social History Tobacco Use Types Packs/Day Years [...] on file 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 - General 10/17/16
--- OUTSIDE RECORDS SUMMARY | 2025-04-22 12:48 | XMS_ITS | Encounter Summary ---
Author Organization [facility] Healthcare Address [address] [place] [address] Care Team Providers Care Barrel Waterer Name Role Phone Jaison Walton MD Primary Care Provide r Encounter Details Date Type Department Care Team (Late st Contact Info) Description 04/21/2025 Orders Only [facility] Medical Group Cardiology [address] [place] [id number] Provider, MD Zuleima [address] [place], [place] [id number] Social History Tobacco Use Types Packs/Day Years Used Date Smoking Tobacco: Former Cigarettes 0.5 37.2 1 01/04/1970 - 01/02/2008 Smokeless Tobacco: Never Alcohol Use Standard Drinks/Week Comments Yes 1 (1 standard drink = 0.6 oz pur e alcohol) occassionally Comments Unknown Sex and Gender Information Value Date Recorded Sex Assigned at Not on file 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 Gender Identity Female 08/16/2020 12:31 PM CDT Sexual Orientation Not on file documented as of this encounter Plan of Treatment Not on file documented as of this encounter Procedures Procedure Name Priority Date/Time Associated Diagnosis Comments LIPID PANEL Routine 02/23/2025 3:01 PM CDT documented in this encounter Results * (ABNORMAL) Lipid panel (02/23/2025 3:01 [...] Edit ed Result - Final EXTERNAL LAB documented in this encounter Visit Diagnoses Not on filedocumented in this encounter Care Teams Barrel Waterer Relationship Specialty Start Date End Date Jaison Walton MD [address] [place] [address] PCP - General 10/17/16 documented as of this encounter
--- OUTSIDE RECORDS SUMMARY | 2025-04-22 12:48 | XMS_ITS | Clinical Summary ---
Author Organization [facility] Address [address] [place] [address] Care Team Providers Care Splitter Head Name Role Phone Unavailable Primary Care Provider Unavailabl e Social History Tobacco Use Types Packs/Day Years Used Date Smoking Tobacco: Never Assessed Comments Unknown Sex and Gender Information Value Date Recorded Sex Assigned at Not on file Legal Sex Female 11:57 AM MECHANICAL TECH Gender Identity Not on file Sexual Orientation [...]
== END 2025-04-22 12:46 | disposition home or self-care (01) ==
PROVIDERS: PCP Emergency Medicine; Visit Provider Nurse Practitioner Family
DX: R91.1 Solitary pulmonary nodule (principal)
CPT/HCPCS: 71250

== ENCOUNTER 2025-06-06 07:58 | Outpatient (CLI) | payer MEDICARE, OTHER, SELFPAY ==
--- NOTE | ~2025-06-06 | NM_ITS ---
EXAMINATION: NM_HEPATWP_NM DATE: 06/06/2025 15:40 CDT INDICATION: Right upper quadrant pain COMPARISON: None. TECHNIQUE: 4.9 mCi Tc-99m mebrofenin (Choletec) was administered intravenously. Scintigraphic images of the abdomen were obtained for one hour. At the 1 hour time point, the patient drank 8 oz Ensure, and imaging was continued for 60 minutes. Gallbladder ejection fraction was calculated by the technol ogist. FINDINGS: There is normal clearance of radiotracer from the blood pool. There is homogeneous tracer u ptake by the liver. Activity progresses to the bowel and gallbladder. The gallbladder ejection fract ion is 63%. Note that with this technique, normal GBEF >= 33%. IMPRESSION: 1. Normal hepatobiliary scan. Reviewed, dictated and finalized at location A.
--- OUTSIDE RECORDS SUMMARY | 2025-06-06 08:02 | XMS_ITS | Encounter Summary ---
Author Organization [facility] Healthcare Address [address] [place] [address] Care Team Providers Care Head Girls Golf Coach Name Role Phone No, Physician Primary Care Provider [phone] Jaison Walton MD Unavailable Encounter Details Date Type Department Care Team (Latest Contact Info) Description 05/09/2025 Results Follow-Up [facility] Medical Group Cardiology [address] [place] [address] Adin Rojo MD [address] [facility] [address] [facility] [place] [address] Transthoracic Echo (TTE) Complete W Doppler/CF Social History Tobacco Use Types Packs/Day Years Used Date Smoking Tobacco: Former Cigarettes 0.5 37.2 1 01/04/1970 - 01/02/2008 Smokeless Tobacco: Never Alcohol Use Standard Drinks/Week Comments Yes 1 (1 standard drink = 0.6 oz pur e alcohol) occassionally Personal Safety Answer Date Recorded Have you ever been in or are you currently in a harmful physical or emotional relationship or is someone making you feel afraid or unsafe? 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
--- OUTSIDE RECORDS SUMMARY | 2025-06-06 08:02 | XMS_ITS | Clinical Summary ---
Author Organization [facility] Address [address] [place] [address] Care Team Providers Care Renewable Energy Trader Name Role Phone Unavailable Primary Care Provider Unavailabl e Source Comments [facility],non-owned Affiliates and Associated Physician Practices is amultiple site organization consisting of ambulatory clinics and hospital sitesin [place], [place], [place] and [place]. This disclosure is being madepursuant to the Care Everywhere program and may not contain all information available regarding this patient. 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 Gender Identity Not on file Sexual Orientation [...] 02/04/2021, 01/14/2021 DEPRESSION SCREENING 11/17/2024 INFLUENZA VACCINE (#1) 2025 0, 08/15/2019, 09/03/2012 HEPATITIS B VACCINE Aged Out [...] / Payer (Ef fective for All Dates) Name:NadegeaminahMine estradada Member ID:Not on file Relation to Subscriber:Not on file Name:NADEGEAMINAHELISSA ESTRADA Subscriber ID:Not on file (Home) Address: [address] [place] [address] Payer ID:Not on file Group ID:Not on file Type:Self Pay Address: [place], [place] MEDICARE Member Subscriber Plan / Payer (Ef fective for All Dates) Name:Elissa Cherry Member ID:[id number] Relation to Subscriber:Self Name:Elissa Cherry Subscriber ID:[id number] Payer ID:Not on file Group ID:Not on file Type:Medicare Address: [place] [phone] [facility] Member Subscriber Plan / Payer (Ef fective for All Dates) Name:Elissa Cherry Member ID:Not on file Relation to Subscriber:Self Name:Elissa Cherry Subscriber ID:Not on file Payer ID:[id number] (NAIC) Group ID:Not on file Type:Nexercise/TigerText Address: [place] [phone] MEDICARE Member Subscriber Plan / Payer (Ef fective for All Dates) Name:Elissa Cherry Member ID:[id number] Relation to Subscriber:Self Name:Elissa Cherry Subscriber ID:[id number] Payer ID:Not on file Group ID:Not on file Type:Medicare Address: [place] [phone] [facility]
--- OUTSIDE RECORDS SUMMARY | 2025-06-06 08:02 | XMS_ITS | Clinical Summary ---
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
--- OUTSIDE RECORDS SUMMARY | 2025-06-06 08:02 | XMS_ITS | Referral Summary ---
Author Organization [facility] Address [address] [place] [address] Care Team Providers Care [employer] Instructor Name Role Phone No, Physician Primary Care Provider Jaison Walton MD Unavailable [phone] Encounters Date Type Department Care Team Description 05/09/2025 Results Follow-Up [facility] Cardiology [address] [address] [address] [place] [address] Toño Rojo MD Transthoracic Echo (TTE) Complete W Doppler/CF 05/04/2025 9:15 AM CDT Ancillary Procedure [facility] Cardiology at [address] [place] [address] Aortic atherosclerosis; Primary hypertension; SOB (shortness of breath) 04/25/2025 Telephone [facility] Emergency Department [address] [place] [address] Bethel Guevara RN 04/22/2025 10:02 PM CDT - 04/23/2025 1:51 AM CDT Emergency [facility] Emergency Department [address] [place] [address] Adryan Blount MD Siegler, Jeffrey Evan, MD Fall, initial encounter (Primary Dx); Head injury, initial encounter; Laceration of forehead, initial encounter; Alcoholic intoxication without complication Discharge Disposition: Discharge to home or self care 04/21/2025 Orders Only [facility] Cardiology [address] [place] [address] ProviderZuleima MD 04/21/2025 10:45 AM CDT Office Visit [facility] Medical [facility] Cardiology [address] [place] [address] Toño Rojo MD Aortic atherosclerosis (Primary Dx); Hyperlipidemia LDL goal <70; Primary hypertension; Alcohol abuse; Gastroesophageal reflux disease without esophagitis; SOB (shortness of breath) from Last 3 Months Allergies Active Allergy Reactions Criticality Noted Date Comments Iodine Rash Medium Shellfish Itching Low 05/26/2020 Shellfish Derived Rash Medium Egmqxec-Zct-Bzs Reductase Inhibitors Other (See comments) Low 03/05/2023 [...] the morning and evening 0 Inhaler 0 03/20/20 16 Active omeprazole (PriLOSEC) 40 mg capsule Take 1 capsule (40 mg total) by mouth daily Active cholecalciferol (VITAMIN D-3) 2,000 unit capsule Take 1 capsule (2,000 Units total) by mouth daily Active aspirin 81 mg enteric coated tablet Take 1 tablet (81 mg total) by mouth daily 30 tablet 11 01/24/20 20 Active fluticasone propionate (FLONASE) 50 mcg/actuation nasal spray Administer 2 sprays into each nostril 2 (two) times a day 09/26/20 23 Active Spiriva Respimat 2.5 mcg/actuation inhaler Inhale 2 puffs daily 03/09/20 24 Active amLODIPine (NORVASC) 10 mg tablet TAKE 1 TABLET DAILY 90 tablet 3 07/26/20 24 Active atorvastatin (LIPITOR) 20 mg tabletIndications:A ortic atherosclerosis TAKE 1 TABLET DAILY 90 tablet 04/06/20 25 Active lisinopriL (PRINIVIL,ZESTRIL) 20 mg tablet TAKE 1 TABLET DAILY 90 tablet 3 04/28/20 25 Active Active Problems Problem Noted Date Diagnosed Date SOB (shortness of breath) 09/10/2023 Aortic atherosclerosis 07/08/2018 Hypertension 09/21/2014 Overview (02/20/2017): Hypertension Anxiety 09/21/2014 Overview (02/20/2017): Anxiety Alcohol abuse 09/21/2014 Overview (02/20/2017): Alcohol abuse Hyperlipidemia LDL goal <70 09/21/2014 Overview (02/20/2017): Hyperlipidemia Chronic obstructive pulmonary disease 09/21/2014 Overview (02/20/2017): COPD (chronic obstructive pulmonary disease) Gastroesophageal reflux disease 09/21/2014 Overview (02/20/2017): GERD (gastroesophageal reflux disease) Immunizations Immunization Administration Dates Next Due Tdap 04/22/2025 Social History Tobacco Use Types Packs/Day Years [...] on file 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 Gender Identity Female 08/16/2020 12:31 PM CDT Sexual Orientation Not on file Last Filed Vital Signs Vital Sign Reading Time Taken Comments Blood Pressure 124/64 04/23/2025 12:00 AM CDT Pulse 71 04/23/2025 12:00 AM CDT Temperature 36.1 C (97 F) 04/22/2025 10:10 PM CDT Respiratory Rate 19 04/23/2025 12:00 AM CDT Oxygen Saturation 95% 04/23/2025 12:00 AM CDT Inhaled Oxygen Concentration - - Weight 61.2 kg (135 lb) 04/22/2025 10:15 PM CDT Height 162.6 cm (5' 4) 04/21/2025 11:28 AM CDT Body Mass Index 23.17 04/21/2025 11:28 AM CDT Plan of Treatment Not on file Procedures Procedure Name Priority Date/Time Associated Diagnosis Comments TRANSTHORACIC ECHO (TTE) COMPLETE W DOPPLER/CF WO CONTRAST Routine 05/04/2025 9:34 AM CDT Aortic atherosclerosis Primary hypertension SOB (shortness of breath) ED LACERATION REPAIR Routine 04/23/2025 4:23 AM CDT POTASSIUM, WHOLE BLOOD STAT 1:[address] RECON THORACIC AND LUMBAR SPINE WO CONTRAST ED 04/22/2025 10:[address] CHEST ABDOMEN PELVIS WO CONTRAST ED 04/22/2025 10:[address] HEAD AND CERVICAL SPINE WO CONTRAST ED 04/22/2025 10:44 PM CDT POCT CREATININE - DEVICE Routine 025 10:25 PM CDT XR CHEST 1 VIEW ED 04/22/2025 10:21 PM CDT XR PELVIS 1 OR 2 VIEWS ED 5 10:21 PM CDT THROMBOELASTOMETRY PANEL - EXTRINSIC Routine 04/22/2025 10:16 PM CDT THROMBOELASTOMETRY PANEL - HEPARIN Routine 04/22/2025 10:16 PM CDT THROMBOELASTOMETRY PANEL - INTRINSIC Routine 04/22/2025 10:16 PM CDT THROMBOELASTOMETRY PANEL - FIBRINOGEN Routine 04/22/2025 10:16 PM CDT EGFR STAT 04/22/2025 10:16 PM CDT DIFFERENTIAL AUTO Routine 04/22/2025 10: 16 PM CDT POTASSIUM, WHOLE BLOOD STAT 10:16 PM CDT COMPREHENSIVE METABOLIC PANEL STAT 04/22/2025 10:16 PM CDT THROMBOELASTOMETRY PANEL Routine 025 10:16 PM CDT PROTIME-INR Routine 04/22/2025 10:16 PM CDT APTT Routine 04/22/2025 10:16 PM CDT ETHANOL Routine 04/22/2025 10:16 PM CDT CBC WITH AUTO DIFFERENTIAL Routine 04/22 10:16 PM CDT TYPE AND SCREEN Timed 04/22/2025 10:16 PM CDT POC BLOOD GAS AND CHEMISTRIES, VENOUS Routine 04/22/2025 10:12 PM CDT from Last 3 Months Results * TRANSTHORACIC ECHO (TTE) COMPLETE W DOPPLER/CF WO CONTRAST (05/04/2025 9:34 AM CDT) Estimated EF 60 % CONS SCIMAGE EF Mod BP 63 % CONS SCIMAGE Anatomical Region Laterality Modality Ultrasound 05/04/2025 9:07 AM CDT Narrative 05/05/2025 12:44 PM CDT [facility] Cardiology [address], [address], [place] [address] P:[phone] P:[phone] Echocardiographic Report Patient Name: MARYELLEN SANDOVAL C : 1945 Study Date: 05/04/2025 9:07:02 AM Gender: F Tech: Location: [facility] Ref Provider: TOÑO ROJO Height(Cm): 163 BSA: 1.66 Weight(Kg): 61.2 Heart Rate: 57 BP: 124 / 64 Quality: Good Order Provider: TOÑO ROJO PROCEDURES: Echocardiographic Report: Transthoracic echocardiogram with complete 2D, M-Mode, and color Doppler examination. With Strain Analysis. INDICATIONS: I70.0 Atherosclerosis of aorta, I10 Essential (primary) hypertension, and R06.02 Shortness of breath. MEASUREMENTS: 2D/MM Value Range Doppler Value Range EF Mod BP 63 % [ 54 - 74 ] AV Mean PG 4 mmHg EF Teich MM 60 % [ 54 - 74 ] AV Peak Percy 1.50 m/s [ 1.00 - 1.70 ] Estimated EF 60 % AV Peak PG 9 mmHg LVIDd 2D 5.17 cm [ 3.80 - 5.20 ] AV VTI 33.64 cm LVIDd MM 5.45 cm [ 3.80 - 5.20 ] LVOT Peak Percy 0.91 m/s [ 0.70 - 1.10 ] LVIDs 2D 3.38 cm [ 2.20 - 3.50 ] LVOT VTI 20.41 cm LVIDs MM 3.68 cm [ 2.20 - 3.50 ] MV E Peak Percy 0.56 m/s [ 0.60 - 1.30 ] LVPWd 2D 0.98 cm [ 0.60 - 0.90 ] MV A Peak Percy 0.72 m/s [ 1.00 - 1.20 ] LVPWd MM 0.95 cm [ 0.60 - 0.90 ] MV Decel Time 183 msec [ 104 - 258 ] IVSd 2D 1.08 cm [ 0.60 - 0.90 ] PV Peak Percy 0.71 m/s [ 0.40 - 0.80 ] IVSd MM 0.80 cm [ 0.60 - 0.90 ] TR Peak Percy 2.62 m/s [ 1.00 - 2.80 ] LA Dimension MM 3.89 cm [ 2.70 - 3.80 ] TR Peak PG 27 mmHg AoR Diam MM 3.71 cm [ 2.70 - 3.70 ] RVSP 35.00 mmHg [ 10.00 - 36.00 ] LA Volume Index 39 cc/m2 [ 16 - 34 ] Lateral E` 0.06 m/s [ 0.10 - 0.15 ] ACS MM 2.30 cm E/E` 9 2D/MM Value Range Doppler Value Range - FINDINGS: Interpretation Site: Exam was interpreted at [facility]. Left Ventricle: Normal left ventricular size. Normal global left ventricular systolic function. Impaired diastolic relaxation Grade I. Ejection fraction is measured at 63 %. Ejection Fraction is visually estimated to be 60 %. Global Longitudinal Strain is -15 %. Right Ventricle: Normal right ventricular size. Left Atrium: There is mild enlargement of left atrium. Right Atrium: The right atrium is normal in size. Atrial Septum: Normal atrial septum. Mitral Valve: Normal appearance of the mitral valve. Trivial regurgitation of the mitral valve. Aortic Valve: Normal appearance of the aortic valve. Tricuspid Valve: Normal appearance of the tricuspid valve. Estimated peak RVSP is 35 mmHg. Trivial regurgitation in the tricuspid valve. Pulmonic Valve: Pulmonic valve not well visualized. Pericardium: Normal pericardium with no significant pericardial effusion. Aorta: Normal aortic root. IVC: Normal size and normal respiratory collapse consistent with normal right atrial pressure (<5 mmHg). Pulmonary Artery: Normal pulmonary artery size. CONCLUSIONS: Normal left ventricular size. Normal global left ventricular systolic function. Impaired diastolic relaxation Grade I. Ejection fraction is measured at 63 %. Ejection Fraction is visually estimated to be 60 %. Global Longitudinal Strain is -15 %. There is mild enlargement of left atrium. Trivial mitral and tricuspid regurgitation. Compared with the echocardiogram from 2022 the findings are essentially without change. Electronically Signed By: Jaison Hunter MD, [facility] 05/05/2025 12:43:19 PM CDT Procedure Note Jaison Hunter MD - 05/05/2025 [facility] Cardiology [address], [address], [place] [address] P:[phone] P:[phone] Echocardiographic Report Patient Name: MARYELLEN SANDOVAL C : 1945 Study Date: 05/04/2025 9:07:02 AM Gender: F Tech: Location: [facility] Ref Provider: TOÑO ROJO Height(Cm): 163 BSA: 1.66 Weight(Kg): 61.2 Heart Rate: 57 BP: 124 / 64 Quality: Good Order Provider: TOÑO ROJO PROCEDURES: Echocardiographic Report: Transthoracic echocardiogram with complete 2D, M-Mode, and color Dopplerexamination. With Strain Analysis. INDICATIONS: I70.0 Atherosclerosis of aorta, I10 Essential (primary) hypertension, andR06.02 Shortness of breath. MEASUREMENTS: 2D/MM Value Range Doppler ValueRange EF Mod BP 63 % [ 54 - 74 ] AV Mean PG 4mmHg EF Teich MM 60 % [ 54 - 74 ] AV Peak Percy 1.50m/s [ 1.00 - 1.70 ] Estimated EF 60 % AV Peak PG 9mmHg LVIDd 2D 5.17 cm [ 3.80 - 5.20 ] AV VTI 33.64cm LVIDd MM 5.45 cm [ 3.80 - 5.20 ] LVOT Peak Percy 0.91m/s [ 0.70 - 1.10 ] LVIDs 2D 3.38 cm [ 2.20 - 3.50 ] LVOT VTI 20.41cm LVIDs MM 3.68 cm [ 2.20 - 3.50 ] MV E Peak Percy 0.56m/s [ 0.60 - 1.30 ] LVPWd 2D 0.98 cm [ 0.60 - 0.90 ] MV A Peak Percy 0.72m/s [ 1.00 - 1.20 ] LVPWd MM 0.95 cm [ 0.60 - 0.90 ] MV Decel Time 183msec [ 104 - 258 ] IVSd 2D 1.08 cm [ 0.60 - 0.90 ] PV Peak Percy 0.71m/s [ 0.40 - 0.80 ] IVSd MM 0.80 cm [ 0.60 - 0.90 ] TR Peak Percy 2.62m/s [ 1.00 - 2.80 ] LA Dimension MM 3.89 cm [ 2.70 - 3.80 ] TR Peak PG 27mmHg AoR Diam MM 3.71 cm [ 2.70 - 3.70 ] RVSP 35.00mmHg [ 10.00 - 36.00 ] LA Volume Index 39 cc/m2 [ 16 - 34 ] Lateral E` 0.06m/s [ 0.10 - 0.15 ] ACS MM 2.30 cm E/E` 9 2D/MM Value Range Doppler ValueRange - FINDINGS: Interpretation Site: Exam was interpreted at [facility]. Left Ventricle: Normal left ventricular size. Normal global left ventricular systolicfunction. Impaired diastolic relaxation Grade I. Ejection fraction is measured at 63 %.Ejection Fraction is visually estimated to be 60 %. Global Longitudinal Strain is -15 %. Right Ventricle: Normal right ventricular size. Left Atrium: There is mild enlargement of left atrium. Right Atrium: The right atrium is normal in size. Atrial Septum: Normal atrial septum. Mitral Valve: Normal appearance of the mitral valve. Trivial regurgitation of the mitralvalve. Aortic Valve: Normal appearance of the aortic valve. Tricuspid Valve: Normal appearance of the tricuspid valve. Estimated peak RVSP is 35 mmHg.Trivial regurgitation in the tricuspid valve. Pulmonic Valve: Pulmonic valve not well visualized. Pericardium: Normal pericardium with no significant pericardial effusion. Aorta: Normal aortic root. IVC: Normal size and normal respiratory collapse consistent with normal rightatrial pressure (<5 mmHg). Pulmonary Artery: Normal pulmonary artery size. CONCLUSIONS: Normal left ventricular size. Normal global left ventricular systolicfunction. Impaired diastolic relaxation Grade I. Ejection fraction is measured at 63 %.Ejection Fraction is visually estimated to be 60 %. Global Longitudinal Strain is -15 %. There is mild enlargement of left atrium. Trivial mitral and tricuspid regurgitation. Compared with the echocardiogram from 2022 the findings are essentiallywithout change. Electronically Signed By: Jaison Hunter MD, [facility] 05/05/2025 12:43:19 PM CDT Toño Rojo MD CV ECHO PROCEDURES Final Result * Laceration Repair (04/23/2025 4:23 AM CDT) Narrative Rey Parsons MD - 04/23/2025 4:23 AM CDT Rey Parsons MD 04/24/2025 12:26 PM Laceration Repair Date/Time: 04/23/2025 4:23 AM Performed by: Kal Zazueta MD Authorized by: Rey Parsons MD Informed consent: Risks, benefits, alternatives discussed Imaging: Pertinent imaging reviewed, correctly oriented and match to patient identifiers Anesthesia method: None Location: Face Face location: Forehead Length (cm): 9 Preparation: Patient was prepped and draped in usual sterile fashion Hemostasis achieved with: Direct pressure Wound exploration: wound explored through full range of motion Area cleansed with: Saline Amount of cleaning: Extensive Irrigation solution: Sterile saline Irrigation method: Pressure wash Visualized foreign bodies/material removed: yes Repair method: Sutures Approximation: Close Dressing: Non-adherent dressing All guidewires, needles, sponges or other items are accounted for: yes Three 4-0 Vicryl Rapide [id number] sutures placed to stop bleeding. Five deep 4-0 Monocryl simple interrupted sutures, Five 4-0 Vicryl Rapide simple interrupted superficial sutures, eight 4-0 Vicryl Rapide horizontal mattress sutures placed. us Rey Parsons MD IN CLINIC/BEDSIDE ORDERA BLES Final Result * Potassium, whole blood (04/23/2025 1:29 AM CDT) Potassium, bld 4.0 3.3 - 4.9 mmol/L Blood 04/23/2025 1:29 AM CDT 04/23/2025 1:36 AM CDT Kal Zazueta MD LAB BLOOD ORDERABLES Final Result [facility] [place] [address] * CT Recon Thoracic and Lumbar Spine WO Contrast (C) (04/22/2025 10:44 PM CDT) Anatomical Region Laterality Modality Spine N/A Computed Tomogra phy 04/22/2025 11:3 1 PM CDT Impressions 04/23/2025 9:10 AM CDT 1. No acute intracranial process. 2. No evidence of acute fracture in the cervical, thoracic spine. 3. Age indeterminate compression deformities of the superior endplates of L1 and L2. Dictated by: Zulma Yeh MD, PhD The radiology attending physician has personally reviewed this study, and had reviewed and/or edited this written report and agrees with it. Electronically signed by: Robert Bundy M.D. Narrative 04/23/2025 9:10 AM CDT EXAMINATION: 1. CT head without contrast 2. CT of the cervical spine without contrast 3. CT of the thoracic spine without contrast 4. CT of the lumbar spine without contrast HISTORY: Presented post ground-level fall TECHNIQUE: CT of the head was performed with images acquired from skull base to vertex without intravenous contrast. CT of the cervical spine was performed according to the standard protocol without intravenous contrast. Dedicated reconstructions of the thoracic and lumbar spine were generated using data from a CT of the chest, abdomen, and pelvis acquired without intravenous contrast according to standard protocol. COMPARISON: None. FINDINGS: HEAD: Left frontal scalp hematoma. There is no acute intracranial hemorrhage. Ventricles are of normal size and morphology. No mass effect or midline shift is present. The rodriguez-white matter differentiation is normal. Scattered ill-defined hypodensities in the periventricular and subcortical white matter are nonspecific, likely on the basis of chronic small vessel ischemic change. There is parenchymal volume loss. The visualized portions of the orbits are normal. The visualized portions of the mastoids are normal. Right maxillary mucus retention cyst. No fractures are identified. CERVICAL SPINE: Minimal retrolisthesis of C2 on C3. There is no acute fracture. Vertebral bodies are normal in height without compression fractures. Multi-level degenerative disc disease within the cervical spine, greatest and mild at C5-C6. No high-grade spinal canal stenosis or neural foraminal stenosis. The craniocervical junction is normal. Limited views of the skull base appear normal. The sphenoid sinus is well aerated. No soft tissue abnormality is identified. THORACIC SPINE: There are 12 rib-bearing thoracic vertebra. The alignment of the thoracic spine is normal. There is no acute fracture. Vertebral bodies are normal in height without compression fractures. Multilevel degenerative disc disease of the thoracic spine. Severe facet arthropathy is present. Soft tissues are better evaluated on contemporaneous CT. The thoracic aorta is normal. LUMBAR SPINE: The alignment of the lumbar spine is normal. Age indeterminant compression deformity of the superior endplates of L1 and L2. There is no acute fracture. Multilevel degenerative disc disease of the lumbar spine, greatest and severe at L3/L4. High-grade neural foraminal or central canal stenosis. Soft tissues are better evaluated on contemporaneous CT of the body.. The abdominal aorta appears normal. Procedure Note Robert Bundy MD PhD - 04/23/2025 EXAMINATION: 1. CT head without contrast 2. CT of the cervical spine without contrast 3. CT of the thoracic spine without contrast 4. CT of the lumbar spine without contrast HISTORY: Presented post ground-level fall TECHNIQUE: CT of the head was performed with images acquired from skull base to vertex without intravenous contrast. CT of the cervical spine was performed according to the standard protocol without intravenous contrast. Dedicated reconstructions of the thoracic and lumbar spine were generated using data from a CT of the chest, abdomen, and pelvis acquired without intravenous contrast according to standard protocol. COMPARISON: None. FINDINGS: HEAD: Left frontal scalp hematoma. There is no acute intracranial hemorrhage. Ventricles are of normal size and morphology. No mass effect or midline shift is present. The rodriguez-white matter differentiation is normal. Scattered ill-defined hypodensities in the periventricular and subcortical white matter are nonspecific, likely on the basis of chronic small vessel ischemic change. There is parenchymal volume loss. The visualized portions of the orbits are normal. The visualized portions of the mastoids are normal. Right maxillary mucus retention cyst. No fractures are identified. CERVICAL SPINE: Minimal retrolisthesis of C2 on C3. There is no acute fracture. Vertebral bodies are normal in height without compression fractures. Multi-level degenerative disc disease within the cervical spine, greatest and mild at C5-C6. No high-grade spinal canal stenosis or neural foraminal stenosis. The craniocervical junction is normal. Limited views of the skull base appear normal. The sphenoid sinus is well aerated. No soft tissue abnormality is identified. THORACIC SPINE: There are 12 rib-bearing thoracic vertebra. The alignment of the thoracic spine is normal. There is no acute fracture. Vertebral bodies are normal in height without compression fractures. Multilevel degenerative disc disease of the thoracic spine. Severe facet arthropathy is present. Soft tissues are better evaluated on contemporaneous CT. The thoracic aorta is normal. LUMBAR SPINE: The alignment of the lumbar spine is normal. Age indeterminant compression deformity of the superior endplates of L1 and L2. There is no acute fracture. Multilevel degenerative disc disease of the lumbar spine, greatest and severe at L3/L4. High-grade neural foraminal or central canal stenosis. Soft tissues are better evaluated on contemporaneous CT of the body.. The abdominal aorta appears normal. IMPRESSION: 1. No acute intracranial process. 2. No evidence of acute fracture in the cervical, thoracic spine. 3. Age indeterminate compression deformities of the superior endplates of L1 and L2. Dictated by: Zulma Yeh MD, PhD The radiology attending physician has personally reviewed this study, and had reviewed and/or edited this written report and agrees with it. Electronically signed by: Robert Bundy M.D. us Kal Zazueta MD IMG CT PROCEDURES Final Re sult * CT Head and Cervical Spine WO Contrast (04/22/2025 10:44 PM CDT) Anatomical Region Laterality Modality Head and Neck N/A Computed Tomogra phy 04/22/2025 11:3 1 PM CDT Impressions 04/23/2025 9:10 AM CDT 1. No acute intracranial process. 2. No evidence of acute fracture in the cervical, thoracic spine. 3. Age indeterminate compression deformities of the superior endplates of L1 and L2. Dictated by: Zulma eYh MD, PhD The radiology attending physician has personally reviewed this study, and had reviewed and/or edited this written report and agrees with it. Electronically signed by: Robert Bundy M.D. Narrative 04/23/2025 9:10 AM CDT EXAMINATION: 1. CT head without contrast 2. CT of the cervical spine without contrast 3. CT of the thoracic spine without contrast 4. CT of the lumbar spine without contrast HISTORY: Presented post ground-level fall TECHNIQUE: CT of the head was performed with images acquired from skull base to vertex without intravenous contrast. CT of the cervical spine was performed according to the standard protocol without intravenous contrast. Dedicated reconstructions of the thoracic and lumbar spine were generated using data from a CT of the chest, abdomen, and pelvis acquired without intravenous contrast according to standard protocol. COMPARISON: None. FINDINGS: HEAD: Left frontal scalp hematoma. There is no acute intracranial hemorrhage. Ventricles are of normal size and morphology. No mass effect or midline shift is present. The rodriguez-white matter differentiation is normal. Scattered ill-defined hypodensities in the periventricular and subcortical white matter are nonspecific, likely on the basis of chronic small vessel ischemic change. There is parenchymal volume loss. The visualized portions of the orbits are normal. The visualized portions of the mastoids are normal. Right maxillary mucus retention cyst. No fractures are identified. CERVICAL SPINE: Minimal retrolisthesis of C2 on C3. There is no acute fracture. Vertebral bodies are normal in height without compression fractures. Multi-level degenerative disc disease within the cervical spine, greatest and mild at C5-C6. No high-grade spinal canal stenosis or neural foraminal stenosis. The craniocervical junction is normal. Limited views of the skull base appear normal. The sphenoid sinus is well aerated. No soft tissue abnormality is identified. THORACIC SPINE: There are 12 rib-bearing thoracic vertebra. The alignment of the thoracic spine is normal. There is no acute fracture. Vertebral bodies are normal in height without compression fractures. Multilevel degenerative disc disease of the thoracic spine. Severe facet arthropathy is present. Soft tissues are better evaluated on contemporaneous CT. The thoracic aorta is normal. LUMBAR SPINE: The alignment of the lumbar spine is normal. Age indeterminant compression deformity of the superior endplates of L1 and L2. There is no acute fracture. Multilevel degenerative disc disease of the lumbar spine, greatest and severe at L3/L4. High-grade neural foraminal or central canal stenosis. Soft tissues are better evaluated on contemporaneous CT of the body.. The abdominal aorta appears normal. Procedure Note Robert Bundy MD PhD - 04/23/2025 EXAMINATION: 1. CT head without contrast 2. CT of the cervical spine without contrast 3. CT of the thoracic spine without contrast 4. CT of the lumbar spine without contrast HISTORY: Presented post ground-level fall TECHNIQUE: CT of the head was performed with images acquired from skull base to vertex without intravenous contrast. CT of the cervical spine was performed according to the standard protocol without intravenous contrast. Dedicated reconstructions of the thoracic and lumbar spine were generated using data from a CT of the chest, abdomen, and pelvis acquired without intravenous contrast according to standard protocol. COMPARISON: None. FINDINGS: HEAD: Left frontal scalp hematoma. There is no acute intracranial hemorrhage. Ventricles are of normal size and morphology. No mass effect or midline shift is present. The rodriguez-white matter differentiation is normal. Scattered ill-defined hypodensities in the periventricular and subcortical white matter are nonspecific, likely on the basis of chronic small vessel ischemic change. There is parenchymal volume loss. The visualized portions of the orbits are normal. The visualized portions of the mastoids are normal. Right maxillary mucus retention cyst. No fractures are identified. CERVICAL SPINE: Minimal retrolisthesis of C2 on C3. There is no acute fracture. Vertebral bodies are normal in height without compression fractures. Multi-level degenerative disc disease within the cervical spine, greatest and mild at C5-C6. No high-grade spinal canal stenosis or neural foraminal stenosis. The craniocervical junction is normal. Limited views of the skull base appear normal. The sphenoid sinus is well aerated. No soft tissue abnormality is identified. THORACIC SPINE: There are 12 rib-bearing thoracic vertebra. The alignment of the thoracic spine is normal. There is no acute fracture. Vertebral bodies are normal in height without compression fractures. Multilevel degenerative disc disease of the thoracic spine. Severe facet arthropathy is present. Soft tissues are better evaluated on contemporaneous CT. The thoracic aorta is normal. LUMBAR SPINE: The alignment of the lumbar spine is normal. Age indeterminant compression deformity of the superior endplates of L1 and L2. There is no acute fracture. Multilevel degenerative disc disease of the lumbar spine, greatest and severe at L3/L4. High-grade neural foraminal or central canal stenosis. Soft tissues are better evaluated on contemporaneous CT of the body.. The abdominal aorta appears normal. IMPRESSION: 1. No acute intracranial process. 2. No evidence of acute fracture in the cervical, thoracic spine. 3. Age indeterminate compression deformities of the superior endplates of L1 and L2. Dictated by: Zulma Yeh MD, PhD The radiology attending physician has personally reviewed this study, and had reviewed and/or edited this written report and agrees with it. Electronically signed by: Robert Bundy M.D. Kal Zazeuta MD IMG CT PROCEDURES Final Re sult * CT Chest Abdomen Pelvis WO Contrast (04/22/2025 10:44 PM CDT) Anatomical Region Laterality Modality Body N/A Computed Tomogra phy 04/23/2025 12:2 1 AM CDT Impressions 04/23/2025 8:50 AM CDT 1. No acute traumatic finding in the chest, abdomen, or pelvis. 2. Sub-6 mm pulmonary nodules including tree-in-bud nodularity in the right lung. Findings likely represent infection or inflammatory change related to aspiration. Dictated by: Jose Guadalupe Diaz MD The radiology attending physician has personally reviewed this study, and had reviewed and/or edited this written report and agrees with it. Electronically signed by: Sam Bull M.D. Narrative 04/23/2025 8:50 AM CDT EXAMINATION: Computed tomography of the chest, abdomen and pelvis without intravenous contrast HISTORY: Syncope and fall TECHNIQUE: Transaxial computed tomographic images of the chest, abdomen and pelvis were obtained without intravenous contrast according to the standard protocol. COMPARISON: None FINDINGS: Chest: No thoracic lymphadenopathy. No evidence of mediastinal hematoma. Mild cardiomegaly. Multivessel coronary artery calcifications. No pericardial effusion. Thoracic aorta is of normal caliber. Main pulmonary artery is mildly dilated as can be seen in pulmonary hypertension. Centrilobular emphysema. There are scattered sub-6 mm pulmonary nodules including a group of tree-in-bud nodules at the right lung base (series 5, image 116). This is also seen in the right upper lung at series 5, image 72. No pleural effusion. No pneumothorax. No suspicious lytic or blastic osseous lesion. Abdomen/Pelvis: Normal noncontrast appearance of the liver, spleen, adrenal glands, pancreas, gallbladder, and kidneys. Hepatic cyst in the inferior liver. Abdominal aorta is atherosclerotic. Urinary bladder is normal. No abdominal or pelvic lymphadenopathy. No pneumoperitoneum or ascites. Diverticulosis without diverticulitis. Large rectal stool ball without evidence of stercoral colitis. No suspicious lytic or blastic osseous lesion. Age-indeterminate compression deformities of L1 and L2. Procedure Note Sam Bull MD PhD - 04/23/2025 EXAMINATION: Computed tomography of the chest, abdomen and pelvis without intravenous contrast HISTORY: Syncope and fall TECHNIQUE: Transaxial computed tomographic images of the chest, abdomen and pelvis were obtained without intravenous contrast according to the standard protocol. COMPARISON: None FINDINGS: Chest: No thoracic lymphadenopathy. No evidence of mediastinal hematoma. Mild cardiomegaly. Multivessel coronary artery calcifications. No pericardial effusion. Thoracic aorta is of normal caliber. Main pulmonary artery is mildly dilated as can be seen in pulmonary hypertension. Centrilobular emphysema. There are scattered sub-6 mm pulmonary nodules including a group of tree-in-bud nodules at the right lung base (series 5, image 116). This is also seen in the right upper lung at series 5, image 72. No pleural effusion. No pneumothorax. No suspicious lytic or blastic osseous lesion. Abdomen/Pelvis: Normal noncontrast appearance of the liver, spleen, adrenal glands, pancreas, gallbladder, and kidneys. Hepatic cyst in the inferior liver. Abdominal aorta is atherosclerotic. Urinary bladder is normal. No abdominal or pelvic lymphadenopathy. No pneumoperitoneum or ascites. Diverticulosis without diverticulitis. Large rectal stool ball without evidence of stercoral colitis. No suspicious lytic or blastic osseous lesion. Age-indeterminate compression deformities of L1 and L2. IMPRESSION: 1. No acute traumatic finding in the chest, abdomen, or pelvis. 2. Sub-6 mm pulmonary nodules including tree-in-bud nodularity in the right lung. Findings likely represent infection or inflammatory change related to aspiration. Dictated by: Jose Guadalupe Diaz MD The radiology attending physician has personally reviewed this study, and had reviewed and/or edited this written report and agrees with it. Electronically signed by: Sam Bull M.D. us Kal Zazueta MD IMG CT PROCEDURES Final Re sult * POCT creatinine (04/22/2025 10:25 PM CDT) Creatinine POC 0.8 0.6 - 1.1 mg/dL Blood 04/22/2025 10:2 5 PM CDT 04/22/2025 10:25 PM CDT Rey Parsons MD LAB POCT ORDERABLES - DE VICE Final Result [facility] [place] [address] * Chest xray, 1 view, portable (04/22/2025 10:21 PM CDT) Anatomical Region Laterality Modality Body, Chest N/A Computed Radiogr aphy 04/22/2025 11:2 4 PM CDT Impressions 04/23/2025 8:44 AM CDT Chest: No focal pneumonic consolidation, pleural effusion, or pneumothorax. Cardiomediastinal silhouette is within normal limits. Pelvis: No acute fracture or dislocation identified on this single view pelvic radiograph. Dictated by: Jose Guadalupe Diaz MD The radiology attending physician has personally reviewed this study, and had reviewed and/or edited this written report and agrees with it. Electronically signed by: Sam Bull M.D. Narrative 04/23/2025 8:44 AM CDT EXAMINATION: XR CHEST 1 VIEW, XR PELVIS 1 OR 2 VIEWS HISTORY: Trauma with fall. Procedure Note Sam Bull MD PhD - 04/23/2025 EXAMINATION: XR CHEST 1 VIEW, XR PELVIS 1 OR 2 VIEWS HISTORY: Trauma with fall. IMPRESSION: Chest: No focal pneumonic consolidation, pleural effusion, or pneumothorax. Cardiomediastinal silhouette is within normal limits. Pelvis: No acute fracture or dislocation identified on this single view pelvic radiograph. Dictated by: Jose Guadalupe Diaz MD The radiology attending physician has personally reviewed this study, and had reviewed and/or edited this written report and agrees with it. Electronically signed by: Sam Bull M.D. Adryan Blount MD IMG XR PROCEDURES Final Result * Pelvis xray, 1 view, portable (04/22/2025 10:21 PM CDT) Anatomical Region Laterality Modality Body, Pelvis N/A Computed Radiogr aphy 04/22/2025 11:2 4 PM CDT Impressions 04/23/2025 8:44 AM CDT Chest: No focal pneumonic consolidation, pleural effusion, or pneumothorax. Cardiomediastinal silhouette is within normal limits. Pelvis: No acute fracture or dislocation identified on this single view pelvic radiograph. Dictated by: Jose Guadalupe Diaz MD The radiology attending physician has personally reviewed this study, and had reviewed and/or edited this written report and agrees with it. Electronically signed by: Sam Bull M.D. Narrative 04/23/2025 8:44 AM CDT EXAMINATION: XR CHEST 1 VIEW, XR PELVIS 1 OR 2 VIEWS HISTORY: Trauma with fall. Procedure Note Sam Bull MD PhD - 04/23/2025 EXAMINATION: XR CHEST 1 VIEW, XR PELVIS 1 OR 2 VIEWS HISTORY: Trauma with fall. IMPRESSION: Chest: No focal pneumonic consolidation, pleural effusion, or pneumothorax. Cardiomediastinal silhouette is within normal limits. Pelvis: No acute fracture or dislocation identified on this single view pelvic radiograph. Dictated by: Jose Guadalupe Diaz MD The radiology attending physician has personally reviewed this study, and had reviewed and/or edited this written report and agrees with it. Electronically signed by: Sam Bull M.D. Adryan Blount MD IMG XR PROCEDURES Final Result * Thromboelastometry Panel - Heparin (04/22/2025 10:16 PM CDT) HEPTEM-CT 153 141 - 215 sec HEPTEM-A5 37 33 - 51 mm [facility] HEPTEM-A10 49 44 - 61 mm [facility] HEPTEM-A20 57 52 - 67 mm [facility] HEPTEM-MCF 61 54 - 69 mm [facility] Blood 04/22/2025 10:1 6 PM CDT 04/22/2025 10:25 PM CDT Adryan Blount MD LAB BLOOD ORDERABLES Sen baldev Result - Final [facility] Department [place] [address] * Thromboelastometry Panel - Intrinsic (04/22/2025 10:16 PM CDT) INTEM-CT 157 139 - 205 sec INTEM-A5 39 36 - 54 mm [facility] INTEM-A10 50 46 - 63 mm [facility] INTEM-A20 59 53 - 68 mm [facility] INTEM-MCF 62 55 - 70 mm [facility] INTEM-LI60 99 93 - 100 % [facility] INTEM-ML 1 0 - 7 % [facility] Blood 04/22/2025 10:1 6 PM CDT 04/22/2025 10:25 PM CDT Adryan Blount MD LAB BLOOD ORDERABLES Sen baldev Result - Final [facility] [place] [address] * Thromboelastometry Panel - Fibrinogen (04/22/2025 10:16 PM CDT) FIBTEM-A5 10 5 - 16 mm FIBTEM-A10 12 6 - 17 mm [facility] FIBTEM-A20 13 6 - 18 mm [facility] FIBTEM-MCF 13 9 - 19 mm [facility] Blood 04/22/2025 10:1 6 PM CDT 04/22/2025 10:25 PM CDT Adryan Blount MD LAB BLOOD ORDERABLES Sen baldev Result - Final Performing Organization Address [facility] Co de Phone Number [facility] [place] [address] * Thromboelastometry Panel - Extrinsic (04/22/2025 10:16 PM CDT) EXTEM-CT 65 51 - 73 sec EXTEM-A5 45 33 - 52 mm [facility] EXTEM-A10 56 45 - 62 mm [facility] EXTEM-A20 64 54 - 69 mm [facility] EXTEM-MCF 66 57 - 72 mm [facility] EXTEM-LI60 98 94 - 100 % [facility] EXTEM-ML 3 0 - 6 % [facility] Blood 04/22/2025 10:1 6 PM CDT 04/22/2025 10:25 PM CDT Adryan Blount MD LAB BLOOD ORDERABLES Sen baldev Result - Final Performing Organization Address City/[facility]/ZIP Co de Phone Number [facility] [place] [address] * Potassium, whole blood (04/22/2025 10:16 PM CDT) Potassium, bld See Comment 3.3 - 4.9 Comment:Credited, hemolyzed specimen. Blood 04/22/2025 10:1 6 PM CDT 04/22/2025 10:27 PM CDT us Kal Zazueta MD LAB BLOOD ORDERABLES Final Result Performing Organization Address [facility] Co de Phone Number [facility] [place] [place] [address] * eGFR (04/22/2025 10:16 PM CDT) eGFR 73 >=60 mL/min/1. 73 m2 Comment: Interpretive Data Reference Interval Normal >/= 90 mL/min/1.73m2 Mildly decreased* 60 - 89 mL/min/1.73m2 Mildly to moderately decreased 45 - 59 mL/min/1.73m2 Moderately to severely decreased 30 - 44 mL/min/1.73m2 Severely decreased 15 - 29 mL/min/1.73m2 Kidney Failure < 15 mL/min/1.73m2 *Relative to young adult level Estimated glomerular filtration rate is determined by the 2020 CKD-EPI equation recommended by the National Kidney Foundation (A Unifying Approach to GFR Estimation: Recommendations of the NKF-ASK Task Force on Reassessing the Inclusion of Race in Diagnosing Kidney Disease, JASN 2020). The CKD-EPI equation should not be used for patients with unstable renal function and has not been validated in children and those over 70. Current interpretive data was last reviewed 2021. Blood 04/22/2025 10:1 6 PM CDT 04/22/2025 10:30 PM CDT us Adryan Blount MD LAB BLOOD ORDERABLES Fin al Result Performing Organization Address [facility]/ZIP Co de Phone Number [facility] [place] [address] * Differential, auto (04/22/2025 10:16 PM CDT) Neutrophil abs 4.80 1.50 - 6.50 K/cumm Imm gran abs 0.05 0.00 - 0.10 K/cumm [facility] Lymphocyte abs 1.81 0.80 - 3.30 K/cumm [facility] Monocyte abs 0.71 0.20 - 0.80 K/cumm [facility] Eosinophil abs 0.13 0.00 - 0.50 K/cumm [facility] Basophil abs 0.06 0.00 - 0.10 K/cumm [facility] Neutrophil pct 63.5 % [facility] Comment: Interpretive Data Percent cell count reference ranges are not reported, since discordance with absolute values may lead to misinterpretation of CBC data. Current Interpretive Data was last revised on 2018. Imm gran pct 0.7 % [facility] Comment: Interpretive Data Percent cell count reference ranges are not reported, since discordance with absolute values may lead to misinterpretation of CBC data. Current Interpretive Data was last revised on 2018. Lymphocyte pct 23.9 % [facility] Comment: Interpretive Data Percent cell count reference ranges are not reported, since discordance with absolute values may lead to misinterpretation of CBC data. Current Interpretive Data was last revised on 2018. Monocyte pct 9.4 % [facility] Comment: Interpretive Data Percent cell count reference ranges are not reported, since discordance with absolute values may lead to misinterpretation of CBC data. Current Interpretive Data was last revised on 2018. Eosinophil pct 1.7 % [facility] Comment: Interpretive Data Percent cell count reference ranges are not reported, since discordance with absolute values may lead to misinterpretation of CBC data. Current Interpretive Data was last revised on 2018. Basophil pct 0.8 % [facility] Comment: Interpretive Data Percent cell count reference ranges are not reported, since discordance with absolute values may lead to misinterpretation of CBC data. Current Interpretive Data was last revised on 2018. Blood 04/22/2025 10:1 6 PM CDT 04/22/2025 10:29 PM CDT Adryan Blount MD LAB BLOOD ORDERABLES Fin al Result Performing Organization Address [facility] de Phone Number [facility] Department [place] [address] * CBC with auto differential (04/22/2025 10:16 PM CDT) [facility] WBC 7.56 3.80 - 9.90 K/cumm Hgb 12.5 11.9 - 15.5 g/dL [facility] Hct 36.4 35.6 - 45.5 % [facility] Plt 255 150 - 400 K/cumm [facility] MPV 9.5 9.1 - 12.3 fL [facility] RBC 3.98 3.90 - 5.20 M/cumm [facility] MCV 91.5 81.3 - 96.4 fL [facility] MCH 31.4 27.1 - 33.3 pg [facility] MCHC 34.3 32.3 - 35.7 g/dL [facility] RDW CV 13.9 11.1 - 14.9 % [facility] RDW SD 47.4 35.7 - 48.1 fL [facility] NRBC abs 0.00 0.00 - 0.01 K/cumm [facility] Blood 04/22/2025 10:1 6 PM CDT 04/22/2025 10:29 PM CDT Adryan Blount MD LAB BLOOD ORDERABLES Fin al Result Performing Organization Address [facility] Co de Phone Number [facility] Department [place] [address] * (ABNORMAL) aPTT (04/22/2025 10:16 PM CDT) Pathologist [facility] aPTT 25(L) 28 - 38 sec Comment: Interpretive Data Heparin therapeutic range: 66.0 - 100.0 seconds. Range based on correlation with therapeutic heparin activity range of 0.3 - 0.7 Units/mL. Current interpretive data was last revised on 2023. Blood 04/22/2025 10:1 6 PM CDT 04/22/2025 10:37 PM CDT Result [facility] Adryan Blount MD LAB BLOOD ORDERABLES Fin al Result Performing Organization Address [facility] de Phone Number [facility] [place] [address] * Protime-INR (04/22/2025 10:16 PM CDT) PT 10.4 9.7 - 13.0 sec INR 0.96 0.90 - 1.20 [facility] Comment: Interpretive data Oral anticoagulant therapeutic ranges: Venous thromboembolism prophylaxis or treatment: 2.0-3.0 CARDIOLOGY Standard range: 2.0-3.0 High-intensity range: 2.5-3.5 Refer to indication-specific guidelines for appropriate target ranges for prosthetic heart valve replacement. Current interpretive data was last revised on 2019. Blood 04/22/2025 10:1 6 PM CDT 04/22/2025 10:37 PM CDT Result [facility] Adryan Blount MD LAB BLOOD ORDERABLES Fin al Result Performing Organization Address [facility] de Phone Number [facility] [place] [address] * Type and screen (04/22/2025 10:16 PM CDT) ABO Rh A Positive James, indirect Negative [facility] Blood 04/22/2025 10:1 6 PM CDT 04/22/2025 10:34 PM CDT Narrative [facility] - 04/22/2025 11:56 PM CDT Has the patient had Daratumumab or Isatuximab in the past 6 months?->Unknown Result [facility] Adryan Blount MD LAB BLOOD BANK TEST ORDE RABLES Final Result Performing Organization Address [facility] Co de Phone Number [facility] [place] [address] * (ABNORMAL) Ethanol (04/22/2025 10:16 PM CDT) Pathologist [facility] Ethanol 238(H) <=10 mg/dL Comment: Interpretive Data Legal limit of intoxication > or = 80 mg/dL Levels > or = 400 mg/dL are potentially TOXIC. Current interpretive data was last revised on 2019. Blood 04/22/2025 10:1 6 PM CDT 04/22/2025 10:30 PM CDT Adryan Blount MD LAB BLOOD ORDERABLES Fin al Result Performing Organization Address [facility] de Phone Number [facility] [place] [address] * (ABNORMAL) Comprehensive metabolic panel (04/22/2025 10:16 PM CDT) [facility] Sodium 135 135 - 145 mmol/L Potassium, pl 3.8 3.3 - 4.9 mmol/L [facility] Chloride 99 97 - 110 mmol/L [facility] CO2 21(L) 22 - 32 mmol/L [facility] Anion gap 15 2 - 15 mmol/L [facility] BUN 9 6 - 25 mg/dL [facility] Creatinine 0.46(L) 0.60 - 1.10 mg/dL [facility] Glucose 107 70 - 199 mg/dL [facility] Comment: Interpretive Data Fasting glucose >/= 126 mg/dl is diagnostic for diabetes. Fasting is defined as no caloric intake for at least 8 hours. Fasting glucose between 100 mg/dl to 125 mg/dl is diagnostic of prediabetes. In a patient with classic symptoms of hyperglycemia or hyperglycemic crisis, a random glucose >/= 200 mg/dl is diagnostic for diabetes. In the absence of unequivocal hyperglycemia, results should be confirmed by repeat testing. The classification and Diagnosis of Diabetes Diabetes Care 202; 46: S19-S40. Current interpretive data was last revised 2022. Calcium 9.0 8.5 - 10.3 mg/dL [facility] Bilirubin, total <0.2 0.1 - 1.2 mg/dL [facility] Protein, pl 7.3 6.5 - 8.5 g/dL [facility] Albumin 4.2 3.5 - 5.0 g/dL [facility] Alk phos 72 40 - 130 Units/L [facility] ALT 21 7 - 45 Units/L [facility] AST 29 10 - 45 Units/L [facility] Blood 04/22/2025 10:1 6 PM CDT 04/22/2025 10:30 PM CDT us Adryan Blount MD LAB BLOOD ORDERABLES Fin al Result [facility] [place] [address] * (ABNORMAL) POC Blood Gas and Chemistries, Venous - (04/22/2025 10:12 PM CDT) pH, Jacquelin POC 7.32 7.32 - 7.43 pCO2, jacquelin POC 33(L) 40 - 50 mmHg [facility] pO2, jacquelin POC 39 mmHg [facility] Na, POC 142 135 - 145 mmol/L [facility] K POC 2.4(C) 3.3 - 4.9 mmol/L [facility] Comment: Interpretive Data Not all point of care methods assess for hemolysis. Confirm with instrument and retest K+ if not consistent with clinical signs and symptoms. Current Interpretive Data was last revised on 2024. Cl, POC 114(H) 97 - 110 mmol/L [facility] Ionized Ca, POC 3.69(L) 4.50 - 5.10 mg/dL [facility] Glucose, POC 81 70 - 199 mg/dL [facility] Lactate POC 1.7 0.7 - 2.0 mmol/L [facility] MetHb, Jacquelin POC <0.1 0.0 - 1.9 % [facility] O2 Sat, Jacquelin POC (Viviane) 62 % [facility] Base excess, POC -8.2 mmol/L [facility] Hct, POC 29.0(L) 36.3 - 45.3 % [facility] Total Hb, POC 9.7(L) 11.9 - 15.5 g/dL [facility] Blood 04/22/2025 10:1 2 PM CDT 04/22/2025 10:12 PM CDT us Adryan Blount MD LAB POCT ORDERABLES - DE VICE Final Result [facility] [place] [address] from Last 3 Months Insurance MEDICARE [facility] Address: [facility] [address] [place] [address] [employer] [facility] Address: [facility] [address] [place] [address] [facility] Care Teams [employer] In[employer] Relationship Specialty Start Date End Date No, Physician PCP - General 04/22/25 Jaison aWlton MD [address] [place] [id number] 04/22/25
--- OUTSIDE RECORDS SUMMARY | 2025-06-06 08:02 | XMS_ITS | Clinical Summary ---
Author Organization [facility] Address [address] [place] [address] Care Team Providers Care Erp Technical Lead Name Role Phone No, Physician Primary Care Provider [phone] Jaison Walton MD Unavailable [phone] Allergies Active Allergy Reactions Criticality Noted Date Comments Iodine Rash Medium Shellfish Itching Low 05/26/2020 Shellfish Derived Rash Medium Awmpnwj-Pip-Ocb Reductase Inhibitors Other (See comments) Low 03/05/2023 [...] Department Care Team Description 05/09/2025 Results Follow-Up [facility] Cardiology [address] [place] [address] [address] [place] [address] Toño Rojo MD Transthoracic Echo (TTE) Complete W Doppler/CF 05/04/2025 9:15 AM CDT Ancillary Procedure [facility] Cardiology at [address] [place] [phone] Aortic atherosclerosis; Primary hypertension; SOB (shortness of breath) 04/25/2025 Telephone [facility] Emergency Department [address] [place] [address] Bethel Guevara RN 04/22/2025 10:02 PM CDT - 04/23/2025 1:51 AM CDT Emergency [facility] Emergency Department [address] [place] [phone] Adryan Blount MD Siegler, Jeffrey Evan, MD Fall, initial encounter (Primary Dx); Head injury, initial encounter; Laceration of forehead, initial encounter; Alcoholic intoxication without complication Discharge Disposition: Discharge to home or self care 04/21/2025 10:45 AM CDT Office Visit [facility] Cardiology [address] [place] [address] [place] [phone] Toño Rojo MD Aortic atherosclerosis (Primary Dx); Hyperlipidemia LDL goal <70; Primary hypertension; Alcohol abuse; Gastroesophageal reflux disease without esophagitis; SOB (shortness of breath) 04/21/2025 Orders Only [facility] Cardiology [address] [place] [address] [address] [place] [address] Provider, MD Zuleima from Last 3 Months Immunizations Immunization Administration Dates Next Due Tdap 04/22/2025 Surgical History Surgery Date Site/Laterality Comments BREAST [...] Celestina Cummings Heart disease Sister 1 Celestina Moody) Niranjan Heart disease Sister 2 Celestina Moody) Niranjan Relation Name Status Comments Father Glen Cummings Alive Mother Celestina Cummings Alive Sister 1 Celestina Moody) Niranjan Sister 2 Celestina Moody) Niranjan Alive Social History Tobacco Use Types [...] on file 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 Gender Identity Female 08/16/2020 12:31 PM CDT [...] Vaccine (3 of 3) 12/24/2019 10/29/2019, 04/30 Influenza Vaccine (#1) 2025 9, 08/07/2017, 09/28/2016, Additional history exists DTaP/Tdap/Td Vaccine (3 - Td or Tdap) 04/22/2035 04/22/2025, 11/19/2010 Pneumococcal vaccine 65+ Completed 015, 12/18/2008, 08/27/2007 [...] AM CDT Narrative 05/05/2025 12:44 PM CDT [facility] Cardiology [address], [address], [place] [address] P:[phone] P:[phone] Echocardiographic Report Patient Name: MARYELLEN SANDOVAL C [...] FINDINGS: Interpretation Site: Exam was interpreted at [facility]. Left Ventricle: Normal left ventricular size. Normal [...] change. Electronically Signed By: Jaison Hunter MD, [facility] 05/05/2025 12:43:19 PM CDT Procedure Note Jaison Hunter MD - 05/05/2025 [facility] Cardiology [address] [facility], [address], [place] [address] P:[phone] P:[phone] Echocardiographic Report Patient Name: MARYELLEN SANDOVAL C [...] FINDINGS: Interpretation Site: Exam was interpreted at [facility]. Left Ventricle: Normal left ventricular size. Normal [...] change. Electronically Signed By: Jaison Hunter MD, [facility] 05/05/2025 12:43:19 PM CDT Toño Rojo MD [...] accounted for: yes Three 4-0 Vicryl Rapide [id number]-gdzcr sutures placed to stop bleeding. Five deep 4-0 Monocryl simple interrupted sutures, Five 4-0 Vicryl Rapide simple interrupted superficial sutures, eight 4-0 Vicryl Rapide horizontal mattress sutures placed. Rey Parsons MD IN CLINIC/BEDSIDE ORDERA BLES Final Result * Potassium, whole blood (04/23/2025 1:29 AM CDT) Potassium, bld 4.0 3.3 - 4.9 mmol/L Blood 04/23/2025 1:29 AM CDT 04/23/2025 1:36 AM CDT us Kal Zazueta MD LAB BLOOD ORDERABLES Final Result [facility] Department [place] [address] * CT Recon Thoracic and Lumbar Spine [...] Electronically signed by: Robert Bundy M.D. Kal Zazueta MD IMG CT PROCEDURES Final [...] related to aspiration. Dictated by: Jose Guadalupe Daiz MD The radiology attending physician has personally [...] 5 PM CDT 04/22/2025 10:25 PM CDT us Rey Parsons MD LAB POCT ORDERABLES - DE VICE Final Result [facility] Department [place] [address] * Chest xray, 1 view, portable (04/22/2025 [...] baldev Result - Final Performing Organization Address [facility] Co de Phone Number [facility] [place] [address] * Thromboelastometry Panel - Intrinsic (04/22/2025 10:16 [...] BLOOD ORDERABLES Sen baldev Result - Final [facility] [place] [address] * Thromboelastometry Panel - Fibrinogen (04/22/2025 10:16 PM CDT) FIBTEM-A5 10 5 - 16 mm FIBTEM-A10 12 6 - 17 mm [facility] FIBTEM-A20 13 6 - 18 mm [facility] FIBTEM-MCF 13 9 - 19 mm [facility] Blood 04/22/2025 10:1 6 PM CDT 04/22/2025 10:25 PM CDT Adryan Blount MD LAB BLOOD ORDERABLES Sen baldev Result - Final Performing Organization Address City/[facility] Co de Phone Number [facility] [place] [address] * Thromboelastometry Panel - Extrinsic (04/22/2025 10:16 PM CDT) [facility] EXTEM-CT 65 51 - 73 sec EXTEM-A5 45 33 - 52 mm [facility] EXTEM-A10 56 45 - 62 mm [facility] EXTEM-A20 64 54 - 69 mm [facility] EXTEM-MCF 66 57 - 72 mm [facility] EXTEM-LI60 98 94 - 100 % [facility] EXTEM-ML 3 0 - 6 % [facility] Blood 04/22/2025 10:1 6 PM CDT 04/22/2025 10:25 PM CDT Adryan Blount MD LAB BLOOD ORDERABLES Sen baldev Result - Final Performing Organization Address City/State/[facility] Co de Phone Number [facility] [place] [address] * Potassium, whole blood (04/22/2025 10:16 PM CDT) Pathologist [facility] Potassium, bld See Comment 3.3 - 4.9 Comment:Credited, hemolyzed specimen. Blood 04/22/2025 10:1 6 PM CDT 04/22/2025 10:27 PM CDT us Kal Zazueta MD LAB BLOOD ORDERABLES Final Result Performing Organization Address [facility] de Phone Number [facility] Department [place] [address] * eGFR (04/22/2025 10:16 PM CDT) eGFR [...] ORDERABLES Fin al Result Performing Organization Address [facility] Co de Phone Number [facility] Department [place] [address] * Differential, auto (04/22/2025 10:16 PM CDT) Neutrophil abs 4.80 1.50 - 6.50 K/cumm Imm gran abs 0.05 0.00 - 0.10 K/cumm [facility] Lymphocyte abs 1.81 0.80 - 3.30 K/cumm [facility] Monocyte abs 0.71 0.20 - 0.80 K/cumm [facility] Eosinophil abs 0.13 0.00 - 0.50 K/cumm [facility] Basophil abs 0.06 0.00 - 0.10 K/cumm [facility] Neutrophil pct 63.5 % [facility] Comment: Interpretive Data Percent cell count reference ranges are not reported, since discordance with absolute values may lead to misinterpretation of CBC data. Current Interpretive Data was last revised on 2018. Imm gran pct 0.7 % [facility] Comment: Interpretive Data Percent cell count reference ranges are not reported, since discordance with absolute values may lead to misinterpretation of CBC data. Current Interpretive Data was last revised on 2018. Lymphocyte pct 23.9 % [facility] Comment: Interpretive Data Percent cell count reference ranges are not reported, since discordance with absolute values may lead to misinterpretation of CBC data. Current Interpretive Data was last revised on 2018. Monocyte pct 9.4 % [facility] Comment: Interpretive Data Percent cell count reference ranges are not reported, since discordance with absolute values may lead to misinterpretation of CBC data. Current Interpretive Data was last revised on 2018. Eosinophil pct 1.7 % [facility] Comment: Interpretive Data Percent cell count reference ranges are not reported, since discordance with absolute values may lead to misinterpretation of CBC data. Current Interpretive Data was last revised on 2018. Basophil pct 0.8 % [facility] Comment: Interpretive Data Percent cell count reference ranges are not reported, since discordance with absolute values may lead to misinterpretation of CBC data. Current Interpretive Data was last revised on 2018. Blood 04/22/2025 10:1 6 PM CDT 04/22/2025 10:29 PM CDT us Adryan Blount MD LAB BLOOD ORDERABLES Fin al Result [facility] Department [place] [address] * CBC with auto differential (04/22/2025 10:16 PM CDT) [facility] WBC 7.56 3.80 - 9.90 K/cumm Hgb 12.5 11.9 - 15.5 g/dL [facility] Hct 36.4 35.6 - 45.5 % [facility] Plt 255 150 - 400 K/cumm [facility] MPV 9.5 9.1 - 12.3 fL [facility] RBC 3.98 3.90 - 5.20 M/cumm [facility] MCV 91.5 81.3 - 96.4 fL [facility] MCH 31.4 27.1 - 33.3 pg [facility] MCHC 34.3 32.3 - 35.7 g/dL [facility] RDW CV 13.9 11.1 - 14.9 % [facility] RDW SD 47.4 35.7 - 48.1 fL [facility] NRBC abs 0.00 0.00 - 0.01 K/cumm [facility] Blood 04/22/2025 10:1 6 PM CDT 04/22/2025 10:29 PM CDT Adryan Blount MD LAB BLOOD ORDERABLES Fin al Result Performing Organization Address [facility] Co de Phone Number [facility] Department [place] [address] * (ABNORMAL) aPTT (04/22/2025 10:16 PM CDT) [facility] aPTT 25(L) 28 - 38 sec Comment: Interpretive Data Heparin therapeutic range: 66.0 - 100.0 seconds. Range based on correlation with therapeutic heparin activity range of 0.3 - 0.7 Units/mL. Current interpretive data was last revised on 2023. Blood 04/22/2025 10:1 6 PM CDT 04/22/2025 10:37 PM CDT Adryan Blount MD LAB BLOOD ORDERABLES Fin al Result Performing Organization Address City/State/[facility] Co de Phone Number [facility] [place] [address] * Protime-INR (04/22/2025 10:16 PM CDT) Pathologist [facility] PT 10.4 9.7 - 13.0 sec INR 0.96 0.90 - 1.20 [facility] Comment: Interpretive data Oral anticoagulant therapeutic ranges: Venous thromboembolism prophylaxis or treatment: 2.0-3.0 CARDIOLOGY Standard range: 2.0-3.0 High-intensity range: 2.5-3.5 Refer to indication-specific guidelines for appropriate target ranges for prosthetic heart valve replacement. Current interpretive data was last revised on 2019. Blood 04/22/2025 10:1 6 PM CDT 04/22/2025 10:37 PM CDT Adryan Blount MD LAB BLOOD ORDERABLES Fin al Result Performing Organization Address [facility] [place] [place] [address] * Type and screen (04/22/2025 10:16 PM CDT) Pathologist [facility] ABO Rh A Positive James, indirect Negative [facility] Blood 04/22/2025 10:1 6 PM CDT 04/22/2025 10:34 PM CDT Narrative [facility] - 04/22/2025 11:56 PM CDT Has the patient had Daratumumab or Isatuximab in the past 6 months?->Unknown Adryan Blount MD LAB BLOOD BANK TEST ORDE RABLES Final Result Performing Organization Address [facility] [place] [address] * (ABNORMAL) Ethanol (04/22/2025 10:16 PM CDT) Pathologist [facility] Ethanol 238(H) <=10 mg/dL Comment: Interpretive Data Legal limit of intoxication > or = 80 mg/dL Levels > or = 400 mg/dL are potentially TOXIC. Current interpretive data was last revised on 2019. Blood 04/22/2025 10:1 6 PM CDT 04/22/2025 10:30 PM CDT us Adryan Blount MD LAB BLOOD ORDERABLES Fin al Result [facility] Department [place] [address] * (ABNORMAL) Comprehensive metabolic panel (04/22/2025 10:16 PM CDT) Sodium 135 135 - 145 mmol/L Potassium, pl 3.8 3.3 - 4.9 mmol/L [facility] Chloride 99 97 - 110 mmol/L [facility] CO2 21(L) 22 - 32 mmol/L [facility] Anion gap 15 2 - 15 mmol/L [facility] BUN 9 6 - 25 mg/dL [facility] Creatinine 0.46(L) 0.60 - 1.10 mg/dL [facility] Glucose 107 70 - 199 mg/dL [facility] Comment: Interpretive Data Fasting glucose >/= 126 [...] classification and Diagnosis of Diabetes Diabetes Care 2021; 46: S19-S40. Current interpretive data was last revised 2022. Calcium 9.0 8.5 - 10.3 mg/dL [facility] Bilirubin, total <0.2 0.1 - 1.2 mg/dL [facility] Protein, pl 7.3 6.5 - 8.5 g/dL [facility] Albumin 4.2 3.5 - 5.0 g/dL [facility] Alk phos 72 40 - 130 Units/L [facility] ALT 21 7 - 45 Units/L [facility] AST 29 10 - 45 Units/L [facility] Blood 04/22/2025 10:1 6 PM CDT 04/22/2025 10:30 PM CDT us Adryan Blount MD LAB BLOOD ORDERABLES Fin al Result [facility] Department [place] [address] * (ABNORMAL) POC Blood Gas and Chemistries, Venous - (04/22/2025 10:12 PM CDT) pH, Jacquelin POC 7.32 7.32 - 7.43 pCO2, jacquelin POC 33(L) 40 - 50 mmHg [facility] pO2, jacquelin POC 39 mmHg [facility] Na, POC 142 135 - 145 mmol/L [facility] K POC 2.4(C) 3.3 - 4.9 mmol/L [facility] Comment: Interpretive Data Not all point of care methods assess for hemolysis. Confirm with instrument and retest K+ if not consistent with clinical signs and symptoms. Current Interpretive Data was last revised on 2024. Cl, POC 114(H) 97 - 110 mmol/L [facility] Ionized Ca, POC 3.69(L) 4.50 - 5.10 mg/dL [facility] Glucose, POC 81 70 - 199 mg/dL [facility] Lactate POC 1.7 0.7 - 2.0 mmol/L [facility] MetHb, Jacquelin POC <0.1 0.0 - 1.9 % [facility] O2 Sat, Jacquelin POC (Viviane) 62 % [facility] Base excess, POC -8.2 mmol/L [facility] Hct, POC 29.0(L) 36.3 - 45.3 % [facility] Total Hb, POC 9.7(L) 11.9 - 15.5 g/dL [facility] Blood 04/22/2025 10:1 2 PM CDT 04/22/2025 10:12 PM CDT us Adryan Blount MD LAB POCT ORDERABLES - DE VICE Final Result [facility] [place] [address] from Last 3 Months Insurance MEDICARE [facility] [employer] [facility] Care Teams Erp Technical Lead Relationship Specialty Start Date End Date No, Physician PCP - General 04/22/25 Jaison Walton MD [address] [place] [address] 04/22/25
== END 2025-06-06 07:59 | disposition home or self-care (01) ==
PROVIDERS: PCP Emergency Medicine; Visit Provider Nurse Practitioner
DX: R10.11 Right upper quadrant pain (principal)
CPT/HCPCS: 78227; A9537; J2805

== ENCOUNTER 2025-06-21 09:26 | Outpatient (CLI) | payer MEDICARE, OTHER, SELFPAY ==
--- NOTE | ~2025-06-21 | US_ITS ---
Limited Abdominal Sonogram: Real-time sonographic imaging of the right upper quadrant was performed. Clinical History: Right upper quadrant pain Findings: The liver appears normal with no evidence of mass lesion or bile duct dilatation. Main por sahra vein demonstrates normal direction of flow. The gallbladder is well distended, and demonstrates p robable tiny gallbladder wall polyps. The common bile duct measures 4 mm. The visualized pancreas, a brad, and IVC are unremarkable. Impression: Probable tiny gallbladder wall polyps. Reviewed, dictated and finalized at location M. Impression: Probable tiny gallbladder wall polyps.
--- OUTSIDE RECORDS SUMMARY | 2025-06-21 09:47 | XMS_ITS | Encounter Summary ---
Author Organization [facility] Address [address] [place] [address] Care Team Providers Care Converter Skimmer Name Role Phone No, Physician Primary Care Provider [phone] Jaison Walton MD Unavailable Encounter Details Date Type Department Care Team (Latest Contact Info) Description 05/09/2025 Results Follow-Up [facility] Cardiology [address] [place] [address] Adin Rojo MD [address] [facility] [place] [address] [facility], [place] [address] [place] [address] Transthoracic Echo (TTE) Complete W [...] on file 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
--- OUTSIDE RECORDS SUMMARY | 2025-06-21 09:47 | XMS_ITS | Clinical Summary ---
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 Gender Identity Not on file Sexual Orientation Not on file Plan of Treatment Health Maintenance Due Date Last Done Comments Hepatitis C Virus (HCV) Screening 1945 TdaP Immunization 1945 Pneumococcal Immunization (50+ years) (2 of 2 - PCV) 08/20/2016 08/20/2015, 12/18/2008 Respiratory Syncytial Virus (RSV) Immunization (Adult) (1 - 1-dose 75+ series) 2022 SARS-COV-2 Immunization (3 - season) 2024 02/04/2021, 01/14/2021 Influenza Immunization (#1) 07/18/202508/18, 08/15/2019, 09/30/2018, Additional history exists Pneumococcal Immunization Combined Discontinued 08/20/2015, 12/18/2008 Zoster Immunization Completed 08/01/2020, 9 Hepatitis B Immunization Aged Out No longer eligible based on patient's age to complete this topic Human Papillomavirus (HPV) Immunization Aged Out No longer eligible based on patient's age to complete this topic Meningococcal Immunization (ACWY) Aged Out No longer eligible based on patient's age to complete this topic Rotavirus Immunization Aged Out No lo nger eligible based on patient's age to complete this topic
--- OUTSIDE RECORDS SUMMARY | 2025-06-21 09:47 | XMS_ITS | Clinical Summary ---
Author Organization [facility] Address [address] [place] [address] Care Team Providers Care Debt Management Counselor Name Role Phone No, Physician Primary Care Provider [phone] Jaison Walton MD Unavailable [phone] Allergies Active Allergy Reactions Criticality Noted Date Comments Iodine Rash Medium Shellfish Itching Low 05/26/2020 Shellfish Derived Rash Medium Ohodiwj-Bew-Eui Reductase Inhibitors Other (See comments) Low 03/05/2023 [...] Department Care Team Description 05/09/2025 Results Follow-Up [facility] Cardiology [address] [place] [address] [address] [place] [address] Toño Rojo MD Transthoracic Echo (TTE) Complete W Doppler/CF 05/04/2025 9:15 AM CDT Ancillary Procedure [facility] Cardiology at [address] [place] [phone] Aortic atherosclerosis; Primary hypertension; SOB (shortness of breath) 04/25/[address] [facility] Emergency Department [address] [place] [address] Bethel Guevara RN 04/22/2025 10:02 PM CDT - 04/23/2025 1:[address] [facility] Emergency Department [address] [place] [phone] Adryan Blount MD Siegler, Jeffrey Evan, MD Fall, initial encounter (Primary Dx); Head injury, initial encounter; Laceration of forehead, initial encounter; Alcoholic intoxication without complication Discharge Disposition: Discharge to home or self care 04/21/2025 10:45 AM CDT Office Visit [facility] Cardiology [address] [place] [address] [place] [phone] Toño Rojo MD Aortic atherosclerosis (Primary Dx); Hyperlipidemia LDL goal <70; Primary hypertension; Alcohol abuse; Gastroesophageal reflux disease without esophagitis; SOB (shortness of breath) 04/21/2025 Orders Only [facility] Cardiology [address] [place] [address] [address] [place] [address] Provider, MD Zuleima from Last 3 Months [...] on file 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 Left Ventricle: Normal left ventricular size. Normal [...] change. Electronically Signed By: Jaison Hunter MD, [facility] 05/05/2025 12:43:19 PM CDT Procedure Note Jaison Hunter MD - 05/05/2025 [facility] Cardiology [address], [address], [place] [address] P:[phone] P:[phone] Echocardiographic Report Patient Name: MARYELLEN SANDOVAL C [...] FINDINGS: Interpretation Site: Exam was interpreted at [facility]. Left Ventricle: Normal left ventricular size. Normal [...] change. Electronically Signed By: Jaison Hunter MD, [facility] 05/05/2025 12:43:19 PM CDT Toño Rojo MD [...] accounted for: yes Three 4-0 Vicryl Rapide ggufon-fm-gviji sutures placed to stop bleeding. Five deep [...] MD LAB BLOOD ORDERABLES Final Result [facility] [place] [address] * CT Recon Thoracic and Lumbar Spine [...] POCT ORDERABLES - DE VICE Final Result [facility] [place] [address] * Chest xray, 1 view, portable (04/22/2025 [...] - Final Performing Organization Address [facility] Co de Phone Number [facility] [place] [address] * Thromboelastometry Panel - Intrinsic [...] BLOOD ORDERABLES Sen baldev Result - Final [facility] [place] [address] * Thromboelastometry Panel - Fibrinogen (04/22/2025 10:16 PM CDT) FIBTEM-A5 10 5 - 16 mm FIBTEM-A10 12 6 - 17 mm [facility] FIBTEM-A20 13 6 - 18 mm [facility] FIBTEM-MCF 13 9 - 19 mm [facility] Blood 04/22/2025 10:1 6 PM CDT 04/22/2025 10:25 PM CDT Adryan Blount MD LAB BLOOD ORDERABLES Sen baldev Result - Final Performing Organization Address City/[facility] Co de Phone Number [facility] [place] [address] * Thromboelastometry Panel - Extrinsic (04/22/2025 10:16 PM CDT) [facility] EXTEM-CT 65 51 - 73 sec EXTEM-A5 [...] baldev Result - Final Performing Organization Address City/State/[facility] Co de Phone Number [facility] [place] [address] * Potassium, whole blood (04/22/2025 10:16 PM CDT) Pathologist [facility] Potassium, bld See Comment 3.3 - 4.9 Comment:Credited, hemolyzed specimen. Blood 04/22/2025 10:1 6 PM CDT 04/22/2025 10:27 PM CDT us Kal Zazueta MD LAB BLOOD ORDERABLES Final Result Performing Organization Address [facility] de Phone Number [facility] [place] [address] * eGFR (04/22/2025 10:16 PM CDT) eGFR [...] al Result Performing Organization Address [facility] Co de Phone Number [facility] [place] [address] * Differential, auto (04/22/2025 10:16 PM CDT) Neutrophil abs 4.80 1.50 - 6.50 K/cumm Imm gran abs 0.05 0.00 - 0.10 K/cumm [facility] Lymphocyte abs 1.81 0.80 - 3.30 K/cumm [facility] Monocyte abs 0.71 0.20 - 0.80 K/cumm [facility] Eosinophil abs 0.13 0.00 - 0.50 K/cumm [facility] Basophil abs 0.06 0.00 - 0.10 K/cumm [facility] Neutrophil pct 63.5 % [facility] Comment: Interpretive Data Percent cell count reference ranges are not reported, since discordance with absolute values may lead to misinterpretation of CBC data. Current Interpretive Data was last revised on 2018. Imm gran pct 0.7 % [facility] Comment: Interpretive Data Percent cell count reference ranges are not reported, since discordance with absolute values may lead to misinterpretation of CBC data. Current Interpretive Data was last revised on 2018. Lymphocyte pct 23.9 % [facility] Comment: Interpretive Data Percent cell count reference ranges are not reported, since discordance with absolute values may lead to misinterpretation of CBC data. Current Interpretive Data was last revised on 2018. Monocyte pct 9.4 % [facility] Comment: Interpretive Data Percent cell count reference ranges are not reported, since discordance with absolute values may lead to misinterpretation of CBC data. Current Interpretive Data was last revised on 2018. Eosinophil pct 1.7 % [facility] Comment: Interpretive Data Percent cell count reference ranges are not reported, since discordance with absolute values may lead to misinterpretation of CBC data. Current Interpretive Data was last revised on 2018. Basophil pct 0.8 % [facility] Comment: Interpretive Data Percent cell count reference ranges are not reported, since discordance with absolute values may lead to misinterpretation of CBC data. Current Interpretive Data was last revised on 2018. Blood 04/22/2025 10:1 6 PM CDT 04/22/2025 10:29 PM CDT us Adryan Blount MD LAB BLOOD ORDERABLES Fin al Result [facility] [place] [address] * CBC with auto differential (04/22/2025 10:16 PM CDT) [facility] WBC 7.56 3.80 - 9.90 K/cumm Hgb 12.5 11.9 - 15.5 g/dL [facility] Hct 36.4 35.6 - 45.5 % [facility] Plt 255 150 - 400 K/cumm [facility] MPV 9.5 9.1 - 12.3 fL [facility] RBC 3.98 3.90 - 5.20 M/cumm [facility] MCV 91.5 81.3 - 96.4 fL [facility] MCH 31.4 27.1 - 33.3 pg [facility] MCHC 34.3 32.3 - 35.7 g/dL [facility] RDW CV 13.9 11.1 - 14.9 % [facility] RDW SD 47.4 35.7 - 48.1 fL [facility] NRBC abs 0.00 0.00 - 0.01 K/cumm [facility] Blood 04/22/2025 10:1 6 PM CDT 04/22/2025 10:29 PM CDT Adryan Blount MD LAB BLOOD ORDERABLES Fin al Result Performing Organization Address [facility] Co de Phone Number [facility] [place] [address] * (ABNORMAL) aPTT (04/22/2025 10:16 PM CDT) [facility] aPTT 25(L) 28 - 38 sec Comment: Interpretive Data Heparin therapeutic range: 66.0 - 100.0 seconds. Range based on correlation with therapeutic heparin activity range of 0.3 - 0.7 Units/mL. Current interpretive data was last revised on 2023. Blood 04/22/2025 10:1 6 PM CDT 04/22/2025 10:37 PM CDT Adryan Blount MD LAB BLOOD ORDERABLES Fin al Result Performing Organization Address City/State/[facility] Co de Phone Number [place] [address] * Protime-INR (04/22/2025 10:16 PM CDT) Pathologist [facility] PT 10.4 9.7 - 13.0 sec INR 0.96 0.90 - 1.20 [facility] Comment: Interpretive data Oral anticoagulant [...] al Result Performing Organization Address [facility] [place] [address] * Type and screen (04/22/2025 10:16 PM CDT) Pathologist [facility] ABO Rh A Positive James, indirect Negative [facility] Blood 04/22/2025 10:1 6 PM CDT 04/22/2025 10:34 PM CDT Narrative [facility] - 04/22/2025 11:56 PM CDT Has the patient had Daratumumab or Isatuximab in the past 6 months?->Unknown Adryan Blount MD LAB BLOOD BANK TEST ORDE RABLES Final Result Performing Organization Address [facility] [place] [address] * (ABNORMAL) Ethanol (04/22/2025 10:16 PM CDT) Pathologist [facility] Ethanol 238(H) <=10 mg/dL Comment: Interpretive Data Legal limit of intoxication > or = 80 mg/dL Levels > or = 400 mg/dL are potentially TOXIC. Current interpretive data was last revised on 2019. Blood 04/22/2025 10:1 6 PM CDT 04/22/2025 10:30 PM CDT us Adryan Blount MD LAB BLOOD ORDERABLES Fin al Result [facility] [place] [address] * (ABNORMAL) Comprehensive metabolic panel (04/22/2025 10:16 PM CDT) Sodium 135 135 - 145 mmol/L Potassium, pl 3.8 3.3 - 4.9 mmol/L [facility] Chloride 99 97 - 110 mmol/L [facility] CO2 21(L) 22 - 32 mmol/L [facility] Anion gap 15 2 - 15 mmol/L [facility] BUN 9 6 - 25 mg/dL [facility] Creatinine 0.46(L) 0.60 - 1.10 mg/dL [facility] Glucose 107 70 - 199 mg/dL [facility] Comment: Interpretive Data Fasting glucose [...] 2022. Calcium 9.0 8.5 - 10.3 mg/dL [facility] Bilirubin, total <0.2 0.1 - 1.2 mg/dL [facility] Protein, pl 7.3 6.5 - 8.5 g/dL [facility] Albumin 4.2 3.5 - 5.0 g/dL [facility] Alk phos 72 40 - 130 Units/L [facility] ALT 21 7 - 45 Units/L [facility] AST 29 10 - 45 Units/L [facility] Blood 04/22/2025 10:1 6 PM CDT 04/22/2025 10:30 PM CDT us Adryan Blount MD LAB BLOOD ORDERABLES Fin al Result [facility] [place] [address] * (ABNORMAL) POC Blood Gas and Chemistries, Venous - (04/22/2025 10:12 PM CDT) pH, Jacquelin POC 7.32 7.32 - 7.43 pCO2, jacquelin POC 33(L) 40 - 50 mmHg [facility] pO2, jacquelin POC 39 mmHg [facility] Na, POC 142 135 - 145 mmol/L [facility] K POC 2.4(C) 3.3 - 4.9 mmol/L [facility] Comment: Interpretive Data Not all point of care methods assess for hemolysis. Confirm with instrument and retest K+ if not consistent with clinical signs and symptoms. Current Interpretive Data was last revised on 2024. Cl, POC 114(H) 97 - 110 mmol/L [facility] Ionized Ca, POC 3.69(L) 4.50 - 5.10 mg/dL [facility] Glucose, POC 81 70 - 199 mg/dL [facility] Lactate POC 1.7 0.7 - 2.0 mmol/L [facility] MetHb, Jacquelin POC <0.1 0.0 - 1.9 % [facility] O2 Sat, Jacquelin POC (Viviane) 62 % [facility] Base excess, POC -8.2 mmol/L [facility] Hct, POC 29.0(L) 36.3 - 45.3 % [facility] Total Hb, POC 9.7(L) 11.9 - 15.5 g/dL [facility] Blood 04/22/2025 10:1 2 PM CDT 04/22/2025 10:12 PM CDT us Adryan Blount MD LAB POCT ORDERABLES - DE VICE Final Result [facility] [place] [address] from Last 3 Months Insurance MEDICARE [facility] [employer] LIFE MEDICARE [facility] Care Teams Debt Management Counselor Relationship Specialty Start Date End Date No, Physician PCP - General 04/22/25 Jaison Walton MD [address] [place] [address] 04/22/25
--- OUTSIDE RECORDS SUMMARY | 2025-06-21 09:47 | XMS_ITS | Clinical Summary ---
Author Organization [facility] [email or web address] Address [address] [address] Care Team Providers Care Laundry Assistant Name Role Phone Unavailable Primary Care Provider Unavailabl e Source Comments [facility] [email or web address],non-owned Affiliates and Associated Physician Practices is amultiple site organization consisting of ambulatory clinics and hospital sitesin [place], [place], [place]. This disclosure is being madepursuant to the Care Everywhere program and may not contain all information available regarding this patient. 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 Gender Identity Not on file Sexual Orientation [...] ESTRADA Subscriber ID:Not on file (Home) Address: [address] [place] [address] Payer ID:Not on file Group ID:Not on file Type:Self Pay Address: [place], [place] MEDICARE Member Subscriber Plan / Payer (Ef fective for All Dates) Name:Elissa Cherry Member ID:[id number] Relation to Subscriber:Self Name:Elissa Cherry Subscriber ID:[id number] Payer ID:Not on file Group ID:Not on file Type:Medicare Address: [place] [phone] [facility] Member Subscriber Plan / Payer (Ef fective for All Dates) Name:Elissa Cherry Member ID:Not on file Relation to Subscriber:Self Name:Elissa Cherry Subscriber ID:Not on file Payer ID:[id number] (NAIC) Group ID:Not on file Type:[employer] Address: [place] [phone] MEDICARE Member Subscriber Plan / Payer (Ef fective for All Dates) Name:Elissa Cherry Member ID:[id number] Relation to Subscriber:Self Name:Elissa Cherry Subscriber ID:[id number] Payer ID:Not on file Group ID:Not on file Type:Medicare Address: [place] [phone] [facility]
--- OUTSIDE RECORDS SUMMARY | 2025-06-21 09:47 | XMS_ITS | Referral Summary ---
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 Phone No, Physician Primary Care Provider Jaison Walton MD Unavailable Encounters Date Type Department Care Team Description 05/09/2025 Results Follow-Up [facility] Cardiology [address] [address] [address] [place] [address] Toño Rojo MD Transthoracic Echo (TTE) Complete W Doppler/CF 05/04/2025 9:15 AM CDT Ancillary Procedure [facility] Cardiology at [address] [place] [address] Aortic atherosclerosis; Primary hypertension; SOB (shortness of breath) 04/25/2025 Telephone [facility] Emergency Department [address] [place] [address] Bethel Guevara RN 04/22/2025 10:02 PM CDT - 04/23/2025 1:51 AM CDT Emergency [facility] Emergency Department [address] [place] [address] Adryan Blount MD Siegler, Jeffrey Evan, MD Fall, initial encounter (Primary Dx); Head injury, initial encounter; Laceration of forehead, initial encounter; Alcoholic intoxication without complication Discharge Disposition: Discharge to home or self care 04/21/2025 Orders Only [facility] Cardiology [address] [place] [address] ProviderZuleima MD 04/21/2025 10:45 AM CDT Office Visit [facility] Cardiology [address] [place] [address] Toño Rojo MD Aortic atherosclerosis (Primary Dx); Hyperlipidemia LDL goal <70; Primary hypertension; Alcohol abuse; Gastroesophageal reflux disease without esophagitis; SOB (shortness of breath) from Last 3 Months Allergies Active Allergy Reactions Criticality Noted Date Comments Iodine Rash Medium Shellfish Itching Low 05/26/2020 Shellfish Derived Rash Medium Gvegjdd-Vzv-Xyh Reductase Inhibitors Other (See comments) Low 03/05/2023 [...] on file 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 Left Ventricle: Normal left ventricular size. Normal [...] change. Electronically Signed By: Jaison Hunter MD, [facility] 05/05/2025 12:43:19 PM CDT Procedure Note Jaison Hunter MD - 05/05/2025 [facility] Cardiology [address], [address], [place] [address] P:[phone] P:[phone] Echocardiographic Report Patient Name: MARYELLEN SANDOVAL C [...] FINDINGS: Interpretation Site: Exam was interpreted at [facility]. Left Ventricle: Normal left ventricular size. Normal [...] change. Electronically Signed By: Jaison Hunter MD, [facility] 05/05/2025 12:43:19 PM CDT Toño Rojo [...] accounted for: yes Three 4-0 Vicryl Rapide pemebf-hh-wzehk sutures placed to stop bleeding. Five deep [...] Zazueta MD LAB BLOOD ORDERABLES Final Result [facility] [place] [address] * CT Recon Thoracic and Lumbar Spine [...] POCT ORDERABLES - DE VICE Final Result [facility] [place] [address] * Chest xray, 1 view, portable (04/22/2025 [...] ORDERABLES Sen baldev Result - Final [facility] Department [place] [address] * Thromboelastometry Panel - Intrinsic (04/22/2025 10:16 [...] BLOOD ORDERABLES Sen baldev Result - Final [facility] [place] [address] * Thromboelastometry Panel - Fibrinogen (04/22/2025 10:16 PM CDT) FIBTEM-A5 10 5 - 16 mm FIBTEM-A10 12 6 - 17 mm [facility] FIBTEM-A20 13 6 - 18 mm [facility] FIBTEM-MCF 13 9 - 19 mm [facility] Blood 04/22/2025 10:1 6 PM CDT 04/22/2025 10:25 PM CDT Adryan Blount MD LAB BLOOD ORDERABLES Sen baldev Result - Final Performing Organization Address [facility] Co de Phone Number [facility] [place] [address] * Thromboelastometry Panel - Extrinsic (04/22/2025 10:16 PM CDT) EXTEM-CT 65 51 - 73 sec EXTEM-A5 45 33 - 52 mm [facility] EXTEM-A10 56 45 - 62 mm [facility] EXTEM-A20 64 54 - 69 mm [facility] EXTEM-MCF 66 57 - 72 mm [facility] EXTEM-LI60 98 94 - 100 % [facility] EXTEM-ML 3 0 - 6 % [facility] Blood 04/22/2025 10:1 6 PM CDT 04/22/2025 10:25 PM CDT Adryan Blount MD LAB BLOOD ORDERABLES Sen baldev Result - Final Performing Organization Address City/[facility]/ZIP Co de Phone Number [facility] [place] [address] * Potassium, whole blood (04/22/2025 10:16 PM CDT) Potassium, bld See Comment 3.3 - 4.9 Comment:Credited, hemolyzed specimen. Blood 04/22/2025 10:1 6 PM CDT 04/22/2025 10:27 PM CDT us Kal Zazueta MD LAB BLOOD ORDERABLES Final Result Performing Organization Address [facility] Co de Phone Number [facility] [place] [address] * eGFR (04/22/2025 10:16 PM CDT) eGFR [...] ORDERABLES Fin al Result Performing Organization Address [facility]/ZIP Co de Phone Number [facility] Department [place] [address] * Differential, auto (04/22/2025 10:16 PM CDT) Neutrophil abs 4.80 1.50 - 6.50 K/cumm Imm gran abs 0.05 0.00 - 0.10 K/cumm [facility] Lymphocyte abs 1.81 0.80 - 3.30 K/cumm [facility] Monocyte abs 0.71 0.20 - 0.80 K/cumm [facility] Eosinophil abs 0.13 0.00 - 0.50 K/cumm [facility] Basophil abs 0.06 0.00 - 0.10 K[facility]cumm [facility] Neutrophil pct 63.5 % [facility] Comment: Interpretive Data Percent cell count reference ranges are not reported, since discordance with absolute values may lead to misinterpretation of CBC data. Current Interpretive Data was last revised on 2018. Imm gran pct 0.7 % [facility] Comment: Interpretive Data Percent cell count reference ranges are not reported, since discordance with absolute values may lead to misinterpretation of CBC data. Current Interpretive Data was last revised on 2018. Lymphocyte pct 23.9 % [facility] Comment: Interpretive Data Percent cell count reference ranges are not reported, since discordance with absolute values may lead to misinterpretation of CBC data. Current Interpretive Data was last revised on 2018. Monocyte pct 9.4 % [facility] Comment: Interpretive Data Percent cell count reference ranges are not reported, since discordance with absolute values may lead to misinterpretation of CBC data. Current Interpretive Data was last revised on 2018. Eosinophil pct 1.7 % [facility] Comment: Interpretive Data Percent cell count reference ranges are not reported, since discordance with absolute values may lead to misinterpretation of CBC data. Current Interpretive Data was last revised on 2018. Basophil pct 0.8 % [facility] Comment: Interpretive Data Percent cell count reference ranges are not reported, since discordance with absolute values may lead to misinterpretation of CBC data. Current Interpretive Data was last revised on 2018. Blood 04/22/2025 10:1 6 PM CDT 04/22/2025 10:29 PM CDT Adryan Blount MD LAB BLOOD ORDERABLES Fin al Result Performing Organization Address [facility] de Phone Number [facility] Department [place] [address] * CBC with auto differential (04/22/2025 10:16 PM CDT) [facility] WBC 7.56 3.80 - 9.90 K/cumm Hgb 12.5 11.9 - 15.5 g/dL [facility] Hct 36.4 35.6 - 45.5 % [facility] Plt 255 150 - 400 K/cumm [facility] MPV 9.5 9.1 - 12.3 fL [facility] RBC 3.98 3.90 - 5.20 M/cumm [facility] MCV 91.5 81.3 - 96.4 fL [facility] MCH 31.4 27.1 - 33.3 pg [facility] MCHC 34.3 32.3 - 35.7 g/dL [facility] RDW CV 13.9 11.1 - 14.9 % [facility] RDW SD 47.4 35.7 - 48.1 fL [facility] NRBC abs 0.00 0.00 - 0.01 K/cumm [facility] Blood 04/22/2025 10:1 6 PM CDT 04/22/2025 10:29 PM CDT Adryan Blount MD LAB BLOOD ORDERABLES Fin al Result Performing Organization Address [facility] Co de Phone Number [facility] Department [place] [address] * (ABNORMAL) aPTT (04/22/2025 10:16 PM CDT) Pathologist [facility] aPTT 25(L) 28 - 38 sec Comment: Interpretive Data Heparin therapeutic range: 66.0 - 100.0 seconds. Range based on correlation with therapeutic heparin activity range of 0.3 - 0.7 Units/mL. Current interpretive data was last revised on 2023. Blood 04/22/2025 10:1 6 PM CDT 04/22/2025 10:37 PM CDT Result [facility] Adryan Blount MD LAB BLOOD ORDERABLES Fin al Result Performing Organization Address [facility] de Phone Number [facility] [place] [address] * Protime-INR (04/22/2025 10:16 PM CDT) PT 10.4 9.7 - 13.0 sec INR 0.96 0.90 - 1.20 [facility] Comment: Interpretive data Oral anticoagulant therapeutic ranges: Venous thromboembolism prophylaxis or treatment: 2.0-3.0 CARDIOLOGY Standard range: 2.0-3.0 High-intensity range: 2.5-3.5 Refer to indication-specific guidelines for appropriate target ranges for prosthetic heart valve replacement. Current interpretive data was last revised on 2019. Blood 04/22/2025 10:1 6 PM CDT 04/22/2025 10:37 PM CDT Result [facility] Adryan Blount MD LAB BLOOD ORDERABLES Fin al Result Performing Organization Address [facility] de Phone Number [facility] [place] [address] * Type and screen (04/22/2025 10:16 PM CDT) ABO Rh A Positive James, indirect Negative [facility] Blood 04/22/2025 10:1 6 PM CDT 04/22/2025 10:34 PM CDT Narrative [facility] - 04/22/2025 11:56 PM CDT Has the patient had Daratumumab or Isatuximab in the past 6 months?->Unknown Result [facility] Adryan Blount MD LAB BLOOD BANK TEST ORDE RABLES Final Result Performing Organization Address [facility] Co de Phone Number [facility] [place] [address] * (ABNORMAL) Ethanol (04/22/2025 10:16 PM CDT) Pathologist [facility] Ethanol 238(H) <=10 mg/dL Comment: Interpretive Data Legal limit of intoxication > or = 80 mg/dL Levels > or = 400 mg/dL are potentially TOXIC. Current interpretive data was last revised on 2019. Blood 04/22/2025 10:1 6 PM CDT 04/22/2025 10:30 PM CDT Adryan Blount MD LAB BLOOD ORDERABLES Fin al Result Performing Organization Address [facility] de Phone Number [facility] [place] [address] * (ABNORMAL) Comprehensive metabolic panel (04/22/2025 10:16 PM CDT) [facility] Sodium 135 135 - 145 mmol/L Potassium, pl 3.8 3.3 - 4.9 mmol/L [facility] Chloride 99 97 - 110 mmol/L [facility] CO2 21(L) 22 - 32 mmol/L [facility] Anion gap 15 2 - 15 mmol/L [facility] BUN 9 6 - 25 mg/dL [facility] Creatinine 0.46(L) 0.60 - 1.10 mg/dL [facility] Glucose 107 70 - 199 mg/dL [facility] Comment: Interpretive Data Fasting glucose >/= [...] 2022. Calcium 9.0 8.5 - 10.3 mg/dL [facility] Bilirubin, total <0.2 0.1 - 1.2 mg/dL [facility] Protein, pl 7.3 6.5 - 8.5 g/dL [facility] Albumin 4.2 3.5 - 5.0 g/dL [facility] Alk phos 72 40 - 130 Units/L [facility] ALT 21 7 - 45 Units/L [facility] AST 29 10 - 45 Units/L [facility] Blood 04/22/2025 10:1 6 PM CDT 04/22/2025 10:30 PM CDT us Adryan Blount MD LAB BLOOD ORDERABLES Fin al Result [facility] Department [place] [address] * (ABNORMAL) POC Blood Gas and Chemistries, Venous - (04/22/2025 10:12 PM CDT) pH, Jacquelin POC 7.32 7.32 - 7.43 pCO2, jacquelin POC 33(L) 40 - 50 mmHg [facility] pO2, jacquelin POC 39 mmHg [facility] Na, POC 142 135 - 145 mmol/L [facility] K POC 2.4(C) 3.3 - 4.9 mmol/L [facility] Comment: Interpretive Data Not all point of care methods assess for hemolysis. Confirm with instrument and retest K+ if not consistent with clinical signs and symptoms. Current Interpretive Data was last revised on 2024. Cl, POC 114(H) 97 - 110 mmol/L [facility] Ionized Ca, POC 3.69(L) 4.50 - 5.10 mg/dL [facility] Glucose, POC 81 70 - 199 mg/dL [facility] Lactate POC 1.7 0.7 - 2.0 mmol/L [facility] MetHb, Jacquelin POC <0.1 0.0 - 1.9 % [facility] O2 Sat, Jacquelin POC (Viviane) 62 % [facility] Base excess, POC -8.2 mmol/L [facility] Hct, POC 29.0(L) 36.3 - 45.3 % [facility] Total Hb, POC 9.7(L) 11.9 - 15.5 g/dL [facility] Blood 04/22/2025 10:1 2 PM CDT 04/22/2025 10:12 PM CDT us Adryan Blount MD LAB POCT ORDERABLES - DE VICE Final Result [facility] [place] [address] from Last 3 Months Insurance MEDICARE [employer] MEDICARE [facility] Care Teams Lithographic Proofer Apprentice Relationship Specialty Start Date End Date No, Physician PCP - General 04/22/25 Jaison Walton MD [address] [place] [address] 04/22/25
== END 2025-06-21 09:27 | disposition home or self-care (01) ==
PROVIDERS: PCP Emergency Medicine; Visit Provider Nurse Practitioner
DX: R10.11 Right upper quadrant pain (principal)
CPT/HCPCS: 76705

== ENCOUNTER 2025-06-29 10:00 | Outpatient (CLI) | payer MEDICARE, OTHER, SELFPAY ==
--- OUTSIDE RECORDS SUMMARY | 2025-06-29 10:11 | XMS_ITS | Clinical Summary ---
Author Organization 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,non-owned Affiliates and Associated Physician Practices is amultiple site organization consisting of ambulatory clinics and hospital sitesin [place], [place], [place] and [place]. This disclosure is being madepursuant to the Care Everywhere program and may not contain all information available regarding this patient. Last updated 18.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 Gender Identity Not on file Sexual [...] ESTRADA Subscriber ID:Not on file (Home) Address: [address] [place] [address] Payer ID:Not on file Group ID:Not on file Type:Self Pay Address: [place], [place] MEDICARE Member Subscriber Plan / Payer (Ef fective for All Dates) Name:Elissa Cherry Member ID:[id number] Relation to Subscriber:Self Name:Elisas Cherry Subscriber ID:[id number] Payer ID:Not on file Group ID:Not on file Type:Medicare Address: [place] [phone] [facility] Member Subscriber Plan / Payer (Ef fective for All Dates) Name:Elissa Cherry Member ID:Not on file Relation to Subscriber:Self Name:Elissa Cherry Subscriber ID:Not on file Payer ID:[id number] (NAIC) Group ID:Not on file Type:[employer] Address: [place] [phone] MEDICARE Member Subscriber Plan / Payer (Ef fective for All Dates) Name:Elissa Cherry Member ID:[id number] Relation to Subscriber:Self Name:Elissa Cherry Subscriber ID:[id number] Payer ID:Not on file Group ID:Not on file Type:Medicare Address: [place] [phone] [facility]
--- OUTSIDE RECORDS SUMMARY | 2025-06-29 10:11 | XMS_ITS | Clinical Summary ---
Author Organization 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
--- OUTSIDE RECORDS SUMMARY | 2025-06-29 10:11 | XMS_ITS | Clinical Summary ---
Author Organization [facility] Address [address] [place] [address] Care Team Providers Care Automotive Refinish Technician Name Role Phone No, Physician Primary Care Provider [phone] Jaison Walton MD Unavailable [phone] Allergies Active Allergy Reactions Criticality Noted Date Comments Iodine Rash Medium Shellfish Itching Low 05/26/2020 Shellfish Derived Rash Medium Hinckio-Uze-Quo Reductase Inhibitors Other (See comments) Low 03/05/2023 [...] Department Care Team Description 05/09/2025 Results Follow-Up [facility] [address] [place] [address] [address] [place] [address] Toño Rojo MD Transthoracic Echo (TTE) Complete W Doppler/CF 05/04/2025 9:15 AM CDT Ancillary Procedure [facility] at [address] [place] [phone] Aortic atherosclerosis; Primary hypertension; SOB (shortness of breath) 04/25/2025 Telephone [facility] Emergency Department [address] [place] [address] Bethel Guevara RN 04/22/2025 10:02 PM CDT - 04/23/2025 1:51 AM CDT Emergency [facility] Emergency Department [address] [place] [phone] Adryan Blount MD Siegler, Jeffrey Evan, MD Fall, initial encounter (Primary Dx); Head injury, initial encounter; Laceration of forehead, initial encounter; Alcoholic intoxication without complication Discharge Disposition: Discharge to home or self care 04/21/2025 10:45 AM CDT Office Visit [facility] [address] [place] [address] [place] [phone] Toño Rojo MD Aortic atherosclerosis (Primary Dx); Hyperlipidemia LDL goal <70; Primary hypertension; Alcohol abuse; Gastroesophageal reflux disease without esophagitis; SOB (shortness of breath) 04/21/2025 Orders Only [facility] [address] [place] [address] [address] [place] [address] Provider, MD Zuleima from Last 3 Months [...] on file 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 Left Ventricle: Normal left ventricular size. [...] change. Electronically Signed By: Jaison Hunter MD, [facility] 05/05/2025 12:43:19 PM CDT Procedure Note Jaison Hunter MD - 05/05/2025 [facility] [address] [facility], [address], [place] [address] P:[phone] P:[phone] Echocardiographic Report Patient Name: MARYELLEN SANDOVAL C [...] FINDINGS: Interpretation Site: Exam was interpreted at [facility]. Left Ventricle: Normal left ventricular size. [...] change. Electronically Signed By: Jaison Hunter MD, [facility] 05/05/2025 12:43:19 PM CDT Toño Rojo [...] accounted for: yes Three 4-0 Vicryl Rapide edagyv-dt-[id number] sutures placed to stop bleeding. Five deep [...] MD LAB BLOOD ORDERABLES Final Result [facility] Department [place] [address] * CT Recon Thoracic and Lumbar Spine [...] POCT ORDERABLES - DE VICE Final Result [facility] Department [place] [address] * Chest xray, 1 view, portable (04/22/2025 [...] baldev Result - Final Performing Organization Address [facility] Co de Phone Number [facility] [place] [address] * Thromboelastometry Panel - Intrinsic [...] BLOOD ORDERABLES Sen baldev Result - Final [facility] [place] [address] * Thromboelastometry Panel - Fibrinogen (04/22/2025 10:16 PM CDT) FIBTEM-A5 10 5 - 16 mm FIBTEM-A10 12 6 - 17 mm [facility] FIBTEM-A20 13 6 - 18 mm [facility] FIBTEM-MCF 13 9 - 19 mm [facility] Blood 04/22/2025 10:1 6 PM CDT 04/22/2025 10:25 PM CDT Adryan Blount MD LAB BLOOD ORDERABLES Sen baldev Result - Final Performing Organization Address City/[facility] Co de Phone Number [facility] [place] [address] * Thromboelastometry Panel - Extrinsic (04/22/2025 10:16 PM CDT) [facility] EXTEM-CT 65 51 - 73 sec [...] baldev Result - Final Performing Organization Address City/State/[facility] Co de Phone Number [facility] [place] [address] * Potassium, whole blood (04/22/2025 10:16 PM CDT) Pathologist [facility] Department Potassium, bld See Comment 3.3 - 4.9 Comment:Credited, hemolyzed specimen. Blood 04/22/2025 10:1 6 PM CDT 04/22/2025 10:27 PM CDT us Kal Zazueta MD LAB BLOOD ORDERABLES Final Result Performing Organization Address [facility] de Phone Number [facility] Department [place] [address] * eGFR (04/22/2025 10:16 PM CDT) eGFR [...] ORDERABLES Fin al Result Performing Organization Address [facility] Co de Phone Number [facility] Department [place] [address] * Differential, auto (04/22/2025 10:16 PM CDT) Neutrophil abs 4.80 1.50 - 6.50 K/cumm Imm gran abs 0.05 0.00 - 0.10 K/cumm [facility] Lymphocyte abs 1.81 0.80 - 3.30 K/cumm [facility] Monocyte abs 0.71 0.20 - 0.80 K/cumm [facility] Eosinophil abs 0.13 0.00 - 0.50 K/cumm [facility] Basophil abs 0.06 0.00 - 0.10 K/cumm [facility] Neutrophil pct 63.5 % [facility] Comment: Interpretive Data Percent cell count reference ranges are not reported, since discordance with absolute values may lead to misinterpretation of CBC data. Current Interpretive Data was last revised on 2018. Imm gran pct 0.7 % [facility] Comment: Interpretive Data Percent cell count reference ranges are not reported, since discordance with absolute values may lead to misinterpretation of CBC data. Current Interpretive Data was last revised on 2018. Lymphocyte pct 23.9 % [facility] Comment: Interpretive Data Percent cell count reference ranges are not reported, since discordance with absolute values may lead to misinterpretation of CBC data. Current Interpretive Data was last revised on 2018. Monocyte pct 9.4 % [facility] Comment: Interpretive Data Percent cell count reference ranges are not reported, since discordance with absolute values may lead to misinterpretation of CBC data. Current Interpretive Data was last revised on 2018. Eosinophil pct 1.7 % [facility] Comment: Interpretive Data Percent cell count reference ranges are not reported, since discordance with absolute values may lead to misinterpretation of CBC data. Current Interpretive Data was last revised on 2018. Basophil pct 0.8 % [facility] Comment: Interpretive Data Percent cell count reference ranges are not reported, since discordance with absolute values may lead to misinterpretation of CBC data. Current Interpretive Data was last revised on 2018. Blood 04/22/2025 10:1 6 PM CDT 04/22/2025 10:29 PM CDT us Adryan Blount MD LAB BLOOD ORDERABLES Fin al Result [facility] Department [place] [address] * CBC with auto differential (04/22/2025 10:16 PM CDT) [facility] WBC 7.56 3.80 - 9.90 K/cumm Hgb 12.5 11.9 - 15.5 g/dL [facility] Hct 36.4 35.6 - 45.5 % [facility] Plt 255 150 - 400 K/cumm [facility] MPV 9.5 9.1 - 12.3 fL [facility] RBC 3.98 3.90 - 5.20 M/cumm [facility] MCV 91.5 81.3 - 96.4 fL [facility] MCH 31.4 27.1 - 33.3 pg [facility] MCHC 34.3 32.3 - 35.7 g/dL [facility] RDW CV 13.9 11.1 - 14.9 % [facility] RDW SD 47.4 35.7 - 48.1 fL [facility] NRBC abs 0.00 0.00 - 0.01 K/cumm [facility] Blood 04/22/2025 10:1 6 PM CDT 04/22/2025 10:29 PM CDT Adryan Blount MD LAB BLOOD ORDERABLES Fin al Result Performing Organization Address [facility] Co de Phone Number [facility] Department [place] [address] * (ABNORMAL) aPTT (04/22/2025 10:16 PM CDT) [facility] aPTT 25(L) 28 - 38 sec Comment: Interpretive Data Heparin therapeutic range: 66.0 - 100.0 seconds. Range based on correlation with therapeutic heparin activity range of 0.3 - 0.7 Units/mL. Current interpretive data was last revised on 2023. Blood 04/22/2025 10:1 6 PM CDT 04/22/2025 10:37 PM CDT Adryan Blount MD LAB BLOOD ORDERABLES Fin al Result Performing Organization Address City/State/[facility] Co de Phone Number [facility] [place] [address] * Protime-INR (04/22/2025 10:16 PM CDT) Pathologist [facility] PT 10.4 9.7 - 13.0 sec INR 0.96 0.90 - 1.20 [facility] Comment: Interpretive data Oral anticoagulant therapeutic [...] ORDERABLES Fin al Result Performing Organization Address [facility] [place] [address] * Type and screen (04/22/2025 10:16 PM CDT) Pathologist [facility] ABO Rh A Positive James, indirect Negative [facility] Blood 04/22/2025 10:1 6 PM CDT 04/22/2025 10:34 PM CDT Narrative [facility] - 04/22/2025 11:56 PM CDT Has the patient had Daratumumab or Isatuximab in the past 6 months?->Unknown Adryan Blount MD LAB BLOOD BANK TEST ORDE RABLES Final Result Performing Organization Address [facility] [place] [address] * (ABNORMAL) Ethanol (04/22/2025 10:16 PM CDT) Pathologist [facility] Department Ethanol 238(H) <=10 mg/dL Comment: Interpretive Data Legal limit of intoxication > or = 80 mg/dL Levels > or = 400 mg/dL are potentially TOXIC. Current interpretive data was last revised on 2019. Blood 04/22/2025 10:1 6 PM CDT 04/22/2025 10:30 PM CDT us Adryan Blount MD LAB BLOOD ORDERABLES Fin al Result [facility] Department [place] [address] * (ABNORMAL) Comprehensive metabolic panel (04/22/2025 10:16 PM CDT) Sodium 135 135 - 145 mmol/L Potassium, pl 3.8 3.3 - 4.9 mmol/L [facility] Chloride 99 97 - 110 mmol/L [facility] CO2 21(L) 22 - 32 mmol/L [facility] Anion gap 15 2 - 15 mmol/L [facility] BUN 9 6 - 25 mg/dL [facility] Creatinine 0.46(L) 0.60 - 1.10 mg/dL [facility] Glucose 107 70 - 199 mg/dL [facility] Comment: Interpretive Data Fasting glucose >/= [...] 2022. Calcium 9.0 8.5 - 10.3 mg/dL [facility] Bilirubin, total <0.2 0.1 - 1.2 mg/dL [facility] Protein, pl 7.3 6.5 - 8.5 g/dL [facility] Albumin 4.2 3.5 - 5.0 g/dL [facility] Alk phos 72 40 - 130 Units/L [facility] ALT 21 7 - 45 Units/L [facility] AST 29 10 - 45 Units/L [facility] Blood 04/22/2025 10:1 6 PM CDT 04/22/2025 10:30 PM CDT us Adryan Blount MD LAB BLOOD ORDERABLES Fin al Result [facility] Department [place] [address] * (ABNORMAL) POC Blood Gas and Chemistries, Venous - (04/22/2025 10:12 PM CDT) pH, Jacquelin POC 7.32 7.32 - 7.43 pCO2, jacquelin POC 33(L) 40 - 50 mmHg [facility] pO2, jacquelin POC 39 mmHg [facility] Na, POC 142 135 - 145 mmol/L [facility] K POC 2.4(C) 3.3 - 4.9 mmol/L [facility] Comment: Interpretive Data Not all point of care methods assess for hemolysis. Confirm with instrument and retest K+ if not consistent with clinical signs and symptoms. Current Interpretive Data was last revised on 2024. Cl, POC 114(H) 97 - 110 mmol/L [facility] Ionized Ca, POC 3.69(L) 4.50 - 5.10 mg/dL [facility] Glucose, POC 81 70 - 199 mg/dL [facility] Lactate POC 1.7 0.7 - 2.0 mmol/L [facility] MetHb, Jacquelin POC <0.1 0.0 - 1.9 % [facility] O2 Sat, Jacquelin POC (Viviane) 62 % [facility] Base excess, POC -8.2 mmol/L [facility] Hct, POC 29.0(L) 36.3 - 45.3 % [facility] Total Hb, POC 9.7(L) 11.9 - 15.5 g/dL [facility] Blood 04/22/2025 10:1 2 PM CDT 04/22/2025 10:12 PM CDT us Adryan Blount MD LAB POCT ORDERABLES - DE VICE Final Result [facility] [place] [address] from Last 3 Months Insurance MEDICARE [facility] Re Pet [employer] MEDICARE [facility] Care Teams Automotive Refinish Technician Relationship Specialty Start Date End Date No, Physician PCP - General 04/22/25 Jaison Walton MD [address] [place] [address] 04/22/25
--- OUTSIDE RECORDS SUMMARY | 2025-06-29 10:11 | XMS_ITS | Encounter Summary ---
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
[2025-06-29 10:27] LABS: Hematocrit 37.3 % (37.0-47.0); Hemoglobin 12.2 g/dL (12.0-15.0); Mean Corpuscular HGB Conc 32.7 g/dl (32-36); Mean Corpuscular Hemoglobin 30.9 pg (26-34); Mean Corpuscular Volume 94.4 fl (80-100); Platelet Count Result 265 k/mm3 (150-375); Red Blood Count 3.95 M/mm3 (4.2-5.4); White Blood Count 7.6 K/mm3 (4.5-10.0)
[2025-06-29 10:52] LABS: Alanine Aminotransferase 24 U/L (6-35); Albumin Level 4.5 g/dL (3.5-5.1); Alkaline Phosphatase 54 U/L (38-126); Anion Gap 8 mmol/L (4-12); Aspartate Amino Transferase 29 U/L (14-36); Bilirubin,Total 0.5 mg/dL (0.2-1.3); Blood Urea Nitrogen 7 mg/dL (7-17); CRP < 0.5 mg/dL (<1.0); Calcium 9.4 mg/dL (8.4-10.2); Carbon Dioxide 27 mmol/L (22-30); Chloride 99 mmol/L (98-107); Estimated Glomerular Filt Rate > 60; Glucose 95 mg/dL (65-110); Lipase 48 U/L (23-300); Potassium 3.9 mmol/L (3.4-5.0); Sodium 134 mmol/L (137-145); Total Protein 7.4 g/dL (6.3-8.2)
[2025-06-29 11:22] LABS: Thyroid Stimulating Hormone Reflex 0.985 uIU/mL (0.465-4.68)
== END 2025-06-29 10:01 | disposition home or self-care (01) ==
PROVIDERS: PCP Emergency Medicine; Visit Provider Nurse Practitioner
DX: R10.11 Right upper quadrant pain (principal); R63.4 Abnormal weight loss
CPT/HCPCS: 36415; 80048; 80076; 83690; 84443; 85027; 86140

== ENCOUNTER 2025-07-15 01:50 | Day surgery (SDC) | payer MEDICARE, OTHER, SELFPAY ==
[2025-07-04 08:37] VITALS: BMI 26.6
--- OUTSIDE RECORDS SUMMARY | 2025-07-15 01:55 | XMS_ITS | Clinical Summary ---
Author Organization [facility] Address [address] [place] [address] Care Team Providers Care Chemical Dependency Attendant Name Role Phone No, Physician Primary Care Provider [phone] Jaison Walton MD Unavailable Allergies Active Allergy Reactions Criticality Noted Date Comments Iodine Rash Medium Shellfish Itching Low 05/26/2020 Shellfish Derived Rash Medium Rukwfkc-Fgg-Ubl Reductase Inhibitors Other (See comments) Low 03/05/2023 [...] Department Care Team Description 05/09/2025 Results Follow-Up [facility] [address] [place] [address] [address] [place] [address] Toño Rojo MD Transthoracic Echo (TTE) Complete W Doppler/CF 05/04/2025 9:15 AM CDT Ancillary Procedure [facility] at [address] [place] [phone] Aortic atherosclerosis; Primary hypertension; SOB (shortness of breath) 04/25/2025 Telephone [facility] Emergency Department [address] [place] [address] Bethel Guevara RN 04/22/2025 10:02 PM CDT - 04/23/2025 1:51 AM CDT Emergency [facility] Emergency Department [address] [place] [phone] Adryan Blount MD Siegler, Jeffrey Evan, MD Fall, initial encounter (Primary Dx); Head injury, initial encounter; Laceration of forehead, initial encounter; Alcoholic intoxication without complication Discharge Disposition: Discharge to home or self care 04/21/2025 10:45 AM CDT Office Visit [facility] [address] [place] [address] [place] [phone] Toño Rojo MD Aortic atherosclerosis (Primary Dx); Hyperlipidemia LDL goal <70; Primary hypertension; Alcohol abuse; Gastroesophageal reflux disease without esophagitis; SOB (shortness of breath) 04/21/2025 Orders Only [facility] [address] [place] [address] [address] [place] [address] Provider, MD Zuleima from Last 3 Months [...] on file 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 Left Ventricle: Normal left ventricular size. [...] change. Electronically Signed By: Jaison Hunter MD, [facility] 05/05/2025 12:43:19 PM CDT Procedure Note Jaison Hunter MD - 05/05/2025 [facility] [address], [address], [place] [address] P:[phone] P:[phone] Echocardiographic Report Patient Name: MARYELLEN SANDOVAL C [...] Site: Exam was interpreted at [facility]. Left Ventricle: Normal left ventricular size. [...] change. Electronically Signed By: Jaison Hunter MD, [facility] 05/05/2025 12:43:19 PM CDT Toño Rojo MD [...] accounted for: yes Three 4-0 Vicryl Rapide [id number] sutures placed to stop bleeding. Five deep [...] MD LAB BLOOD ORDERABLES Final Result [facility] Department [place] [address] * CT Recon Thoracic and Lumbar Spine [...] POCT ORDERABLES - DE VICE Final Result [facility] Department [place] [address] * Chest xray, 1 view, portable (04/22/2025 [...] baldev Result - Final Performing Organization Address [facility] Co de Phone Number [facility] [place] [address] * Thromboelastometry Panel - Intrinsic [...] BLOOD ORDERABLES Sen baldev Result - Final [facility] [place] [address] * Thromboelastometry Panel - Fibrinogen (04/22/2025 10:16 PM CDT) FIBTEM-A5 10 5 - 16 mm FIBTEM-A10 12 6 - 17 mm [facility] FIBTEM-A20 13 6 - 18 mm [facility] FIBTEM-MCF 13 9 - 19 mm [facility] Blood 04/22/2025 10:1 6 PM CDT 04/22/2025 10:25 PM CDT Adryan Blount MD LAB BLOOD ORDERABLES Sen baldev Result - Final Performing Organization Address City/[facility] Co de Phone Number [facility] [place] [address] * Thromboelastometry Panel - Extrinsic (04/22/2025 10:16 PM CDT) [facility] EXTEM-CT 65 51 - 73 sec [...] baldev Result - Final Performing Organization Address City/State/[facility] Co de Phone Number [facility] [place] [address] * Potassium, whole blood (04/22/2025 10:16 PM CDT) Pathologist [facility] Potassium, bld See Comment 3.3 - 4.9 Comment:Credited, hemolyzed specimen. Blood 04/22/2025 10:1 6 PM CDT 04/22/2025 10:27 PM CDT us Kal Zazueta MD LAB BLOOD ORDERABLES Final Result Performing Organization Address [facility] de Phone Number [facility] Department [place] [address] * eGFR (04/22/2025 10:16 PM CDT) eGFR [...] ORDERABLES Fin al Result Performing Organization Address [facility] Co de Phone Number [facility] Department [place] [address] * Differential, auto (04/22/2025 10:16 PM CDT) Neutrophil abs 4.80 1.50 - 6.50 K/cumm Imm gran abs 0.05 0.00 - 0.10 K/cumm [facility] Lymphocyte abs 1.81 0.80 - 3.30 K/cumm [facility] Monocyte abs 0.71 0.20 - 0.80 K/cumm [facility] Eosinophil abs 0.13 0.00 - 0.50 K/cumm [facility] Basophil abs 0.06 0.00 - 0.10 K/cumm [facility] Neutrophil pct 63.5 % [facility] Comment: Interpretive Data Percent cell count reference ranges are not reported, since discordance with absolute values may lead to misinterpretation of CBC data. Current Interpretive Data was last revised on 2018. Imm gran pct 0.7 % [facility] Comment: Interpretive Data Percent cell count reference ranges are not reported, since discordance with absolute values may lead to misinterpretation of CBC data. Current Interpretive Data was last revised on 2018. Lymphocyte pct 23.9 % [facility] Comment: Interpretive Data Percent cell count reference ranges are not reported, since discordance with absolute values may lead to misinterpretation of CBC data. Current Interpretive Data was last revised on 2018. Monocyte pct 9.4 % [facility] Comment: Interpretive Data Percent cell count reference ranges are not reported, since discordance with absolute values may lead to misinterpretation of CBC data. Current Interpretive Data was last revised on 2018. Eosinophil pct 1.7 % [facility] Comment: Interpretive Data Percent cell count reference ranges are not reported, since discordance with absolute values may lead to misinterpretation of CBC data. Current Interpretive Data was last revised on 2018. Basophil pct 0.8 % [facility] Comment: Interpretive Data Percent cell count reference ranges are not reported, since discordance with absolute values may lead to misinterpretation of CBC data. Current Interpretive Data was last revised on 2018. Blood 04/22/2025 10:1 6 PM CDT 04/22/2025 10:29 PM CDT us Adryan Blount MD LAB BLOOD ORDERABLES Fin al Result [facility] Department [place] [address] * CBC with auto differential (04/22/2025 10:16 PM CDT) [facility] WBC 7.56 3.80 - 9.90 K/cumm Hgb 12.5 11.9 - 15.5 g/dL [facility] Hct 36.4 35.6 - 45.5 % [facility] Plt 255 150 - 400 K/cumm [facility] MPV 9.5 9.1 - 12.3 fL [facility] RBC 3.98 3.90 - 5.20 M/cumm [facility] MCV 91.5 81.3 - 96.4 fL [facility] MCH 31.4 27.1 - 33.3 pg [facility] MCHC 34.3 32.3 - 35.7 g/dL [facility] RDW CV 13.9 11.1 - 14.9 % [facility] RDW SD 47.4 35.7 - 48.1 fL [facility] NRBC abs 0.00 0.00 - 0.01 K/cumm [facility] Blood 04/22/2025 10:1 6 PM CDT 04/22/2025 10:29 PM CDT Adryan Blount MD LAB BLOOD ORDERABLES Fin al Result Performing Organization Address [facility] Co de Phone Number [facility] Department [place] [address] * (ABNORMAL) aPTT (04/22/2025 10:16 PM CDT) [facility] aPTT 25(L) 28 - 38 sec Comment: Interpretive Data Heparin therapeutic range: 66.0 - 100.0 seconds. Range based on correlation with therapeutic heparin activity range of 0.3 - 0.7 Units/mL. Current interpretive data was last revised on 2023. Blood 04/22/2025 10:1 6 PM CDT 04/22/2025 10:37 PM CDT Adryan Blount MD LAB BLOOD ORDERABLES Fin al Result Performing Organization Address City/State/[facility] Co de Phone Number [facility] [place] [address] * Protime-INR (04/22/2025 10:16 PM CDT) Pathologist [facility] PT 10.4 9.7 - 13.0 sec INR 0.96 0.90 - 1.20 [facility] Comment: Interpretive data Oral anticoagulant therapeutic [...] ORDERABLES Fin al Result Performing Organization Address [facility] [place] [address] * Type and screen (04/22/2025 10:16 PM CDT) Pathologist [facility] ABO Rh A Positive James, indirect Negative [facility] Blood 04/22/2025 10:1 6 PM CDT 04/22/2025 10:34 PM CDT Narrative [facility] - 04/22/2025 11:56 PM CDT Has the patient had Daratumumab or Isatuximab in the past 6 months?->Unknown Adryan Blount MD LAB BLOOD BANK TEST ORDE RABLES Final Result Performing Organization Address [facility] [place] [address] * (ABNORMAL) Ethanol (04/22/2025 10:16 PM CDT) Pathologist [facility] Ethanol 238(H) <=10 mg/dL Comment: Interpretive Data Legal limit of intoxication > or = 80 mg/dL Levels > or = 400 mg/dL are potentially TOXIC. Current interpretive data was last revised on 2019. Blood 04/22/2025 10:1 6 PM CDT 04/22/2025 10:30 PM CDT us Adryan Blount MD LAB BLOOD ORDERABLES Fin al Result [facility] Department [place] [address] * (ABNORMAL) Comprehensive metabolic panel (04/22/2025 10:16 PM CDT) Sodium 135 135 - 145 mmol/L Potassium, pl 3.8 3.3 - 4.9 mmol/L [facility] Chloride 99 97 - 110 mmol/L [facility] CO2 21(L) 22 - 32 mmol/L [facility] Anion gap 15 2 - 15 mmol/L [facility] BUN 9 6 - 25 mg/dL [facility] Creatinine 0.46(L) 0.60 - 1.10 mg/dL [facility] Glucose 107 70 - 199 mg/dL [facility] Comment: Interpretive Data Fasting glucose >/= [...] 2022. Calcium 9.0 8.5 - 10.3 mg/dL [facility] Bilirubin, total <0.2 0.1 - 1.2 mg/dL [facility] Protein, pl 7.3 6.5 - 8.5 g/dL [facility] Albumin 4.2 3.5 - 5.0 g/dL [facility] Alk phos 72 40 - 130 Units/L [facility] ALT 21 7 - 45 Units/L [facility] AST 29 10 - 45 Units/L [facility] Blood 04/22/2025 10:1 6 PM CDT 04/22/2025 10:30 PM CDT us Adryan Blount MD LAB BLOOD ORDERABLES Fin al Result [facility] Department [place] [address] * (ABNORMAL) POC Blood Gas and Chemistries, Venous - (04/22/2025 10:12 PM CDT) pH, Jacquelin POC 7.32 7.32 - 7.43 pCO2, jacquelin POC 33(L) 40 - 50 mmHg [facility] pO2, jacquelin POC 39 mmHg [facility] Na, POC 142 135 - 145 mmol/L [facility] K POC 2.4(C) 3.3 - 4.9 mmol/L [facility] Comment: Interpretive Data Not all point of care methods assess for hemolysis. Confirm with instrument and retest K+ if not consistent with clinical signs and symptoms. Current Interpretive Data was last revised on 2024. Cl, POC 114(H) 97 - 110 mmol/L [facility] Ionized Ca, POC 3.69(L) 4.50 - 5.10 mg/dL [facility] Glucose, POC 81 70 - 199 mg/dL [facility] Lactate POC 1.7 0.7 - 2.0 mmol/L [facility] MetHb, Jacquelin POC <0.1 0.0 - 1.9 % [facility] O2 Sat, Jacquelin POC (Viviane) 62 % [facility] Base excess, POC -8.2 mmol/L [facility] Hct, POC 29.0(L) 36.3 - 45.3 % [facility] Total Hb, POC 9.7(L) 11.9 - 15.5 g/dL [facility] Blood 04/22/2025 10:1 2 PM CDT 04/22/2025 10:12 PM CDT us Adryan Blount MD LAB POCT ORDERABLES - DE VICE Final Result [facility] [place] [address] from Last 3 Months Insurance MEDICARE [facility] [employer] MEDICARE [facility] Care Teams Chemical Dependency Attendant Relationship Specialty Start Date End Date No, Physician PCP - General 04/22/25 Jaison Walton MD [address] [place] [address] 04/22/25
--- OUTSIDE RECORDS SUMMARY | 2025-07-15 01:55 | XMS_ITS | Encounter Summary ---
Author Organization [facility] Healthcare Address [address] [place] [address] Care Team Providers Care Tank Builder Supervisor Name Role Phone Jaison Walton MD Primary Care Provide r No, Physician Primary Care Provider [phone] Jaison Walton MD Unavailable Encounter Details Date Type Department Care Team (Late st Contact Info) Description 06/25/2018 Orders Only [facility] Health Information Management [address] [place] [address] Scanning, Provider Social History Tobacco Use Types Packs/Day Years Used Date Smoking Tobacco: Former Cigarettes Q uit: 01/02/2008 Smokeless Tobacco: Never Alcohol Use Standard Drinks/Week Comments Yes 1 (1 standard drink = 0.6 oz pur e alcohol) occassionally Comments Unknown Sex and Gender Information Value Date Recorded Sex Assigned at Not on file 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 Gender Identity Female 08/16/2020 12:31 PM CDT Sexual Orientation Not on file documented as of this encounter Plan of Treatment Not on file documented as of this encounter Procedures Procedure Name Priority Date/Time Associated Diagnosis Comments SCAN - LABS 06/25/2018 documented in this encounter Results * SCAN - LABS (06/25/2018) us Provider Scanning Final Result documented in this encounter Visit Diagnoses Not on filedocumented in this encounter Care Teams Tank Builder Supervisor Relationship Specialty Start Date End Date Jaison Walton MD [address] [place] [address] PCP - General 10/17/16 04/21/25 No, Physician PCP - General 04/22/25 Jaison Walton MD [address] [place] [address] 04/22/25 documented as of this encounter
--- OUTSIDE RECORDS SUMMARY | 2025-07-15 01:55 | XMS_ITS | Clinical Summary ---
Author Organization [email or web address] Address [address] [place] [address] Care Team Providers Care Surface Water Manager Name Role Phone Unavailable Primary Care Provider Unavailabl e Source Comments [email or web address],non-owned Affiliates and Associated Physician Practices is amultiple site organization consisting of ambulatory clinics and hospital sitesin [place], [place], [place] and [place]. This disclosure is being madepursuant to the Care Everywhere program and may not contain all information available regarding this patient. 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 Gender Identity Not on file Sexual [...] ESTRADA Subscriber ID:Not on file (Home) Address: [address] [address] Payer ID:Not on file Group ID:Not on file Type:Self Pay Address: [place], [place] MEDICARE Member Subscriber Plan / Payer (Ef fective for All Dates) Name:Elissa Cherry Member ID:[id number] Relation to Subscriber:Self Name:Elissa Cherry Subscriber ID:[id number] Payer ID:Not on file Group ID:Not on file Type:Medicare Address: [place] [phone] [employer] Member Subscriber Plan / Payer (Ef fective for All Dates) Name:Elissa Cherry Member ID:Not on file Relation to Subscriber:Self Name:Elissa Cherry Subscriber ID:Not on file Payer ID:[id number] (NAIC) Group ID:Not on file Type:[employer] Address: [place] [phone] MEDICARE Member Subscriber Plan / Payer (Ef fective for All Dates) Name:Elissa Cherry Member ID:[id number] Relation to Subscriber:Self Name:Elissa Cherry Subscriber ID:[id number] Payer ID:Not on file Group ID:Not on file Type:Medicare Address: [place] [phone] [employer]
--- OUTSIDE RECORDS SUMMARY | 2025-07-15 01:55 | XMS_ITS | Encounter Summary ---
Author Organization [facility] Healthcare Address [address] [place] [address] Care Team Providers Care Deputy Administrator Name Role Phone Jaison Walton MD Primary Care Provide r No, Physician Primary Care Provider [phone] Jaison Walton MD Unavailable Encounter Details Date Type Department Care Team (Late st Contact Info) Description 07/02/[address] 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 Gender Identity Female 08/16/2020 12:31 PM CDT Sexual Orientation Not on file documented as of this encounter Plan of Treatment Not on file documented as of this encounter Procedures Procedure Name Priority Date/Time Associated Diagnosis Comments SCAN - RADIOLOGY/IMAGING 07/02/2018 documented in this encounter Results * SCAN - RADIOLOGY/IMAGING (07/02/2018) Anatomical Region Laterality Modality Other us Provider Scanning Final Result documented in this encounter Visit Diagnoses Not on filedocumented in this encounter Care Teams Deputy Administrator Relationship Specialty Start Date End Date Jaison Walton MD [address] [place] [address] PCP - General 10/17/16 04/21/25 No, Physician PCP - General 04/22/25 Jaison Walotn MD [address] [place], [place] [id number] 04/22/25 documented as of this encounter
[2025-07-15 06:18] VITALS: BP 129/64; PULSE 70; RESP 16; TEMP 35.9; O2SAT 100; BMI 26.9
[2025-07-15] MEDS: LACTATED RINGERS 1,000 ML 150 ML IV CONT (06:25)
--- NOTE | 2025-07-15 07:04 | WPDANESEPPF ---
Anes - Initial Pre Proc Eval Procedure: Operation Date: 07/15/25 07:30 Proposed Procedures p Esophagogastroduodenoscopy - Librado Ackerman MD Date/Time: 07/15/25 07:04 Surgeon: Librado Ackerman MD Pre Op Diagnosis: Abnormal weight loss Patient Data Age: 79 Gender: F Height: 1.55 m Weight: 64.8 kg Last Vital Signs Temp 35.9 C L 07/15/25 06:18 Pulse 70 07/15/25 06:18 Resp 16 07/15/25 06:18 BP 129/64 07/15/25 06:18 Pulse Ox 100 07/15/25 06:18 O2 Del Method Room Air 07/15/25 06:18 Allergies Allergy/AdvReac Type Severity Reaction Status Date / Time iodine Allergy Severe Swelling Verified 07/15/25 06:17 AND ITCHING shellfish derived Allergy Severe Itching Verified 07/15/25 06:17 AND SWELLING Sulfa (Sulfonamide Allergy Mild RASH Verified 07/15/25 06:17 Antibiotics) iohexol (From contrast - CT, Allergy Rash Verified 07/15/25 06:17 X-RAY) Home Medications ?Medication ?Instructions ?Recorded ?Confirmed ?Type amlodipine 10 mg tablet 10 mg PO HS 11/23/19 07/15/25 History lisinopril 20 mg tablet 20 mg PO DAILY 11/23/19 07/15/25 History oyuqojnr-grk-GA 200 mcg-vit K 100 1 cap PO DAILY 11/30/19 07/15/25 History mcg-lycop 500 [id number] capsule (Daily Multivitamin) aspirin 81 mg tablet,delayed 81 mg PO EVERY OTHER DAY 03/24/20 07/15/25 History release Lactobacillus rhamnosus GG 10 1 cap PO DAILY 12/25/22 07/15/25 History billion cell capsule (Culturelle) atorvastatin 20 mg tablet 20 mg PO DAILY 10/22/23 07/15/25 History guaifenesin 1,200 mg tablet, 1,200 mg PO PRN PRN Cough 02/11/24 07/04/25 History extended release 12 hr (Mucinex) fluticasone propionate 50 See Rx Instructions .Route 08/27/24 07/15/25 Rx mcg/actuation nasal .COMPLEX #96 grams spray,suspension inhalational spacing device #1 ea 01/21/25 05/18/25 Rx tiotropium bromide 2.5 See Rx Instructions .Route 02/24/25 07/15/25 Rx mcg/actuation mist for inhalation .COMPLEX #12 grams (Spiriva Respimat) albuterol sulfate 90 mcg/actuation 1 - 2 inh inhalation Q4-6H PRN 02/28/25 07/04/25 Rx aerosol inhaler shortness of breath or wheezing 30 days #25.5 grams loratadine 10 mg tablet (Claritin) 10 mg PO DAILY 02/28/25 07/15/25 History ondansetron 4 mg disintegrating 4 mg PO Q6H PRN nausea and 04/27/25 07/04/25 Rx tablet vomiting #14 tabs fluticasone propionate 115 2 puff inhalation BID 90 days #36 04/29/25 07/15/25 Rx mcg-salmeterol 21 mcg/actuation grams HFA inhaler (Advair HFA) alprazolam 0.5 mg tablet (Xanax) 0.5 mg PO BID PRN anxiety #30 tabs 06/03/25 07/04/25 Rx omeprazole 40 mg capsule,delayed 40 mg PO DAILY #60 caps 06/29/25 07/15/25 Rx release nystatin 100,000 unit/mL oral 4 ml PO QID 14 days #224 mL 07/07/25 Rx suspension Patient hx anesthesia problems: none Family hx anesthesia problems: none Results Review: All pre-operative results and documents have been reviewed as part of the pre-operative evaluation. [facility] Past Medical History Medical History Pneumonia Referred otalgia of right ear Left hip pain Other specified personal risk factors, not elsewhere classified Acute dyspnea Community acquired pneumonia Otalgia of both ears Right knee pain Sinusitis Preoperative clearance Nasal mucosa dry Anterior epistaxis Internal hemorrhoids Sigmoid diverticulosis History of adenomatous polyp of colon Left hip pain Hyperglycemia COPD exacerbation Complete tear of right rotator cuff Wheezing Vitamin D deficiency Thrush, oral Skin lesion of left arm Seasonal allergic rhinitis due to pollen Primary osteoarthritis of right knee Primary osteoarthritis of left knee Major depressive disorder, single episode, unspecified H/O malignant neoplasm of female breast Gastro-esophageal reflux disease without esophagitis Essential (primary) hypertension Bony prominence Bilateral primary osteoarthritis of hip Acute pain of right shoulder Acute left-sided low back pain without sciatica Hx of colonic polyps Change in bowel movement LLQ pain Colitis Abnormal CT scan, sigmoid colon Complete tear of right rotator cuff Vitamin D2 deficiency Degenerative joint disease of knee Bronchitis Mitral valve prolapse Lumbar compression fracture L1-2 COPD (chronic obstructive pulmonary disease) GERD (gastroesophageal reflux disease) Depression Diverticulitis Breast cancer Status post right lumpectomy and radiation. HLD (hyperlipidemia) HTN (hypertension) Dyspnea Surgical History Surgical History Status post total left knee replacement (~05/06/24) Status post total right knee replacement (~03/19/22) History of inguinal hernia repair with 8 cm Parietex hernia mesh system 03/29/20 S/P lumpectomy, right breast History of hysterectomy Family History Family History Mother Family history of malignant neoplasm Family history of emphysema Family history of lung cancer Family history of chronic obstructive pulmonary disease Father Hypertension Family history of heart disease in male family member before age 55 Acute myocardial infarction Heart disease Social History Social History Social History: The patient lives with her . She has 3 children. 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 Surrogate medical decision maker: Lance Sandoval, spouse. Code status: Full code. Caffeine-daily Smoking packs per day: 1 Smoking cigarettes per day: 20.0 Years smoked: 30 Smoking pack-years: 30.00 Smoking status: Former smoker Tobacco type: cigarettes Smoking end date: 05/06/13 Additional smoking assessment comments: DENIES ANY FORM OF TOBACCO USE Alcohol intake: never Drinks per week: 14 Substance use: never Substance use type: does not use Do You Feel Safe in your Home?: Yes Lack of Transportation: No Lack of Food: Never True Current Housing: Decline to Answer Concerned About Future Housing: Decline to Answer Difficulty Paying Gas/Electric Bills: Decline to Answer Difficulty Paying for Meds: Decline to Answer Currently Unemployed: Decline to Answer Education: Decline to Answer Difficulty w/ Childcare or Family Care: Decline to Answer Living arrangements: with family Gender identity (if verbalized by the patient): Female Spiritual care concerns: No Anes - Eval Final PreProcedure Day of Procedure 07/15/25 07:04 Patient weight: overweight Heart: regular rate and rhythm Lungs: decreased breath sounds Airway: Mallampati scale class II Neurological: alert and oriented Last oral intake: >/= 8 hours ASA classification: III Emergent: no Anesthetic plan: proceed Anesthesia type and monitoring: general GIVS and standard monitoring Results Review: All pre-operative results and documents have been reviewed as part of the pre-operative evaluation. Informed Consent: The patient's anesthetic plan and its attendant risks and benefits were discussed with the patient/family/POA. Questions were solicited and answers provided to the satisfaction of the patient/family/POA.
--- NOTE | 2025-07-15 07:27 | WPDHPUPDATE1 ---
History and Physical Update Update Date/Time: 07/15/25 07:27 History and Physical has been reviewed, including an updated exam of the patient. There are NO changes in the patient's condition. Risks, benefits, and alternatives have been discussed and questions answered. Patient agrees to proceed with procedure.
[2025-07-15 07:33] VITALS: BP 126/58; PULSE 55; RESP 19; O2SAT 97
--- NOTE | 2025-07-15 07:33 | S_PTH ---
PATIENT: Maryellen Sandoval LOC: [facility] Hoang#:[id number] AGE/SX: 79/F ROOM: RE07/15/[address]: Librado Ackerman MD : 1945 BED: DIS: 07/15/2025 SPEC #: [id number] RECD: 07/15/25 10:37 STATUS: SARAH REOra #: [id number] ANDREW: 07/15/25 07:[address]: Librado Ackerman DEPT: [facility] Surgical RECD BY: Ele Jeronimo ENTERED: 07/15/25 10:38 SP TYPE: Surgical OTHR DR: Jaison Walton MD Tissues: A - Small Bowel Bx B - Gastric Biopsy Procedures: Hematoxylin and Eosin Stain Gross and Microscopic Level 4
[2025-07-15 07:43] VITALS: BP 114/51; PULSE 51; RESP 21; O2SAT 99
[2025-07-15 07:53] VITALS: BP 132/67; PULSE 50; RESP 17; O2SAT 100
== END 2025-07-15 08:00 | disposition home or self-care (01) ==
PROVIDERS: PCP Emergency Medicine; Referring Provider Nurse Practitioner; Visit Provider Internal Medicine Gastroenterology
PROC: 0DJ08ZZ Inspection of Upper Intestinal Tract, Via Natural or Artificial Opening Endoscopic (ICD-10-PCS; CPT 43239; principal; 2025-07-15 07:30)
DX: K31.89 Other diseases of stomach and duodenum (principal); E78.5 Hyperlipidemia, unspecified; K21.9 Gastro-esophageal reflux disease without esophagitis; I10 Essential (primary) hypertension; J44.9 Chronic obstructive pulmonary disease, unspecified; R73.9 Hyperglycemia, unspecified; E55.9 Vitamin D deficiency, unspecified; M17.0 Bilateral primary osteoarthritis of knee; M16.0 Bilateral primary osteoarthritis of hip; F32.A Depression, unspecified; F32.9 Major depressive disorder, single episode, unspecified; Z79.82 Long term (current) use of aspirin; Z79.51 Long term (current) use of inhaled steroids; Z91.89 Other specified personal risk factors, not elsewhere classified; Z87.891 Personal history of nicotine dependence; Z86.0100 Personal history of colon polyps, unspecified; Z85.3 Personal history of malignant neoplasm of breast; Z85.828 Personal history of other malignant neoplasm of skin; Z87.19 Personal history of other diseases of the digestive system; Z86.79 Personal history of other diseases of the circulatory system; Z98.890 Other specified postprocedural states; Z80.1 Family history of malignant neoplasm of trachea, bronchus and lung; Z82.49 Family history of ischemic heart disease and other diseases of the circulatory system
CPT/HCPCS: 43239; 88305; J2704; J7120

== ENCOUNTER 2025-07-26 11:21 | Outpatient (CLI) | payer MEDICARE, OTHER, SELFPAY ==
--- NOTE | ~2025-07-26 | MM_ITS ---
EXAMINATION: MM screening [facility] INDICATION: Asymptomatic, referred for screening mammogram. History of Right partial mastectomy with radiation therapy 2000. COMPARISON: 04/22/2024 through 01/28/2020 TECHNIQUE: Digital Breast Tomosynthesis CC, MLO views were obtained of Both breasts with computer-aided detection to assist in interpretation of the study. FINDINGS: There are scattered areas of fibroglandular density. Posttreatment changes in Right breast are stable. No new focal dominant mass, architectural distortion, or suspicious microcalcifications are identified. There are no features to suggest malignancy. IMPRESSION: Stable benign mammogram. No evidence of malignancy in the breast. Recommend annual screening mammography in 12 months. BI-RADS 2, BENIGN Reviewed, dictated and finalized at location B.
== END 2025-07-26 11:22 | disposition home or self-care (01) ==
LOC: MICIMG 11:22
PROVIDERS: PCP Emergency Medicine; Visit Provider Nurse Practitioner Family
DX: Z12.31 Encounter for screening mammogram for malignant neoplasm of breast (principal)
CPT/HCPCS: 77063; 77067

== ENCOUNTER 2025-08-19 09:52 | Outpatient (CLI) | payer MEDICARE, OTHER, SELFPAY ==
--- NOTE | ~2025-08-19 | DEXA_ITS ---
Bone Density Report Name: ELISSA CHERRY Age: 79 Sex: Female Ethnicity: White Date of : 1945 Indication: postmenopausal; screening for osteoporosis; height loss; cancer; hysterectomy; Referring Provider: VERITO SALGADO Study: Bone densitometry was performed. Exam Date: August 19, 2025 Accession number: [id number] Bone Density: Region BMD T-score Z-score Classification AP Spine(L2, L3, L4) 1.122 0.4 3.0 Normal Femoral Neck (Left) 0.812 -0.3 1.9 Normal Total Hip (Left) 0.875 -0.6 1.4 Normal Femoral Neck (Right) 0.784 -0.6 1.6 Normal Total Hip (Right) 0.860 -0.7 1.3 Normal Total Hip Mean 0.867 -0.7 1.4 Normal World Health Organization criteria for BMD impression classify patients as: Normal (T-score at or above -1.0), Osteopenia (T-score between -1.0 and -2.5), or Osteoporosis (T-score at or below -2.5). 10-year Fracture Risk: FRAX not reported because: All T-scores for Spine Total, Hip Total, Femoral Neck at or above -1.0 Previous Exams: -- Region Exam Age BMD T-score BMD Change BMD Change Date g/cm2 vs Baseline vs Previous -- AP Spine (L2-L4) 08/19/2025 79 1.122 0.4 -6.4%* -6.4%* 04/10/2023 77 1.199 1.1 Total Hip(Left) 08/19/2025 79 0.875 -0.6 -6.5%* -6.5%* 04/10/2023 77 0.935 -0.1 Total Hip(Right) 08/19/2025 79 0.860 -0.7 -10.2%* -10.2%* 04/10/2023 77 0.957 0.1 -- *Denotes significance at 95% confidence level, LSC for AP Spine = 0.022 g/cm2, LSC for Total Hip = 0.027 g/cm2 Clinical Information Provided by Patient: Has used the following medications: Vitamin D, Calcium Has the following medical conditions: Cancer, Hysterectomy, COPD, breast cancer Patient maximum height was 64 Menopause Age: 40 Drinks caffeinated beverages Onset of menses at age 15 Number of children 3 Impression: The patient has normal bone mass. The BMD for the AP Spine (L2-L4) decreased, changing by -6.4% since the last DXA exam. The BMD for the Total Hip(Left) decreased, changing by -6.5% since the last DXA exam. The BMD for the Total Hip(Right) decreased, changing by -10.2% since the last DXA exam. Discussion: BONE DENSITY IS ABOVE THE MINIMUM DESIRABLE LEVEL AT ALL SKELETAL SITES TESTED. This patient?s bone mineral density is above the minimum desirable level (T-score -1.0 or better) at all sites measured. The patient should follow a healthful lifestyle (good nutrition with adequate calcium and vitamin D, and appropriate weight-bearing exercise). Follow-Up: Consider repeating this study in 3 to 4 years to reassess this patient's status, or sooner if there is some new clinical indication. Reported by: RACHEL on 08/19/2025 10:21:00 AM. Reviewed, dictated and finalized at location A.
== END 2025-08-19 09:53 | disposition home or self-care (01) ==
LOC: MICIMG 09:54
PROVIDERS: PCP Emergency Medicine; Visit Provider Nurse Practitioner Family
DX: Z78.0 Asymptomatic menopausal state (principal)
CPT/HCPCS: 77080

== ENCOUNTER 2025-08-22 08:14 | Outpatient (CLI) | payer MEDICARE, OTHER, SELFPAY ==
--- OUTSIDE RECORDS SUMMARY | 2025-08-22 08:32 | XMS_ITS | Encounter Summary ---
Author Organization [facility] Healthcare Address [address] [place] [address] Care Team Providers Care Rubber Off Name Role Phone Jaison Walton MD Primary Care Provide r No, Physician Primary Care Provider [phone] Jaison Walton MD Unavailable Encounter Details Date Type Department Care Team (Late st Contact Info) Description 06/25/2018 Orders Only [facility] Health Information Management [address] [place] [id number] Scanning, Provider Social History Tobacco Use Types Packs/Day Years Used Date Smoking Tobacco: Former Cigarettes Q uit: 01/02/2008 Smokeless Tobacco: Never Alcohol Use Standard Drinks/Week Comments Yes 1 (1 standard drink = 0.6 oz pur e alcohol) occassionally Comments Unknown Sex and Gender Information Value Date Recorded Sex Assigned at Not on file 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
--- OUTSIDE RECORDS SUMMARY | 2025-08-22 08:32 | XMS_ITS | Clinical Summary ---
Author Organization [facility] Address [address] [place] [address] Care Team Providers Care Director Of Child Welfare Services Name Role Phone No, Physician Primary Care Provider Jaison Walton MD Unavailable Allergies Active Allergy Reactions Criticality Noted Date Comments Iodine Rash Medium Shellfish Itching Low 05/26/2020 Shellfish Derived Rash Medium Jrvxyzv-Iqu-Wzx Reductase Inhibitors Other (See comments) Low 03/05/2023 [...] every day 0 0 015 Active fluticasone-salmet gaitto (ADVAIR HFA) 115-21 mcg/actuation inhaler inhale 2 [...] TAKE 1 TABLET DAILY 90 tablet 3 025 Active atorvastatin (LIPITOR) 20 mg tabletIndications: Aortic atherosclerosis TAKE 1 TABLET DAILY 90 tablet 2 025 Active amLODIPine (NORVASC) 10 mg tablet TAKE 1 TABLET DAILY 90 tablet 2 025 Active amLODIPine (NORVASC) 10 mg tablet TAKE 1 TABLET DAILY 90 tablet 3 024 2024 Discontinued atorvastatin (LIPITOR) 20 mg tabletIndications: Aortic atherosclerosis TAKE 1 TABLET DAILY 90 tablet 025 2024 Discontinued Active Problems Problem Noted Date [...] on file 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
--- OUTSIDE RECORDS SUMMARY | 2025-08-22 08:32 | XMS_ITS | Clinical Summary ---
Author Organization [facility] [employer] Address [address] [place] [address] Care Team Providers Care Transmission Specialist Name Role Phone Unavailable Primary Care Provider Unavailabl e Source Comments [facility] [employer]non-owned Affiliates and Associated Physician Practices is amultiple site organization consisting of ambulatory clinics and hospital sitesin [place], [place], [place] and [place]. This disclosure is being madepursuant to the Care Everywhere program and may not contain all information available regarding this patient. Last updated 18.[facility] [employer] 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 Gender Identity Not on file Sexual Orientation [...] yrs (1 - 1-dose 75+ series) 2022 DEPRESSION SCREENING 11/17/2024 COVID-19 VACCINE (3 - 2024-2 6 season) 2025 02/04/2021, 01/14/2021 INFLUENZA VACCINE (#1) 2025 0, 08/15/2019, 09/03/2012 [...] patient's age to complete this topic Insurance [facility] MEDICARE SELF PAY NO INSURANCE Member Subscriber Plan / Payer (Ef fective for All Dates) Name:Elissa Sandoval Member ID:Not on file Relation to Subscriber:Not on file Name:DILIPELISSA Subscriber ID:Not on file (Home) Address: [address] [place] [address] Payer ID:Not on file Group ID:Not on file Type:Self Pay Address: [place], [place] MEDICARE Member Subscriber Plan / Payer (Ef fective for All Dates) Name:Elissa Sandoval Member ID:Not on file Relation to Subscriber:Self Name:Elissa Sandoval Subscriber ID:Not on file Payer ID:[id number] (NAIC) Group ID:Not on file Type:[employer] Address: [address] [address] MEDICARE
--- OUTSIDE RECORDS SUMMARY | 2025-08-22 08:32 | XMS_ITS | Clinical Summary ---
Author Organization Address [address] [place] [address] Care Team Providers Care Drawer In Hand Name Role Phone Jaison Walton MD Primary Care Provider [phone] Encounters Date Type Department Care Team Description 08/03/2025 9:30 AM CDT - 08/03/2025 11:59 PM CDT [facility] Nuclear Medicine [address] [place] [address] Yamilet Cobian APRN, CNP Discharge Disposition: Discharged to home or Selfcare 08/03/2025 Travel 07/28/2025 Transcribe [facility] Central Scheduling [address] [place] [address] Yamilet Cobian APRN, CNP RUQ pain (Primary Dx); Abdominal distention; Eructation; Chronic atrophic gastritis without bleeding 07/28/2025 Transcribe [facility] Central Scheduling [address] [place] [address] Yamilet Cobian APRN, CNP RUQ pain (Primary Dx); Abnormal weight loss; Chronic atrophic gastritis without bleeding from Last 3 Months Social History Tobacco Use Types Packs/Day Years Used Date Smoking Tobacco: Never Assessed Comments Unknown Sex and Gender Information Value Date Recorded Sex Assigned at Not on file Legal Sex 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 Gender Identity Not on file Sexual Orientation Not on file Last Filed Vital Signs Vital Sign Reading Time Taken Comments Blood Pressure - - Pulse - - Temperature - - Respiratory Rate - - Oxygen Saturation - - Inhaled Oxygen Concentration - - Weight 63 kg (139 lb) 08/03/2025 9:37 AM CDT Height 154.9 cm (5' 1) 08/03/2025 9:37 AM CDT Body Mass Index 26.26 08/03/2025 9:37 AM CDT Plan of Treatment Health Maintenance Due Date Last Done Comments Hepatitis C Virus (HCV) Screening 1945 Medicare Initial AWV [id number] 10/17/2013 DEXA Bone Density 05/05/2014 05/05/2012 Influenza Immunization (#1) 07/18/202508/17, 09/30/2023, 09/13/2022, Additional history exists SARS-COV-2 Immunization ( season) 2025 09/16/2024, 09/24/2023, 10/19/2022, Additional history exists Mammogram Discontinued 04/22/2019, 03/17, 03/25/2017, Additional history exists Zoster Immunization Completed 08/01/2020, 10/29/2019, 10/28/2019, Additional history exists Pneumococcal Immunization (50+ years) Completed 06/30/2023, 08/20/2015, 12/18/2008, Additional history exists Pneumococcal Immunization Combined Discontinued 06/30/2023, 08/20/2015, 12/18/2008, Additional history exists Respiratory Syncytial Virus (RSV) Immunization (Adult) Completed 09/15/2023 DTaP/Tdap/Td Immunization Discontinued 2024, 08/19/2019, 11/19/2010 TdaP Immunization Completed 04/22/2025, 08/19/2019 Hepatitis B Immunization Aged Out No longer [...] on patient's age to complete this topic Procedures Procedure Name Priority Date/Time Associated Diagnosis Comments NM GASTRIC EMPTYING STUDY Routine 08/03/2025 12:48 PM CDT RUQ pain Abdominal distention Eructation from Last 3 Months Results * NM GASTRIC EMPTYING STUDY (08/03/2025 12:48 PM CDT) Anatomical Region Laterality Modality GI, Abdomen N/A Nuclear Medicine 08/03/2025 12:4 8 PM CDT Impressions 08/03/2025 5:38 PM CDT IMPRESSION: Normal gastric emptying. Narrative 08/03/2025 5:38 PM CDT DICTATING PHYSICIAN: Duane Page M.D. EXAM: CO GASTRIC EMPTYING STUDY HISTORY: Right upper quadrant pain, Abdominal distension (gaseous), Eructation COMPARISON: No relevant prior imaging studies are available for comparison. TECHNICAL FACTORS: 1.0 mCi of Tc-99m labeled sulfur colloid was mixed with 4 oz eggbeaters. The patient consumed a standard meal of 4 oz eggbeaters, 2 slice(s) of toast, 30 g jelly, administered with 4 ounces of water. Anterior and posterior images were obtained and gastric emptying was quantified using the geometric mean. Tc-99m used for this study was derived from a non-HEU source. FINDINGS: No lag in gastric emptying. Percent emptying was determined at the following time points: Elapsed time % empty (normal) 60 min: 18% (10-70%) 120 min: 80% (40-100%) 180 min: 99% (70-100%) The calculated half-time of emptying is 88.0 minutes and the rate of emptying is 0.57% per minute. These findings are within the range of normal. Procedure Note Duane Page MD - 08/03/2025 DICTATING PHYSICIAN: Duane Page M.D. EXAM: CO GASTRIC EMPTYING STUDY HISTORY: Right upper quadrant pain, Abdominal distension (gaseous),Eructation COMPARISON: No relevant prior imaging studies are available forcomparison. TECHNICAL FACTORS: 1.0 mCi of Tc-99m labeled sulfur colloid was mixedwith 4 oz eggbeaters. The patient consumed a standard meal of 4 ozeggbeaters, 2 slice(s) of toast, 30 g jelly, administered with 4 ounces ofwater. Anterior and posterior images were obtained and gastric emptyingwas quantified using the geometric mean. Tc- 99m used for this study wasderived from a non-HEU source. FINDINGS: No lag in gastric emptying. Percent emptying was determined at thefollowing time points: Elapsed time % empty (normal) 60 min: 18% (10-70%) 120 min: 80% (40-100%) 180 min: 99% (70-100%) The calculated half-time of emptying is 88.0 minutes and the rate ofemptying is 0.57% per minute. These findings are within the range ofnormal. IMPRESSION: Normal gastric emptying. Yamilet Cobian QUALITY MEASUREMENT SPECIALIST, ACUTE DIALYSIS NURSE IMG NM ORDERABLES Final Result from Last 3 Months Insurance MEDICARE FOR LIFE Care Teams Drawer In Hand Relationship Specialty Start Date End Date Jaison Walton MD [address] [place] [address] PCP - General Internal Medicine 07/29/25
--- OUTSIDE RECORDS SUMMARY | 2025-08-22 08:32 | XMS_ITS | Encounter Summary ---
Author Organization [facility] Healthcare Address [address] [place] [address] Care Team Providers Care Arabic Teacher Name Role Phone Jaison Walton MD Primary Care Provide r No, Physician Primary Care Provider [phone] Jaison Walton MD Unavailable [phone] Encounter Details Date Type Department Care Team (Late st Contact Info) Description 07/02/2018 Orders Only [facility] Health Information Management [address] [place] [address] Scanning, Provider Social History Tobacco Use Types Packs/Day Years Used Date Smoking Tobacco: Former Cigarettes Q uit: 01/02/2008 Smokeless Tobacco: Never Alcohol Use Standard Drinks/Week Comments Yes 1 (1 standard drink = 0.6 oz pur e alcohol) occassionally Comments Unknown Sex and Gender Information Value Date Recorded Sex Assigned at Not on file 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
[2025-08-22 09:09] LABS: Alanine Aminotransferase 23 U/L (6-35); Albumin Level 4.4 g/dL (3.5-5.1); Alkaline Phosphatase 61 U/L (38-126); Anion Gap 6 mmol/L (4-12); Aspartate Amino Transferase 28 U/L (14-36); Bilirubin,Total 0.6 mg/dL (0.2-1.3); Blood Urea Nitrogen 8 mg/dL (7-17); Calcium 9.0 mg/dL (8.4-10.2); Carbon Dioxide 27 mmol/L (22-30); Chloride 98 mmol/L (98-107); Cholesterol 162 mg/dL (0-200); Estimated Glomerular Filt Rate > 60; Glucose 98 mg/dL (65-110); HDL Direct 77 mg/dL; Potassium 4.1 mmol/L (3.4-5.0); Sodium 131 mmol/L (137-145); Total Protein 7.2 g/dL (6.3-8.2); Triglycerides 48 mg/dL (<150)
== END 2025-08-22 08:15 | disposition home or self-care (01) ==
LOC: ANHLAB 08:15
PROVIDERS: PCP Emergency Medicine; Visit Provider Emergency Medicine
DX: E78.5 Hyperlipidemia, unspecified (principal); E55.9 Vitamin D deficiency, unspecified
CPT/HCPCS: 36415; 80053; 80061; 82306

== ENCOUNTER 2025-09-14 12:09 | Emergency (ER) | payer MEDICARE, OTHER, SELFPAY ==
[2025-09-14 12:20] VITALS: BP 122/76; PULSE 72; RESP 16; TEMP 36.1; O2SAT 97
--- NOTE | 2025-09-14 12:43 | ED.URI ---
HPI - URI/Sore Throat General Chief Complaint: Upper Respiratory Infection Stated Complaint: Bronchitis Symptoms Time Seen by Provider: 09/14/25 12:43 Source: patient Mode of arrival: ambulatory Limitations: no limitations History of Present Illness HPI Narrative: 79-year-old female presents with complaint of cough and chest congestion. Patient states she either has pneumonia or bronchitis. Reports history of COPD. Taking Mucinex daily. No chest pain or shortness of breath. Afebrile. All systems reviewed and negative except as noted above. Related Data Home Medications ?Medication ?Instructions ?Recorded ?Confirmed ?Last Taken ?Type amlodipine 10 mg tablet 10 mg PO HS 11/23/19 09/14/25 07/14/25 History lisinopril 20 mg tablet 20 mg PO DAILY 11/23/19 09/14/25 07/14/25 History hqphsgeg-ieg-KH 200 mcg-vit K 100 1 cap PO DAILY 11/30/19 09/14/25 07/14/25 History mcg-lycop 500 ipn-[id number]-A09 capsule (Daily Multivitamin) aspirin 81 mg tablet,delayed 81 mg PO EVERY OTHER DAY 03/24/20 09/14/25 07/14/25 History release Lactobacillus rhamnosus GG 10 1 cap PO DAILY 12/25/22 09/14/25 07/14/25 History billion cell capsule (Culturelle) atorvastatin 20 mg tablet 20 mg PO DAILY 10/22/23 09/14/25 07/14/25 History guaifenesin 1,200 mg tablet, 1,200 mg PO PRN PRN Cough 02/11/24 09/14/25 Unknown History extended release 12 hr (Mucinex) loratadine 10 mg tablet (Claritin) 10 mg PO DAILY 02/28/25 09/14/25 07/14/25 History peppermint oil 90 mg 180 mg PO BID 08/29/25 09/14/25 Unknown History capsule,delayed,extended release (IBgard) fluticasone propionate 115 2 inh inhalation BID 09/14/25 09/14/25 Unknown History mcg-salmeterol 21 mcg/actuation HFA inhaler (Advair HFA) Allergies Allergy/AdvReac Type Severity Reaction Status Date / Time iodine Allergy Severe Swelling Verified 09/14/25 12:17 AND ITCHING shellfish derived Allergy Severe Itching Verified 09/14/25 12:17 AND SWELLING Sulfa (Sulfonamide Allergy Mild RASH Verified 09/14/25 12:17 Antibiotics) iohexol (From contrast - CT, Allergy Rash Verified 09/14/25 12:17 X-RAY) [facility] Past Medical History Medical History (Updated 09/14/25 @ 12:53 by Elsa Gannon APRN) Former consumption of alcohol Pneumonia Referred otalgia of right ear Left hip pain Other specified personal risk factors, not elsewhere classified Acute dyspnea Community acquired pneumonia Otalgia of both ears Right knee pain Sinusitis Preoperative clearance Nasal mucosa dry Anterior epistaxis Internal hemorrhoids Sigmoid diverticulosis History of adenomatous polyp of colon Left hip pain Hyperglycemia COPD exacerbation Complete tear of right rotator cuff Wheezing Vitamin D deficiency Thrush, oral Skin lesion of left arm Seasonal allergic rhinitis due to pollen Primary osteoarthritis of right knee Primary osteoarthritis of left knee Major depressive disorder, single episode, unspecified H/O malignant neoplasm of female breast Gastro-esophageal reflux disease without esophagitis Essential (primary) hypertension Bony prominence Bilateral primary osteoarthritis of hip Acute pain of right shoulder Acute left-sided low back pain without sciatica Hx of colonic polyps Change in bowel movement LLQ pain Colitis Abnormal CT scan, sigmoid colon Complete tear of right rotator cuff Vitamin D2 deficiency Degenerative joint disease of knee Bronchitis Mitral valve prolapse Lumbar compression fracture L1-2 COPD (chronic obstructive pulmonary disease) GERD (gastroesophageal reflux disease) Depression Diverticulitis Breast cancer Status post right lumpectomy and radiation. HLD (hyperlipidemia) HTN (hypertension) Dyspnea Surgical History Surgical History Status post total left knee replacement (~05/06/24) Status post total right knee replacement (~03/19/22) History of inguinal hernia repair with 8 cm Parietex hernia mesh system 03/29/20 S/P lumpectomy, right breast History of hysterectomy Family History Family History Mother Family history of malignant neoplasm Family history of emphysema Family history of lung cancer Family history of chronic obstructive pulmonary disease Father Hypertension Family history of heart disease in male family member before age 55 Acute myocardial infarction Heart disease Social History Social History (Updated 08/29/25 @ 11:31 by Argentina Ingram MA) Social History: The patient lives with her . She has 3 children. 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 Surrogate medical decision maker: Lance Sandoval, spouse. Code status: Full code. Caffeine-daily Smoking packs per day: 1 Smoking cigarettes per day: 20.0 Years smoked: 30 Smoking pack-years: 30.00 Smoking status: Former smoker Tobacco type: cigarettes Smoking end date: 05/06/13 Additional smoking assessment comments: DENIES ANY FORM OF TOBACCO USE Alcohol intake: former Substance use: never Substance use type: does not use Do You Feel Safe in your Home?: Yes Lack of Transportation: No Lack of Food: Never True Current Housing: Decline to Answer Concerned About Future Housing: Decline to Answer Difficulty Paying Gas/Electric Bills: Decline to Answer Difficulty Paying for Meds: Decline to Answer Currently Unemployed: Decline to Answer Education: Decline to Answer Difficulty w/ Childcare or Family Care: Decline to Answer Living arrangements: with family Gender identity (if verbalized by the patient): Female Spiritual care concerns: No Comments At time of signature, agree with nursing past medical, surgical, social and family history. There is no relevant family history pertinent to the presenting complaint. Exam Narrative: GENERAL: This is a well-nourished, well-developed patient, in no apparent distress. HEAD: normocephalic, atraumatic. EYES: PERRL. Sclera clear/white. Vision is grossly intact. EARS: External ears normal, auditory canals clear and without drainage, TMs normal without perforation. Hearing grossly intact. NOSE: External nose normal with no obvious nasal discharge, nares without redness, no rhinorrhea. THROAT: Mucous membranes moist, posterior pharynx clear. NECK: Neck supple, non-tender without lymphadenopathy, masses or thyromegaly. CARDIOVASCULAR: Regular rate and rhythm without murmurs, gallops, or rubs. RESPIRATORY: Rhonchi to left lower lung and right mid lung on expiration. Breath sounds equal bilaterally. No wheezes, rales SKIN: warm, Dry, intact with no suspicious lesions or rash, good texture and turgor. NEURO: awake, alert, and oriented to person, place and time. There were no obvious focal neurologic abnormalities. EXTREMITIES: No joint tenderness, effusion, or edema noted. Course Course Level of Care: Express Care Visit Vital Signs Vital signs: Vital Signs Temperature 36.1 C L 09/14/25 12:20 Pulse Rate 72 09/14/25 12:20 Respiratory Rate 16 09/14/25 12:20 Blood Pressure 122/76 09/14/25 12:20 Pulse Oximetry 97 09/14/25 12:20 Temperature 36.1 C L 09/14/25 12:20 Pulse Rate 72 09/14/25 12:20 Respiratory Rate 16 09/14/25 12:20 Blood Pressure 122/76 09/14/25 12:20 Pulse Oximetry 97 09/14/25 12:20 Reviewed MDM - URI/Sore Throat MDM Narrative Medical decision making narrative: History of COPD. Will treat with antibiotic due to comorbidities, exam findings. Patient agrees with plan of care. Has appoint with her ranger aide next week. Differential Diagnosis Differential diagnosis: Likely upper respiratory infection, bronchitis and other (Pneumonia) Discharge Plan Discharge Clinical Impression: Bronchitis Patient Disposition: Home Condition: Stable Instructions: Antibiotic Form, Acute Bronchitis (ED) Additional Instructions: Take antibiotic as prescribed until gone. Continue to take Mucinex as directed on packaging. Use albuterol inhaler every 4-6 hours as needed for cough, wheezing, shortness of breath. Follow-up with your ranger aide if symptoms are not improving. Patient Language: Hebrew Prescriptions: New doxycycline hyclate 100 mg capsule 100 mg PO BID 7 Days Qty: 14 0RF No Action Daily Multivitamin 200-100-500 mcg Capsule 1 cap PO DAILY fluticasone propion-salmeterol [Advair HFA] 115-21 mcg/actuation HFA aerosol inhaler 2 inh inhalation BID Culturelle 10 billion cell capsule 1 cap PO DAILY omeprazole 40 mg capsule,delayed release(DR/EC) 40 mg PO DAILY Qty: 60 3RF famotidine 20 mg tablet 20 mg PO BID Qty: 60 3RF lisinopril 20 mg tablet 20 mg PO DAILY amlodipine 10 mg tablet 10 mg PO HS guaifenesin [Mucinex] 1,200 mg tablet extended release 12hr 1,200 mg PO PRN PRN (Reason: Cough) atorvastatin 20 mg tablet 20 mg PO DAILY loratadine [Claritin] 10 mg tablet 10 mg PO DAILY IBgard 90 mg capsule,delayed,extend.release 180 mg PO BID Xifaxan 550 mg tablet 550 mg PO TID 14 Days Qty: 42 0RF aspirin 81 mg Tablet,Delayed Release (Dr/Ec) 81 mg PO EVERY OTHER DAY (DME) inhalational spacing device Spacer See Rx Instructions .ROUTE .MEDSUPPLY Qty: 1 0RF Rx Instructions: As directed Spiriva Respimat 2.5 mcg/actuation mist See Rx Instructions .ROUTE .COMPLEX Qty: 12 3RF Dose Instruction: USE 2 INHALATIONS DAILY Rx Instructions: USE 2 INHALATIONS DAILY albuterol sulfate 90 mcg/actuation HFA aerosol inhaler 1 - 2 inh inhalation Q4-6H PRN (Reason: shortness of breath or wheezing) 30 Days Qty: 25.5 1RF fluticasone propion-salmeterol [Advair HFA] 115-21 mcg/actuation HFA aerosol inhaler 2 puff inhalation BID 90 Days Qty: 36 3RF Rx Instructions: rinse and spit alprazolam [Xanax] 0.5 mg tablet 0.5 mg PO BID PRN (Reason: anxiety) Qty: 30 2RF fluticasone propionate 50 mcg/actuation spray,suspension See Rx Instructions .ROUTE .COMPLEX Qty: 96 3RF Dose Instruction: USE 2 SPRAYS NASALLY TWICE A DAY Rx Instructions: USE 2 SPRAYS NASALLY TWICE A DAY Follow-up/Referrals: Jaison Walton MD [Primary Care Provider, Internal Medicine] Time of Disposition: 12:55
== END 2025-09-14 13:00 | disposition home or self-care (01) ==
PROVIDERS: Emergency Provider Nurse Practitioner Family; PCP Emergency Medicine
DX: J40 Bronchitis, not specified as acute or chronic (principal); J44.9 Chronic obstructive pulmonary disease, unspecified; M17.0 Bilateral primary osteoarthritis of knee; I10 Essential (primary) hypertension; K21.9 Gastro-esophageal reflux disease without esophagitis; I34.1 Nonrheumatic mitral (valve) prolapse; E78.5 Hyperlipidemia, unspecified; Z85.3 Personal history of malignant neoplasm of breast; Z90.11 Acquired absence of right breast and nipple; Z96.653 Presence of artificial knee joint, bilateral
CPT/HCPCS: 99213; G0463

== ENCOUNTER 2025-09-29 10:13 | Outpatient (CLI) | payer MEDICARE, OTHER, SELFPAY ==
--- NOTE | ~2025-09-29 | XR_ITS ---
EXAMINATION: XR chest 2V, 09/29/2025 10:30 WELDING MACHINE OPERATOR RESISTANCE HISTORY: R06.09 - Other forms of dyspnea COMPARISON: No comparisons available. Technique: 2 views obtained. Findings: COPD changes otherwise the lungs are clear No pneumothorax. Heart is normal size. Mediastinal and hilar contours are within normal limits. Bony thorax no acute abnormality. Impression: No acute cardiopulmonary abnormality. Reviewed, dictated and finalized at location P. ING MACHINE OPERATOR RESISTANCE Impression: No acute cardiopulmonary abnormality.
--- OUTSIDE RECORDS SUMMARY | 2025-09-29 11:06 | XMS_ITS | Clinical Summary ---
Author Organization [facility] Address [address] [place] [address] Care Team Providers Care Field Service Rep Name Role Phone No, Physician Primary Care Provider [phone] Jaison Walton MD Unavailable Allergies Active Allergy Reactions Criticality Noted Date Comments Iodine Rash Medium Shellfish Itching Low 05/26/2020 Shellfish Derived Rash Medium Hhtyvqt-Sxa-Sxr Reductase Inhibitors Other (See comments) Low 03/05/2023 [...] DAILY 90 tablet 3 04/28/20 25 Active atorvastatin (LIPITOR) 20 mg tabletIndications:A ortic atherosclerosis TAKE 1 TABLET DAILY 90 tablet 2 07/27/20 25 Active amLODIPine (NORVASC) 10 mg tablet TAKE 1 TABLET DAILY 90 tablet 2 07/27/20 25 Active Active Problems Problem Noted Date [...] on file 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
--- OUTSIDE RECORDS SUMMARY | 2025-09-29 11:06 | XMS_ITS | Encounter Summary ---
Author Organization [facility] Healthcare Address [address] [place] [address] Care Team Providers Care Welfare Interviewer Name Role Phone Jaison Walton MD Primary Care Provide r No, Physician Primary Care Provider [phone] Jaison Walton MD Unavailable Encounter Details Date Type Department Care Team (Late st Contact Info) Description 07/02/2018 Orders Only [facility] Health Information Management [address] [place] [id number] Scanning, Provider Social History Tobacco Use Types Packs/Day Years Used Date Smoking Tobacco: Former Cigarettes Q uit: 01/02/2008 Smokeless Tobacco: Never Alcohol Use Standard Drinks/Week Comments Yes 1 (1 standard drink = 0.6 oz pur e alcohol) occassionally Comments Unknown Sex and Gender Information Value Date Recorded Sex Assigned at Not on file 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
--- OUTSIDE RECORDS SUMMARY | 2025-09-29 11:06 | XMS_ITS | Clinical Summary ---
Author Organization [facility] Address [address] [place] [address] Care Team Providers Care Warehouse Laborer Name Role Phone Jaison Walton MD Primary Care Provider [phone] Encounters Date Type Department Care Team Description 08/31/2025 Transcribe Orders [facility] Patient Access Admitting [address] [place] [id number] Yamilet Cobian APRN, CNP Epigastric pain (Primary Dx); Chronic atrophic gastritis without bleeding; Abnormal weight loss 08/23/2025 Transcribe Orders [facility] Central Scheduling [address] [place] [id number] Yamilet Cobian APRN, CNP Epigastric pain (Primary Dx); Chronic atrophic gastritis without bleeding; Abnormal weight loss 08/03/2025 9:30 AM CDT - 08/03/2025 11:59 PM CDT Hospital [facility] [address] [place] [id number] Yamilet Cobian APRN, CNP Discharge Disposition: Discharged to home or Selfcare 08/03/2025 Travel 07/28/2025 Transcribe Orders [facility] Central Scheduling [address] [facility] [place] [address] Yamilet Cobian APRN, CNP RUQ pain (Primary Dx); Abdominal distention; Eructation; Chronic atrophic gastritis without bleeding 07/28/2025 Transcribe Orders [facility] Central Scheduling [address] [place] [address] Yamilet Cobian APRN, CNP RUQ pain (Primary Dx); Abnormal weight loss; Chronic atrophic gastritis without bleeding from Last 3 Months Social History Tobacco Use Types Packs/Day Years Used Date Smoking Tobacco: Never Assessed Comments Unknown Sex and Gender Information Value Date Recorded Sex Assigned at Not on file 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 EXAM: [place] GASTRIC EMPTYING STUDY HISTORY: Right upper quadrant [...] 08/03/2025 DICTATING PHYSICIAN: Duane Page M.D. EXAM: [place] GASTRIC EMPTYING STUDY HISTORY: Right upper quadrant [...] ofnormal. IMPRESSION: Normal gastric emptying. Yamilet Cobian CONFIGURATION MANAGEMENT MANAGER, MEDICAL TECHNOLOGIST CHIEF IMG NM ORDERABLES Final Result from Last 3 Months Insurance [employer] [id number] MEDICARE [facility] Care Teams Warehouse Laborer Relationship Specialty Start Date End Date Jaison Walton MD [address] [place], [place] [id number] PCP - General Internal Medicine 07/29/25
--- OUTSIDE RECORDS SUMMARY | 2025-09-29 11:06 | XMS_ITS | Encounter Summary ---
Author Organization [facility] Healthcare Address [address] [place] [address] Care Team Providers Care Watch Manufacturing Supervisor Name Role Phone Jaison Walton MD Primary Care Provide r No, Physician Primary Care Provider [phone] Jaison Walton MD Unavailable [phone] Encounter Details Date Type Department Care Team (Late st Contact Info) Description 06/25/2018 Orders Only [facility] [place] Health Information Management [address] [place] [id number] Scanning, Provider Social History Tobacco Use Types Packs/Day Years Used Date Smoking Tobacco: Former Cigarettes Q uit: 01/02/2008 Smokeless Tobacco: Never Alcohol Use Standard Drinks/Week Comments Yes 1 (1 standard drink = 0.6 oz pur e alcohol) occassionally Comments Unknown Sex and Gender Information Value Date Recorded Sex Assigned at Not on file 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
--- OUTSIDE RECORDS SUMMARY | 2025-09-29 11:06 | XMS_ITS | Clinical Summary ---
Author Organization [facility] Address [address] [facility] [place] [address] Care Team Providers Care Paper Coating Machine Operator Name Role Phone Unavailable Primary Care Provider Unavailabl e Source Comments [facility],non-owned Affiliates and Associated Physician Practices is amultiple site organization consisting of ambulatory clinics and hospital sitesin [place], [place], [place] and [place]. This disclosure is being madepursuant to the Care Everywhere program and may not contain all information available regarding this patient. Last updated 18.[facility] Allergies Active Allergy Reactions Criticality Noted Date [...] Act stefania Cholecalciferol (VITAMIN D3) 1.25 MG (42143 UT) capsule Take 50 capsules by mouth [...] on file Legal Sex Female 8:22 AM SUBSCRIPTION AGENT Gender Identity Not on file Sexual Orientation [...] patient's age to complete this topic Insurance [facility] MEDICARE SELF PAY NO INSURANCE Member Subscriber Plan / Payer (Ef fective for All Dates) Name:Elissa Sandoval Member ID:Not on file Relation to Subscriber:Not on file Name:DILIPELISSA Subscriber ID:Not on file (Home) Address: [address] [place] [address] Payer ID:Not on file Group ID:Not on file Type:Self Pay Address: [place], [place] MEDICARE Member Subscriber Plan / Payer (Ef fective for All Dates) Name:Elissa Sandoval Member ID:Not on file Relation to Subscriber:Self Name:Elissa Sandoval Subscriber ID:Not on file Payer ID:[id number] (NAIC) Group ID:Not on file Type:[employer] Address: [address] [address] MEDICARE
--- OUTSIDE RECORDS SUMMARY | 2025-09-29 11:06 | XMS_ITS | Encounter Summary ---
Author Organization [facility] Address [address] [place] [address] Phone Care Team Providers Care Material Attendant Name Role Phone Jaison Walton MD Primary Care Provider [phone] Encounter Details Date Type Department Care Team (Latest Contact Info) Description 08/31/2025 Transcribe Orders [facility] Patient Access Admitting [address] [place] [address] Yamilet Cobian, PLAN EXAMINER, FRESH WORK WRAPPER LAYER [address] [facility] [address] [place] [address] Epigastric pain (Primary Dx); Chronic atrophic gastritis without bleeding; Abnormal weight loss Social History Tobacco Use Types Packs/Day Years Used Date Smoking Tobacco: Never Assessed Comments Unknown Sex and Gender Information Value Date Recorded Sex Assigned at Not on file Legal Sex Female 11:57 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
== END 2025-09-29 10:14 | disposition home or self-care (01) ==
PROVIDERS: PCP Emergency Medicine; Visit Provider Nurse Practitioner Family
DX: R06.09 Other forms of dyspnea (principal); R05.9 Cough, unspecified
CPT/HCPCS: 71046

== ENCOUNTER 2025-10-06 14:34 | Emergency (ER) | payer MEDICARE, OTHER, SELFPAY ==
[2025-10-06 14:44] VITALS: BP 109/61; PULSE 72; RESP 16; TEMP 36; O2SAT 98
--- NOTE | 2025-10-06 15:28 | ED.DIZZY ---
HPI - Dizziness General Chief Complaint: Dizziness Stated Complaint: Vertigo/Thrush Time Seen by Provider: 10/06/25 15:15 Source: patient and RN notes reviewed Mode of arrival: ambulatory Limitations: no limitations History of Present Illness HPI Narrative: 79-year-old female patient presents today complaining of bilateral ear clogging, ringing, and pain that started this morning along with dizziness. The dizziness does not change with head movement. Denies chest pain, shortness of breath, vision changes, numbness or tingling. No OTC treatment prior to arrival. No history of vertigo. She just finished a course of prednisone 2 days ago for bronchitis. She is also complaining of possible thrush in her mouth on the tongue and inside of the left cheek. She has had thrush multiple times and is typically treated with oral nystatin. Patient uses Advair for COPD and rinse his mouth appropriately. Related Data Home Medications ?Medication ?Instructions ?Recorded ?Confirmed ?Last Taken ?Type amlodipine 10 mg tablet 10 mg PO HS 11/23/19 10/06/25 07/14/25 History lisinopril 20 mg tablet 20 mg PO DAILY 11/23/19 10/06/25 07/14/25 History zxozlwbz-[id number]-MW 200 mcg-vit K 100 1 cap PO DAILY 11/30/19 10/06/25 07/14/25 History mcg-lycop 500 [id number] capsule (Daily Multivitamin) aspirin 81 mg tablet,delayed 81 mg PO EVERY OTHER DAY 03/24/20 10/06/25 07/14/25 History release Lactobacillus rhamnosus GG 10 1 cap PO DAILY 12/25/22 10/06/25 07/14/25 History billion cell capsule (Culturelle) atorvastatin 20 mg tablet 20 mg PO DAILY 10/22/23 10/06/25 07/14/25 History guaifenesin 1,200 mg tablet, 1,200 mg PO PRN PRN Cough 02/11/24 10/06/25 Unknown History extended release 12 hr (Mucinex) loratadine 10 mg tablet (Claritin) 10 mg PO DAILY 02/28/25 10/06/25 07/14/25 History peppermint oil 90 mg 180 mg PO BID 08/29/25 10/06/25 Unknown History capsule,delayed,extended release (IBgard) fluticasone propionate 115 2 inh inhalation BID 09/14/25 10/06/25 Unknown History mcg-salmeterol 21 mcg/actuation HFA inhaler (Advair HFA) Allergies Allergy/AdvReac Type Severity Reaction Status Date / Time iodine Allergy Severe Swelling Verified 10/06/25 14:46 AND ITCHING shellfish derived Allergy Severe Itching Verified 10/06/25 14:46 AND SWELLING Sulfa (Sulfonamide Allergy Mild RASH Verified 10/06/25 14:46 Antibiotics) iohexol (From contrast - CT, Allergy Rash Verified 10/06/25 14:46 X-RAY) [facility] Past Medical History Medical History Former consumption of alcohol Pneumonia Referred otalgia of right ear Left hip pain Other specified personal risk factors, not elsewhere classified Acute dyspnea Community acquired pneumonia Otalgia of both ears Right knee pain Sinusitis Preoperative clearance Nasal mucosa dry Anterior epistaxis Internal hemorrhoids Sigmoid diverticulosis History of adenomatous polyp of colon Left hip pain Hyperglycemia COPD exacerbation Complete tear of right rotator cuff Wheezing Vitamin D deficiency Thrush, oral Skin lesion of left arm Seasonal allergic rhinitis due to pollen Primary osteoarthritis of right knee Primary osteoarthritis of left knee Major depressive disorder, single episode, unspecified H/O malignant neoplasm of female breast Gastro-esophageal reflux disease without esophagitis Essential (primary) hypertension Bony prominence Bilateral primary osteoarthritis of hip Acute pain of right shoulder Acute left-sided low back pain without sciatica Hx of colonic polyps Change in bowel movement LLQ pain Colitis Abnormal CT scan, sigmoid colon Complete tear of right rotator cuff Vitamin D2 deficiency Degenerative joint disease of knee Bronchitis Mitral valve prolapse Lumbar compression fracture L1-2 COPD (chronic obstructive pulmonary disease) GERD (gastroesophageal reflux disease) Depression Diverticulitis Breast cancer Status post right lumpectomy and radiation. HLD (hyperlipidemia) HTN (hypertension) Dyspnea Surgical History Surgical History Status post total left knee replacement (~05/06/24) Status post total right knee replacement (~03/19/22) History of inguinal hernia repair with 8 cm Parietex hernia mesh system 03/29/20 S/P lumpectomy, right breast History of hysterectomy Family History Family History Mother Family history of malignant neoplasm Family history of emphysema Family history of lung cancer Family history of chronic obstructive pulmonary disease Father Hypertension Family history of heart disease in male family member before age 55 Acute myocardial infarction Heart disease Social History Social History Social History: The patient lives with her . She has 3 children. 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 Surrogate medical decision maker: Lance Sandoval, spouse. Code status: Full code. Caffeine-daily Smoking packs per day: 1 Smoking cigarettes per day: 20.0 Years smoked: 30 Smoking pack-years: 30.00 Smoking status: Former smoker Tobacco type: cigarettes Smoking end date: 05/06/13 Additional smoking assessment comments: DENIES ANY FORM OF TOBACCO USE Alcohol intake: former Substance use: never Substance use type: does not use Do You Feel Safe in your Home?: Yes Lack of Transportation: No Lack of Food: Never True Current Housing: Decline to Answer Concerned About Future Housing: Decline to Answer Difficulty Paying Gas/Electric Bills: Decline to Answer Difficulty Paying for Meds: Decline to Answer Currently Unemployed: Decline to Answer Education: Decline to Answer Difficulty w/ Childcare or Family Care: Decline to Answer Living arrangements: with family Gender identity (if verbalized by the patient): Female Spiritual care concerns: No Comments At time of signature, I have reviewed and agree with nursing past medical, surgical, social and family history unless otherwise noted. Please see nursing chart for further information. There is no relevant family history pertinent to the presenting complaint Exam Narrative: GENERAL: Well-appearing, well-nourished, and in no acute distress. HEAD: Normocephalic, atraumatic. EYES: EOMI. PERRL. No nystagmus. ENT: Mucous membranes pink and moist. Right side of the tongue with some white coating. Satellite lesions to the inner aspect of the left cheek. Nares clear. No rhinorrhea. Bilateral middle ear effusions with some bulging present. Throat normal. Uvula midline. NECK: Normal AROM. Supple. No lymphadenopathy. CHEST: No respiratory distress. Clear to auscultation. HEART: Regular rate and rhythm. No murmur appreciated. EXTREMITIES: Normal range of motion. No edema. SKIN: Warm, dry, no rash. Capillary refill normal. Normal skin turgor. NEURO: No focal deficits. Alert and oriented x3. Gait steady with a cane. PSYCH: Normal affect. No signs of depression or anxiety. Course Course Level of Care: Express Care Visit Vital Signs Vital signs: Vital Signs Temperature 96.8 F L 10/06/25 14:44 Pulse Rate 72 10/06/25 14:44 Respiratory Rate 16 10/06/25 14:44 Blood Pressure 109/61 10/06/25 14:44 Pulse Oximetry 98 10/06/25 14:44 Temperature 96.8 F L 10/06/25 14:44 Pulse Rate 72 10/06/25 14:44 Respiratory Rate 16 10/06/25 14:44 Blood Pressure 109/61 10/06/25 14:44 Pulse Oximetry 98 10/06/25 14:44 Reviewed MDM - Dizziness MDM Narrative Medical decision making narrative: 79-year-old female patient presents today complaining of bilateral ear clogging, ringing, and pain that started this morning along with dizziness. The dizziness does not change with head movement. Denies chest pain, shortness of breath, vision changes, numbness or tingling. No OTC treatment prior to arrival. No history of vertigo. She just finished a course of prednisone 2 days ago for bronchitis. She is also complaining of possible thrush in her mouth on the tongue and inside of the left cheek. She has had thrush multiple times and is typically treated with oral nystatin. Patient uses Advair for COPD and rinse his mouth appropriately. Patient will be treated with nystatin for her oral thrush. Feelings of dizziness or likely due to bilateral serous effusions. Patient already uses Flonase daily. Recommend starting some Mucinex as well and trying some warm compresses on the ears. Patient agrees with plan. Vital signs stable. PCP/ER/ENT follow-up if dizziness persists. Differential Diagnosis Differential diagnosis: Likely benign paroxysmal positional vertigo, orthostatic hypotension and other (Otitis media, otitis externa, ruptured TM, serous otitis) Critical Care Time Critical Care Time Critical Care Time: No Discharge Plan Discharge Clinical Impression: Oral thrush Acute serous otitis media, bilateral Qualifiers: Recurrence: non-recurrent Qualified Code(s): H65.03 - Acute serous otitis media, bilateral Patient Disposition: Home Condition: Stable Instructions: Oral Candidiasis (ED), Fluid In The Ear (Serous Otitis Media) (ED) Additional Instructions: You have a collection of fluid behind your ear drums, which is likely the cause of your dizziness today. Continue your Flonase and allergy medicine at home. You can apply a warm compress to facilitate drainage. Follow up with your PCP next week if the dizziness persists. Use the Nystatin as prescribed. If symptoms do not improve, please follow up with your PCP. Patient Language: Czech Prescriptions: New nystatin 100,000 unit/mL suspension 5 ml PO QID 7 Days Qty: 140 0RF Rx Instructions: swish and swallow No Action Daily Multivitamin 200-100-500 mcg Capsule 1 cap PO DAILY fluticasone propion-salmeterol [Advair HFA] 115-21 mcg/actuation HFA aerosol inhaler 2 inh inhalation BID doxycycline hyclate 100 mg capsule 100 mg PO BID 7 Days Qty: 14 0RF Culturelle 10 billion cell capsule 1 cap PO DAILY omeprazole 40 mg capsule,delayed release(DR/EC) 40 mg PO DAILY Qty: 60 3RF famotidine 20 mg tablet 20 mg PO BID Qty: 60 3RF lisinopril 20 mg tablet 20 mg PO DAILY amlodipine 10 mg tablet 10 mg PO HS guaifenesin [Mucinex] 1,200 mg tablet extended release 12hr 1,200 mg PO PRN PRN (Reason: Cough) atorvastatin 20 mg tablet 20 mg PO DAILY loratadine [Claritin] 10 mg tablet 10 mg PO DAILY IBgard 90 mg capsule,delayed,extend.release 180 mg PO BID aspirin 81 mg Tablet,Delayed Release (Dr/Ec) 81 mg PO EVERY OTHER DAY (DME) inhalational spacing device Spacer See Rx Instructions .ROUTE .MEDSUPPLY Qty: 1 0RF Rx Instructions: As directed Spiriva Respimat 2.5 mcg/actuation mist See Rx Instructions .ROUTE .COMPLEX Qty: 12 3RF Dose Instruction: USE 2 INHALATIONS DAILY Rx Instructions: USE 2 INHALATIONS DAILY albuterol sulfate 90 mcg/actuation HFA aerosol inhaler 1 - 2 inh inhalation Q4-6H PRN (Reason: shortness of breath or wheezing) 30 Days Qty: 25.5 1RF fluticasone propion-salmeterol [Advair HFA] 115-21 mcg/actuation HFA aerosol inhaler 2 puff inhalation BID 90 Days Qty: 36 3RF Rx Instructions: rinse and spit fluticasone propionate 50 mcg/actuation spray,suspension See Rx Instructions .ROUTE .COMPLEX Qty: 96 3RF Dose Instruction: USE 2 SPRAYS NASALLY TWICE A DAY Rx Instructions: USE 2 SPRAYS NASALLY TWICE A DAY benzonatate 200 mg capsule 200 mg PO TID PRN (Reason: cough) Qty: 90 1RF alprazolam [Xanax] 0.5 mg tablet 0.5 mg PO BID PRN (Reason: anxiety) Qty: 30 2RF Follow-up/Referrals: Jaison Walton MD [Primary Care Provider, Internal Medicine] Time of Disposition: 15:35
== END 2025-10-06 16:00 | disposition home or self-care (01) ==
PROVIDERS: Emergency Provider Nurse Practitioner; PCP Emergency Medicine
DX: B37.0 Candidal stomatitis (principal); H65.03 Acute serous otitis media, bilateral; J44.9 Chronic obstructive pulmonary disease, unspecified; I10 Essential (primary) hypertension; E78.5 Hyperlipidemia, unspecified; Z85.3 Personal history of malignant neoplasm of breast; Z87.891 Personal history of nicotine dependence; Z79.82 Long term (current) use of aspirin; Z79.899 Other long term (current) drug therapy
CPT/HCPCS: 99213; G0463

== ENCOUNTER 2025-11-04 07:56 | Outpatient (CLI) | payer MEDICARE, OTHER, SELFPAY ==
--- OUTSIDE RECORDS SUMMARY | 2025-11-04 08:03 | XMS_ITS | Encounter Summary ---
Author Organization [facility] Address [address] [place] [address] Care Team Providers Care Carbon Setter Name Role Phone Jaison Walton MD Primary Care Provide r No, Physician Primary Care Provider [phone] Jaison Walton MD Unavailable Jaison Walton MD Primary Care Provide r Encounter Details Date Type Department Care Team (Late st Contact Info) Description 07/02/2018 Orders Only [facility] [place] [address] [place] [id number] Scanning, Provider Social History Tobacco Use Types Packs/Day Years Used Date Smoking Tobacco: Former Cigarettes Q uit: 01/02/2008 Smokeless Tobacco: Never Alcohol Use Standard Drinks/Week Comments Yes 1 (1 standard drink = 0.6 oz pur e alcohol) occassionally Comments Unknown Sex and Gender Information Value Date Recorded Sex Assigned at Not on file Legal Sex Female 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
--- OUTSIDE RECORDS SUMMARY | 2025-11-04 08:03 | XMS_ITS | Encounter Summary ---
Author Organization [facility] Address [address] [place] [address] Care Team Providers Care Smearer Name Role Phone Jaison Walton MD Primary Care Provide r No, Physician Primary Care Provider [phone] Jaison Walton MD Unavailable Jaison Walton MD Primary Care Provide r Encounter Details Date Type Department Care Team (Late st Contact Info) Description 06/25/2018 Orders Only [facility] [place] Information Management [address] [place] [id number] Scanning, Provider Social History Tobacco Use Types Packs/Day Years Used Date Smoking Tobacco: Former Cigarettes Q uit: 01/02/2008 Smokeless Tobacco: Never Alcohol Use Standard Drinks/Week Comments Yes 1 (1 standard drink = 0.6 oz pur e alcohol) occassionally Comments Unknown Sex and Gender Information Value Date Recorded Sex Assigned at Not on file Legal Sex Female 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
--- OUTSIDE RECORDS SUMMARY | 2025-11-04 08:03 | XMS_ITS | Encounter Summary ---
Author Organization [facility] Address [address] [place] [address] Care Team Providers Care Corporate Planner Name Role Phone No, Physician Primary Care Provider [phone] Jaison Walton MD Unavailable [phone] Jaison Walton MD Primary Care Provide r Encounter Details Date Type Department Care Team (Late st Contact Info) Description 10/18/2025 Results Follow-Up [facility] at [address] [address] Dank Dumont NP [address] [place] [address] [address] [place] [address] Urine culture Urine, clean voided Social History Tobacco Use Types Packs/Day Years [...] on file Legal Sex Female 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
--- OUTSIDE RECORDS SUMMARY | 2025-11-04 08:03 | XMS_ITS | Encounter Summary ---
Author Organization [facility] Address [address] [place] [address] Phone Care Team Providers Care Opinion Polls Survey Worker Name Role Phone Jaison Walton MD Primary Care Provider [phone] Encounter Details Date Type Department Care Team (Latest Contact Info) Description 08/31/2025 [facility] Ad[facility] [address] [place] [address] Yamilet Cobian, DIRECTOR STRATEGIC ACCOUNT MANAGEMENT, MECHANICAL ENGINEERING ADVISOR [address] 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
--- OUTSIDE RECORDS SUMMARY | 2025-11-04 08:03 | XMS_ITS | Clinical Summary ---
Author Organization [facility] Address [address] [place] [address] Care Team Providers Care Recyclable Products Sorter Name Role Phone aJison Walton MD Primary Care Provider [phone] Encounters Date Type Department Care Team Description 08/31/2025 [facility] [address] [place] [address] Yamilet Cobian APRN, CNP Epigastric pain (Primary Dx); Chronic atrophic gastritis without bleeding; Abnormal weight loss 08/23/2025 Transcribe Orders [facility] Central Scheduling [address] [place] [address] Yamilet Cobian APRN, CNP Epigastric pain (Primary Dx); Chronic atrophic gastritis without bleeding; Abnormal weight loss from Last 3 Months Social History Tobacco Use Types Packs/Day Years Used Date Smoking Tobacco: Never Assessed Comments Unknown Sex and Gender Information Value Date Recorded Sex Assigned at Not on file Legal Sex Female 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 Gender Identity Not on file Sexual Orientation [...] complete this topic Human Papillomavirus (HPV) Immunization (No Doses Required) Completed Meningococcal Immunization (ACWY) Aged Out No longer eligible based on patient's age to complete this topic Rotavirus Immunization Aged Out No lo nger eligible based on patient's age to [place] [address] [place] [address] MEDICARE [facility] Care Teams Recyclable Products Sorter Relationship Specialty Start Date End Date Jaison Walton MD [address] [place] [address] PCP - General Internal Medicine 07/29/25
--- OUTSIDE RECORDS SUMMARY | 2025-11-04 08:03 | XMS_ITS | Clinical Summary ---
Author Organization [facility] Address [address] [place] [address] Care Team Providers Care Academic Specialist Name Role Phone Jaison Walton MD Unavailable [phone] Jaison Walton MD Primary Care Provide r Allergies Active Allergy Reactions Criticality Noted Date Comments Iodine Rash Medium Iohexol Rash Medium 01/28/2024 Shellfish Itching Low 05/26/2020 Shellfish Derived Rash Medium [id number] Reductase Inhibitors Other (See comments) Low 03/05/2023 Elevated liver enzymes Sulfa (Sulfonamide Antibiotics) Rash Medium 01/28/2024 Medications ALPRAZolam (XANAX) 0.5 mg tablet take [...] DAILY 90 tablet 2 07/27/20 25 Active famotidine (PEPCID) 20 mg tablet Take 1 tablet (20 mg total) by mouth 2 (two) times a day 09/11/20 25 Active nystatin 100,000 unit/mL suspension SWISH AND SWALLOW 5 ML BY MOUTH FOUR TIMES DAILY FOR 7 DAYS 10/11/20 25 Active cephalexin (KEFLEX) 500 mg capsuleIndications: Cystitis with hematuria Take 1 capsule (500 mg total) by mouth 2 (two) times a day for 5 days 10 capsule 10/16/20 25 025 Active Problems Problem Noted Date Diagnosed Date Left hip pain 10/16/[address] scan, sigmoid colon 10/16/2025 Allergies 10/16/2025 Arthritis of carpometacarpal (CMC) joint of left thumb 10/16/2025 Arthritis of left knee 10/16/2025 Carpal tunnel syndrome of left wrist 10/16/2025 Change in bowel movement 10/16/2025 Colitis 10/16/2025 Community acquired pneumonia 10/16/2025 De Quervain's tenosynovitis, left 10/16/2025 Debility 10/16/2025 Depression 10/16/2025 Diverticulitis 10/16/2025 Elevated C-reactive protein (CRP) 10/16/2025 Hepatomegaly 10/16/2025 Hx of colonic polyps 10/16/2025 Hyperglycemia 10/16/2025 Hypokalemia 10/16/2025 Hyponatremia 10/16/2025 LLQ pain 10/16/2025 Mild dehydration 10/16/2025 Osteoporosis 10/16/2025 Otalgia of both ears 10/16/2025 Right knee pain 10/16/2025 SIADH (syndrome of inappropriate ADH production) 10/16/2025 Sigmoid diverticulitis 10/16/2025 Sinusitis 10/16/2025 Status post total knee replacement, right 2024 Subclinical hyperthyroidism 10/16/2025 TMJ (temporomandibular joint disorder) Transaminitis 10/16/2025 Vitamin D3 deficiency 10/16/2025 Wrist pain 10/16/2025 COPD (chronic obstructive pulmonary disease) HLD (hyperlipidemia) 10/16/2025 Heart disease 10/16/2025 HTN (hypertension) 10/16/2025 Acute dyspnea 10/16/2025 SOB (shortness of breath) 09/10/2023 Aortic atherosclerosis 07/08/2018 Hypertension 09/21/2014 Overview (02/20/2017): Hypertension Anxiety 09/21/2014 Overview (02/20/2017): Anxiety Alcohol abuse 09/21/2014 Overview (02/20/2017): Alcohol abuse Hyperlipidemia LDL goal <70 09/21/2014 Overview (02/20/2017): Hyperlipidemia Chronic obstructive pulmonary disease 09/21/2014 Overview (02/20/2017): COPD (chronic obstructive pulmonary disease) Gastroesophageal reflux disease 09/21/2014 Overview (02/20/2017): GERD (gastroesophageal reflux disease) Abdominal pain 10/07/2013 Diarrhea 10/07/2013 Essential hypertension, benign 11/07/2011 Pure hypercholesterolemia 11/07/2011 GERD (gastroesophageal reflux disease) 1 Encounters Date Type Department Care Team Description 11/01/2025 9:00 AM PER DIEM CLERK Office Visit [facility] Medical [facility] Cardiology at [address] [place] [address] Adin Rojo MD Aortic atherosclerosis (Primary Dx); Primary hypertension; Hyperlipidemia LDL goal <70; Alcohol abuse; Chronic obstructive pulmonary disease, unspecified COPD type (HCC) 10/18/2025 Results Follow-Up [facility] Care at [address] [id number] Dank Dumont NP Urine culture Urine, clean voided 10/16/2025 8:02 AM PER DIEM CLERK - 10/16/2025 11:59 PM PER DIEM [place] [address] Dysuria Discharge Disposition: Discharge to home or self care 10/16/2025 8:00 AM PER DIEM CLERK Office Visit [facility] Care at [address] [phone] Yazmin Torres NP Cystitis with hematuria (Primary Dx); Dysuria from Last 3 Months Immunizations Immunization Administration [...] 2000 Lumpectomy righ t breast/radiation Depression Hypertension Brain concussion 04/22/25 Chronic bronchitis (HCC) 2019 Family History Medical History Relation Name Comments Heart attack Father Glen Cummings Myocardial infa rction; COPD Mother Celestina Cummings Cancer Mother Celestina Cummings Heart disease Sister 1 Celestina Moody) Rickviviana Heart disease Sister 2 Celestina Moody) Niranjan Relation Name Status Comments Father Glen Cummings Mother Celestina Cummings Sister 1 Celestina Moody) Ricken Sister 2 Celestina Moody) Niranjan Alive Social [...] on file Legal Sex Female 3:26 AM PER DIEM CLERK Gender Identity Female 08/16/2020 12:31 PM CDT Sexual Orientation Not on file Last Filed Vital Signs Vital Sign Reading Time Taken Comments Blood Pressure 128/74 11/01/2025 8:55 AM PER DIEM CLERK Pulse 71 11/01/2025 8:55 AM PER DIEM CLERK Temperature 36.7 C (98.1 F) 10/16/2025 8:16 AM PER DIEM CLERK Respiratory Rate 18 10/16/2025 8:16 AM PER DIEM CLERK Oxygen Saturation 97% 11/01/2025 8:55 AM PER DIEM CLERK Inhaled Oxygen Concentration - - Weight 64 kg (141 lb) 11/01/2025 8:55 AM PER DIEM CLERK Height 162.6 cm (5' 4) 11/01/2025 8:55 AM PER DIEM CLERK Body Mass Index 24.2 11/01/2025 8:55 AM PER DIEM CLERK Plan of Treatment Health Maintenance Due Date Last Done Comments Depression Screening 1945 Fall Risk Assessment 1945 Hepatitis C Screening 1945 Hepatitis B Screening 1965 Well Visit 65+ 2012 Osteoporosis Screening-Bone Density Scan 05/05/2014 05/05/2012 Influenza Vaccine (#1) 2025 2, 08/15/2019, 09/30/2018, Additional history exists DTaP/Tdap/Td Vaccine (4 - Td or Tdap) 04/22/2035 04/22/2025, 08/19/2019, 11/19/2010 Pneumococcal vaccine 65+ Completed 015, 12/18/2008, 08/27/2007 Breast Cancer Screening-Mammogram Discontinued 04/22/2019, 03/26/2018, 03/25/2017, Additional history exists Zoster Vaccine Completed 08/01/2020, 10/17, 10/28/2019, Additional history exists Procedures Procedure Name Priority Date/Time Associated Diagnosis Comments URINE CULTURE Routine 10/16/2025 1:52 PM PER DIEM CLERK Dysuria POCT URINALYSIS DIPSTICK Routine 10/16/2025 8:19 AM PER DIEM CLERK Dysuria from Last 3 Months Results * Urine culture Urine, clean voided (10/16/2025 1:52 PM PER DIEM CLERK) Report Final Report: Less than 100,000 colonies/mL (clinically insignificant growth based on current clinical standards) Comment:Testing performed by : [facility], [address] [place]., [address] Organism (CLINICALLY INSIGNIFICANT GROWTH BIBI Urine, clean voided 10/16/2025 1:52 PM PER DIEM CLERK 10/16/2025 3:52 PM PER DIEM CLERK Narrative BIBI - 10/17/2025 6:24 PM PER DIEM CLERK Testing performed by [facility] Microbiology Laboratory ([phone]) us Yazmin Torres NP LAB MICROBIOLOGY - GENERAL ORDERABLES Final Result BIBI [id number] Department [place] [address] * (ABNORMAL) POCT urinalysis dipstick (10/16/2025 8:19 AM PER DIEM CLERK) Color, Urine, POC Light Yellow Clarity, ur, POC Clear Clear Glucose, ur, POC Negative Negative Bilirubin, ur, POC Negative Negative Ketones, ur, POC Negative Negative Specific [place], POC 1.015 1.003 - 1.030 Blood, ur, POC Hemolyzed, trace(A) Negative pH, ur, POC 7.0 5.0 - 8.0 Protein, ur, POC Negative Negative Urobilinogen, urine, POC 0.2 0.2 - 1.0 mg/dL Nitrite, ur, POC Negative Negative Leukocytes, ur, POC Small(A) Negative Lot Number [id number] Urine 10/16/2025 8:19 AM PER DIEM CLERK Yazmin Torres NP POINT OF CARE TEST ORDERABL ES Final Result from Last [address] [place] [address] MEDICARE [place] [address] FOR LIFE Care Teams Academic Specialist Relationship Specialty Start Date End Date Jaison Walton MD [address] [place] [address] PCP - General Emergency Medicine 11/01/25 Jaison Walton MD [address] [place] [address] 04/22/25
--- OUTSIDE RECORDS SUMMARY | 2025-11-04 08:03 | XMS_ITS | Clinical Summary ---
Author Organization [facility] Address [address] [place] [address] Care Team Providers Care Forms Examiner Name Role Phone Unavailable Primary Care Provider Unavailabl e Source Comments [facility],non-owned Affiliates and Associated Physician Practices is amultiple site organization consisting of ambulatory clinics and hospital sitesin [place], [place], [place] and [place]. This disclosure is being madepursuant to the Care Everywhere program and may not contain all information available regarding this patient. 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
== END 2025-11-04 07:57 | disposition home or self-care (01) ==
LOC: ANHAUDASC 07:57
PROVIDERS: PCP Emergency Medicine; Visit Provider Otolaryngology Otolaryngology/Facial Plastic Surgery
DX: H90.3 Sensorineural hearing loss, bilateral (principal)
CPT/HCPCS: 92557; 92567